=== PATIENT | female | born 1960 | race Caucasian/White ===

== ENCOUNTER 2022-11-14 19:05 | Inpatient (IN) | payer OTHER ==
[2022-11-14] MEDS ORDERED: methylPREDNISolone SOD SUCCI 125 MG/2 ML VIAL IV STA (19:29)
[2022-11-14] MEDS ORDERED: IPRATROPIUM-ALBUTEROL 3 ML NEB INHALATION STA ×2 (19:29→19:30)
--- NOTE | 2022-11-14 19:53 | ED ---
General Adult HPI - General Chief complaint: Shortness of Breath Stated complaint: RODDY,Hyperglycemic Time Seen by Provider: 11/14/22 19:17 Source: patient, EMS, RN notes reviewed, old records reviewed Mode of arrival: EMS Limitations: no limitations - History of Present Illness Initial comments: Patient is a 61-year-old female with significant cardiac past medical history, on blood thinners for prior blood clots, poorly controlled diabetes who presents emergency department for a few days of worsening shortness of breath. Denies cough. Endorses chronic lower extremity edema that does not seem worse from baseline. Endorses mild orthopnea. Denies PND. Please of might be her COPD versus heart failure. States she occasionally gets generalized chest tightness that seems sicker COPD when breathing hard but currently has no chest pain. Denies any nausea, vomiting, abdominal pain, diarrhea. No fevers or chills. No known sick contacts. Denies any hematochezia, melena. Denies any hematemesis. Has no other acute complaints at this time. Presents for shortness of breath. Blood sugars also found to be elevated field. Is not normally on oxygen. - Related Data Home Medications Medication Instructions Recorded Confirmed Albuterol Nebulized [Ventolin 2.5 mg INHALATION RT-Q6H PRN 11/14/22 11/14/22 Nebulized] Albuterol Sulfate [Albuterol 2 puff PO RT-Q4H PRN 11/14/22 11/14/22 Sulfate Hfa] Amitriptyline HCl [Elavil] 25 mg PO HS 11/14/22 11/14/22 Aspirin EC [Ecotrin Low Dose] 81 mg PO DAILY 11/14/22 11/14/22 Atorvastatin Calcium [Lipitor] 80 mg PO HS 11/14/22 11/14/22 Canagliflozin [Invokana] 100 mg PO DAILY 11/14/22 11/14/22 Clopidogrel [Plavix] 75 mg PO DAILY 11/14/22 11/14/22 Escitalopram [Lexapro] 20 mg PO DAILY 11/14/22 11/14/22 Furosemide [Lasix] 40 mg PO DAILY 11/14/22 11/14/22 Insulin Glargine,Hum.rec.anlog 36 units SQ HS 11/14/22 11/14/22 [Lantus Solostar Pen] Insulin Lispro [humaLOG Kwikpen] 4 unit SQ AC-TID 11/14/22 11/14/22 Losartan [Cozaar] 25 mg PO DAILY 11/14/22 11/14/22 Magnesium Oxide [Mag-Ox] 400 mg PO DAILY 11/14/22 11/14/22 Montelukast Sodium 10 mg PO HS 11/14/22 11/14/22 Gardiner-3 Fatty Acids [Gardiner-3] 1,000 mg PO DAILY 11/14/22 11/14/22 Rivaroxaban [Xarelto] 2.5 mg PO BID 11/14/22 11/14/22 metFORMIN HCL ER [Glucophage XR] 500 mg PO BID 11/14/22 11/14/22 Allergies Allergy/AdvReac Type Severity Reaction Status Date / Time cephalexin [From Keflex] Allergy Rash/Hives Verified 11/14/22 21:40 Review of Systems ROS Statement: Those systems with pertinent positive or pertinent negative responses have been documented in the HPI. Review of Systems: CONST: Denies fever EYES: Denies blurry vision ENT: Denies nasal congestion C/V: Denies Chest pain RESP: Endorses dyspnea GI: Denies abdominal pain : Denies dysuria SKIN: Denies rash. MSK: Denies joint pain. NEURO: Denies headache ROS Other: All systems not noted in ROS Statement are negative. 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 Past Psychological History: Anxiety, Depression Smoking Status: Former smoker Past Alcohol Use History: None Reported Past Drug Use History: None Reported General Exam - General Exam Comments Initial Comments: General: Appears in no acute distress. HEAD: Normal with no signs of head trauma. EYES: PERRLA, EOMI, conjunctiva normal, no discharge. ENT: Hearing grossly intact, normal oropharynx. RESPIRATORY: Crackles and bilateral end expiratory wheezing present. Hypoxia present. Mild increased work of breathing. C/V: Regular rate and rhythm. S1 and S2 auscultated, mild bilateral lower extremity edema, peripheral pulses 2+ and intact throughout ABD: Abd is soft, nontender, nondistended EXT: Normal range of motion, no obvious deformity SKIN: No rashes or lesions observed on exposed skin. NEURO: Alert and oriented 4. Limitations: no limitations Course Vital Signs 11/14/22 11/14/22 11/14/22 19:06 19:18 19:40 Temperature 97.6 F Pulse Rate 103 H 103 H Respiratory 20 20 Rate Blood Pressure 111/52 O2 Sat by Pulse 90 L Oximetry 11/14/22 11/14/22 11/14/22 19:59 20:00 20:14 Temperature 99 F Pulse Rate 104 H 95 100 Respiratory 18 16 Rate Blood Pressure 111/52 129/84 O2 Sat by Pulse 99 98 Oximetry 11/14/22 22:00 Temperature Pulse Rate Respiratory Rate Blood Pressure O2 Sat by Pulse 97 Oximetry Medical Decision Making - Medical Decision Making Was pt. sent in by a medical professional or institution ([facility], [employer], urgent care, hospital, or [facility]...) When possible be specific @ -No Did you speak to anyone other than the patient for history (EMS, parent, family, police, friend...)? What history was obtained from this source @ -No Did you review nursing and triage notes (agree or disagree)? Why? @ -I reviewed and agree with nursing and triage notes Were old charts reviewed (outside hosp., previous admission, EMS record, old EKG, old radiological studies, urgent care reports/EKG's, [facility] records)? Report findings @ -Old charts reviewed. Differential Diagnosis (chest pain, altered mental status, abdominal pain women, abdominal pain men, vaginal bleeding, weakness, fever, dyspnea, syncope, headache, dizziness, GI bleed, back pain, seizure, CVA, palpatations, mental health, musculoskeletal)? @ -Differential Dyspnea: Coronary syndrome, arrhythmia, tamponade, asthma, COPD, pulmonary embolism, pneumonia, pneumothorax, pulmonary effusion, anaphylaxis, diabetic ketoacidosis, flailed chest, pulmonary contusion, diaphragmatic rupture, anemia, neuromuscular, this is not meant to be an all-inclusive list. EKG interpreted by me (3pts min.). @ -As above X-rays interpreted by me (1pt min.). @ -Chest x-ray reveals findings concerning for bilateral pulmonary vascular congestion and CHF. CT interpreted by me (1pt min.). @ -None done U/S interpreted by me (1pt. min.). @ -None done What testing was considered but not performed or refused? (CT, X-rays, U/S, labs)? Why? @ -None What meds were considered but not given or refused? Why? @ -None Did you discuss the management of the patient with other professionals (professionals i.e. , PA, IND[employer] TE[employer]ER, lab, RT, psych nurse, social media project manager, headmaster/mistress, teacher, commanding officer traffic division, case finisher)? Give summary @ -Discussed with Dr. olmstead who accepted the admission. Was smoking cessation discussed for >3mins.? @ -No Was critical care preformed (if so, how long)? @ -Yes, 36 minutes. Were there social determinants of health that impacted care today? How? (Homelessness, low income, unemployed, alcoholism, drug addiction, transportation, low edu. Level, literacy, decrease access to med. care, fdc, rehab)? @ -No Was there de-escalation of care discussed even if they declined (Discuss DNR or withdrawal of care, Hospice)? DNR status @ -No What co-morbidities impacted this encounter? (DM, HTN, Smoking, COPD, CAD, C ancer, CVA, ARF, Chemo, Hep., AIDS, mental health diagnosis, sleep apnea, morbid obesity)? @ -CHF, diabetes, hypertension, COPD Was patient admitted / discharged? Hospital course, mention meds given and route, prescriptions, significant lab abnormalities, going to OR and other pertinent info. @ -Based on patient's presentation and physical exam, presents in hypoxic respiratory failure likely either from COPD or CHF exacerbation. Also has poorly controlled diabetes. We will obtain cardiopulmonary laboratory studies. She was placed on 2 L nasal cannula oxygen which seems to resolve her symptoms. Initially more wheezing and therefore was administered breathing treatments for therapy. I signs otherwise within acceptable limits. Patient was in agreement with plan for workup. EKG showed no signs of ischemia. Chest x-ray concerning for CHF. Labs show a hemoglobin of 7.9 of unknown chronicity. No obvious evidence of bleeding on rectal exam. No gross blood on rectal exam. FOB T negative. BNP is 7900. The remainder of the labs within acceptable limits. Acetone is positive the patient does not have an anion gap at this time therefore no concern for DKA. Patiently administered IV insulin. She will be started on IV Lasix. Echo ordered. Discussed this with the patient. She was in agreement with the plan. She'll be admitted at this time for hypoxic respiratory failure likely secondary to CHF exacerbation. I spoke with the admitting physician, Dr. olmstead who accepted the patient. Undiagnosed new problem with uncertain prognosis? @ -No Drug Therapy requiring intensive monitoring for toxicity (Heparin, Nitro, Insulin, Cardizem)? @ -No Were any procedures done? @ -No Diagnosis/symptom? @ -Hypoxic respiratory failure, likely secondary to CHF versus COPD Acute, or Chronic, or Acute on Chronic? @ -Acute Uncomplicated (without systemic symptoms) or Complicated (systemic symptoms)? @ -Complicated Side effects of treatment? @ -No Exacerbation, Progression, or Severe Exacerbation? @ -Yes Poses a threat to life or bodily function? How? (Chest pain, [place], [place], pneumonia, PE, COPD, DKA, ARF, appy, cholecystitis, CVA, Diverticulitis, Homicidal, Suicidal, threat to staff... and all critical care pts) @ -Yes Diagnosis/symptom? @ -Hyperglycemia in the setting of poorly controlled diabetes Acute, or Chronic, or Acute on Chronic? @ -Acute Uncomplicated (without systemic symptoms) or Complicated (systemic symptoms)? @ -Uncomplicated Side effects of treatment? @ -none Exacerbation, Progression, or Severe Exacerbation] @ -no Poses a threat to life or bodily function? @ -Yes Diagnosis/symptom? @ -Anemia Acute, or Chronic, or Acute on Chronic? @ -Unknown Uncomplicated (without systemic symptoms) or Complicated (systemic symptoms)? @ -Uncomplicated Side effects of treatment? @ -none Exacerbation, Progression, or Severe Exacerbation] @ -no Poses a threat to life or bodily function? @ -no - Lab Data Result diagrams: 11/14/22 19:50 11/14/22 19:50 Lab Results 11/14/22 11/14/22 11/14/22 Range/Units 19:50 19:50 19:50 WBC 10.4 (3.8-10.6) k/uL RBC 3.21 L (3.80-5.40) m/uL Hgb 7.9 L (11.4-16.0) gm/dL Hct 25.9 L (34.0-46.0) % MCV 80.7 (80.0-100.0) fL MCH 24.6 L (25.0-35.0) pg MCHC 30.4 L (31.0-37.0) g/dL RDW 19.8 H (11.5-15.5) % Plt Count 236 (150-450) k/uL MPV 8.0 Neutrophils % 90 % Lymphocytes % 5 % Monocytes % 3 % Eosinophils % 1 % Basophils % 0 % Neutrophils # 9.4 H (1.3-7.7) k/uL Lymphocytes # 0.5 L (1.0-4.8) k/uL Monocytes # 0.3 (0-1.0) k/uL Eosinophils # 0.1 (0-0.7) k/uL Basophils # 0.0 (0-0.2) k/uL Hypochromasia Marked Anisocytosis Slight Microcytosis Slight PT (9.0-12.0) sec INR (<1.2) APTT (22.0-30.0) sec Sodium 134 L (137-145) mmol/L Potassium 4.5 (3.5-5.1) mmol/L Chloride 100 (98-107) mmol/L Carbon Dioxide 19 L (22-30) mmol/L Anion Gap 15 mmol/L BUN 41 H (7-17) mg/dL Creatinine 1.09 H (0.52-1.04) mg/dL Est GFR (CKD-EPI)AfAm 64 (>60 ml/min/1.73 sqM) Est GFR (CKD-EPI)NonAf 56 (>60 ml/min/1.73 sqM) Glucose 446 H (74-99) mg/dL Calcium 8.4 (8.4-10.2) mg/dL Magnesium 2.4 H (1.6-2.3) mg/dL Total Bilirubin 0.6 (0.2-1.3) mg/dL AST 31 (14-36) U/L ALT 23 (4-34) U/L Alkaline Phosphatase 92 (38-126) U/L NT-Pro-B Natriuret Pep 7920 pg/mL Total Protein 6.7 (6.3-8.2) g/dL Albumin 3.4 L (3.5-5.0) g/dL Stool Occult Blood (Negative) Acetone, Qual Positive (Negative) Influenza Type A (PCR) Not Detected (Not Detectd) Influenza Type B (PCR) Not Detected (Not Detectd) RSV (PCR) Not Detected (Not Detectd) SARS-CoV-2 (PCR) Not Detected (Not Detectd) 11/14/22 11/14/22 Range/Units 20:21 21:13 WBC (3.8-10.6) k/uL RBC (3.80-5.40) m/uL Hgb (11.4-16.0) gm/dL Hct (34.0-46.0) % MCV (80.0-100.0) fL MCH (25.0-35.0) pg MCHC (31.0-37.0) g/dL RDW (11.5-15.5) % Plt Count (150-450) k/uL MPV Neutrophils % % Lymphocytes % % Monocytes % % Eosinophils % % Basophils % % Neutrophils # (1.3-7.7) k/uL Lymphocytes # (1.0-4.8) k/uL Monocytes # (0-1.0) k/uL Eosinophils # (0-0.7) k/uL Basophils # (0-0.2) k/uL Hypochromasia Anisocytosis Microcytosis PT 10.6 (9.0-12.0) sec INR 1.0 (<1.2) APTT 25.1 (22.0-30.0) sec Sodium (137-145) mmol/L Potassium (3.5-5.1) mmol/L Chloride (98-107) mmol/L Carbon Dioxide (22-30) mmol/L Anion Gap mmol/L BUN (7-17) mg/dL Creatinine (0.52-1.04) mg/dL Est GFR (CKD-EPI)AfAm (>60 ml/min/1.73 sqM) Est GFR (CKD-EPI)NonAf (>60 ml/min/1.73 sqM) Glucose (74-99) mg/dL Calcium (8.4-10.2) mg/dL Magnesium (1.6-2.3) mg/dL Total Bilirubin (0.2-1.3) mg/dL AST (14-36) U/L ALT (4-34) U/L Alkaline Phosphatase (38-126) U/L NT-Pro-B Natriuret Pep pg/mL Total Protein (6.3-8.2) g/dL Albumin (3.5-5.0) g/dL Stool Occult Blood Negative (Negative) Acetone, Qual (Negative) Influenza Type A (PCR) (Not Detectd) Influenza Type B (PCR) (Not Detectd) RSV (PCR) (Not Detectd) SARS-CoV-2 (PCR) (Not Detectd) - EKG Data -: EKG Interpreted by Me EKG Comments: 12-lead Electrocardiogram Interpretation Note EKG was reviewed and interpreted by myself. 12-lead ECG performed at 1919 is interpreted by me as revealing sinus tachycardia at a rate of 104 beats per minute. [place] is normal. MD interval is 167 ms, QRS duration is 92 ms, QTc is 404 ms.. There were no ST or T wave abnormalities to suggest myocardial ischemia or injury. R wave progression across the precordium was satisfactory. By my interpretation this EKG is non-diagnostic for acute ischemia. Critical Care Time Critical Care Time: Yes Total Critical Care Time: 36 Disposition Clinical Impression: Acute respiratory failure with hypoxia, Congestive heart failure, COPD (chronic obstructive pulmonary disease), Anemia, Hyperglycemia Disposition: ADMITTED IP TO THIS HOSP Condition: Stable Is patient prescribed a controlled substance at d/c from ED?: No Referrals: None,Stated [REFERRING] - 1-2 days Time of Disposition: 22:35
[2022-11-14 20:02] LABS: Anisocytosis Slight; Basophils % (A) 0 %; Eosinophils # (A) 0.1 k/uL (0-0.7); Eosinophils % (A) 1 %; HCT 25.9 % (34.0-46.0); HGB 7.9 gm/dL (11.4-16.0); Hypochromasia Marked; Lymphocytes # (A) 0.5 k/uL (1.0-4.8); Lymphocytes % (A) 5 %; MCH 24.6 pg (25.0-35.0); MCHC 30.4 g/dL (31.0-37.0); MCV 80.7 fL (80.0-100.0); Microcytosis Slight; Monocytes # (A) 0.3 k/uL (0-1.0); Monocytes % (A) 3 %; Neutrophils # (A) 9.4 k/uL (1.3-7.7); Neutrophils % (A) 90 %; Platelet Count 236 k/uL (150-450); RBC 3.21 m/uL (3.80-5.40); RDW 19.8 % (11.5-15.5); WBC 10.4 k/uL (3.8-10.6)
[2022-11-14 20:15] LABS: ALT 23 U/L (4-34); AST 31 U/L (14-36); African American GFR (CKD) 64 (>60 ml/min/1.73 sqM); Albumin 3.4 g/dL (3.5-5.0); Alkaline Phosphatase 92 U/L (38-126); Anion Gap 15 mmol/L; Blood Urea Nitrogen 41 mg/dL (7-17); Calcium 8.4 mg/dL (8.4-10.2); Carbon Dioxide 19 mmol/L (22-30); Chloride 100 mmol/L (98-107); Glucose 446 mg/dL (74-99); Magnesium 2.4 mg/dL (1.6-2.3); Non-African American GFR(CKD) 56 (>60 ml/min/1.73 sqM); Potassium 4.5 mmol/L (3.5-5.1); Sodium 134 mmol/L (137-145); Total Bilirubin 0.6 mg/dL (0.2-1.3); Total Protein 6.7 g/dL (6.3-8.2)
[2022-11-14 20:24] LABS: NT-Pro-B-Type Natriuretic Pept 7920 pg/mL
--- NOTE | 2022-11-14 21:02 | XR ---
EXAMINATION TYPE: XR chest 2V DATE OF EXAM: 11/14/2022 8:29 PM CLINICAL INDICATION:Female, 61 years old with history of difficulty breathing; PHH COMPARISON: None TECHNIQUE: XR chest 2V Frontal and lateral views of the chest. FINDINGS: Lungs/Pleura: There is no evidence of pleural effusion, focal consolidation, or pneumothorax. Pulmonary vascularity: Pulmonary vascular congestion. Heart/mediastinum: Cardiomediastinal silhouette is unremarkable. Musculoskeletal: No acute osseous pathology. IMPRESSION: Low lung volumes with a generalized hazy appearance which could represent atelectasis versus pulmonar y edema correlate with serum BNP.
[2022-11-14] MEDS ORDERED: FUROSEMIDE 10 MG/ML 4 ML VIAL IV STA (21:39)
[2022-11-14 22:01] LABS: Partial Thromboplastin Time 25.1 sec (22.0-30.0); Prothrombin Time 10.6 sec (9.0-12.0)
[2022-11-14] MEDS ORDERED: INSULIN DETEMIR (LEVEMIR) 100 UNIT/ML SYR SQ SCH (23:00)
[2022-11-14] MEDS ORDERED: DEXTROSE 50% SYRINGE 50 ML IVP PRN ×2 (23:01)
[2022-11-14] MEDS ORDERED: NALOXONE 0.4 MG/ML 1 ML VIAL IV PRN (23:01)
[2022-11-14 23:41] LABS: Glucose,Whole Blood 514 mg/dL (70-110)
[2022-11-14] MEDS: RIVAROXABAN 2.5 MG TABLET PO SCH (23:43)
[2022-11-15] MEDS: IPRATROPIUM-ALBUTEROL 3 ML NEB INHALATION SCH ×6 (00:08→20:31)
[2022-11-15 02:56] LABS: Glucose,Whole Blood 550 mg/dL (70-110)
[2022-11-15 02:56] LABS: Glucose,Whole Blood 568 mg/dL (70-110)
[2022-11-15] MEDS ORDERED: ACETAMINOPHEN TAB 325 MG TAB PO STA (06:55)
[2022-11-15 07:03] LABS: Anisocytosis Slight; Basophils % (A) 0 %; Eosinophils % (A) 0 %; HCT 26.8 % (34.0-46.0); HGB 7.9 gm/dL (11.4-16.0); Hypochromasia Marked; Lymphocytes # (A) 0.4 k/uL (1.0-4.8); Lymphocytes % (A) 4 %; MCH 24.9 pg (25.0-35.0); MCHC 29.6 g/dL (31.0-37.0); MCV 84.2 fL (80.0-100.0); Mean Platelet Volume 9.5; Monocytes # (A) 0.1 k/uL (0-1.0); Monocytes % (A) 1 %; Neutrophils # (A) 9.4 k/uL (1.3-7.7); Neutrophils % (A) 94 %; Platelet Count 258 k/uL (150-450); RBC 3.19 m/uL (3.80-5.40); RDW 19.5 % (11.5-15.5)
[2022-11-15 07:14] LABS: African American GFR (CKD) 55 (>60 ml/min/1.73 sqM); Anion Gap 19 mmol/L; Blood Urea Nitrogen 41 mg/dL (7-17); Calcium 8.8 mg/dL (8.4-10.2); Carbon Dioxide 18 mmol/L (22-30); Chloride 97 mmol/L (98-107); Non-African American GFR(CKD) 47 (>60 ml/min/1.73 sqM); Sodium 134 mmol/L (137-145)
[2022-11-15 07:20] LABS: Glucose 605 mg/dL (74-99)
[2022-11-15] MEDS ORDERED: INSULIN ASPART (NovoLOG) 100 UNIT/ML VIAL SQ SCH (07:30)
[2022-11-15] MEDS ORDERED: LOSARTAN 25 MG TAB PO SCH (09:00)
[2022-11-15] MEDS ORDERED: metFORMIN 500 MG TAB PO SCH (09:00)
[2022-11-15] MEDS ORDERED: Potassium Replacement Protocol 1 EACH MISC MISCELLANE PRN (09:17)
[2022-11-15] MEDS ORDERED: INSULIN REGULAR BOLUS (FROM DRIP BAG) IV ONE (09:17)
[2022-11-15] MEDS ORDERED: Magnesium Replacement Protocol 1 EACH MISC MISCELLANE PRN (09:17)
[2022-11-15] MEDS ORDERED: ALBUTEROL NEBULIZED 2.5 MG/3 ML INHALATION PRN ×2 (09:19)
[2022-11-15] MEDS ORDERED: INSULIN REGULAR 100 UNIT in SODIUM CHLORIDE 0.9% 100 ML IV SCH (09:30)
[2022-11-15] MEDS ORDERED: SODIUM CHLORIDE 0.9% 1,000 ML IV SCH (09:30)
--- NOTE | 2022-11-15 09:52 | CA ---
Transthoracic Echo Report Name: Latrice Marin Age: 61 Gender: F : 1960 Exam Date: 11/15/2022 08:29 Exam Location: [place] [facility] Ht (in): 66 Wt (lb): 277 Ordering Physician: Oren Jones MD Attending/Referring Phys: Malariologist Lisa Lemon [facility] Procedure CPT: Indications: chf Cardiac Hx: Technical Quality: Technically difficult study Contrast 1: Lumason Total Dose (mL): 5 Contrast 2: Total Dose (mL): MEASUREMENTS (Male / Female) Normal Values 2D ECHO LV Diastolic Diameter PLAX 4.9 cm 4.2 - 5.9 / 3.9 - 5.3 cm LV Systolic Diameter PLAX 4.0 cm IVS Diastolic Thickness 1.1 cm 0.6 - 1.0 / 0.6 - 0.9 cm LVPW Diastolic Thickness 1.0 cm 0.6 - 1.0 / 0.6 - 0.9 cm LV Relative Wall Thickness 0.4 LVOT Diameter 2.0 cm LV Diastolic Volume MOD BP 157.4 cm??? 67 - 155 / 56 - 104 cm??? LV Systolic Volume MOD BP 114.0 cm??? 22 - 58 / 19 - 49 cm??? LV Ejection Fraction MOD BP 27.6 % >= 55 % LV Cardiac Index MOD BP 1764.5 cm???/min???m??? LV Diastolic Volume MOD 4C 142.1 cm??? LV Systolic Volume MOD 4C 101.6 cm??? LV Ejection Fraction MOD 4C 28.5 % LV Cardiac Index MOD 4C 1645.5 cm???/min???m??? LV Diastolic Length 4C 9.1 cm LV Systolic Length 4C 8.1 cm LV Diastolic Volume MOD 2C 169.8 cm??? LV Systolic Volume MOD 2C 124.2 cm??? LV Ejection Fraction MOD 2C 26.9 % LV Cardiac Index MOD 2C 1854.9 cm???/min???m??? LV Diastolic Length 2C 8.7 cm LV Systolic Length 2C 8.4 cm M-MODE Aortic Root Diameter MM 2.9 cm LA Systolic Diameter MM 4.5 cm LA Ao Ratio MM 1.6 AV Cusp Separation MM 1.5 cm DOPPLER AV Peak Velocity 239.9 cm/s AV Peak Gradient 23.0 mmHg AV Mean Velocity 180.6 cm/s AV Mean Gradient 14.3 mmHg AV Velocity Time Integral 46.5 cm LVOT Peak Velocity 138.0 cm/s LVOT Peak Gradient 7.6 mmHg LVOT Velocity Time Integral 25.6 cm LVOT Stroke Volume 83.6 cm??? LVOT Stroke Volume Index 36.4 ml/m??? LVOT Cardiac Index 3393.9 cm???/min???m??? AV Area Cont Eq vti 1.8 cm??? AV Area Cont Eq pk 1.9 cm??? MV Peak Velocity 151.4 cm/s MV Peak Gradient 9.2 mmHg MV Mean Velocity 107.1 cm/s MV Mean Gradient 5.1 mmHg MV Velocity Time Integral 25.6 cm MR Peak Velocity 506.5 cm/s MR Peak Gradient 102.6 mmHg Mitral E Point Velocity 114.2 cm/s Mitral A Point Velocity 127.6 cm/s Mitral E to A Ratio 0.9 MV Deceleration Time 93.4 ms LV E' Lateral Velocity 5.8 cm/s Mitral E to LV E' Lateral Ratio 19.7 LV E' Septal Velocity 7.0 cm/s Mitral E to LV E' Septal Ratio 16.3 Right Atrial Pressure 15.0 mmHg FINDINGS Left Ventricle Mildly increased left ventricular wall thickness. Severely increased left ventricular diastolic volume. Severely increased left ventricular systolic volume. Severely decreased left ventricular ejection fraction. Left ventricular ejection fraction is estimated at 35 %. Hypokinetic mid anterior wall. [place] hypokinetic. Hypokinetic distal apical anterior wall. Right Ventricle Mild right ventricular dilatation. Right Atrium Normal right atrial size. Left Atrium Mild left atrial dilatation. Mitral Valve Structurally normal mitral valve. Mitral valve thickened. Moderate mitral regurgitation. Aortic Valve Aortic valve not well visualized. Diffuse thickening of the aortic valve cusps with reduced excursion. Mild aortic stenosis with a peak gradient of 23 mmHg and a mean gradient of 14 mmHg. No aortic regurgitation. Tricuspid Valve Structurally normal tricuspid valve. No tricuspid regurgitation. Pulmonic Valve Pulmonic valve not well visualized. Pericardium No pericardial effusion. Aorta Aortic root and proximal ascending aorta not well visualized. CONCLUSIONS Left ventricle is enlarged with evidence of hypokinesia of interventricular septum and anterior wall and apex with ejection fraction of about 35%. Mild right ventricular dilatation. Increased velocity across aortic valve with possible mild aortic stenosis. Moderate mitral regurgitation and mild tricuspid regurgitation. No pericardial effusion Previewed by: Dr. Daniel Mackay MD (Electronically Signed) Final Date: 15 November 2022 09:51
[2022-11-15 10:13] LABS: VBG PH 7.42 (7.31-7.41)
[2022-11-15 10:26] LABS: Glucose,Whole Blood 505 mg/dL (70-110)
[2022-11-15] MEDS: FAMOTIDINE 20 MG TAB PO SCH (10:31)
[2022-11-15] MEDS: ASPIRIN 81 MG PO SCH (10:31)
[2022-11-15] MEDS: CLOPIDOGREL 75 MG TAB PO SCH (10:31)
[2022-11-15] MEDS: RIVAROXABAN 2.5 MG TABLET PO SCH (10:32)
[2022-11-15] MEDS: FUROSEMIDE 10 MG/ML 4 ML VIAL IV SCH ×2 (10:57→21:52)
[2022-11-15 11:19] LABS: Glucose,Whole Blood 423 mg/dL (70-110)
[2022-11-15] MEDS: ACETAMINOPHEN TAB 325 MG TAB PO PRN (12:04)
[2022-11-15 12:11] LABS: Glucose,Whole Blood 351 mg/dL (70-110)
[2022-11-15] MEDS ORDERED: HEPARIN SOD,PORK IN 0.45% NACL 25,000 UNIT in 0.45% NACL 1 250ML.BAG IV SCH (13:00)
[2022-11-15] MEDS ORDERED: HEPARIN SODIUM 1,000 UN/ML (10ML VL) IV ONE (13:00)
--- NOTE | 2022-11-15 13:03 | P.CRDCN ---
History of Present Illness Consult date: 11/15/22 Consult reason: congestive heart failure History of present illness: History of present illness: This is This is a 61-year-old female with past medical history of coronary artery disease with previous stenting, peripheral vascular disease with p eripheral stents and bypass, diabetes mellitus type 2 insulin requiring, COPD. We have been asked to evaluate the patient for heart failure. Patient follows with lbd teacher, Dr. Clancy, in [place]. She recently moved to [facility]. She states she has had difficulty breathing for the past 1-1/2 days and tightness across her chest. EKG sinus tachycardia with no acute changes. Chest x-ray: Low lung volumes with generalized hazy appearance which could represent atelectasis versus pulmonary edema. WBC 10, hemoglobin 7.9, platelet count 258. D-dimer 0.45. Sodium 134, potassium 5, chloride 97, CO2 18, BUN 41 creatinine 1.25. Blood sugar 605. Acetone positive. Troponin 1.72. ProBNP 7920. Influenza A, influenza B, RSV, Covid not detected. Echocardiogram reveals EF of 35%. Mild right ventricular dilation. Increased velocity across aortic valve with possible mild aortic stenosis. Moderate mitral regurgitation and mild tricuspid regurgitation. Home cardiac medications: Aspirin 81 mg daily, atorvastatin 80 mg at bedtime, Plavix 75 mg daily, Lasix 40 mg daily, losartan 25 mg daily, magnesium oxide 400 mg daily, Xarelto 2.5 mg twice daily. Review Of Systems: At the time of my evaluation: Constitutional: No fever, no chills. No weakness, fatigue or lethargy. EENT: No headache. No dizziness. Lungs: + shortness of breath, cough, no sputum production. No wheezing. + TEE. Cardiovascular: + chest pain, no lower extremity edema. No palpitations. No paroxysmal nocturnal dyspnea. No orthopnea. No lightheadedness or dizziness. No syncopal episodes. Abdominal: No abdominal pain. No nausea, vomiting. No diarrhea. No constipation. No bloody or tarry stools. Musculoskeletal: No myalgias. No muscle weakness, no frequent falls. Integumentary: No wounds. No rash. No unusual bruising. Neurologic: No aphasia. No facial droop. No change in mentation. Physical examination: Gen: This is a morbidly obese female. She is resting on ER stretch and appears to be comfortable at rest. No acute respiratory distress noted. VS: reviewed HEENT: Head is atraumatic, normocephalic. Pupils equal, round. Sclerae is anicteric. NECK: Supple. No JVD. . LUNGS: Diminished. No wheezes or rhonchi. No intercostal retractions. HEART: Regular rate and rhythm. Systolic murmur. ABDOMEN: Soft No tenderness. EXTREMITIES: No pedal edema. No calf tenderness. NEUROLOGICAL: Patient is awake, alert and oriented x3. Assessment: Acute systolic heart failure Non-ST elevated myocardial infarction Diabetic ketoacidosis History of coronary artery disease with prior stenting Peripheral vascular disease with prior stenting and bypass Diabetes mellitus type 2 uncontrolled COPD Plan: Continue patient on home cardiac medications Start patient on heparin drip and hold Xarelto Continue Lasix 40 mg IV push every 12 hours Monitor I&O, daily weights, electrolytes and renal function Obtain 2-D echocardiogram and Doppler study to assess cardiac structure and function Obtain records from [facility] Further recommendations to follow based upon clinical course Thank you kindly for this consultation. Nurse practitioner note has been reviewed, I agree with documented findings and plan of care. Patient was seen and examined. Past Medical History Past Medical History: Heart Failure, COPD, Diabetes Mellitus, Myocardial Infarction ([place]) History of Any Multi-Drug Resistant Organisms: None Reported Past Surgical History: Heart Catheterization With Stent Additional Past Surgical History / Comment(s): Bipass,l great toe amputation Right 4th and 5th toe. Past Psychological History: Anxiety, Depression Smoking Status: Former smoker Past Alcohol Use History: None Reported Past Drug Use History: None Reported Medications and Allergies Home Medications Medication Instructions Recorded Confirmed Type Albuterol Nebulized [Ventolin 2.5 mg INHALATION RT-Q6H PRN 11/14/22 11/14/22 History Nebulized] Albuterol Sulfate [Albuterol 2 puff PO RT-Q4H PRN 11/14/22 11/14/22 History Sulfate Hfa] Amitriptyline HCl [Elavil] 25 mg PO HS 11/14/22 11/14/22 History Aspirin EC [Ecotrin Low Dose] 81 mg PO DAILY 11/14/22 11/14/22 History Atorvastatin Calcium [Lipitor] 80 mg PO HS 11/14/22 11/14/22 History Canagliflozin [Invokana] 100 mg PO DAILY 11/14/22 11/14/22 History Clopidogrel [Plavix] 75 mg PO DAILY 11/14/22 11/14/22 History Escitalopram [Lexapro] 20 mg PO DAILY 11/14/22 11/14/22 History Furosemide [Lasix] 40 mg PO DAILY 11/14/22 11/14/22 History Insulin Glargine,Hum.rec.anlog 36 units SQ HS 11/14/22 11/14/22 History [Lantus Solostar Pen] Insulin Lispro [humaLOG Kwikpen] 4 unit SQ AC-TID 11/14/22 11/14/22 History Losartan [Cozaar] 25 mg PO DAILY 11/14/22 11/14/22 History Magnesium Oxide [Mag-Ox] 400 mg PO DAILY 11/14/22 11/14/22 History Montelukast Sodium 10 mg PO HS 11/14/22 11/14/22 History [place]-3 Fatty Acids [[place]-3] 1,000 mg PO DAILY 11/14/22 11/14/22 History Rivaroxaban [Xarelto] 2.5 mg PO BID 11/14/22 11/14/22 History metFORMIN HCL ER [Glucophage XR] 500 mg PO BID 11/14/22 11/14/22 History Allergies Allergy/AdvReac Type Severity Reaction Status Date / Time cephalexin [From Keflex] Allergy Rash/Hives Verified 11/14/22 21:40 Physical Exam Vitals: Vital Signs Temp Pulse Resp BP Pulse Ox 11/15/22 07:26 97.4 F L 105 H 22 106/67 95 11/15/22 06:54 100 11/15/22 06:35 101 H 11/15/22 06:30 101 H 21 125/71 92 L 11/15/22 06:00 105 H 20 92 L 11/15/22 05:30 124 H 32 H 94 L 11/15/22 03:47 96 11/15/22 03:35 92 11/15/22 03:00 93 16 129/74 98 11/15/22 02:30 88 16 129/74 96 11/15/22 01:30 92 18 126/77 95 11/15/22 00:30 95 12 120/74 96 11/15/22 00:23 94 11/15/22 00:08 91 11/14/22 23:30 96 21 129/79 96 11/14/22 23:00 100 18 121/78 98 11/14/22 22:00 97 11/14/22 20:14 99 F 100 16 129/84 98 11/14/22 20:00 95 18 111/52 99 11/14/22 19:59 104 H 11/14/22 19:40 103 H 11/14/22 19:18 20 11/14/22 19:06 97.6 F 103 H 20 111/52 90 L Intake and Output 11/14/22 11/15/22 11/15/22 22:59 06:59 14:59 Other: Weight 125.645 kg Results 11/15/22 05:35 11/15/22 05:35 Cardiac Enzymes 11/14/22 Range/Units 19:50 AST 31 (14-36) U/L Coagulation 11/14/22 Range/Units 20:21 PT 10.6 (9.0-12.0) sec APTT 25.1 (22.0-30.0) sec CBC 11/14/22 11/15/22 Range/Units 19:50 05:35 WBC 10.4 10.0 (3.8-10.6) k/uL RBC 3.21 L 3.19 L (3.80-5.40) m/uL Hgb 7.9 L 7.9 L (11.4-16.0) gm/dL Hct 25.9 L 26.8 L (34.0-46.0) % Plt Count 236 258 (150-450) k/uL Comprehensive Metabolic Panel 11/14/22 11/15/22 Range/Units 19:50 05:35 Sodium 134 L 134 L (137-145) mmol/L Potassium 4.5 5.0 (3.5-5.1) mmol/L Chloride 100 97 L (98-107) mmol/L Carbon Dioxide 19 L 18 L (22-30) mmol/L BUN 41 H 41 H (7-17) mg/dL Creatinine 1.09 H 1.24 H (0.52-1.04) mg/dL Glucose 446 H 605 H* (74-99) mg/dL Calcium 8.4 8.8 (8.4-10.2) mg/dL AST 31 (14-36) U/L ALT 23 (4-34) U/L Alkaline Phosphatase 92 (38-126) U/L Total Protein 6.7 (6.3-8.2) g/dL Albumin 3.4 L (3.5-5.0) g/dL Current Medications Generic Name Dose Route Start Last Admin Trade Name Freq PRN Reason Stop Dose Admin Acetaminophen 325 mg 11/15/22 06:55 Acetaminophen Tab 325 Mg Tab PO Q6HR PRN Fever and/ or Mild Pain Albuterol/Ipratropium 3 ml 11/15/22 00:00 11/15/22 06:35 Ipratropium-Albuterol 3 Ml Neb INHALATION 3 ml RT-Q4H [facility] Administration Amitriptyline HCl 25 mg 11/15/22 21:00 Amitriptyline Hcl 25 Mg Tab PO HS [facility] Aspirin 81 mg 11/15/22 09:00 Aspirin 81 Mg PO DAILY [facility] Atorvastatin Calcium 80 mg 11/15/22 21:00 Atorvastatin 80 Mg Tab PO HS [facility] Clopidogrel Bisulfate 75 mg 11/15/22 09:00 Clopidogrel 75 Mg Tab PO DAILY [facility] Dextrose/Water 25 ml 11/14/22 23:01 Dextrose 50% Syringe 50 Ml IVP PER PROTOCOL PRN Hypoglycemia Protocol Dextrose/Water 50 ml 11/14/22 23:01 Dextrose 50% Syringe 50 Ml IVP PER PROTOCOL PRN Hypoglycemia Protocol Furosemide 40 mg 11/15/22 09:00 Furosemide 10 Mg/Ml 4 Ml Vial IV Q12HR [facility] Insulin Aspart 0 unit 11/15/22 07:30 11/15/22 05:43 Insulin Aspart (Novolog) 100 Unit/Ml Vial SQ 12 unit AC-TID [facility] Administration Protocol Insulin Detemir 40 unit 11/15/22 21:00 Insulin Detemir (Levemir) 100 Unit/Ml Syr SQ HS [facility] Losartan Potassium 25 mg 11/15/22 09:00 Losartan 25 Mg Tab PO DAILY [facility] Metformin HCl 500 mg 11/15/22 09:00 Metformin 500 Mg Tab PO BID [facility] Naloxone HCl 0.2 mg 11/14/22 23:01 Naloxone 0.4 Mg/Ml 1 Ml Vial IV Q2M PRN Opioid Reversal Rivaroxaban 2.5 mg 11/14/22 23:00 11/14/22 23:43 Rivaroxaban 2.5 Mg Tablet PO 2.5 mg BID [facility] Administration Protocol Intake and Output 11/14/22 11/15/22 11/15/22 22:59 06:59 14:59 Other: Weight 125.645 kg 11/15/22 05:35 11/15/22 05:35
[2022-11-15 13:06] LABS: African American GFR (CKD) 63 (>60 ml/min/1.73 sqM); Anion Gap 14 mmol/L; Blood Urea Nitrogen 48 mg/dL (7-17); Carbon Dioxide 21 mmol/L (22-30); Chloride 101 mmol/L (98-107); Glucose 254 mg/dL (74-99); Non-African American GFR(CKD) 54 (>60 ml/min/1.73 sqM); Potassium 4.6 mmol/L (3.5-5.1); Sodium 136 mmol/L (137-145)
[2022-11-15 13:20] LABS: Glucose,Whole Blood 266 mg/dL (70-110)
[2022-11-15 14:12] LABS: Glucose,Whole Blood 228 mg/dL (70-110)
[2022-11-15 15:07] LABS: Glucose,Whole Blood 161 mg/dL (70-110)
--- NOTE | 2022-11-15 15:21 | P.HPIM ---
History of Present Illness H&P Date: 11/15/22 This is a 61 year old female with medical history of COPD, heart failure, diabetes mellitus, myocardial infarction with prior cardiac stenting, peripheral vascular disease with bypass and stenting, lymphedema and psoriasis. Patient comes in to the hospital with 2 day history of shortness of breath and reports chest tightness and difficulty taking a deep breath. 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 Patient recently traveled to the with her drove up on Saturday went to a visitation and drove home. Patient came in to the hospital for evaluation and was found to have elevated proBNP of 7000 with concern for fluid overload. Blood glucose is also in the 500-600s on admission and patient is found to have acetone positive consistent with diabetic ketoacidosis. Patient states she did not take any insulin for 2 days while she was driving she states she didn't bring it with her. She is usually insulin dependent. Patient was admitted to the hospital for shortness of breath and hyperglycemia. cardiology was consulted as patient felt the shortness of breath and chest tightness was similar to what she had experienced with her prior heart attack. Denies any fever or chills, No cough. No nausea vomiting or diarrhea. Echocardiogram has been ordered and patient has been started on IV lasix. REVIEW OF SYSTEMS: CONSTITUTIONAL: No fever, no malaise, no fatigue. HEENT: No recent visual problems or hearing problems. Denied any sore throat. CARDIOVASCULAR: Reports chest tightness, orthopnea, PND, no palpitations, no syncope. PULMONARY: Reports shortness of breath no cough, no hemoptysis. GASTROINTESTINAL: No diarrhea, no nausea, no vomiting, no abdominal pain. NEUROLOGICAL: No headaches, no weakness, no numbness. HEMATOLOGICAL: Denies any bleeding or petechiae. GENITOURINARY: Denies any burning micturition, frequency, or urgency. MUSCULOSKELETAL/RHEUMATOLOGICAL: Reports lower extremity edema ENDOCRINE: Denies any polyuria or polydipsia. The rest of the 14-point review of systems is negative. PHYSICAL EXAMINATION: GENERAL: The patient is alert and oriented x3, not in any acute distress. Well developed, well nourished. Winded. On 3 L of oxygen. HEENT: Pupils are round and equally reacting to light. EOMI. No scleral icterus. No conjunctival pallor. Normocephalic, atraumatic. No pharyngeal erythema. No thyromegaly. CARDIOVASCULAR: S1 and S2 present. No murmurs, rubs, or gallops. PULMONARY: Chest is clear to auscultation, no wheezing or crackles. ABDOMEN: Soft, nontender, nondistended, normoactive bowel sounds. No palpable organomegaly. MUSCULOSKELETAL: No joint swelling or deformity. EXTREMITIES: No cyanosis, clubbing, mild LE edema. NEUROLOGICAL: Gross neurological examination did not reveal any focal deficits. SKIN: Multiple psoriatic plaques on bilateral lower extremities and left upper extremity. Assessment Shortness of breath and acute hypoxemic respiratory failure requiring 4L of oxygen Acute CHF excerbation, systolic dysfunction with EF of 35%. Acute kidney injury due to volume overload Troponin elevation likely due to non ST elevation OK patient is on heparin gtt Diabetic ketoacidosis due to not taking insulin Insulin dependent diabetes mellitus type 2, uncontrolled hemoglobin A1C 8.5. Hx of DVT/PE anticoagulated on low dose xarelto/plavix. Hx of COPD Hx peripheral vascular disease with prior vascular stenting Hx coronary artery disease and prior cardiac stenting Lymphedema Psoriasis Obesity GI prophylaxis DVT prophylaxis Full Code Plan Patient has been started on insulin gtt, cannot give IV fluids per the protocol due to the volume overload, monitor blood glucose and repeat labs Q4h once anion gap has closed patient will be taken off the insulin gtt and transitioned back to her home dose of insulin with sliding scale and scheduled insulin and levemir at HS. Cardiology consultation, echocardiogram ordered, trend troponin Cardiology reports requested from [facility]. Hold losartan and metformin Repeat labs in AM PT/OT consultation The impression and plan of care has been dictated by Marla Lux, Nurse Practitioner as directed. Dr. Dalia MD I have performed a history and physical examination and medical decision making of this patient, discussed the same with the dictator, and agree with the dictators assessment and plan as written, documented as a scribe. Based on total visit time, I have performed more than 50% of this visit. Past Medical History Past Medical History: Heart Failure, COPD, Diabetes Mellitus, Myocardial Infarction ([place]) History of Any Multi-Drug Resistant Organisms: None Reported Past Surgical History: Heart Catheterization With Stent Additional Past Surgical History / Comment(s): Bipass,l great toe amputation Right 4th and 5th toe. Past Psychological History: Anxiety, Depression Smoking Status: Former smoker Past Alcohol Use History: None Reported Past Drug Use History: None Reported Medications and Allergies Home Medications Medication Instructions Recorded Confirmed Type Albuterol Nebulized [Ventolin 2.5 mg INHALATION RT-Q6H PRN 11/14/22 11/14/22 History Nebulized] Albuterol Sulfate [Albuterol 2 puff PO RT-Q4H PRN 11/14/22 11/14/22 History Sulfate Hfa] Amitriptyline HCl [Elavil] 25 mg PO HS 11/14/22 11/14/22 History Aspirin EC [Ecotrin Low Dose] 81 mg PO DAILY 11/14/22 11/14/22 History Atorvastatin Calcium [Lipitor] 80 mg PO HS 11/14/22 11/14/22 History Canagliflozin [Invokana] 100 mg PO DAILY 11/14/22 11/14/22 History Clopidogrel [Plavix] 75 mg PO DAILY 11/14/22 11/14/22 History Escitalopram [Lexapro] 20 mg PO DAILY 11/14/22 11/14/22 History Furosemide [Lasix] 40 mg PO DAILY 11/14/22 11/14/22 History Insulin Glargine,Hum.rec.anlog 36 units SQ HS 11/14/22 11/14/22 History [Lantus Solostar Pen] Insulin Lispro [humaLOG Kwikpen] 4 unit SQ AC-TID 11/14/22 11/14/22 History Losartan [Cozaar] 25 mg PO DAILY 11/14/22 11/14/22 History Magnesium Oxide [Mag-Ox] 400 mg PO DAILY 11/14/22 11/14/22 History Montelukast Sodium 10 mg PO HS 11/14/22 11/14/22 History [place]-3 Fatty Acids [[place]-3] 1,000 mg PO DAILY 11/14/22 11/14/22 History Rivaroxaban [Xarelto] 2.5 mg PO BID 11/14/22 11/14/22 History metFORMIN HCL ER [Glucophage XR] 500 mg PO BID 11/14/22 11/14/22 History Allergies Allergy/AdvReac Type Severity Reaction Status Date / Time cephalexin [From Keflex] Allergy Rash/Hives Verified 11/14/22 21:40 Physical Exam Vitals: Vital Signs Temp Pulse Resp BP Pulse Ox 11/15/22 07:26 97.4 F L 105 H 22 106/67 95 11/15/22 06:54 100 11/15/22 06:35 101 H 11/15/22 06:30 101 H 21 125/71 92 L 11/15/22 06:00 105 H 20 92 L 11/15/22 05:30 124 H 32 H 94 L 11/15/22 03:47 96 11/15/22 03:35 92 11/15/22 03:00 93 16 129/74 98 11/15/22 02:30 88 16 129/74 96 11/15/22 01:30 92 18 126/77 95 11/15/22 00:30 95 12 120/74 96 11/15/22 00:23 94 11/15/22 00:08 91 11/14/22 23:30 96 21 129/79 96 11/14/22 23:00 100 18 121/78 98 11/14/22 22:00 97 11/14/22 20:14 99 F 100 16 129/84 98 11/14/22 20:00 95 18 111/52 99 11/14/22 19:59 104 H 11/14/22 19:40 103 H 11/14/22 19:18 20 11/14/22 19:06 97.6 F 103 H 20 111/52 90 L Intake and Output 11/14/22 11/15/22 11/15/22 22:59 06:59 14:59 Other: Weight 125.645 kg Results CBC & Chem 7: 11/15/22 05:35 11/15/22 12:32 Labs: Abnormal Lab Results - Last 24 Hours (Table) 11/14/22 11/14/22 11/14/22 Range/Units 19:50 19:50 23:39 RBC 3.21 L (3.80-5.40) m/uL Hgb 7.9 L (11.4-16.0) gm/dL Hct 25.9 L (34.0-46.0) % MCH 24.6 L (25.0-35.0) pg MCHC 30.4 L (31.0-37.0) g/dL RDW 19.8 H (11.5-15.5) % Neutrophils # 9.4 H (1.3-7.7) k/uL Lymphocytes # 0.5 L (1.0-4.8) k/uL Sodium 134 L (137-145) mmol/L Chloride (98-107) mmol/L Carbon Dioxide 19 L (22-30) mmol/L BUN 41 H (7-17) mg/dL Creatinine 1.09 H (0.52-1.04) mg/dL Glucose 446 H (74-99) mg/dL POC Glucose (mg/dL) 514 H (70-110) mg/dL Magnesium 2.4 H (1.6-2.3) mg/dL Albumin 3.4 L (3.5-5.0) g/dL 11/15/22 11/15/22 11/15/22 Range/Units 02:53 02:54 05:35 RBC 3.19 L (3.80-5.40) m/uL Hgb 7.9 L (11.4-16.0) gm/dL Hct 26.8 L (34.0-46.0) % MCH 24.9 L (25.0-35.0) pg MCHC 29.6 L (31.0-37.0) g/dL RDW 19.5 H (11.5-15.5) % Neutrophils # 9.4 H (1.3-7.7) k/uL Lymphocytes # 0.4 L (1.0-4.8) k/uL Sodium (137-145) mmol/L Chloride (98-107) mmol/L Carbon Dioxide (22-30) mmol/L BUN (7-17) mg/dL Creatinine (0.52-1.04) mg/dL Glucose (74-99) mg/dL POC Glucose (mg/dL) 550 H 568 H (70-110) mg/dL Magnesium (1.6-2.3) mg/dL Albumin (3.5-5.0) g/dL 11/15/22 Range/Units 05:35 RBC (3.80-5.40) m/uL Hgb (11.4-16.0) gm/dL Hct (34.0-46.0) % MCH (25.0-35.0) pg MCHC (31.0-37.0) g/dL RDW (11.5-15.5) % Neutrophils # (1.3-7.7) k/uL Lymphocytes # (1.0-4.8) k/uL Sodium 134 L (137-145) mmol/L Chloride 97 L (98-107) mmol/L Carbon Dioxide 18 L (22-30) mmol/L BUN 41 H (7-17) mg/dL Creatinine 1.24 H (0.52-1.04) mg/dL Glucose 605 H* (74-99) mg/dL POC Glucose (mg/dL) (70-110) mg/dL Magnesium (1.6-2.3) mg/dL Albumin (3.5-5.0) g/dL Assessment and Plan Time with Patient: Greater than 30
[2022-11-15 16:13] LABS: Glucose,Whole Blood 113 mg/dL (70-110)
[2022-11-15 17:00] LABS: African American GFR (CKD) 58 (>60 ml/min/1.73 sqM); Anion Gap 12 mmol/L; Blood Urea Nitrogen 45 mg/dL (7-17); Carbon Dioxide 22 mmol/L (22-30); Chloride 103 mmol/L (98-107); Glucose 94 mg/dL (74-99); Non-African American GFR(CKD) 50 (>60 ml/min/1.73 sqM); Phosphorus 3.5 mg/dL (2.5-4.5); Potassium 3.9 mmol/L (3.5-5.1); Sodium 137 mmol/L (137-145)
[2022-11-15 17:06] LABS: Glucose,Whole Blood 108 mg/dL (70-110)
[2022-11-15] MEDS ORDERED: INSULIN DETEMIR (LEVEMIR) 100 UNIT/ML SYR SQ SCH ×2 (21:00)
[2022-11-15] MEDS: AMITRIPTYLINE HCL 25 MG TAB PO SCH (21:50)
[2022-11-15] MEDS: ATORVASTATIN 80 MG TAB PO SCH (21:51)
[2022-11-15] MEDS: MONTELUKAST 10 MG TAB PO SCH (21:51)
[2022-11-16] MEDS: HEPARIN SODIUM 1,000 UN/ML (10ML VL) IV PRN ×2 (02:20→08:59)
[2022-11-16 07:46] LABS: Anisocytosis Slight; Basophils % (A) 0 %; Eosinophils # (A) 0.1 k/uL (0-0.7); Eosinophils % (A) 1 %; HCT 25.1 % (34.0-46.0); HGB 7.5 gm/dL (11.4-16.0); Hypochromasia Marked; Lymphocytes # (A) 1.9 k/uL (1.0-4.8); Lymphocytes % (A) 12 %; MCH 24.1 pg (25.0-35.0); MCHC 29.8 g/dL (31.0-37.0); MCV 80.8 fL (80.0-100.0); Mean Platelet Volume 8.1; Microcytosis Slight; Monocytes # (A) 0.6 k/uL (0-1.0); Monocytes % (A) 4 %; Neutrophils # (A) 12.9 k/uL (1.3-7.7); Neutrophils % (A) 82 %; Platelet Count 269 k/uL (150-450); RDW 19.7 % (11.5-15.5); WBC 15.6 k/uL (3.8-10.6)
[2022-11-16 08:01] LABS: African American GFR (CKD) 51 (>60 ml/min/1.73 sqM); Anion Gap 10 mmol/L; Blood Urea Nitrogen 59 mg/dL (7-17); Calcium 8.6 mg/dL (8.4-10.2); Carbon Dioxide 23 mmol/L (22-30); Chloride 102 mmol/L (98-107); Glucose 269 mg/dL (74-99); Non-African American GFR(CKD) 44 (>60 ml/min/1.73 sqM); Potassium 4.5 mmol/L (3.5-5.1); Sodium 135 mmol/L (137-145)
[2022-11-16 08:03] LABS: Prothrombin Time 10.7 sec (9.0-12.0)
[2022-11-16] MEDS: FAMOTIDINE 20 MG TAB PO SCH (08:46)
[2022-11-16] MEDS: MAGNESIUM OXIDE 400 MG TAB PO SCH (08:46)
[2022-11-16] MEDS: CLOPIDOGREL 75 MG TAB PO SCH (08:46)
[2022-11-16] MEDS: ESCITALOPRAM 20 MG TAB PO SCH (08:46)
[2022-11-16] MEDS: FUROSEMIDE 10 MG/ML 4 ML VIAL IV SCH (08:46)
[2022-11-16] MEDS: ASPIRIN 81 MG PO SCH (08:46)
[2022-11-16] MEDS: IPRATROPIUM-ALBUTEROL 3 ML NEB INHALATION SCH ×4 (08:51→21:30)
[2022-11-16] MEDS: ACETAMINOPHEN TAB 325 MG TAB PO PRN ×2 (08:58→17:22)
[2022-11-16] MEDS ORDERED: NON FORMULARY DRUG (Omega-3 Fatty Acids [Omega-3] 1,000 MG Capsule) PO SCH (09:00)
[2022-11-16] MEDS: INSULIN ASPART (NovoLOG) 100 UNIT/ML VIAL SQ SCH ×6 (09:21→22:28)
[2022-11-16 11:04] LABS: Amorphous Sediment,Urine Rare /hpf; Appearance,Urine Cloudy (Clear); Bacteria,Urine Many /hpf; Bilirubin,Urine Negative (Negative); Blood,Urine Negative (Negative); Color,Urine Colorless; Glucose,Urine (UA) 3+ (Negative); Hyaline Casts,Urine 3 /lpf (0-2); Ketones,Urine Negative (Negative); Leukocyte Esterase,Urine Large (Negative); Mucus,Urine Rare /hpf; Nitrite,Urine Negative (Negative); Protein,Urine Negative (Negative); RBC,Urine 2 /hpf (0-5); Specific Gravity,Urine 1.007 (1.001-1.035); Squamous Epithelial Cell,Urine 3 /hpf (0-4); Urobilinogen,Urine <2.0 mg/dL (<2.0); WBC,Urine 19 /hpf (0-5)
--- NOTE | 2022-11-16 11:25 | P.PN ---
Subjective Progress Note Date: 11/16/22 History of present illness: This is This is a 61-year-old female with past medical history of coronary art brant disease with previous stenting, peripheral vascular disease with peripheral stents and bypass, diabetes mellitus type 2 insulin requiring, COPD. We have been asked to evaluate the patient for heart failure. 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 Clancy, in [place]. She recently moved to [facility]. She states she has had difficulty breathing for the past 1-1/2 days and tightness across her chest. EKG sinus tachycardia with no acute changes. Chest x-ray: Low lung volumes with generalized hazy appearance which could represent atelectasis versus pulmonary edema. WBC 10, hemoglobin 7.9, platelet count 258. D-dimer 0.45. Sodium 134, potassium 5, chloride 97, CO2 18, BUN 41 creatinine 1.25. Blood sugar 605. Acetone positive. Troponin 1.72. ProBNP 7920. Influenza A, influenza B, RSV, Covid not detected. Echocardiogram reveals EF of 35%. Mild right ventricular dilation. Increased velocity across aortic valve with possible mild aortic stenosis. Moderate mitral regurgitation and mild tricuspid regurgitation. Home cardiac medications: Aspirin 81 mg daily, atorvastatin 80 mg at bedtime, Plavix 75 mg daily, Lasix 40 mg daily, losartan 25 mg daily, magnesium oxide 400 mg daily, Xarelto 2.5 mg twice daily. 11/16 Patient is on heparin drip and seen today on the cardiac stepdown unit. She denies any chest pain or shortness of breath. She states she is feeling tired. She has been on IV Lasix 40 mg every 12 hours. We have requested records from [facility] in waiting for these results. Patient has been afebrile, heart rate 93, blood pressure 123/78, pulse ox 100% on 3 L nasal cannula. Physical examination: Gen: This is a morbidly obese female. She is resting in bed and appears to be comfortable at rest. No acute respiratory distress noted. VS: reviewed HEENT: Head is atraumatic, normocephalic. Pupils equal, round. Sclerae is anicteric. NECK: Supple. No JVD. LUNGS: Diminished. No wheezes or rhonchi. No intercostal retractions. HEART: Regular rate and rhythm. Systolic murmur. EXTREMITIES: No pedal edema. No calf tenderness. NEUROLOGICAL: Patient is awake, alert and oriented x3. Assessment: Acute systolic heart failure Non-ST elevated myocardial infarction Diabetic ketoacidosis History of coronary artery disease with prior stenting Peripheral vascular disease with prior stenting and bypass Diabetes mellitus type 2 uncontrolled COPD Plan: Continue patient on home cardiac medications Discontinue heparin drip and resume Xarelto Transition IV Lasix to oral 40 mg daily which is her home dose Monitor I&O, daily weights, electrolytes and renal function Obtain records from [facility] We will wait for records from [facility] and tentatively plan for cardiac catheterization on Saturday. Further recommendations to follow based upon clinical course Nurse practitioner note has been reviewed, I agree with documented findings and plan of care. Patient was seen and examined. Objective - Vital Signs Vital signs: Vital Signs Temp 98.1 F 11/16/22 08:45 Pulse 96 11/16/22 09:00 Resp 18 11/16/22 08:45 BP 123/78 11/16/22 08:45 Pulse Ox 100 11/16/22 08:51 FiO2 Intake & Output 11/15/22 11/16/22 11/16/22 18:59 06:59 18:59 Intake Total 76.130 116.178 92.036 Balance 76.130 116.178 92.036 Intake: Intake, IV Titration 76.130 116.178 92.036 Amount Heparin Sod,Pork in 0.45% 116.178 92.036 NaCl 25,000 unit In 0.45 % NaCl 1 250ml.bag @ 7.96 UNITS/KG/HR 10.001 mls/ hr IV .Q24H [facility] Rx#: [id number] Insulin Regular 100 unit 76.130 In Sodium Chloride 0.9% 100 ml @ 0.1 UNITS/KG/HR 12.69 mls/hr IV .Q7H58M [facility] Rx#:[id number] Other: Voiding Method Toilet - Labs CBC & Chem 7: 11/16/22 07:21 11/16/22 07:20 Labs: Abnormal Lab Results - Last 24 Hours (Table) 11/15/22 11/15/22 11/15/22 Range/Units 09:50 10:24 11:07 WBC (3.8-10.6) k/uL RBC (3.80-5.40) m/uL Hgb (11.4-16.0) gm/dL Hct (34.0-46.0) % MCH (25.0-35.0) pg MCHC (31.0-37.0) g/dL RDW (11.5-15.5) % Neutrophils # (1.3-7.7) k/uL APTT (22.0-30.0) sec Sodium (137-145) mmol/L Carbon Dioxide (22-30) mmol/L BUN (7-17) mg/dL Creatinine (0.52-1.04) mg/dL Glucose (74-99) mg/dL POC Glucose (mg/dL) 505 H 423 H (70-110) mg/dL Magnesium (1.6-2.3) mg/dL Troponin I 1.720 H* (0.000-0.034) ng/mL 11/15/22 11/15/22 11/15/22 Range/Units 12:03 12:32 12:32 WBC (3.8-10.6) k/uL RBC (3.80-5.40) m/uL Hgb (11.4-16.0) gm/dL Hct (34.0-46.0) % MCH (25.0-35.0) pg MCHC (31.0-37.0) g/dL RDW (11.5-15.5) % Neutrophils # (1.3-7.7) k/uL APTT (22.0-30.0) sec Sodium 136 L (137-145) mmol/L Carbon Dioxide 21 L (22-30) mmol/L BUN 48 H (7-17) mg/dL Creatinine 1.11 H (0.52-1.04) mg/dL Glucose 254 H (74-99) mg/dL POC Glucose (mg/dL) 351 H (70-110) mg/dL Magnesium (1.6-2.3) mg/dL Troponin I 1.810 H* (0.000-0.034) ng/mL 11/15/22 11/15/22 11/15/22 Range/Units 12:32 13:17 14:10 WBC (3.8-10.6) k/uL RBC (3.80-5.40) m/uL Hgb (11.4-16.0) gm/dL Hct (34.0-46.0) % MCH (25.0-35.0) pg MCHC (31.0-37.0) g/dL RDW (11.5-15.5) % Neutrophils # (1.3-7.7) k/uL APTT (22.0-30.0) sec Sodium (137-145) mmol/L Carbon Dioxide (22-30) mmol/L BUN (7-17) mg/dL Creatinine (0.52-1.04) mg/dL Glucose (74-99) mg/dL POC Glucose (mg/dL) 266 H 228 H (70-110) mg/dL Magnesium 2.5 H (1.6-2.3) mg/dL Troponin I (0.000-0.034) ng/mL 11/15/22 11/15/22 11/15/22 Range/Units 15:06 15:25 16:11 WBC (3.8-10.6) k/uL RBC (3.80-5.40) m/uL Hgb (11.4-16.0) gm/dL Hct (34.0-46.0) % MCH (25.0-35.0) pg MCHC (31.0-37.0) g/dL RDW (11.5-15.5) % Neutrophils # (1.3-7.7) k/uL APTT (22.0-30.0) sec Sodium (137-145) mmol/L Carbon Dioxide (22-30) mmol/L BUN 45 H (7-17) mg/dL Creatinine 1.18 H (0.52-1.04) mg/dL Glucose (74-99) mg/dL POC Glucose (mg/dL) 161 H 113 H (70-110) mg/dL Magnesium (1.6-2.3) mg/dL Troponin I (0.000-0.034) ng/mL 11/15/22 11/16/22 11/16/22 Range/Units 18:44 07:20 07:21 WBC 15.6 H (3.8-10.6) k/uL RBC 3.10 L (3.80-5.40) m/uL Hgb 7.5 L (11.4-16.0) gm/dL Hct 25.1 L (34.0-46.0) % MCH 24.1 L (25.0-35.0) pg MCHC 29.8 L (31.0-37.0) g/dL RDW 19.7 H (11.5-15.5) % Neutrophils # 12.9 H (1.3-7.7) k/uL APTT 34.9 H (22.0-30.0) sec Sodium 135 L (137-145) mmol/L Carbon Dioxide (22-30) mmol/L BUN 59 H (7-17) mg/dL Creatinine 1.32 H (0.52-1.04) mg/dL Glucose 269 H (74-99) mg/dL POC Glucose (mg/dL) (70-110) mg/dL Magnesium (1.6-2.3) mg/dL Troponin I (0.000-0.034) ng/mL 11/16/22 Range/Units 07:21 WBC (3.8-10.6) k/uL RBC (3.80-5.40) m/uL Hgb (11.4-16.0) gm/dL Hct (34.0-46.0) % MCH (25.0-35.0) pg MCHC (31.0-37.0) g/dL RDW (11.5-15.5) % Neutrophils # (1.3-7.7) k/uL APTT 40.8 H (22.0-30.0) sec Sodium (137-145) mmol/L Carbon Dioxide (22-30) mmol/L BUN (7-17) mg/dL Creatinine (0.52-1.04) mg/dL Glucose (74-99) mg/dL POC Glucose (mg/dL) (70-110) mg/dL Magnesium (1.6-2.3) mg/dL Troponin I (0.000-0.034) ng/mL
[2022-11-16 12:08] LABS: Glucose,Whole Blood 333 mg/dL (70-110)
[2022-11-16] MEDS: INSULIN DETEMIR (LEVEMIR) 100 UNIT/ML SYR SQ SCH ×2 (12:56→22:29)
[2022-11-16] MEDS: METOPROLOL TARTRATE 50 MG TAB PO SCH ×2 (12:56→22:28)
[2022-11-16 14:27] VITALS: BMI 44.6
[2022-11-16 17:01] LABS: Glucose,Whole Blood 367 mg/dL (70-110)
--- NOTE | 2022-11-16 17:37 | P.PN ---
Subjective Progress Note Date: 11/16/22 This is a 61 year old female with medical history of COPD, heart failure, diabetes mellitus, myocardial infarction with prior cardiac stenting, peripheral vascular disease with bypass and stenting, lymphedema and psoriasis. Patient comes in to the hospital with 2 day history of shortness of breath and reports chest tightness and difficulty taking a deep breath. 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 Patient recently traveled to the with her drove up on Saturday went to a visitation and drove home. Patient came in to the hospital for evaluation and was found to have elevated proBNP of 7000 with concern for fluid overload. Blood glucose is also in the 500-600s on admission and patient is found to have acetone positive consistent with diabetic ketoacidosis. Patient states she did not take any insulin for 2 days while she was driving she states she didn't bring it with her. She is usually insulin dependent. Patient was admitted to the hospital for shortness of breath and hyperglycemia. cardiology was consulted as patient felt the shortness of breath and chest tightness was similar to what she had experienced with her prior heart attack. Denies any fever or chills, No cough. No nausea vomiting or diarrhea. Echocardiogram has been ordered and patient has been started on IV lasix. 11/16/2022 Patient evaluated today resting in bed. Patient reports feeling less short of breath than yesterday, continues on nasal cannula which likely can be weaned she is 100% on 3L. Creatinine increased today, patient reports having adequate urine output although I and O not documented. Patient was transitioned back to oral lasix by cardiology and agreeing with this. Her lower extremity edema has improved. Additionally patient was taken off the insulin gtt, her blood sugar had improved down into the 100s. Anion gap had closed. Patient has been taken off the heparin gtt with plans to perform cardiac catheterization on Saturday. Echocardiogram shows an EF of 35% with moderate MR. REVIEW OF SYSTEMS: CONSTITUTIONAL: No fever, no malaise, no fatigue. HEENT: No recent visual problems or hearing problems. Denied any sore throat. CARDIOVASCULAR: Reports chest tightness, orthopnea, PND, no palpitations, no syncope. PULMONARY: Reports shortness of breath no cough, no hemoptysis. GASTROINTESTINAL: No diarrhea, no nausea, no vomiting, no abdominal pain. NEUROLOGICAL: No headaches, no weakness, no numbness. PHYSICAL EXAMINATION: GENERAL: The patient is alert and oriented x3, not in any acute distress. Well developed, well nourished. Winded. On 3 L of oxygen. HEENT: Pupils are round and equally reacting to light. EOMI. No scleral icterus. No conjunctival pallor. Normocephalic, atraumatic. No pharyngeal erythema. No thyromegaly. CARDIOVASCULAR: S1 and S2 present. No murmurs, rubs, or gallops. PULMONARY: Chest is clear to auscultation, no wheezing or crackles. ABDOMEN: Soft, nontender, nondistended, normoactive bowel sounds. No palpable organomegaly. MUSCULOSKELETAL: No joint swelling or deformity. EXTREMITIES: No cyanosis, clubbing, mild LE edema. NEUROLOGICAL: Gross neurological examination did not reveal any focal deficits. SKIN: Multiple psoriatic plaques on bilateral lower extremities and left upper extremity. Assessment Acute hypoxemic respiratory failure requiring 4L of oxygen due to acute CHF excerbation, systolic dysfunction with EF of 35%. Acute kidney injury due to volume overload Troponin elevation likely due to non ST elevation [place] Diabetic ketoacidosis due to not taking insulin Insulin dependent diabetes mellitus type 2, uncontrolled hemoglobin A1C 8.5. Hx of DVT/PE anticoagulated on low dose xarelto/plavix. Hx of COPD Hx peripheral vascular disease with prior vascular stenting Hx coronary artery disease and prior cardiac stenting Lymphedema Psoriasis Obesity GI prophylaxis DVT prophylaxis Full Code Plan Patient was taken off the insulin gtt and resumed on levemir at HS along with sliding scale and scheduled insulin. Patient was taken off IV heparin, Cardiology is planning to perform cardiac catheterization on Saturday Can wean oxygen as tolerated patient was 100% on 3L of oxygen. Cardiology reports requested from [facility]. Hold losartan and metformin Repeat labs in AM PT/OT consultation The impression and plan of care has been dictated by Nurse Kasey Whitlock as directed. Dr. Dalia MD I have performed a history and physical examination and medical decision making of this patient, discussed the same with the dictator, and agree with the dictators assessment and plan as written, documented as a scribe. Based on total visit time, I have performed more than 50% of this visit. Objective - Vital Signs Vital signs: Vital Signs Temp 98.1 F 11/16/22 08:45 Pulse 73 11/16/22 12:55 Resp 18 11/16/22 12:55 BP 120/64 11/16/22 12:55 Pulse Ox 95 11/16/22 12:55 FiO2 Intake & Output 11/15/22 11/16/22 11/16/22 18:59 06:59 18:59 Intake Total 76.130 116.178 733.822 Output Total 400 Balance 76.130 116.178 333.822 Weight 125.645 kg Intake: Intake, IV Titration 76.130 116.178 133.822 Amount Heparin Sod,Pork in 0.45% 116.178 133.822 NaCl 25,000 unit In 0.45 % NaCl 1 250ml.bag @ 7.96 UNITS/KG/HR 10.001 mls/ hr IV .Q24H [facility] Rx#: [id number] Insulin Regular 100 unit 76.130 In Sodium Chloride 0.9% 100 ml @ 0.1 UNITS/KG/HR 12.69 mls/hr IV .Q7H58M [facility] Rx#:[id number] Oral 600 Output: Urine 400 Other: Voiding Method Toilet - Labs CBC & Chem 7: 11/16/22 07:21 11/16/22 07:20 Labs: Abnormal Lab Results - Last 24 Hours (Table) 11/15/22 11/16/22 11/16/22 Range/Units 18:44 07:20 07:21 WBC 15.6 H (3.8-10.6) k/uL RBC 3.10 L (3.80-5.40) m/uL Hgb 7.5 L (11.4-16.0) gm/dL Hct 25.1 L (34.0-46.0) % MCH 24.1 L (25.0-35.0) pg MCHC 29.8 L (31.0-37.0) g/dL RDW 19.7 H (11.5-15.5) % Neutrophils # 12.9 H (1.3-7.7) k/uL APTT 34.9 H (22.0-30.0) sec Sodium 135 L (137-145) mmol/L BUN 59 H (7-17) mg/dL Creatinine 1.32 H (0.52-1.04) mg/dL Glucose 269 H (74-99) mg/dL POC Glucose (mg/dL) (70-110) mg/dL Urine Appearance (Clear) Urine Glucose (UA) (Negative) Ur Leukocyte Esterase (Negative) Urine WBC (0-5) /hpf Urine WBC Clumps (None) /hpf Amorphous Sediment (None) /hpf Urine Bacteria (None) /hpf Hyaline Casts (0-2) /lpf Urine Mucus (None) /hpf 11/16/22 11/16/22 11/16/22 Range/Units 07:21 10:51 12:04 WBC (3.8-10.6) k/uL RBC (3.80-5.40) m/uL Hgb (11.4-16.0) gm/dL Hct (34.0-46.0) % MCH (25.0-35.0) pg MCHC (31.0-37.0) g/dL RDW (11.5-15.5) % Neutrophils # (1.3-7.7) k/uL APTT 40.8 H (22.0-30.0) sec Sodium (137-145) mmol/L BUN (7-17) mg/dL Creatinine (0.52-1.04) mg/dL Glucose (74-99) mg/dL POC Glucose (mg/dL) 333 H (70-110) mg/dL Urine Appearance Cloudy H (Clear) Urine Glucose (UA) 3+ H (Negative) Ur Leukocyte Esterase Large H (Negative) Urine WBC 19 H (0-5) /hpf Urine WBC Clumps Rare H (None) /hpf Amorphous Sediment Rare H (None) /hpf Urine Bacteria Many H (None) /hpf Hyaline Casts 3 H (0-2) /lpf Urine Mucus Rare H (None) /hpf 11/16/22 Range/Units 17:00 WBC (3.8-10.6) k/uL RBC (3.80-5.40) m/uL Hgb (11.4-16.0) gm/dL Hct (34.0-46.0) % MCH (25.0-35.0) pg MCHC (31.0-37.0) g/dL RDW (11.5-15.5) % Neutrophils # (1.3-7.7) k/uL APTT (22.0-30.0) sec Sodium (137-145) mmol/L BUN (7-17) mg/dL Creatinine (0.52-1.04) mg/dL Glucose (74-99) mg/dL POC Glucose (mg/dL) 367 H (70-110) mg/dL Urine Appearance (Clear) Urine Glucose (UA) (Negative) Ur Leukocyte Esterase (Negative) Urine WBC (0-5) /hpf Urine WBC Clumps (None) /hpf Amorphous Sediment (None) /hpf Urine Bacteria (None) /hpf Hyaline Casts (0-2) /lpf Urine Mucus (None) /hpf Assessment and Plan Time with Patient: Less than 30
[2022-11-16 19:41] LABS: Glucose,Whole Blood 381 mg/dL (70-110)
[2022-11-16] MEDS: RIVAROXABAN 2.5 MG TABLET PO SCH (22:27)
[2022-11-16] MEDS: ATORVASTATIN 80 MG TAB PO SCH (22:28)
[2022-11-16] MEDS: AMITRIPTYLINE HCL 25 MG TAB PO SCH (22:28)
[2022-11-16] MEDS: MONTELUKAST 10 MG TAB PO SCH (22:28)
[2022-11-17 06:23] LABS: Glucose,Whole Blood 127 mg/dL (70-110)
[2022-11-17] MEDS: INSULIN ASPART (NovoLOG) 100 UNIT/ML VIAL SQ SCH ×7 (07:05→22:04)
[2022-11-17] MEDS: INSULIN DETEMIR (LEVEMIR) 100 UNIT/ML SYR SQ SCH ×2 (08:42→22:03)
[2022-11-17] MEDS: FAMOTIDINE 20 MG TAB PO SCH (08:42)
[2022-11-17] MEDS: ESCITALOPRAM 20 MG TAB PO SCH (08:42)
[2022-11-17] MEDS: MAGNESIUM OXIDE 400 MG TAB PO SCH (08:42)
[2022-11-17] MEDS: CLOPIDOGREL 75 MG TAB PO SCH (08:42)
[2022-11-17] MEDS: METOPROLOL TARTRATE 50 MG TAB PO SCH ×2 (08:42→22:03)
[2022-11-17] MEDS: FUROSEMIDE 40 MG TAB PO SCH (08:42)
[2022-11-17] MEDS: ASPIRIN 81 MG PO SCH (08:42)
[2022-11-17] MEDS: RIVAROXABAN 2.5 MG TABLET PO SCH ×2 (08:43→22:02)
[2022-11-17] MEDS: IPRATROPIUM-ALBUTEROL 3 ML NEB INHALATION SCH ×4 (09:09→21:28)
[2022-11-17 09:53] LABS: Anisocytosis Slight; Basophils % (A) 0 %; Eosinophils # (A) 0.2 k/uL (0-0.7); Eosinophils % (A) 2 %; HCT 24.6 % (34.0-46.0); HGB 7.4 gm/dL (11.4-16.0); Hypochromasia Marked; Lymphocytes # (A) 1.9 k/uL (1.0-4.8); Lymphocytes % (A) 18 %; MCHC 30.2 g/dL (31.0-37.0); MCV 79.6 fL (80.0-100.0); Mean Platelet Volume 8.2; Microcytosis Slight; Monocytes # (A) 0.6 k/uL (0-1.0); Monocytes % (A) 6 %; Neutrophils # (A) 7.8 k/uL (1.3-7.7); Neutrophils % (A) 73 %; Platelet Count 278 k/uL (150-450); RBC 3.09 m/uL (3.80-5.40); RDW 19.3 % (11.5-15.5); WBC 10.8 k/uL (3.8-10.6)
[2022-11-17 10:04] LABS: African American GFR (CKD) 42 (>60 ml/min/1.73 sqM); Anion Gap 10 mmol/L; Blood Urea Nitrogen 69 mg/dL (7-17); Calcium 8.6 mg/dL (8.4-10.2); Carbon Dioxide 25 mmol/L (22-30); Chloride 99 mmol/L (98-107); Glucose 114 mg/dL (74-99); Non-African American GFR(CKD) 36 (>60 ml/min/1.73 sqM); Potassium 4.3 mmol/L (3.5-5.1); Sodium 134 mmol/L (137-145)
[2022-11-17 11:44] LABS: Glucose,Whole Blood 191 mg/dL (70-110)
--- NOTE | 2022-11-17 12:06 | P.PN ---
Subjective Progress Note Date: 11/17/22 This is a 61 year old female with medical history of COPD, heart failure, diabetes mellitus, myocardial infarction with prior cardiac stenting, peripheral vascular disease with bypass and stenting, lymphedema and psoriasis. Patient comes in to the hospital with 2 day history of shortness of breath and reports chest tightness and difficulty taking a deep breath. 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 Patient recently traveled to the with her drove up on Saturday went to a visitation and drove home. Patient came in to the hospital for evaluation and was found to have elevated proBNP of 7000 with concern for fluid overload. Blood glucose is also in the 500-600s on admission and patient is found to have acetone positive consistent with diabetic ketoacidosis. Patient states she did not take any insulin for 2 days while she was driving she states she didn't bring it with her. She is usually insulin dependent. Patient was admitted to the hospital for shortness of breath and hyperglycemia. cardiology was consulted as patient felt the shortness of breath and chest tightness was similar to what she had experienced with her prior heart attack. Denies any fever or chills, No cough. No nausea vomiting or diarrhea. Echocardiogram has been ordered and patient has been started on IV lasix. 11/16/2022 Patient evaluated today resting in bed. Patient reports feeling less short of breath than yesterday, continues on nasal cannula which likely can be weaned she is 100% on 3L. Creatinine increased today, patient reports having adequate urine output although I and O not documented. Patient was transitioned back to oral lasix by cardiology and agreeing with this. Her lower extremity edema has improved. Additionally patient was taken off the insulin gtt, her blood sugar had improved down into the 100s. Anion gap had closed. Patient has been taken off the heparin gtt with plans to perform cardiac catheterization on Saturday. Echocardiogram shows an EF of 35% with moderate MR. 11/17/2022 Patient is evaluated today on the stepdown unit. Remains off IV heparin. No acute events overnight. Patient was transitioned to oral lasix. Creatinine up to 1.55. Check post void residuals and monitor for urinary retention. Will check renal ultrasound today. White count down to 10.8. REVIEW OF SYSTEMS: CONSTITUTIONAL: No fever, no malaise, no fatigue. HEENT: No recent visual problems or hearing problems. Denied any sore throat. CARDIOVASCULAR: Reports chest tightness, orthopnea, PND, no palpitations, no syncope. PULMONARY: Reports shortness of breath no cough, no hemoptysis. GASTROINTESTINAL: No diarrhea, no nausea, no vomiting, no abdominal pain. NEUROLOGICAL: No headaches, no weakness, no numbness. PHYSICAL EXAMINATION: GENERAL: The patient is alert and oriented x3, not in any acute distress. Well developed, well nourished. Winded. On 3 L of oxygen. HEENT: Pupils are round and equally reacting to light. EOMI. No scleral icterus. No conjunctival pallor. Normocephalic, atraumatic. No pharyngeal erythema. No thyromegaly. CARDIOVASCULAR: S1 and S2 present. No murmurs, rubs, or gallops. PULMONARY: Chest is clear to auscultation, no wheezing or crackles. ABDOMEN: Soft, nontender, nondistended, normoactive bowel sounds. No palpable organomegaly. MUSCULOSKELETAL: No joint swelling or deformity. EXTREMITIES: No cyanosis, clubbing, mild LE edema. NEUROLOGICAL: Gross neurological examination did not reveal any focal deficits. SKIN: Multiple psoriatic plaques on bilateral lower extremities and left upper extremity. Assessment Acute hypoxemic respiratory failure requiring 4L of oxygen due to acute CHF excerbation, systolic dysfunction with EF of 35%. Acute kidney injury due to volume overload Troponin elevation likely due to non ST elevation [place] Diabetic ketoacidosis due to not taking insulin Insulin dependent diabetes mellitus type 2, uncontrolled hemoglobin A1C 8.5. Hx of DVT/PE anticoagulated on low dose xarelto/plavix. Hx of COPD Hx peripheral vascular disease with prior vascular stenting Hx coronary artery disease and prior cardiac stenting Lymphedema Psoriasis Obesity GI prophylaxis DVT prophylaxis Full Code Plan Patient was taken off the insulin gtt and resumed on levemir at HS along with sliding scale and scheduled insulin. Blood glucose improved. Patient was taken off IV heparin, Cardiology is planning to perform cardiac cat heterization on Saturday Can wean oxygen as tolerated patient was 100% on 3L of oxygen. Cardiology reports requested from [facility]. Continue to Hold losartan and metformin Check renal ultrasound and iron studies. If creatinine continues to worsen, nephrology will be consulted. Repeat labs in AM PT/OT consultation The impression and plan of care has been dictated by Marla Lux, Nurse Practitioner as directed. Dr. Dalia MD I have performed a history and physical examination and medical decision making of this patient, discussed the same with the dictator, and agree with the dictators assessment and plan as written, documented as a scribe. Based on total visit time, I have performed more than 50% of this visit. Objective - Vital Signs Vital signs: Vital Signs Temp 98.2 F 11/17/22 10:06 Pulse 72 11/17/22 10:08 Resp 16 11/17/22 10:08 BP 111/76 11/17/22 10:06 Pulse Ox 100 11/17/22 10:06 FiO2 Intake & Output 11/16/22 11/17/22 11/17/22 18:59 06:59 18:59 Intake Total 973.822 180 Output Total 400 100 Balance 573.822 -100 180 Weight 125.645 kg Intake: Intake, IV Titration 133.822 Amount Heparin Sod,Pork in 0.45% 133.822 NaCl 25,000 unit In 0.45 % NaCl 1 250ml.bag @ 7.96 UNITS/KG/HR 10.001 mls/ hr IV .Q[facility]H [facility] Rx#: [id number] Oral 840 180 Output: Urine 400 100 Other: Voiding Method Toilet Toilet Toilet - Labs CBC & Chem 7: 11/17/22 09:24 11/17/22 09:24 Labs: Abnormal Lab Results - Last 24 Hours (Table) 11/16/22 11/16/22 11/16/22 Range/Units 12:04 17:00 19:37 WBC (3.8-10.6) k/uL RBC (3.80-5.40) m/uL Hgb (11.4-16.0) gm/dL Hct (34.0-46.0) % MCV (80.0-100.0) fL MCH (25.0-35.0) pg MCHC (31.0-37.0) g/dL RDW (11.5-15.5) % Neutrophils # (1.3-7.7) k/uL Sodium (137-145) mmol/L BUN (7-17) mg/dL Creatinine (0.52-1.04) mg/dL Glucose (74-99) mg/dL POC Glucose (mg/dL) 333 H 367 H 381 H (70-110) mg/dL 11/17/22 11/17/22 11/17/22 Range/Units 06:22 09:24 09:24 WBC 10.8 H (3.8-10.6) k/uL RBC 3.09 L (3.80-5.40) m/uL Hgb 7.4 L (11.4-16.0) gm/dL Hct 24.6 L (34.0-46.0) % MCV 79.6 L (80.0-100.0) fL MCH 24.0 L (25.0-35.0) pg MCHC 30.2 L (31.0-37.0) g/dL RDW 19.3 H (11.5-15.5) % Neutrophils # 7.8 H (1.3-7.7) k/uL Sodium 134 L (137-145) mmol/L BUN 69 H (7-17) mg/dL Creatinine 1.55 H (0.52-1.04) mg/dL Glucose 114 H (74-99) mg/dL POC Glucose (mg/dL) 127 H (70-110) mg/dL 11/17/22 Range/Units 11:42 WBC (3.8-10.6) k/uL RBC (3.80-5.40) m/uL Hgb (11.4-16.0) gm/dL Hct (34.0-46.0) % MCV (80.0-100.0) fL MCH (25.0-35.0) pg MCHC (31.0-37.0) g/dL RDW (11.5-15.5) % Neutrophils # (1.3-7.7) k/uL Sodium (137-145) mmol/L BUN (7-17) mg/dL Creatinine (0.52-1.04) mg/dL Glucose (74-99) mg/dL POC Glucose (mg/dL) 191 H (70-110) mg/dL Assessment and Plan Time with Patient: Less than 30
[2022-11-17] MEDS: ACETAMINOPHEN TAB 325 MG TAB PO PRN (12:24)
--- NOTE | 2022-11-17 12:35 | P.PN ---
Subjective Progress Note Date: 11/17/22 This is Mitesh Currie NP, I'm dictating on behalf of Dr. Norman's H&P and A&P. Patient was interviewed and examined. Patient is a pleasant 61-year-old female who presented to the hospital with heart failure. 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 Patient reports that she's feeling tired, but otherwise is okay. She is denying chest pain, shortness of breath, heart palpitations. We are still awaiting records from [facility] of a recent heart catheterization was c ompleted. GENERAL: Well-appearing, well-nourished and in no acute distress. NECK: Supple without JVD or thyromegaly. LUNGS: Breath sounds clear to auscultation bilaterally. Respiration equal and unlabored. No wheezes, rales or rhonchi. HEART: Regular rate and rhythm without murmurs, rubs or gallops. S1 and S2 heard. EXTREMITIES: Normal range of motion, no edema. No clubbing or cyanosis. Per ipheral pulses intact and strong. VITALS: Temp 98.2, pulse 72, respirations 16, blood pressure 111/76, O2 saturation 100% on 2 L TELEMETRY: Normal sinus rhythm LABS: White count 10.8, hemoglobin 7.4, sodium 134, potassium 4.3, BUN 69, creatinine 1.5, calcium 8.6 IMPRESSION: 1. Acute systolic heart failure 2. Non-ST elevated myocardial infarction 3. Diabetic ketoacidosis 4. History of coronary artery disease with prior stenting 5. Peripheral vascular disease with prior stenting and bypass 6. Diabetes mellitus type 2 uncontrolled 7. COPD PLAN: Continue cardiac meds. Patient is tolerating resumption of Xarelto. Patient is also tolerating transition of IV Lasix to oral. Continue to monitor intake and output, daily weights, electrolytes and renal function. Still awaiting records from [facility]. We requested cardiac cath records as well as the video CD of the cath. We do not have it yet. We have been trying for the last 2 days. Patient is pending possible cardiac cath on Saturday depending on records from [place]. Further recommendations based on patient's clinical course. Objective - Vital Signs Vital signs: Vital Signs Temp 98.2 F 11/17/22 10:06 Pulse 74 11/17/22 12:20 Resp 18 11/17/22 12:20 BP 113/77 11/17/22 12:20 Pulse Ox 99 11/17/22 12:20 FiO2 Intake & Output 11/16/22 11/17/22 11/17/22 18:59 06:59 18:59 Intake Total 973.822 180 Output Total 400 100 Balance 573.822 -100 180 Weight 125.645 kg Intake: Intake, IV Titration 133.822 Amount Heparin Sod,Pork in 0.45% 133.822 NaCl 25,000 unit In 0.45 % NaCl 1 250ml.bag @ 7.96 UNITS/KG/HR 10.001 mls/ hr IV .Q24H [facility] Rx#: [id number] Oral 840 180 Output: Urine 400 100 Other: Voiding Method Toilet Toilet Toilet - Labs CBC & Chem 7: 11/17/22 09:24 11/17/22 09:24 Labs: Abnormal Lab Results - Last 24 Hours (Table) 11/16/22 11/16/22 11/17/22 Range/Units 17:00 19:37 06:22 WBC (3.8-10.6) k/uL RBC (3.80-5.40) m/uL Hgb (11.4-16.0) gm/dL Hct (34.0-46.0) % MCV (80.0-100.0) fL MCH (25.0-35.0) pg MCHC (31.0-37.0) g/dL RDW (11.5-15.5) % Neutrophils # (1.3-7.7) k/uL Sodium (137-145) mmol/L BUN (7-17) mg/dL Creatinine (0.52-1.04) mg/dL Glucose (74-99) mg/dL POC Glucose (mg/dL) 367 H 381 H 127 H (70-110) mg/dL 11/17/22 11/17/22 11/17/22 Range/Units 09:24 09:24 11:42 WBC 10.8 H (3.8-10.6) k/uL RBC 3.09 L (3.80-5.40) m/uL Hgb 7.4 L (11.4-16.0) gm/dL Hct 24.6 L (34.0-46.0) % MCV 79.6 L (80.0-100.0) fL MCH 24.0 L (25.0-35.0) pg MCHC 30.2 L (31.0-37.0) g/dL RDW 19.3 H (11.5-15.5) % Neutrophils # 7.8 H (1.3-7.7) k/uL Sodium 134 L (137-145) mmol/L BUN 69 H (7-17) mg/dL Creatinine 1.55 H (0.52-1.04) mg/dL Glucose 114 H (74-99) mg/dL POC Glucose (mg/dL) 191 H (70-110) mg/dL
--- NOTE | 2022-11-17 16:23 | US ---
EXAMINATION TYPE: US kidneys/renal and bladder DATE OF EXAM: 11/17/2022 COMPARISON: NONE CLINICAL INDICATION: Female, 61 years old with history of HITESH; HITESH EXAM MEASUREMENTS: Right Kidney: 11.0 x 5.7 x 6.0 cm Left Kidney: 13.0 x 5.3 x 5.1 cm Right Kidney: no evidence of hydronephrosis Left Kidney: lobulated. no evidence of hydronephrosis Bladder: appears wnl Bilateral Jets seen: no incidental finding: gallstone = 1.6cm There is no evidence for hydronephrosis at this point in time. No nephrolithiasis is seen. No imelda s are identified. The urinary bladder is anechoic. The renal cortices are normal in thickness and echotexture. IMPRESSION: 1. No hydronephrosis or renal calcification. 2. no solid renal mass. 3. No evidence of medical renal disease.
[2022-11-17 16:44] LABS: Glucose,Whole Blood 123 mg/dL (70-110)
[2022-11-17 19:30] LABS: Glucose,Whole Blood 175 mg/dL (70-110)
[2022-11-17] MEDS: AMITRIPTYLINE HCL 25 MG TAB PO SCH (22:03)
[2022-11-17] MEDS: MONTELUKAST 10 MG TAB PO SCH (22:03)
[2022-11-17] MEDS: ATORVASTATIN 80 MG TAB PO SCH (22:03)
[2022-11-18 00:44] LABS: Glucose,Whole Blood 209 mg/dL (70-110)
[2022-11-18 06:11] LABS: Glucose,Whole Blood 200 mg/dL (70-110)
[2022-11-18] MEDS: INSULIN ASPART (NovoLOG) 100 UNIT/ML VIAL SQ SCH ×8 (06:50→21:34)
--- NOTE | 2022-11-18 07:20 | CT ---
EXAMINATION TYPE: CT brain wo con DATE OF EXAM: 11/18/2022 COMPARISON: None HISTORY: Left sided weakness with left sided facial droop CT DLP: 1159.4 mGycm Automated exposure control for dose reduction was used. FINDINGS: The ventricles, basal cisterns and sulci over convexities are mildly enlarged consistent with mild ge neralized atrophy. There are multiple focal areas of ill defined decreased density in the cortex and subcortical white m atter of the right frontal lobe and right parietal lobe consistent with infarcts of varying age. The parietal infarct appears remote but the 2 right frontal infarcts age is indeterminate could be acute to subacute. There is no acute bleed or mass effect. The posterior fossa is grossly normal. The intraorbital contents appear normal and symmetric. Visualized paranasal sinuses and mastoid air cells are well aerated. IMPRESSION: 1. Multiple infarcts of the right cerebral hemisphere including the frontal lobe and parietal lobe of indeterminate variable age. One or both of the frontal infarcts appears more acute possibly subacute . 2.There is no acute bleed or mass effect. IMPRESSION:
[2022-11-18 07:23] LABS: Chol/HDL Ratio 2.15 Ratio; LDL Cholesterol,Calculated 28.3 mg/dL (0.0-131.0); VLDL Calculation 17.74 mg/dL (5.00-40.00)
[2022-11-18] MEDS: CLOPIDOGREL 75 MG TAB PO SCH (08:14)
[2022-11-18] MEDS: RIVAROXABAN 2.5 MG TABLET PO SCH ×2 (08:14→20:15)
[2022-11-18] MEDS: INSULIN DETEMIR (LEVEMIR) 100 UNIT/ML SYR SQ SCH ×2 (08:14→21:34)
[2022-11-18] MEDS: ESCITALOPRAM 20 MG TAB PO SCH (08:15)
[2022-11-18] MEDS: METOPROLOL TARTRATE 50 MG TAB PO SCH (08:15)
[2022-11-18] MEDS: FAMOTIDINE 20 MG TAB PO SCH (08:15)
[2022-11-18] MEDS: ASPIRIN 81 MG PO SCH (08:15)
[2022-11-18] MEDS: FUROSEMIDE 40 MG TAB PO SCH (08:15)
[2022-11-18] MEDS: MAGNESIUM OXIDE 400 MG TAB PO SCH (08:15)
[2022-11-18] MEDS: IPRATROPIUM-ALBUTEROL 3 ML NEB INHALATION SCH ×4 (08:30→19:38)
[2022-11-18 09:41] LABS: African American GFR (CKD) 44 (>60 ml/min/1.73 sqM); Anion Gap 10 mmol/L; Blood Urea Nitrogen 71 mg/dL (7-17); Calcium 8.5 mg/dL (8.4-10.2); Carbon Dioxide 24 mmol/L (22-30); Chloride 101 mmol/L (98-107); Glucose 154 mg/dL (74-99); Non-African American GFR(CKD) 38 (>60 ml/min/1.73 sqM); Potassium 4.3 mmol/L (3.5-5.1); Sodium 135 mmol/L (137-145)
--- NOTE | 2022-11-18 11:24 | P.CNNES ---
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 Neurologist consulted for left-sided weakness as well as facial lower weakness. It seems the patient has been having the left sided weakness since February and she feels is progressively getting worse. She denies any history of stroke that she was notified. She stated that she has carotid stenosis and she was notified she had right ICA occlusion and the left ICA stenosis about 65% and she stated that she followed up with a vascular surgeon as an outpatient but does not recall. Patient is on Xarelto 2.5 mg 1 tablet twice a day and she could not tell me why but upon reviewing the medical record per the ED note it is stated that she has a prior history of blood clots as well as the patient is on aspirin 81 mg as well as Plavix 75 mg. Some of the workup during his hospital visit consisted of: Hemoglobin A1c is 8.5. Lipid panels triglyceride of 88, cholesterol of 86, LDLs 28 and HDL is 40 Analysis seems possible underlying the UTI. CT of the head is reported as multiple infarct in the right cerebral hemisphere including frontal and parietal lobe of indeterminate variable age. One or both of the frontal infarcts appear more acute possibly subacute. There is no acute bleed or mass effect. I personally reviewed the CT of the head and I feel patient has hypodensity over the right frontal as well as parietal occipital region and does some of the components seem subacute to chronic but does have subacute to factor in my opinion. Echo was reported as left ventricular is a lot with the evidence of hypokinesis and interventricular septum and anterior wall and apex with ejection fraction of 35%. Mild right ventricle dilation. Increased velocity across the aortic valve with possible mild aortic stenosis. Moderate regurgitation and the mild tricuspid regurgitation. No pericardial effusion. Review of Systems The positive and negative as per HPI. Past Medical History Past Medical History: Heart Failure, COPD, Diabetes Mellitus, Myocardial Infarction (LA) History of Any Multi-Drug Resistant Organisms: None Reported Past Surgical History: Heart Catheterization With Stent Additional Past Surgical History / Comment(s): Bipass,l great toe amputation Right 4th and 5th toe. Past Psychological History: Anxiety, Depression Smoking Status: Former smoker Past Alcohol Use History: None Reported Past Drug Use History: None Reported Medications and Allergies Home Medications Medication Instructions Recorded Confirmed Type Albuterol Nebulized [Ventolin 2.5 mg INHALATION RT-Q6H PRN 11/14/22 11/14/22 History Nebulized] Albuterol Sulfate [Albuterol 2 puff PO RT-Q4H PRN 11/14/22 11/14/22 History Sulfate Hfa] Amitriptyline HCl [Elavil] 25 mg PO HS 11/14/22 11/14/22 History Aspirin EC [Ecotrin Low Dose] 81 mg PO DAILY 11/14/22 11/14/22 History Atorvastatin Calcium [Lipitor] 80 mg PO HS 11/14/22 11/14/22 History Canagliflozin [Invokana] 100 mg PO DAILY 11/14/22 11/14/22 History Clopidogrel [Plavix] 75 mg PO DAILY 11/14/22 11/14/22 History Escitalopram [Lexapro] 20 mg PO DAILY 11/14/22 11/14/22 History Furosemide [Lasix] 40 mg PO DAILY 11/14/22 11/14/22 History Insulin Glargine,Hum.rec.anlog 36 units SQ HS 11/14/22 11/14/22 History [Lantus Solostar Pen] Insulin Lispro [humaLOG Kwikpen] 4 unit SQ AC-TID 11/14/22 11/14/22 History Losartan [Cozaar] 25 mg PO DAILY 11/14/22 11/14/22 History Magnesium Oxide [Mag-Ox] 400 mg PO DAILY 11/14/22 11/14/22 History Montelukast Sodium 10 mg PO HS 11/14/22 11/14/22 History Thornton-3 Fatty Acids [Thornton-3] 1,000 mg PO DAILY 11/14/22 11/14/22 History Rivaroxaban [Xarelto] 2.5 mg PO BID 11/14/22 11/14/22 History metFORMIN HCL ER [Glucophage XR] 500 mg PO BID 11/14/22 11/14/22 History Allergies Allergy/AdvReac Type Severity Reaction Status Date / Time cephalexin [From Keflex] Allergy Rash/Hives Verified 11/14/22 21:40 Physical Examination - Vital Signs Vital Signs: Vital Signs Temp Pulse Pulse Resp BP Pulse Ox 11/18/22 10:05 70 18 11/18/22 08:41 92 11/18/22 08:30 88 11/18/22 08:06 98.2 F 70 18 113/65 94 L 11/18/22 04:00 98.4 F 85 18 106/55 94 L 11/18/22 02:00 83 18 11/18/22 00:00 97.2 F L 83 18 119/76 94 L 11/17/22 20:00 97.3 F L 80 18 124/67 98 11/17/22 17:56 81 18 105/67 97 11/17/22 14:49 74 18 11/17/22 12:33 18 97 11/17/22 12:20 74 18 113/77 99 Intake and Output 11/17/22 11/18/22 11/18/22 22:59 06:59 14:59 Intake Total 720 180 Output Total 400 250 Balance 320 -250 180 Intake: Oral 720 180 Output: Urine 400 250 Other: Voiding Method Toilet Toilet Toilet # Voids 2 Weight 68 kg GENERAL: The patient is lying in bed and is not in acute distress. INTEGUMENTARY: Has erythema with reddish/puplish and seems scaly over the joints (hx of psoriasis) NEUROLOGICAL: Higher mental function: The patient is awake, alert, oriented to self, place and time. Patient is following commands. No aphasia and no neglect. Cranial nerves: The pupils are round, equal and reactive to light and ac commodation. Visual cassidy are full to confrontation throughout. Extraocular movement is intact no nystagmus is noted. Facial sensation is normal to touch throughout. The facial strength is normal throughout. Hearing is normal bilaterally to hand rub. Tongue is midline and moved [id number] without any difficulty. No dysarthria is noted. Shoulder shrug is normal bilaterally. Motor: The strength is left arms is 4-. Left lower extremity is 4+. Otherwise 5 over 5 throughout right side. Normal tone and bulk. Cerebellum: Normal finger to nose bilaterally. Sensation: Sensation is normal to touch throughout. Reflexes (right/left): 1+ throughout Plantars are mute bilaterally. Results - Laboratory Findings CBC and BMP: 11/17/22 09:24 11/18/22 08:16 Abnormal Lab Findings: Abnormal Labs 11/14/22 11/14/22 11/14/22 19:50 19:50 23:39 WBC RBC 3.21 L Hgb 7.9 L Hct 25.9 L MCV MCH 24.6 L MCHC 30.4 L RDW 19.8 H Neutrophils # 9.4 H Lymphocytes # 0.5 L APTT VBG pH Sodium 134 L Chloride Carbon Dioxide 19 L BUN 41 H Creatinine 1.09 H Glucose 446 H POC Glucose (mg/dL) 514 H Hemoglobin A1c Magnesium 2.4 H Troponin I Albumin 3.4 L Urine Appearance Urine Glucose (UA) Ur Leukocyte Esterase Urine WBC Urine WBC Clumps Amorphous Sediment Urine Bacteria Hyaline Casts Urine Mucus 11/15/22 11/15/22 11/15/22 02:53 02:54 05:35 WBC RBC Hgb Hct MCV MCH MCHC RDW Neutrophils # Lymphocytes # APTT VBG pH Sodium Chloride Carbon Dioxide BUN Creatinine Glucose POC Glucose (mg/dL) 550 H 568 H Hemoglobin A1c 8.5 H Magnesium Troponin I Albumin Urine Appearance Urine Glucose (UA) Ur Leukocyte Esterase Urine WBC Urine WBC Clumps Amorphous Sediment Urine Bacteria Hyaline Casts Urine Mucus 11/15/22 11/15/22 11/15/22 05:35 05:35 09:46 WBC RBC 3.19 L Hgb 7.9 L Hct 26.8 L MCV MCH 24.9 L MCHC 29.6 L RDW 19.5 H Neutrophils # 9.4 H Lymphocytes # 0.4 L APTT VBG pH 7.42 H Sodium 134 L Chloride 97 L Carbon Dioxide 18 L BUN 41 H Creatinine 1.24 H Glucose 605 H* POC Glucose (mg/dL) Hemoglobin A1c Magnesium Troponin I Albumin Urine Appearance Urine Glucose (UA) Ur Leukocyte Esterase Urine WBC Urine WBC Clumps Amorphous Sediment Urine Bacteria Hyaline Casts Urine Mucus 11/15/22 11/15/22 11/15/22 09:50 10:24 11:07 WBC RBC Hgb Hct MCV MCH MCHC RDW Neutrophils # Lymphocytes # APTT VBG pH Sodium Chloride Carbon Dioxide BUN Creatinine Glucose POC Glucose (mg/dL) 505 H 423 H Hemoglobin A1c Magnesium Troponin I 1.720 H* Albumin Urine Appearance Urine Glucose (UA) Ur Leukocyte Esterase Urine WBC Urine WBC Clumps Amorphous Sediment Urine Bacteria Hyaline Casts Urine Mucus 09/11/15/22 11/15/22 12:03 12:32 12:32 WBC RBC Hgb Hct MCV MCH MCHC RDW Neutrophils # Lymphocytes # APTT VBG pH Sodium 136 L Chloride Carbon Dioxide 21 L BUN 48 H Creatinine 1.11 H Glucose 254 H POC Glucose (mg/dL) 351 H Hemoglobin A1c Magnesium Troponin I 1.810 H* Albumin Urine Appearance Urine Glucose (UA) Ur Leukocyte Esterase Urine WBC Urine WBC Clumps Amorphous Sediment Urine Bacteria Hyaline Casts Urine Mucus 11/15/22 11/15/22 11/15/22 12:32 13:17 14:10 WBC RBC Hgb Hct MCV MCH MCHC RDW Neutrophils # Lymphocytes # APTT VBG pH Sodium Chloride Carbon Dioxide BUN Creatinine Glucose POC Glucose (mg/dL) 266 H 228 H Hemoglobin A1c Magnesium 2.5 H Troponin I Albumin Urine Appearance Urine Glucose (UA) Ur Leukocyte Esterase Urine WBC Urine WBC Clumps Amorphous Sediment Urine Bacteria Hyaline Casts Urine Mucus 11/15/22 11/15/22 11/15/22 15:06 15:25 16:11 WBC RBC Hgb Hct MCV MCH MCHC RDW Neutrophils # Lymphocytes # APTT VBG pH Sodium Chloride Carbon Dioxide BUN 45 H Creatinine 1.18 H Glucose POC Glucose (mg/dL) 161 H 113 H Hemoglobin A1c Magnesium Troponin I Albumin Urine Appearance Urine Glucose (UA) Ur Leukocyte Esterase Urine WBC Urine WBC Clumps Amorphous Sediment Urine Bacteria Hyaline Casts Urine Mucus 11/15/22 11/16/22 11/16/22 18:44 07:20 07:21 WBC 15.6 H RBC 3.10 L Hgb 7.5 L Hct 25.1 L MCV MCH 24.1 L MCHC 29.8 L RDW 19.7 H Neutrophils # 12.9 H Lymphocytes # APTT 34.9 H VBG pH Sodium 135 L Chloride Carbon Dioxide BUN 59 H Creatinine 1.32 H Glucose 269 H POC Glucose (mg/dL) Hemoglobin A1c Magnesium Troponin I Albumin Urine Appearance Urine Glucose (UA) Ur Leukocyte Esterase Urine WBC Urine WBC Clumps Amorphous Sediment Urine Bacteria Hyaline Casts Urine Mucus 11/16/22 11/16/22 11/16/22 07:21 10:51 12:04 WBC RBC Hgb Hct MCV MCH MCHC RDW Neutrophils # Lymphocytes # APTT 40.8 H VBG pH Sodium Chloride Carbon Dioxide BUN Creatinine Glucose POC Glucose (mg/dL) 333 H Hemoglobin A1c Magnesium Troponin I Albumin Urine Appearance Cloudy H Urine Glucose (UA) 3+ H Ur Leukocyte Esterase Large H Urine WBC 19 H Urine WBC Clumps Rare H Amorphous Sediment Rare H Urine Bacteria Many H Hyaline Casts 3 H Urine Mucus Rare H 11/16/22 11/16/22 11/17/22 17:00 19:37 06:22 WBC RBC Hgb Hct MCV MCH MCHC RDW Neutrophils # Lymphocytes # APTT VBG pH Sodium Chloride Carbon Dioxide BUN Creatinine Glucose POC Glucose (mg/dL) 367 H 381 H 127 H Hemoglobin A1c Magnesium Troponin I Albumin Urine Appearance Urine Glucose (UA) Ur Leukocyte Esterase Urine WBC Urine WBC Clumps Amorphous Sediment Urine Bacteria Hyaline Casts Urine Mucus 11/17/22 11/17/22 11/17/22 09:24 09:24 11:42 WBC 10.8 H RBC 3.09 L Hgb 7.4 L Hct 24.6 L MCV 79.6 L MCH 24.0 L MCHC 30.2 L RDW 19.3 H Neutrophils # 7.8 H Lymphocytes # APTT VBG pH Sodium 134 L Chloride Carbon Dioxide BUN 69 H Creatinine 1.55 H Glucose 114 H POC Glucose (mg/dL) 191 H Hemoglobin A1c Magnesium Troponin I Albumin Urine Appearance Urine Glucose (UA) Ur Leukocyte Esterase Urine WBC Urine WBC Clumps Amorphous Sediment Urine Bacteria Hyaline Casts Urine Mucus 11/17/22 11/17/22 11/18/22 16:43 19:29 00:40 WBC RBC Hgb Hct MCV MCH MCHC RDW Neutrophils # Lymphocytes # APTT VBG pH Sodium Chloride Carbon Dioxide BUN Creatinine Glucose POC Glucose (mg/dL) 123 H 175 H 209 H Hemoglobin A1c Magnesium Troponin I Albumin Urine Appearance Urine Glucose (UA) Ur Leukocyte Esterase Urine WBC Urine WBC Clumps Amorphous Sediment Urine Bacteria Hyaline Casts Urine Mucus 11/18/22 11/18/22 06:08 08:16 WBC RBC Hgb Hct MCV MCH MCHC RDW Neutrophils # Lymphocytes # APTT VBG pH Sodium 135 L Chloride Carbon Dioxide BUN 71 H Creatinine 1.49 H Glucose 154 H POC Glucose (mg/dL) 200 H Hemoglobin A1c Magnesium Troponin I Albumin Urine Appearance Urine Glucose (UA) Ur Leukocyte Esterase Urine WBC Urine WBC Clumps Amorphous Sediment Urine Bacteria Hyaline Casts Urine Mucus Assessment and Plan Assessment: This is a 61-year-old woman with multiple medical issues including reported right ICA occlusion and left ICA stenosis about 65% on the left and she stated that she followed up with a vascular surgeon as an outpatient and no intervention but does not know the details who is having left-sided weakness since February [address] of the head that shows right frontal parietal multi-infarct of indeterminate age possible appear acute subacute. In my opinion I felt it seems more subacute and there is some areas that felt chronic. Left sided weakness since 2022 is progressively worse and has subacute changes on the left frontal parietal/occipital region. No IV TPA since outside the window and the risk outweighed the benefit Reported right ICA occlusion and left ICA stenosis in the past and that was a valid by a vascular surgeon and was told no intervention Heart failure with ejection fraction of 35%. And has evidence of hypokinesis Diabetes mellitus and the hemoglobin A1c is 8.5 Possible underlying urinary tract infection History of coronary artery disease status post event History LA History of blood clots per ED team and is on Xarelto (but patient is unaware why she is on it) Plan: I ordered carotid duplex and it shows significant stenosis then I recommend vascular surgery team consultation I ordered MRI the brain with and without which will possibly the be performed tomorrow since there is no MRI techs available today Patient is on aspirin 81 mg, Plavix 75 mg daily as well as Xarelto 2.5mg bid her home medication. From a neurologic perspective she is on dual antiplatelet in as well as anticoagulation which can increase risk for bleed but will defer the use of antiplatelets and anticoagulation to the primary and cardiology team I highly recommend a transesophageal echocardiogram for further evaluation Cardiology team is on board Every 4 hours neuro checks Cardiac monitoring PT and OT are consulted. Consulted [employer] We'll defer the rest of the medical management the primary team For DVT prophylaxis patient is on Xarelto. The plan discussed with the patient and the N.P. from primary team. THank you for the consultation Dr. Khan will start neurology service tomorrow a.m. Time with Patient: Greater than 30
[2022-11-18 11:45] LABS: Glucose,Whole Blood 297 mg/dL (70-110)
--- NOTE | 2022-11-18 11:48 | US ---
EXAMINATION TYPE: US venous doppler duplex LE DATE OF EXAM: 11/18/2022 11:17 AM COMPARISON: NONE CLINICAL INDICATION: Female, 61 years old with history of check for clots; Pain bilateral legs. Histo ry of right femoral-pop bypass SIDE PERFORMED: bilateral TECHNIQUE: The lower extremity deep venous system is examined utilizing real time linear array sonog leonard with graded compression, doppler sonography and color-flow sonography. VESSELS IMAGED: Common Femoral Vein Deep Femoral Vein Greater Saphenous Vein * Femoral Vein Popliteal Vein Small Saphenous Vein * Proximal Calf Veins (* superficial vessels) *Technical limitations due to patients body habitus and patient unable to tolerate compressions bilat eral lower femoral vein The deep venous systems from the common femoral veins to the proximal calf veins of both lower extrem ities are patent and compressible with augmentable flow. IMPRESSION: No evidence of DVT of the lower extremities from the common femoral veins to the proximal calf veins.
--- NOTE | 2022-11-18 12:41 | P.PN ---
Subjective Progress Note Date: 11/18/22 This is a 61 year old female with medical history of COPD, heart failure, diabetes mellitus, myocardial infarction with prior cardiac stenting, peripheral vascular disease with bypass and stenting, lymphedema and psoriasis. Patient comes in to the hospital with 2 day history of shortness of breath and reports chest tightness and difficulty taking a deep breath. Patient has a private duty aide out of [place]. Patient recently traveled to the with her drove up on Saturday went to a visitation and drove home. Patient came in to the hospital for evaluation and was found to have elevated proBNP of 7000 with concern for fluid overload. Blood glucose is also in the 500-600s on admission and patient is found to have acetone positive consistent with diabetic ketoacidosis. Patient states she did not take any insulin for 2 days while she was driving she states she didn't bring it with her. She is usually insulin dependent. Patient was admitted to the hospital for shortness of breath and hyperglycemia. cardiology was consulted as patient felt the shortness of breath and chest tightness was similar to what she had experienced with her prior heart attack. Denies any fever or chills, No cough. No nausea vomiting or diarrhea. Echocardiogram has been ordered and patient has been started on IV lasix. 11/16/2022 Patient evaluated today resting in bed. Patient reports feeling less short of breath than yesterday, continues on nasal cannula which likely can be weaned she is 100% on 3L. Creatinine increased today, patient reports having adequate urine output although I and O not documented. Patient was transitioned back to oral lasix by cardiology and agreeing with this. Her lower extremity edema has improved. Additionally patient was taken off the insulin gtt, her blood sugar had improved down into the 100s. Anion gap had closed. Patient has been taken off the heparin gtt with plans to perform cardiac catheterization on Saturday. Echocardiogram shows an EF of 35% with moderate MR. 11/17/2022 Patient is evaluated today on the stepdown unit. Remains off IV heparin. No acute events overnight. Patient was transitioned to oral lasix. Creatinine up to 1.55. Check post void residuals and monitor for urinary retention. Will check renal ultrasound today. White count down to 10.8. 11/18/2022 Patient is evaluated today resting in bed. Family was concerned with patient's complaints of left sided weakness and decreased hand strength which has been ongoing for the patient since February of this year. Patient states that she did mention to her family doctor had no other workup done for her. Assessment does reveal a left-sided pronator drift and intermittent left-sided facial droop. Brain CT was performed without contrast shows multiple infarcts of the right cerebral hemisphere including the frontal lobe and parietal lobe of indeterminate variable age 1 or both of the frontal infarcts appears more acute possibly subacute. There is no mass affect or acute bleed. Due to the findings neurology consultation was requested. Labs today show sodium of 135, BUN of 71, creatinine of 1.49. Glucose in the 100s to 200s. Lipid panel is within normal limits. Pending iron studies. Renal ultrasound done showing no hydronephrosis or renal calcification no solid renal mass and no evidence of medical renal disease. Patient has been weaned to room air. REVIEW OF SYSTEMS: CONSTITUTIONAL: No fever, no malaise, no fatigue. HEENT: No recent visual problems or hearing problems. Denied any sore throat. CARDIOVASCULAR: Reports chest tightness, orthopnea, PND, no palpitations, no syncope. PULMONARY: Reports shortness of breath no cough, no hemoptysis. GASTROINTESTINAL: No diarrhea, no nausea, no vomiting, no abdominal pain. NEUROLOGICAL: No headaches, no weakness, no numbness. Patient reports left- sided arm weakness. PHYSICAL EXAMINATION: GENERAL: The patient is alert and oriented x3, not in any acute distress. Well developed, well nourished. Winded. On 3 L of oxygen. HEENT: Pupils are round and equally reacting to light. EOMI. No scleral icterus. No conjunctival pallor. Normocephalic, atraumatic. No pharyngeal erythema. No thyromegaly. CARDIOVASCULAR: S1 and S2 present. No murmurs, rubs, or gallops. PULMONARY: Chest is clear to auscultation, no wheezing or crackles. ABDOMEN: Soft, nontender, nondistended, normoactive bowel sounds. No palpable organomegaly. MUSCULOSKELETAL: No joint swelling or deformity. EXTREMITIES: No cyanosis, clubbing, mild LE edema. NEUROLOGICAL: Left sided weakness with pronator drift. SKIN: Multiple psoriatic plaques on bilateral lower extremities and left upper extremity. Assessment Acute hypoxemic respiratory failure requiring 4L of oxygen due to acute CHF excerbation, systolic dysfunction with EF of 35%. Acute kidney injury due to volume overload, worsened with IV Lasix and now improving. Left-sided weakness with brain CT revealing multiple areas of acute/ subacute infarct in the right cerebral hemisphere Troponin elevation likely due to non ST elevation [place] Diabetic ketoacidosis due to not taking insulin Insulin dependent diabetes mellitus type 2, uncontrolled hemoglobin A1C 8.5. Hx of DVT/PE anticoagulated on low dose xarelto/plavix. Hx of COPD Hx peripheral vascular disease with prior vascular stenting Hx coronary artery disease and prior cardiac stenting Lymphedema Psoriasis Obesity GI prophylaxis DVT prophylaxis Full Code Plan Patient was taken off the insulin gtt and resumed on levemir at HS along with sliding scale and scheduled insulin. Blood glucose improved. Patient was taken off IV heparin, Cardiology is planning to perform cardiac catheterization on Saturday Can wean oxygen as tolerated patient was 100% on 3L of oxygen. Cardiology reports requested from [facility]. Continue to Hold losartan and metformin Neurology was consulted due to the findings on the brain CT. Carotid Doppler and brain MRI had been ordered. Repeat labs in AM PT/OT consultation The impression and plan of care has been dictated by Marla Lux, Nurse Practitioner as directed. Dr. Dalia MD I have performed a history and physical examination and medical decision making of this patient, discussed the same with the dictator, and agree with the dictators assessment and plan as written, documented as a scribe. Based on total visit time, I have performed more than 50% of this visit. Objective - Vital Signs Vital signs: Vital Signs Temp 98.2 F 11/18/22 08:06 Pulse 70 11/18/22 10:05 Resp 18 11/18/22 10:05 BP 113/65 11/18/22 08:06 Pulse Ox 94 L 11/18/22 08:06 FiO2 Intake & Output 11/17/22 11/18/22 11/18/22 18:59 06:59 18:59 Intake Total 600 540 180 Output Total 650 Balance 600 -110 180 Weight 68 kg Intake: Oral 600 540 180 Output: Urine 650 Other: Voiding Method Toilet Toilet Toilet # Voids 2 - Labs CBC & Chem 7: 11/17/22 09:24 11/18/22 08:16 Labs: Abnormal Lab Results - Last 24 Hours (Table) 11/17/22 11/17/22 11/17/22 Range/Units 11:42 16:43 19:29 Sodium (137-145) mmol/L BUN (7-17) mg/dL Creatinine (0.52-1.04) mg/dL Glucose (74-99) mg/dL POC Glucose (mg/dL) 191 H 123 H 175 H (70-110) mg/dL 11/18/22 11/18/22 11/18/22 Range/Units 00:40 06:08 08:16 Sodium 135 L (137-145) mmol/L BUN 71 H (7-17) mg/dL Creatinine 1.49 H (0.52-1.04) mg/dL Glucose 154 H (74-99) mg/dL POC Glucose (mg/dL) 209 H 200 H (70-110) mg/dL Assessment and Plan Time with Patient: Greater than 30
--- NOTE | 2022-11-18 13:28 | US ---
EXAMINATION TYPE: US carotid duplex BILAT DATE OF EXAM: 11/18/2022 COMPARISON: NONE CLINICAL INDICATION: Female, 61 years old with history of stroke; patient states history of right car otid occlusion TECHNIQUE: Carotid duplex ultrasound examination. Indirect Doppler criteria was utilized. FINDINGS: EXAM MEASUREMENTS: RIGHT: Peak Systolic Velocity (PSV) cm/sec ----- Right CCA: 32.4 ----- Right ICA: occluded ----- Right ECA: 389 ICA/CCA ratio: n/a RIGHT: End Diastole cm/sec ----- Right CCA: 0.0 ----- Right ICA: occluded ----- Right ECA: 87.0 LEFT: Peak Systolic Velocity (PSV) cm/sec ----- Left CCA: 68.9 ----- Left ICA: 96.0 ----- Left ECA: 93.0 ICA/CCA ratio: 1.39 LEFT: End Diastole cm/sec ----- Left CCA: 21.2 ----- Left ICA: 29.3 ----- Left ECA: 12.5 VERTEBRALS (direction of flow): Right Vertebral: unable to visualize Left Vertebral: Antegrade CHIROPRACTOR SOLE PRACTITIONER NOTES: severe plaque right bifurcation. little to no flow visualized right CCA. right IC A appears occluded. elevated velocities right ECA. Mild to moderate plaque left bifurcation IMPRESSION: 1. Occluded right internal carotid artery. 2. Mild plaque formation of the left carotid bulb and proximal left internal carotid artery without s ignificant stenosis based on color and grayscale imaging and peak systolic velocity and ratios. Criteria for Assigning % of Stenosis / Diameter reduction (Estimation based on the indirect measurements of the internal carotid artery velocities (ICA PSV). 1. Normal (no stenosis)=ICA PSV < 125 cm/s: ratio < 2.0: ICA EDV<40 cm/s. 2. Less than 50% stenosis=ICA PSV < 125 cm/s: ratio < 2.0: ICA EDV<40 cm/s. 3. 50 to 69% stenosis=ICA PSV of 125 to 230 cm/s: ration 2.0 ? 4.0: ICA EDV 40-100 cm/s. 4. Greater than 70% stenosis to near occlusion= ICA PSV > 230 cm/s: ratio > 4.0: ICA EDV > 100 cm/s. 5. Near occlusion= ICA PSV velocities may be low or undetectable: variable ratio and ICA EDV. 6. Total occlusion=unable to detect flow.
--- NOTE | 2022-11-18 14:17 | P.PN ---
Subjective Progress Note Date: 11/18/22 This is Mitesh Currie NP, I'm dictating on behalf of Dr. Norman's H&P and A&P. Patient was interviewed and examined. Patient is a pleasant 61-year-old female presented to hospital with heart failure. Patient has a bench hand machine in [place] and she is new to the area. Patient reports that she's feeling okay today. She is denying chest pain, shortness of breath and heart palpitations. We are still awaiting records from [facility] for her recent heart catheterization and other records. GENERAL: Well-appearing, well-nourished and in no acute distress. NECK: Supple without JVD or thyromegaly. LUNGS: Breath sounds clear to auscultation bilaterally. Respiration equal and unlabored. No wheezes, rales or rhonchi. HEART: Regular rate and rhythm without murmurs, rubs or gallops. S1 and S2 heard. EXTREMITIES: Normal range of motion, no edema. No clubbing or cyanosis. Peripheral pulses intact and strong. VITALS: Temp 98.2, pulse 70, respirations 18, blood pressure 113/65, O2 saturation 94% on room air TELEMETRY: Normal sinus rhythm LABS: Sodium 135, potassium 4.3, BUN 71, creatinine 1.49, calcium 8.5, triglycerides 88.7, cholesterol 86, LDL 28.3, HDL 40 IMPRESSION: 1. Acute systolic heart failure 2. Non-ST elevated myocardial infarction 3. Diabetic ketoacidosis 4. History of coronary artery disease with prior stenting 5. Peripheral vascular disease with prior stenting and bypass 6. Diabetes mellitus type 2 uncontrolled 7. COPD PLAN: Repeat troponin tomorrow morning. Increase metoprolol to 75 mg twice a day. Still awaiting records from [facility]. Possible discharge tomorrow, patient has a cardiology appointment on 11/20/2022. Further recommendations based on patient's clinical course. Objective - Vital Signs Vital signs: Vital Signs Temp 98.2 F 11/18/22 08:06 Pulse 72 11/18/22 12:00 Resp 18 11/18/22 12:00 BP 110/70 11/18/22 12:00 Pulse Ox 98 11/18/22 12:00 FiO2 Intake & Output 11/17/22 11/18/22 11/18/22 18:59 06:59 18:59 Intake Total 600 540 420 Output Total 650 Balance 600 -110 420 Weight 68 kg Intake: Oral 600 540 420 Output: Urine 650 Other: Voiding Method Toilet Toilet Toilet # Voids 2 - Labs CBC & Chem 7: 11/17/22 09:24 11/18/22 08:16 Labs: Abnormal Lab Results - Last 24 Hours (Table) 11/17/22 11/17/22 11/18/22 Range/Units 16:43 19:29 00:40 Sodium (137-145) mmol/L BUN (7-17) mg/dL Creatinine (0.52-1.04) mg/dL Glucose (74-99) mg/dL POC Glucose (mg/dL) 123 H 175 H 209 H (70-110) mg/dL 11/18/22 11/18/22 11/18/22 Range/Units 06:08 08:16 11:41 Sodium 135 L (137-145) mmol/L BUN 71 H (7-17) mg/dL Creatinine 1.49 H (0.52-1.04) mg/dL Glucose 154 H (74-99) mg/dL POC Glucose (mg/dL) 200 H 297 H (70-110) mg/dL
[2022-11-18 16:16] LABS: Glucose,Whole Blood 332 mg/dL (70-110)
[2022-11-18 17:18] LABS: % Iron Saturation 2.75 (12.00-45.00); Ferritin 76.6 ng/mL (10.0-291.0)
[2022-11-18] MEDS: MONTELUKAST 10 MG TAB PO SCH (20:15)
[2022-11-18] MEDS: METOPROLOL TARTRATE 25 MG TAB PO SCH (20:15)
[2022-11-18] MEDS: ATORVASTATIN 80 MG TAB PO SCH (20:15)
[2022-11-18] MEDS: AMITRIPTYLINE HCL 25 MG TAB PO SCH (20:15)
[2022-11-18 20:44] LABS: Glucose,Whole Blood 320 mg/dL (70-110)
[2022-11-19 06:20] LABS: Glucose,Whole Blood 218 mg/dL (70-110)
[2022-11-19] MEDS: INSULIN ASPART (NovoLOG) 100 UNIT/ML VIAL SQ SCH ×6 (06:35→20:28)
[2022-11-19] MEDS ORDERED: HEPARIN SODIUM,PORCINE (1 ML) 2,500 UNIT in SODIUM CHLORIDE 0.9% 250 ML IRRIGATION PRN (07:00)
[2022-11-19] MEDS ORDERED: HEPARIN SODIUM,PORCINE 10,000 UNIT in SODIUM CHLORIDE 0.9% 1,000 ML IRRIGATION PRN (07:00)
[2022-11-19] MEDS: IPRATROPIUM-ALBUTEROL 3 ML NEB INHALATION SCH ×4 (08:04→21:12)
[2022-11-19] MEDS: ESCITALOPRAM 20 MG TAB PO SCH (08:18)
[2022-11-19] MEDS: CLOPIDOGREL 75 MG TAB PO SCH (08:18)
[2022-11-19] MEDS: ASPIRIN 81 MG PO SCH (08:18)
[2022-11-19] MEDS: METOPROLOL TARTRATE 25 MG TAB PO SCH ×2 (08:19→20:26)
[2022-11-19] MEDS: FUROSEMIDE 40 MG TAB PO SCH (08:19)
[2022-11-19] MEDS: MAGNESIUM OXIDE 400 MG TAB PO SCH (08:19)
[2022-11-19] MEDS: FAMOTIDINE 20 MG TAB PO SCH (08:19)
[2022-11-19] MEDS ORDERED: ASPIRIN 325 MG TAB PO STA (09:28)
[2022-11-19] MEDS ORDERED: NITROGLYCERIN SL TABS 0.4 MG TAB SUBLINGUAL PRN ×2 (09:28→11:52)
[2022-11-19] MEDS ORDERED: ALPRAZolam 0.5 MG TAB PO PRN (09:28)
[2022-11-19] MEDS ORDERED: ATORVASTATIN 80 MG TAB PO STA (09:28)
[2022-11-19] MEDS ORDERED: ALPRAZolam 0.25 MG TAB PO PRN (09:28)
[2022-11-19] MEDS ORDERED: ASPIRIN 81 MG PO STA (09:45)
--- NOTE | 2022-11-19 10:26 | P.PN ---
Subjective HISTORY OF PRESENT ILLNESS: Patient examined this morning. She is sitting up in the chair. Patients niece is present this morning. Patient denies chest pain or pressure. She denies SOB. She is currently receiving a breathing treatment. Patients niece gives history that patient had a cath at [facility] and was found to have triple vessel disease. No intervention was performed at that time. She was evaluated by CT surgery and felt to be high risk for CABG. She then underwent high risk PCI by Dr. Clancy. She thinks she had PCI of the LAD and RCA that is not 100% sure of the vessels stented. Echocardiogram completed revealing EF 35%. PHYSICAL EXAM: VITAL SIGNS: Reviewed. GENERAL: Well-developed in no acute distress. NECK: Supple. No JVD or thyromegaly LUNGS: Respirations even and unlabored. Lungs essentially clear to auscultation bilaterally. HEART: Regular rate and rhythm. S1 and S2 heard. EXTREMITIES: Normal range of motion. No clubbing or cyanosis. Peripheral pulses intact. No lower extremity edema ASSESSMENT: 1. Acute failure with reduced EF, 35% 2. Non-ST elevated myocardial infarction 3. Diabetic ketoacidosis 4. History of coronary artery disease with prior stenting 5. Peripheral vascular disease with prior stenting and bypass 6. Diabetes mellitus type 2 uncontrolled 7. COPD PLAN: Continue current cardiac medications Continue telemetry monitoring Hold morning dose of Xarelto Patient to undergo cardiac catheterization today with Dr. Horne Further recommendations pending patient's course Nurse practitioner note has been reviewed by physician. Signing provider agrees with the documented findings, assessment, and plan of care. Objective - Vital Signs Vital signs: Vital Signs Temp 97.7 F 11/19/22 08:14 Pulse 72 11/19/22 08:16 Resp 18 11/19/22 08:14 BP 120/80 11/19/22 08:14 Pulse Ox 99 11/19/22 08:14 FiO2 Intake & Output 11/18/22 11/19/22 11/19/22 18:59 06:59 18:59 Intake Total 600 Output Total 200 Balance 600 -200 Weight 125.5 kg Intake: Oral 600 Output: Urine 200 Other: Voiding Method Toilet Toilet # Voids 1 - Labs CBC & Chem 7: 11/17/22 09:24 11/18/22 08:16 Labs: Abnormal Lab Results - Last 24 Hours (Table) 11/17/22 11/18/22 11/18/22 Range/Units 09:24 11:41 16:15 POC Glucose (mg/dL) 297 H 332 H (70-110) mg/dL Iron 10 L (50-170) UG/DL % Saturation 2.75 L (12.00-45.00) Troponin I (0.000-0.034) ng/mL 11/18/22 11/19/22 11/19/22 Range/Units 20:42 06:19 07:29 POC Glucose (mg/dL) 320 H 218 H (70-110) mg/dL Iron (50-170) UG/DL % Saturation (12.00-45.00) Troponin I 1.760 H* (0.000-0.034) ng/mL
--- NOTE | 2022-11-19 10:28 | P.GSCN ---
History of Present Illness Consult date: 11/19/22 Reason for Consult: Right ICA occlusion Requesting physician: Marla Lux History of present illness: This is a pleasant 61-year-old female with multiple comorbidities including coronary artery disease status post stenting, history of DVT on Xarelto, morbid obesity, diabetes with peripheral neuropathy, peripheral arterial disease status post right lower extremity fem-pop bypass, carotid stenosis, a venous ins ufficiency, and COPD who presented to the emergency department with increased shortness of breath. Respiratory failure, anemia, and elevated troponins. Patient reports a generalized weakness to her left upper extremity states that it has been weeks since February where she believes she may have had a TIA at that time. Neurology was consulted for left sided weakness and multiple infarcts of the right cerebral hemisphere. She had a carotid duplex which reported occlusion of the right ICA and mild plaque formation of the left carotid bulb and proximal left internal carotid artery without any significant stenosis. Vascular surgery was consulted for right ICA occlusion. Also some weakness in the left lower extremity which she states feels like her knee will every week and get out. States that the weakness in her left upper extremity is more when she is holding something in her hand she feels that she will get involuntary jerking movements to her left hand and she will have to put whatever she is holding down. She denies any visual changes, speech difficulty lower right sided weakness. Patient starts having a coughing fit during the interview which she states is normal. She states she has pain in her feet but is her peripheral neuropathy. She has had previous vascular work done with Dr. Osullivan. She recently moved to this area. States that she underwent bypass surgery in February of this year of the right lower extremity. Also states that she has known right ICA occlusion. Home meds include Plavix 75 mg daily and Xarelto 2.5 mg twice a day as well as 81 mg aspirin. Patient is scheduled for cardiac catheterization today. Brain MRI ordered per neurology, currently pending. Review of Systems A 14 point review systems was completed all pertinent positives and negatives as stated in the HPI. 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 Past Psychological History: Anxiety, Depression Smoking Status: Former smoker Past Alcohol Use History: None Reported Past Drug Use History: None Reported Medications and Allergies Home Medications Medication Instructions Recorded Confirmed Type Albuterol Nebulized [Ventolin 2.5 mg INHALATION RT-Q6H PRN 11/14/22 11/14/22 History Nebulized] Albuterol Sulfate [Albuterol 2 puff PO RT-Q4H PRN 11/14/22 11/14/22 History Sulfate Hfa] Amitriptyline HCl [Elavil] 25 mg PO HS 11/14/22 11/14/22 History Aspirin EC [Ecotrin Low Dose] 81 mg PO DAILY 11/14/22 11/14/22 History Atorvastatin Calcium [Lipitor] 80 mg PO HS 11/14/22 11/14/22 History Canagliflozin [Invokana] 100 mg PO DAILY 11/14/22 11/14/22 History Clopidogrel [Plavix] 75 mg PO DAILY 11/14/22 11/14/22 History Escitalopram [Lexapro] 20 mg PO DAILY 11/14/22 11/14/22 History Furosemide [Lasix] 40 mg PO DAILY 11/14/22 11/14/22 History Insulin Glargine,Hum.rec.anlog 36 units SQ HS 11/14/22 11/14/22 History [Lantus Solostar Pen] Insulin Lispro [humaLOG Kwikpen] 4 unit SQ AC-TID 11/14/22 11/14/22 History Losartan [Cozaar] 25 mg PO DAILY 11/14/22 11/14/22 History Magnesium Oxide [Mag-Ox] 400 mg PO DAILY 11/14/22 11/14/22 History Montelukast Sodium 10 mg PO HS 11/14/22 11/14/22 History [place]-3 Fatty Acids [[place]-3] 1,000 mg PO DAILY 11/14/22 11/14/22 History Rivaroxaban [Xarelto] 2.5 mg PO BID 11/14/22 11/14/22 History metFORMIN HCL ER [Glucophage XR] 500 mg PO BID 11/14/22 11/14/22 History Allergies Allergy/AdvReac Type Severity Reaction Status Date / Time cephalexin [From Keflex] Allergy Rash/Hives Verified 11/14/22 21:40 Surgical - Exam Vital Signs Temp Pulse Resp BP Pulse Ox 97.6 F 103 H 20 111/52 90 L 11/14/22 19:06 11/14/22 19:06 11/14/22 19:06 11/14/22 19:06 11/14/22 19:06 General appearance: The patient is alert, oriented, appears in no acute distress. Morbid obesity. HET: Head is normocephalic and atraumatic. Pupils are equal and reactive. Neck: Supple. Heart: Regular. Lungs: Equal expansion, normal respiratory effort. Abdomen: Soft, nontender, nondistended. Extremities: Bilateral upper and lower extremity with psoriatic appearing rash. Bilateral lower extremity edema. Bilateral popliteal, PT and DP signals present. Right foot with second and fifth toe amputation, left great toe a mputation all well-healed. Neurological: Left hand grasp appears weaker than right. No other focal deficits present. Results - Labs 11/17/22 09:24 11/18/22 08:16 Abnormal Lab Results - Last 24 Hours (Table) 11/17/22 11/18/22 11/18/22 Range/Units 09:24 08:16 11:41 Sodium 135 L (137-145) mmol/L BUN 71 H (7-17) mg/dL Creatinine 1.49 H (0.52-1.04) mg/dL Glucose 154 H (74-99) mg/dL POC Glucose (mg/dL) 297 H (70-110) mg/dL Iron 10 L (50-170) UG/DL % Saturation 2.75 L (12.00-45.00) Troponin I (0.000-0.034) ng/mL 11/18/22 11/18/22 11/19/22 Range/Units 16:15 20:42 06:19 Sodium (137-145) mmol/L BUN (7-17) mg/dL Creatinine (0.52-1.04) mg/dL Glucose (74-99) mg/dL POC Glucose (mg/dL) 332 H 320 H 218 H (70-110) mg/dL Iron (50-170) UG/DL % Saturation (12.00-45.00) Troponin I (0.000-0.034) ng/mL 11/19/22 Range/Units 07:29 Sodium (137-145) mmol/L BUN (7-17) mg/dL Creatinine (0.52-1.04) mg/dL Glucose (74-99) mg/dL POC Glucose (mg/dL) (70-110) mg/dL Iron (50-170) UG/DL % Saturation (12.00-45.00) Troponin I 1.760 H* (0.000-0.034) ng/mL Diabetes panel 11/18/22 Range/Units 08:16 Sodium 135 L (137-145) mmol/L Potassium 4.3 (3.5-5.1) mmol/L Chloride 101 (98-107) mmol/L Carbon Dioxide 24 (22-30) mmol/L BUN 71 H (7-17) mg/dL Creatinine 1.49 H (0.52-1.04) mg/dL Glucose 154 H (74-99) mg/dL Calcium 8.5 (8.4-10.2) mg/dL Calcium panel 11/18/22 Range/Units 08:16 Calcium 8.5 (8.4-10.2) mg/dL Pituitary panel 11/18/22 Range/Units 08:16 Sodium 135 L (137-145) mmol/L Potassium 4.3 (3.5-5.1) mmol/L Chloride 101 (98-107) mmol/L Carbon Dioxide 24 (22-30) mmol/L BUN 71 H (7-17) mg/dL Creatinine 1.49 H (0.52-1.04) mg/dL Glucose 154 H (74-99) mg/dL Calcium 8.5 (8.4-10.2) mg/dL Adrenal panel 11/18/22 Range/Units 08:16 Sodium 135 L (137-145) mmol/L Potassium 4.3 (3.5-5.1) mmol/L Chloride 101 (98-107) mmol/L Carbon Dioxide 24 (22-30) mmol/L BUN 71 H (7-17) mg/dL Creatinine 1.49 H (0.52-1.04) mg/dL Glucose 154 H (74-99) mg/dL Calcium 8.5 (8.4-10.2) mg/dL - Imaging Comments: Brain CT: Multiple infarcts to the right cerebral hemisphere including the frontal lobe and parietal lobe of indeterminate variable age. One or both the frontal infarcts appear more acute possibly subacute. There is no acute bleed or mass effect Carotid duplex: Right ICA occluded. Mild plaque formation of the left carotid bulb and proximal left internal carotid artery without significant stenosis based on color and grayscale imaging and peak systolic velocity and ratios. Echocardiogram: Left ventricle is enlarged with evidence of hypokinesia of interventricular septum and anterior wall and apex with ejection fraction of about 35%. Mild right ventricular dilation. Increased velocity across aortic valve with possible mild aortic stenosis. Moderate mitral regurgitation and mild tricuspid regurgitation. No pericardial effusion. Assessment and Plan Assessment: 1. Right internal carotid artery occlusion 2. Left upper extremity weakness 3. Multiple infarcts of right cerebral hemisphere including frontal lobe and parietal lobe of indeterminate variable age frontal infarct possibly acut e/subacute per brain CT 4. Shortness of breath 5. Elevated troponins 6. Anemia 7. History coronary artery disease status post stents 8. History of peripheral arterial disease status post right lower extremity fem-pop bypass, bilateral feet with toe amputations 9. Diabetes mellitus with peripheral neuropathy 10. Morbid obesity 11. COPD Plan: 1. Continue workup with cardiology, scheduled for cardiac catheterization await further recommendations 2. MRI pending 3. There is no indication for any vascular surgical intervention for right ICA occlusion, no significant left ICA stenosis 4. Continue with recommendations from neurology 5. Recommend outpatient follow-up with vascular surgery for carotid surveillance as well as a history of peripheral arterial disease. Patient new to the area. Thank you for this consultation. The impression and plan of care has been dictated as directed. I performed a history and examination of this patient, discussed the same with the dictator. I agree with the dictator's note ,documented as a scribe. Any additional findings or plans will be noted.
[2022-11-19] MEDS ORDERED: HEPARIN SODIUM 1,000 UN/ML (10ML VL) ONE (10:53)
[2022-11-19] MEDS ORDERED: VERAPAMIL 2.5 MG/ML 2 ML AMP ONE (10:53)
[2022-11-19] MEDS ORDERED: LIDOCAINE 1% INJ 10MG/ML (20 ML MDV) ONE (10:53)
[2022-11-19] MEDS ORDERED: LIDOCAINE 1% INJ 10MG/ML (20 ML MDV) SQ ONE (11:07)
[2022-11-19] MEDS ORDERED: MIDAZOLAM 2 MG/2 ML VIAL IVP ONE (11:07)
[2022-11-19] MEDS ORDERED: VERAPAMIL SYRINGE (5 MG/10 ML) INTRAARTER ONE (11:12)
[2022-11-19] MEDS: HEPARIN SODIUM 1,000 UN/ML (10ML VL) IV ONE ×2 (11:13→11:27)
[2022-11-19] MEDS ORDERED: SODIUM CHLORIDE 0.9% 1,000 ML IV ONE (11:14)
[2022-11-19] MEDS ORDERED: NITROGLYCERIN 1000MCG/10ML SYRINGE INTRACORON ONE (11:30)
[2022-11-19] MEDS ORDERED: IOPAMIDOL-370 100ML BTL INJ ONE (11:46)
[2022-11-19] MEDS ORDERED: ZOLPIDEM 5 MG TAB PO PRN (11:52)
[2022-11-19] MEDS ORDERED: ATROPINE SULFATE 0.1 MG/ML 10ML SYRINGE IV PRN (11:52)
[2022-11-19] MEDS ORDERED: MAG HYDROX/AL HYDROX/SIMETH 30 ML CUP PO PRN (11:52)
[2022-11-19] MEDS ORDERED: RX INFO: IV CONTRAST WAS GIVEN 1 EACH MISC MISCELLANE PRN (11:52)
[2022-11-19] MEDS ORDERED: SODIUM CHLORIDE 0.9% 1,000 ML in EMPTY BAG 1 BAG IV SCH (12:00)
--- NOTE | 2022-11-19 12:03 | P.PCN ---
Date of Procedure: 11/19/22 Operative Findings: CARDIAC CATHETERIZATION AND PERCUTANEOUS CORONARY INTERVENTION PERFORMING PHYSICIAN: Caleb Horne MD, VI PROCEDURE PERFORMED: 1. Selective right and left coronary angiogram 2. Left heart catheterization 3. Successful stenting of the PLV branch of RCA using 2.0 x 18 mm Blane MERNA with an excellent angiographic results 4. iFR of the left anterior descending artery 5. Ultrasound-guided access of the right radial artery INDICATION: This is a 61-year-old female patient with coronary artery disease and prior stenting of the RCA and LAD as well as hypertension and dyslipidemia and chronic kidney disease as well as multiple comorbid conditions who presented to the hospital with a chest discomfort and ruled in for acute coronary syndrome. A troponin came in to be elevated and consistent with acute coronary syndrome. The EKG showed ischemic changes. In the light of that a heart catheterization was advised COMPLICATION: None APPROACH: Right radial artery LEVEL OF SEDATION: Moderate with the sedation time off 35 minutes PROCEDURE DESCRIPTION: After obtaining an informed consent the patient was brought to the cardiac laboratory director. The right radial artery was cannulated using micropuncture technique under ultrasound guidance and the micropuncture wire passed easily then I placed a 6- Afghan sheath at the right radial artery. I gave the patient 2 mg of verapamil intra-arterial and 4000 units of heparin intravenous. Selective right and left coronary angiogram performed using JR4 and JL 3.5 catheters. Left heart catheterization was performed using 5-Afghan pigtail catheter. After that I did intervene on the right coronary artery and I did flow Doppler measurements on the left anterior descending artery. The procedure was completed was no complication SELECTIVE CORONARY ANGIOGRAM: The right coronary artery: Large caliber vessel and a dominant vessel. The ostial RCA has a lesion appeared to be in the range of 30-40%. The mid RCA is a stented with mild in- stent restenosis. The RCA bifurcates into PDA and PLV branches. The PDA branch appears to have mild disease only and the PLV branch appears to be subtotally occluded with what it seems to be possible plaque rupture and thrombus formation Left main: Short left main but appeared to be angiographically normal. Bifurcates into an LCx and LAD The left circumflex: Large caliber vessel nondominant vessel. The LCx proximally has mild disease only and gives rises into a large OM branch which has mild disease in the proximal portion and then intermediate disease in the midportion. The left circumflex continues after that in the AV groove as a small to medium caliber vessel and gives rise into a second OM branch which is a small caliber vessel appears to be angiographically normal The left anterior descending artery: The proximal LAD has a lesion appeared to be in the range of 50-60%. We did Doppler measurements on the lesion and that was performed using iFR which came in to be ischemic at 0.79. The LAD after that in the proximal and midportion appears to be stented and the stent is patent. The LAD distally appears to have mild disease only. HEMODYNAMICS: The LVEDP was about 22 mmHg with peak to peak gradient of 10 mmHg PCI OF THE RCA AND iFR OF THE LAD: Anticoagulation was initiated using heparin with continuous ACT monitoring. Subsequently I did engage the right coronary artery using JR4 with sidehole. Subsequently I did wire the RCA and crossed the lesion in the PLV branch of the RCA using a whisper wire. Balloon angioplasty was performed using 2 mm x 12 mm balloon and subsequently I deployed 2 mm x 18 mm Blane MERNA where the stent was positioned under fluoroscopy guidance and deployed under its nominal pressure. The following angiogram showed good angiographic results was LEODAN-3 flow. After that I decided to do Doppler measurement of the LAD. After zeroing the Doppler wire and equalizing between the Doppler wire and guiding catheter which was a JL 3.5 guiding catheter in the left main was engaged and the LAD was wired. Wire was advanced distal the lesion. Subsequently I disengaged the guide from the left main coronary artery. We did iFR and that came in to be ischemic and 0.79. The procedure was completed was no complication. We did not do intervention on the LAD giving the amount of contrast which was limited giving the patient chronic kidney disease. CONCLUSION: 1. Acute total occlusion of the PLV branch of the RCA. I did perform successful stenting of the PLV branch of the RCA. 2. Intermediate disease involving the ostial/proximal LAD. The disease appeared to be flow limiting with iFR=0.79 3. Elevated left-sided filling pressure POSTPROCEDURE MANAGEMENT: 1. Dual antiplatelet therapy using aspirin and Plavix for 12 month 2. PCI of the LAD down the line 3. Follow-up with the patient
[2022-11-19 12:07] LABS: African American GFR (CKD) 45 (>60 ml/min/1.73 sqM); Anion Gap 13 mmol/L; Blood Urea Nitrogen 71 mg/dL (7-17); Calcium 8.5 mg/dL (8.4-10.2); Carbon Dioxide 22 mmol/L (22-30); Chloride 99 mmol/L (98-107); Glucose 179 mg/dL (74-99); Non-African American GFR(CKD) 39 (>60 ml/min/1.73 sqM); Potassium 4.6 mmol/L (3.5-5.1); Sodium 134 mmol/L (137-145)
[2022-11-19 12:12] LABS: Glucose,Whole Blood 212 mg/dL (70-110)
[2022-11-19] MEDS: INSULIN DETEMIR (LEVEMIR) 100 UNIT/ML SYR SQ SCH ×2 (12:19→20:27)
[2022-11-19] MEDS: SODIUM CHLORIDE 0.9% 1,000 ML in EMPTY BAG 1 BAG IV SCH ×2 (12:21→17:26)
[2022-11-19] MEDS: RIVAROXABAN 2.5 MG TABLET PO SCH ×2 (12:31→20:26)
--- NOTE | 2022-11-19 14:53 | P.PN ---
Subjective Progress Note Date: 11/19/22 This is a 61 year old female with medical history of COPD, heart failure, diabetes mellitus, myocardial infarction with prior cardiac stenting, peripheral vascular disease with bypass and stenting, lymphedema and psoriasis. Patient comes in to the hospital with 2 day history of shortness of breath and reports chest tightness and difficulty taking a deep breath. Patient has a disability specialist out of [place]. Patient recently traveled to the with her drove up on Saturday went to a visitation and drove home. Patient came in to the hospital for evaluation and was found to have elevated proBNP of 7000 with concern for fluid overload. Blood glucose is also in the 500-600s on admission and patient is found to have acetone positive consistent with diabetic ketoacidosis. Patient states she did not take any insulin for 2 days while she was driving she states she didn't bring it with her. She is usually insulin dependent. Patient was admitted to the hospital for shortness of breath and hyperglycemia. cardiology was consulted as patient felt the shortness of breath and chest tightness was similar to what she had experienced with her prior heart attack. Denies any fever or chills, No cough. No nausea vomiting or diarrhea. Echocardiogram has been ordered and patient has been started on IV lasix. 11/16/2022 Patient evaluated today resting in bed. Patient reports feeling less short of breath than yesterday, continues on nasal cannula which likely can be weaned she is 100% on 3L. Creatinine increased today, patient reports having adequate urine output although I and O not documented. Patient was transitioned back to oral lasix by cardiology and agreeing with this. Her lower extremity edema has improved. Additionally patient was taken off the insulin gtt, her blood sugar had improved down into the 100s. Anion gap had closed. Patient has been taken off the heparin gtt with plans to perform cardiac catheterization on Saturday. Echocardiogram shows an EF of 35% with moderate MR. 11/17/2022 Patient is evaluated today on the stepdown unit. Remains off IV heparin. No acute events overnight. Patient was transitioned to oral lasix. Creatinine up to 1.55. Check post void residuals and monitor for urinary retention. Will check renal ultrasound today. White count down to 10.8. 11/18/2022 Patient is evaluated today resting in bed. Family was concerned with patient's complaints of left sided weakness and decreased hand strength which has been ongoing for the patient since February of this year. Patient states that she did mention to her family doctor had no other workup done for her. Assessment does reveal a left-sided pronator drift and intermittent left-sided facial droop. Brain CT was performed without contrast shows multiple infarcts of the right cerebral hemisphere including the frontal lobe and parietal lobe of indeterminate variable age 1 or both of the frontal infarcts appears more acute possibly subacute. There is no mass affect or acute bleed. Due to the findings neurology consultation was requested. Labs today show sodium of 135, BUN of 71, creatinine of 1.49. Glucose in the 100s to 200s. Lipid panel is within normal limits. Pending iron studies. Renal ultrasound done showing no hydronephrosis or renal calcification no solid renal mass and no evidence of medical renal disease. Patient has been weaned to room air. 11/19/2022 Patient is evaluated today resting in bed status post cardiac catheterization, patient was found to have total occlusion of the PLV branch of the RCA and underwent successful stenting. There is intermediate disease involving the ostial and proximal LAD. Patient is recommended for dual antiplatelet therapy with aspirin and Plavix for the next 12 months and to consider intervention for the LAD lesion down the line. Patient is pending brain MRI continues with left extremity weakness with intermittent slurred speech. Was evaluated by speech therapy services pending notes. Labs today show a sodium of 134, BUN 71, currently 1.46, glucose 200s, troponin 1.760. REVIEW OF SYSTEMS: CONSTITUTIONAL: No fever, no malaise, no fatigue. HEENT: No recent visual problems or hearing problems. Denied any sore throat. CARDIOVASCULAR: Reports chest tightness, orthopnea, PND, no palpitations, no syncope. PULMONARY: Reports shortness of breath no cough, no hemoptysis. GASTROINTESTINAL: No diarrhea, no nausea, no vomiting, no abdominal pain. NEUROLOGICAL: No headaches, no weakness, no numbness. Patient reports left- sided arm weakness. PHYSICAL EXAMINATION: GENERAL: The patient is alert and oriented x3, not in any acute distress. Well developed, well nourished. Winded. On 3 L of oxygen. HEENT: Pupils are round and equally reacting to light. EOMI. No scleral icterus. No conjunctival pallor. Normocephalic, atraumatic. No pharyngeal erythema. No thyromegaly. CARDIOVASCULAR: S1 and S2 present. No murmurs, rubs, or gallops. PULMONARY: Chest is clear to auscultation, no wheezing or crackles. ABDOMEN: Soft, nontender, nondistended, normoactive bowel sounds. No palpable organomegaly. MUSCULOSKELETAL: No joint swelling or deformity. EXTREMITIES: No cyanosis, clubbing, mild LE edema. NEUROLOGICAL: Left sided weakness with pronator drift. SKIN: Multiple psoriatic plaques on bilateral lower extremities and left upper extremity. Assessment Acute hypoxemic respiratory failure requiring 4L of oxygen due to acute CHF excerbation patient has been weaned to room air. Acute systolic heart failure with EF 35%. Acute kidney injury due to volume overload, worsened with IV Lasix and now improving. Left-sided weakness with brain CT revealing multiple areas of acute/ subacute infarct in the right cerebral hemisphere Hx of stroke earlier this year with residual left sided weakness Carotid artery disease with total occluded Right ICA. Troponin elevation likely due to non ST elevation [place] Diabetic ketoacidosis due to not taking insulin resolved. Insulin dependent diabetes mellitus type 2, uncontrolled hemoglobin A1C 8.5. Hx of DVT/PE anticoagulated on low dose xarelto/plavix. Hx of COPD Hx peripheral vascular disease with prior fem-pop bypass and multiple toe amputations. Hx coronary artery disease and prior cardiac stenting Lymphedema Psoriasis Obesity GI prophylaxis DVT prophylaxis Full Code Plan Patient was taken off the insulin gtt and resumed on levemir at HS along with sliding scale and scheduled insulin. Blood glucose improved. Patient is status post PCI and recommended for dual antiplatelet therapy with aspirin and plavix for the next 12 months Can wean oxygen as tolerated patient was 100% on 3L of oxygen. Cardiology reports requested from [facility]. Continue to Hold losartan and metformin Brain MRI pending Vascular evaluated the patient for the right ICA occlusion with no intervention planned patient to f/u with vascular outpatient. Neurology following. Repeat labs in AM PT/OT consultation, speech therapy consultation patient likely will require ECF on discharge. The impression and plan of care has been dictated by Marla Lux, Nurse Practitioner as directed. Dr. Dalia MD I have performed a history and physical examination and medical decision making of this patient, discussed the same with the dictator, and agree with the dictators assessment and plan as written, documented as a scribe. Based on total visit time, I have performed more than 50% of this visit. Objective - Vital Signs Vital signs: Vital Signs Temp 98.2 F 11/19/22 12:04 Pulse 60 11/19/22 14:12 Resp 18 11/19/22 14:12 BP 91/52 11/19/22 14:12 Pulse Ox 97 11/19/22 14:12 FiO2 Intake & Output 11/18/22 11/19/22 11/19/22 18:59 06:59 18:59 Intake Total 600 50 Output Total 200 900 Balance 600 -200 -850 Weight 125.5 kg 125.5 kg Intake: IV 50 Oral 600 Output: Urine 200 900 Other: Voiding Method Toilet Toilet Toilet # Voids 1 - Labs CBC & Chem 7: 11/17/22 09:24 11/19/22 10:25 Labs: Abnormal Lab Results - Last 24 Hours (Table) 11/17/22 11/18/22 11/18/22 Range/Units 09:24 16:15 20:42 Sodium (137-145) mmol/L BUN (7-17) mg/dL Creatinine (0.52-1.04) mg/dL Glucose (74-99) mg/dL POC Glucose (mg/dL) 332 H 320 H (70-110) mg/dL Iron 10 L (50-170) UG/DL % Saturation 2.75 L (12.00-45.00) Troponin I (0.000-0.034) ng/mL 11/19/22 11/19/22 11/19/22 Range/Units 06:19 07:29 10:25 Sodium 134 L (137-145) mmol/L BUN 71 H (7-17) mg/dL Creatinine 1.46 H (0.52-1.04) mg/dL Glucose 179 H (74-99) mg/dL POC Glucose (mg/dL) 218 H (70-110) mg/dL Iron (50-170) UG/DL % Saturation (12.00-45.00) Troponin I 1.760 H* (0.000-0.034) ng/mL 11/19/22 Range/Units 12:10 Sodium (137-145) mmol/L BUN (7-17) mg/dL Creatinine (0.52-1.04) mg/dL Glucose (74-99) mg/dL POC Glucose (mg/dL) 212 H (70-110) mg/dL Iron (50-170) UG/DL % Saturation (12.00-45.00) Troponin I (0.000-0.034) ng/mL Assessment and Plan Time with Patient: Less than 30
[2022-11-19 16:31] LABS: Glucose,Whole Blood 248 mg/dL (70-110)
--- NOTE | 2022-11-19 17:31 | P.PN ---
Subjective Progress Note Date: 11/19/22 Patient initially seen by Dr. Yandel lAejandra. Please refer to his note for details. Patient is a 61-year-old female with left-sided weakness since February 2022, but worsening. CT head showed subacute changes over the right frontal/parietal region. Patient is undergoing stroke workup. Patient currently on her home antiplatelets and Xarelto. Patient states that she feels very tired, wants to sleep all the time. She has no ambition to get out of bed. She says that she has a granddaughter, who is 20 months old. Objective - Vital Signs Vital signs: Vital Signs Temp 98.2 F 11/19/22 12:04 Pulse 66 11/19/22 12:34 Resp 18 11/19/22 12:34 BP 120/81 11/19/22 12:34 Pulse Ox 98 11/19/22 12:34 FiO2 Intake & Output 11/18/22 11/19/22 11/19/22 18:59 06:59 18:59 Intake Total 600 50 Output Total 200 Balance 600 -200 50 Weight 125.5 kg Intake: IV 50 Oral 600 Output: Urine 200 Other: Voiding Method Toilet Toilet Toilet # Voids 1 - Exam Patient is a late middle aged female, in no acute distress. Patient is alert awake oriented to time place and person. Speech and language functions are normal. Patient can name and repeat very well. No aphasia or dysarthria. Attention, concentration and fund of knowledge is adequate. On cranial nerve examination, pupils are equal, round and reacting to light, visual cassidy are full on confrontation, however she does neglect the left side on double simultaneous stimulation. Extraocular muscles are intact with no nystagmus. Face is symmetric, tongue protrudes to the midline. Palatal elevation and sensation normal, hearing and shoulder shrug normal, facial sensation normal. On muscle strength testing, there is no pronator drift. Patient has very significant myoclonic jerks of outstretched hands. The muscle strength is normal in arms and legs distally and proximally. Sensory to touch reveals patient neglects the left upper limb as compared to the right, but does not neglect the lower limbs. Cerebellar function showed no ataxia for [id number] testing. No dysdiadochokinesia. No ataxia for [id number] testing on either side. Tone and bulk of muscles normal. Gait deferred.. On general examination, there is no carotid bruit or murmur, S1-S2 audible. Chest is clear on consultation. Abdomen is soft nontender. No organomegaly, bowel sounds present. Patient has significant psoriasis, dry skin, edema in the lower limbs. - Labs CBC & Chem 7: 11/17/22 09:24 11/19/22 10:25 Labs: Abnormal Lab Results - Last 24 Hours (Table) 11/17/22 11/18/22 11/18/22 Range/Units 09:24 16:15 20:42 Sodium (137-145) mmol/L BUN (7-17) mg/dL Creatinine (0.52-1.04) mg/dL Glucose (74-99) mg/dL POC Glucose (mg/dL) 332 H 320 H (70-110) mg/dL Iron 10 L (50-170) UG/DL % Saturation 2.75 L (12.00-45.00) Troponin I (0.000-0.034) ng/mL 11/19/22 11/19/22 11/19/22 Range/Units 06:19 07:29 10:25 Sodium 134 L (137-145) mmol/L BUN 71 H (7-17) mg/dL Creatinine 1.46 H (0.52-1.04) mg/dL Glucose 179 H (74-99) mg/dL POC Glucose (mg/dL) 218 H (70-110) mg/dL Iron (50-170) UG/DL % Saturation (12.00-45.00) Troponin I 1.760 H* (0.000-0.034) ng/mL 11/19/22 Range/Units 12:10 Sodium (137-145) mmol/L BUN (7-17) mg/dL Creatinine (0.52-1.04) mg/dL Glucose (74-99) mg/dL POC Glucose (mg/dL) 212 H (70-110) mg/dL Iron (50-170) UG/DL % Saturation (12.00-45.00) Troponin I (0.000-0.034) ng/mL Assessment and Plan Assessment: This is a 61-year-old woman with multiple medical issues including reported right ICA occlusion and left ICA stenosis about 65% on the left and she stated that she followed up with a vascular surgeon as an outpatient and no intervention but does not know the details, who is having left-sided weakness since February [address] of the head that shows right frontal parietal multi-infarct of indeterminate age possible appear acute subacute. In my opinion I felt it seems more subacute and there is some areas that felt chronic. Left sided weakness since February 2022 is progressively worse and has subacute changes on the left frontal parietal/occipital region. No IV TPA since outside the window and the risk outweighed the benefit Right ICA occlusion and left ICA stenosis in the past and that was a valid by a vascular surgeon and was told no intervention Heart failure with ejection fraction of 35%. And has evidence of hypokinesis Diabetes mellitus and the hemoglobin A1c is 8.5 Possible underlying urinary tract infection Elevated cardiac enzymes History of coronary artery disease status post stent History OH History of blood clots per ED team and is on Xarelto (but patient is unaware why she is on it) Plan: Carotid duplex revealed right ICA occlusion. Mild plaque in the left carotid bulb and left ICA. No significant stenosis on the left side. CT head was reviewed, and there is evidence of watershed infarct in the right hemispheric region, between right KVNG/MCA, right MCA/HOUSE DECORATOR territory. No hemorrhage. MRI the brain with and without still pending. Patient is on aspirin 81 mg, Plavix 75 mg daily as well as Xarelto 2.5mg bid her home medication. From a neurologic perspective she is on dual antiplatelet, as well as anticoagulation which can increase risk for bleed but will defer the use of antiplatelets and anticoagulation to the primary and cardiology team Dr. Alejandra has recommend a transesophageal echocardiogram for further evaluation Cardiology team is on board Every 4 hours neuro checks Cardiac monitoring PT and OT are consulted. Consulted CLAIMS SPECIALIST We'll defer the rest of the medical management the primary team For DVT prophylaxis patient is on Xarelto.
[2022-11-19 20:13] LABS: Glucose,Whole Blood 313 mg/dL (70-110)
[2022-11-19] MEDS: MONTELUKAST 10 MG TAB PO SCH (20:25)
[2022-11-19] MEDS: AMITRIPTYLINE HCL 25 MG TAB PO SCH (20:26)
[2022-11-19] MEDS: ATORVASTATIN 80 MG TAB PO SCH (20:26)
[2022-11-19] MEDS: ACETAMINOPHEN TAB 325 MG TAB PO PRN (20:27)
[2022-11-20 06:13] LABS: Glucose,Whole Blood 225 mg/dL (70-110)
[2022-11-20] MEDS: INSULIN ASPART (NovoLOG) 100 UNIT/ML VIAL SQ SCH ×7 (06:30→22:06)
[2022-11-20] MEDS: SODIUM CHLORIDE 0.9% 1,000 ML in EMPTY BAG 1 BAG IV SCH ×3 (06:55→12:46)
[2022-11-20] MEDS: CLOPIDOGREL 75 MG TAB PO SCH (08:39)
[2022-11-20] MEDS: INSULIN DETEMIR (LEVEMIR) 100 UNIT/ML SYR SQ SCH ×2 (08:40→20:05)
[2022-11-20] MEDS: MAGNESIUM OXIDE 400 MG TAB PO SCH (08:40)
[2022-11-20] MEDS: FUROSEMIDE 40 MG TAB PO SCH (08:40)
[2022-11-20] MEDS: METOPROLOL TARTRATE 25 MG TAB PO SCH ×2 (08:40→20:04)
[2022-11-20] MEDS: ESCITALOPRAM 20 MG TAB PO SCH (08:40)
[2022-11-20] MEDS: ASPIRIN 81 MG PO SCH (08:40)
[2022-11-20] MEDS: RIVAROXABAN 2.5 MG TABLET PO SCH ×2 (08:41→20:04)
[2022-11-20] MEDS: FAMOTIDINE 20 MG TAB PO SCH (08:43)
[2022-11-20] MEDS: IPRATROPIUM-ALBUTEROL 3 ML NEB INHALATION SCH ×5 (09:17→21:42)
[2022-11-20 09:28] LABS: Anisocytosis Slight; Basophils # (A) 0.1 k/uL (0-0.2); Basophils % (A) 1 %; Eosinophils # (A) 0.4 k/uL (0-0.7); Eosinophils % (A) 4 %; HCT 26.5 % (34.0-46.0); HGB 7.9 gm/dL (11.4-16.0); Hypochromasia Marked; Lymphocytes # (A) 1.2 k/uL (1.0-4.8); Lymphocytes % (A) 12 %; MCH 24.2 pg (25.0-35.0); MCHC 29.6 g/dL (31.0-37.0); MCV 81.9 fL (80.0-100.0); Mean Platelet Volume 9.3; Microcytosis Slight; Monocytes # (A) 0.8 k/uL (0-1.0); Monocytes % (A) 8 %; Neutrophils # (A) 7.3 k/uL (1.3-7.7); Neutrophils % (A) 73 %; Platelet Count 342 k/uL (150-450); RBC 3.24 m/uL (3.80-5.40); RDW 19.2 % (11.5-15.5)
--- NOTE | 2022-11-20 10:04 | P.PN ---
Subjective Progress Note Date: 11/20/22 Principal diagnosis: Right internal carotid artery occlusion Patient seen and examined today as a follow-up. She is without any new complaints or focal deficits. Yesterday she underwent cardiac cath with findings of acute total occlusion of the PLV branch with RCA stenting with recommendation for PCI of the LAD stenting at some point. Currently awaiting her brain MRI. No other acute changes through the night. Objective - Vital Signs Vital signs: Vital Signs Temp 97.4 F L 11/20/22 08:00 Pulse 70 11/20/22 08:00 Resp 16 11/20/22 08:00 BP 127/67 11/20/22 08:00 Pulse Ox 100 11/20/22 08:00 FiO2 Intake & Output 11/19/22 11/20/22 11/20/22 18:59 06:59 18:59 Intake Total 50 480 0 Output Total 900 700 300 Balance -850 -220 -300 Weight 125.5 kg 126.1 kg Intake: IV 50 Oral 480 0 Output: Urine 900 700 300 Other: Voiding Method Toilet Bedside Commode - Exam General appearance: The patient is alert, oriented, appears in no acute distress. Morbid obesity. HET: Head is normocephalic and atraumatic. Pupils are equal and reactive. Neck: Supple. Heart: Regular. Lungs: Equal expansion, normal respiratory effort. Abdomen: Soft, nontender, nondistended. Extremities: Bilateral upper and lower extremity with psoriatic appearing rash. Bilateral lower extremity edema. Bilateral popliteal, PT and DP signals present. Right foot with second and fifth toe amputation, left great toe amputation all well-healed. Neurological: Left hand grasp appears weaker than right. No other focal deficits present. - Labs CBC & Chem 7: 11/20/22 08:13 11/19/22 10:25 Labs: Abnormal Lab Results - Last 24 Hours (Table) 11/19/22 11/19/22 11/19/22 Range/Units 10:25 12:10 16:30 RBC (3.80-5.40) m/uL Hgb (11.4-16.0) gm/dL Hct (34.0-46.0) % MCH (25.0-35.0) pg MCHC (31.0-37.0) g/dL RDW (11.5-15.5) % Sodium 134 L (137-145) mmol/L BUN 71 H (7-17) mg/dL Creatinine 1.46 H (0.52-1.04) mg/dL Glucose 179 H (74-99) mg/dL POC Glucose (mg/dL) 212 H 248 H (70-110) mg/dL 11/19/22 11/20/22 11/20/22 Range/Units 20:10 06:11 08:13 RBC 3.24 L (3.80-5.40) m/uL Hgb 7.9 L (11.4-16.0) gm/dL Hct 26.5 L (34.0-46.0) % MCH 24.2 L (25.0-35.0) pg MCHC 29.6 L (31.0-37.0) g/dL RDW 19.2 H (11.5-15.5) % Sodium (137-145) mmol/L BUN (7-17) mg/dL Creatinine (0.52-1.04) mg/dL Glucose (74-99) mg/dL POC Glucose (mg/dL) 313 H 225 H (70-110) mg/dL Assessment and Plan Assessment: 1. Right internal carotid artery occlusion 2. Left upper extremity weakness 3. Multiple infarcts of right cerebral hemisphere including frontal lobe and parietal lobe of indeterminate variable age frontal infarct possibly acute/subacute per brain CT 4. Shortness of breath 5. Elevated troponins status post cardiac catheterization and stenting of the PLV branch of the RCA 6. Anemia 7. History coronary artery disease status post stents 8. History of peripheral arterial disease status post right lower extremity fem-pop bypass, bilateral feet with toe amputations 9. Diabetes mellitus with peripheral neuropathy 10. Morbid obesity 11. COPD Plan: 1. Continue recommendations from cardiology 2. MRI pending 3. There is no indication for any vascular surgical intervention for right ICA occlusion, no significant left ICA stenosis 4. Continue with recommendations from neurology 5. Recommend outpatient follow-up with vascular surgery for carotid surveillance as well as a history of peripheral arterial disease. Patient new t o the area. Thank you for this consultation. The impression and plan of care has been dictated as directed. I performed a history and examination of this patient, discussed the same with the dictator. I agree with the dictator's note ,documented as a scribe. Any a dditional findings or plans will be noted.
[2022-11-20 11:13] LABS: Glucose,Whole Blood 162 mg/dL (70-110)
[2022-11-20] MEDS: ACETAMINOPHEN TAB 325 MG TAB PO PRN ×2 (11:55→20:04)
--- NOTE | 2022-11-20 12:38 | P.PN ---
Subjective HISTORY OF PRESENT ILLNESS: Patient examined this morning. She is sitting up in the chair. Patients thaoece is present this morning. Patient denies chest pain or pressure. She denies SOB. She is currently receiving a breathing treatment. Patients oxana gives history that patient had a cath at [facility] and was found to have triple vessel disease. No intervention was performed at that time. She was evaluated by CT surgery and felt to be high risk for CABG. She then underwent high risk PCI by Dr. Clancy. She thinks she had PCI of the LAD and RCA that is not 100% sure of the vessels stented. Echocardiogram completed revealing EF 35%. 11/20/2022 Patient underwent cardiac catheterization yesterday with Dr. Cole. Patient was found to have acute total occlusion of the PLV branch of the RCA. She underwent stenting of the PLV branch. Patient was also found to have intermediate disease involving the ostial/proximal LAD. The disease appeared to be flow-limiting with iFR of 0.79. PHYSICAL EXAM: VITAL SIGNS: Reviewed. GENERAL: Well-developed in no acute distress. NECK: Supple. No JVD or thyromegaly LUNGS: Respirations even and unlabored. Lungs essentially clear to auscultation bilaterally. HEART: Regular rate and rhythm. S1 and S2 heard. EXTREMITIES: Normal range of motion. No clubbing or cyanosis. Peripheral pulses intact. No lower extremity edema ASSESSMENT: 1. Acute failure with reduced EF, 35% 2. Non-ST elevated myocardial infarction status post cardiac catheterization with stenting of the PLV branch of the RCA 3. Diabetic ketoacidosis 4. History of coronary artery disease with prior stenting 5. Peripheral vascular disease with prior stenting and bypass 6. Diabetes mellitus type 2 uncontrolled 7. COPD 8. Intermediate disease involving the ostial/proximal LAD PLAN: Continue current cardiac medications She will require intervention of ostial/proximal LAD lesion which can be performed by her primary nodulizer Patient is stable for discharge home today from a cardiac standpoint She is to follow up outpatient with her primary nodulizer Nurse practitioner note has been reviewed by physician. Signing provider agrees with the documented findings, assessment, and plan of care. Objective - Vital Signs Vital signs: Vital Signs Temp 97.4 F L 11/20/22 11:40 Pulse 64 11/20/22 11:58 Resp 16 11/20/22 11:40 BP 97/63 11/20/22 11:40 Pulse Ox 97 11/20/22 11:40 FiO2 Intake & Output 11/19/22 11/20/22 11/20/22 18:59 06:59 18:59 Intake Total 50 480 0 Output Total 900 700 300 Balance -850 -220 -300 Weight 125.5 kg 126.1 kg Intake: IV 50 Oral 480 0 Output: Urine 900 700 300 Other: Voiding Method Toilet Bedside Commode Bedside Commode - Labs CBC & Chem 7: 11/20/22 08:13 11/19/22 10:25 Labs: Abnormal Lab Results - Last 24 Hours (Table) 11/19/22 11/19/22 11/20/22 Range/Units 16:30 20:10 06:11 RBC (3.80-5.40) m/uL Hgb (11.4-16.0) gm/dL Hct (34.0-46.0) % MCH (25.0-35.0) pg MCHC (31.0-37.0) g/dL RDW (11.5-15.5) % POC Glucose (mg/dL) 248 H 313 H 225 H (70-110) mg/dL 11/20/22 11/20/22 Range/Units 08:13 11:08 RBC 3.24 L (3.80-5.40) m/uL Hgb 7.9 L (11.4-16.0) gm/dL Hct 26.5 L (34.0-46.0) % MCH 24.2 L (25.0-35.0) pg MCHC 29.6 L (31.0-37.0) g/dL RDW 19.2 H (11.5-15.5) % POC Glucose (mg/dL) 162 H (70-110) mg/dL
[2022-11-20 12:53] LABS: African American GFR (CKD) 49 (>60 ml/min/1.73 sqM); Anion Gap 10 mmol/L; Blood Urea Nitrogen 72 mg/dL (7-17); Calcium 8.3 mg/dL (8.4-10.2); Carbon Dioxide 22 mmol/L (22-30); Chloride 102 mmol/L (98-107); Glucose 142 mg/dL (74-99); Non-African American GFR(CKD) 42 (>60 ml/min/1.73 sqM); Potassium 4.6 mmol/L (3.5-5.1); Sodium 134 mmol/L (137-145)
[2022-11-20] MEDS: guaiFENesin SYRUP 100MG/5ML 200 MG/10 ML CUP PO PRN ×2 (13:18→22:08)
--- NOTE | 2022-11-20 15:22 | P.PN ---
Subjective Progress Note Date: 11/20/22 This is a 61 year old female with medical history of COPD, heart failure, diabetes mellitus, myocardial infarction with prior cardiac stenting, peripheral vascular disease with bypass and stenting, lymphedema and psoriasis. Patient comes in to the hospital with 2 day history of shortness of breath and reports chest tightness and difficulty taking a deep breath. 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 Patient recently traveled to the with her drove up on Saturday went to a visitation and drove home. Patient came in to the hospital for evaluation and was found to have elevated proBNP of 7000 with concern for fluid overload. Blood glucose is also in the 500-600s on admission and patient is found to have acetone positive consistent with diabetic ketoacidosis. Patient states she did not take any insulin for 2 days while she was driving she states she didn't bring it with her. She is usually insulin dependent. Patient was admitted to the hospital for shortness of breath and hyperglycemia. cardiology was consulted as patient felt the shortness of breath and chest tightness was similar to what she had experienced with her prior heart attack. Denies any fever or chills, No cough. No nausea vomiting or diarrhea. Echocardiogram has been ordered and patient has been started on IV lasix. 11/16/2022 Patient evaluated today resting in bed. Patient reports feeling less short of breath than yesterday, continues on nasal cannula which likely can be weaned she is 100% on 3L. Creatinine increased today, patient reports having adequate urine output although I and O not documented. Patient was transitioned back to oral lasix by cardiology and agreeing with this. Her lower extremity edema has improved. Additionally patient was taken off the insulin gtt, her blood sugar had improved down into the 100s. Anion gap had closed. Patient has been taken off the heparin gtt with plans to perform cardiac catheterization on Saturday. Echocardiogram shows an EF of 35% with moderate MR. 11/17/2022 Patient is evaluated today on the stepdown unit. Remains off IV heparin. No acute events overnight. Patient was transitioned to oral lasix. Creatinine up to 1.55. Check post void residuals and monitor for urinary retention. Will check renal ultrasound today. White count down to 10.8. 11/18/2022 Patient is evaluated today resting in bed. Family was concerned with patient's complaints of left sided weakness and decreased hand strength which has been ongoing for the patient since February of this year. Patient states that she did mention to her family doctor had no other workup done for her. Assessment does reveal a left-sided pronator drift and intermittent left-sided facial droop. Brain CT was performed without contrast shows multiple infarcts of the right cerebral hemisphere including the frontal lobe and parietal lobe of indeterminate variable age 1 or both of the frontal infarcts appears more acute possibly subacute. There is no mass affect or acute bleed. Due to the findings neurology consultation was requested. Labs today show sodium of 135, BUN of 71, creatinine of 1.49. Glucose in the 100s to 200s. Lipid panel is within normal limits. Pending iron studies. Renal ultrasound done showing no hydronephrosis or renal calcification no solid renal mass and no evidence of medical renal disease. Patient has been weaned to room air. 11/19/2022 Patient is evaluated today resting in bed status post cardiac catheterization, patient was found to have total occlusion of the PLV branch of the RCA and underwent successful stenting. There is intermediate disease involving the ostial and proximal LAD. Patient is recommended for dual antiplatelet therapy with aspirin and Plavix for the next 12 months and to consider intervention for the LAD lesion down the line. Patient is pending brain MRI continues with left extremity weakness with intermittent slurred speech. Was evaluated by speech therapy services pending notes. Labs today show a sodium of 134, BUN 71, currently 1.46, glucose 200s, troponin 1.760. 11/20/2022 Patient evaluated resting in bed. S/P stenting to the RCA and currently denies any chest pain. Patient has mild shortness of breath today at rest. Her legs appear more swollen than yesterday. Renal function is improving with creatinine 1.36. Remains on oral lasix. White count has normalized. Patient is currently pending MRI discussed with neurology about outpatient MRI and patient will remain inpatient. PT/OT recommending home with homecare on discharge. REVIEW OF SYSTEMS: CONSTITUTIONAL: No fever, no malaise, no fatigue. HEENT: No recent visual problems or hearing problems. Denied any sore throat. CARDIOVASCULAR: Reports chest tightness, orthopnea, PND, no palpitations, no syncope. PULMONARY: Reports shortness of breath no cough, no hemoptysis. GASTROINTESTINAL: No diarrhea, no nausea, no vomiting, no abdominal pain. NEUROLOGICAL: No headaches, no weakness, no numbness. Patient reports left- sided arm weakness. PHYSICAL EXAMINATION: GENERAL: The patient is alert and oriented x3, not in any acute distress. Well developed, well nourished. Winded. On 3 L of oxygen. HEENT: Pupils are round and equally reacting to light. EOMI. No scleral icterus. No conjunctival pallor. Normocephalic, atraumatic. No pharyngeal erythema. No thyromegaly. CARDIOVASCULAR: S1 and S2 present. No murmurs, rubs, or gallops. PULMONARY: Chest is clear to auscultation, no wheezing or crackles. ABDOMEN: Soft, nontender, nondistended, normoactive bowel sounds. No palpable organomegaly. MUSCULOSKELETAL: No joint swelling or deformity. EXTREMITIES: No cyanosis, clubbing, mild LE edema. NEUROLOGICAL: Left sided weakness with pronator drift. SKIN: Multiple psoriatic plaques on bilateral lower extremities and left upper extremity. Assessment Acute hypoxemic respiratory failure requiring 4L of oxygen due to acute CHF excerbation patient has been weaned to room air. Acute systolic heart failure with EF 35%. Acute kidney injury due to volume overload, worsened with IV Lasix and now improving. Left-sided weakness with brain CT revealing multiple areas of acute/ subacute infarct in the right cerebral hemisphere Hx of stroke earlier this year with residual left sided weakness Carotid artery disease with total occluded Right ICA. Troponin elevation likely due to non ST elevation NM Diabetic ketoacidosis due to not taking insulin resolved. Insulin dependent diabetes mellitus type 2, uncontrolled hemoglobin A1C 8.5. Hx of DVT/PE anticoagulated on low dose xarelto/plavix. Hx of COPD Hx peripheral vascular disease with prior fem-pop bypass and multiple toe amputations. Hx coronary artery disease and prior cardiac stenting Lymphedema Psoriasis Obesity GI prophylaxis DVT prophylaxis Full Code Plan Patient was taken off the insulin gtt and resumed on levemir at HS along with sliding scale and scheduled insulin. Blood glucose improved. Patient is status post PCI and recommended for dual antiplatelet therapy with aspirin and plavix for the next 12 months Cardiology reports requested from [facility]. Continue to Hold losartan and metformin Brain MRI pending Vascular evaluated the patient for the right ICA occlusion with no intervention planned patient to f/u with vascular outpatient. Neurology following. Repeat labs in AM PT and OT recommending home with homecare on discharge. The impression and plan of care has been dictated by Marla Lux, Nurse Practitioner as directed. Dr. Dalia MD I have performed a history and physical examination and medical decision making of this patient, discussed the same with the dictator, and agree with the dictators assessment and plan as written, documented as a scribe. Based on total visit time, I have performed more than 50% of this visit. Objective - Vital Signs Vital signs: Vital Signs Temp 97.4 F L 11/20/22 08:00 Pulse 70 11/20/22 08:00 Resp 16 11/20/22 08:00 BP 127/67 11/20/22 08:00 Pulse Ox 100 11/20/22 08:00 FiO2 Intake & Output 11/19/22 11/20/22 11/20/22 18:59 06:59 18:59 Intake Total 50 480 0 Output Total 900 700 300 Balance -850 -220 -300 Weight 125.5 kg 126.1 kg Intake: IV 50 Oral 480 0 Output: Urine 900 700 300 Other: Voiding Method Toilet Bedside Commode - Labs CBC & Chem 7: 11/20/22 08:13 11/20/22 08:13 Labs: Abnormal Lab Results - Last 24 Hours (Table) 11/19/22 11/19/22 11/19/22 Range/Units 10:25 12:10 16:30 Sodium 134 L (137-145) mmol/L BUN 71 H (7-17) mg/dL Creatinine 1.46 H (0.52-1.04) mg/dL Glucose 179 H (74-99) mg/dL POC Glucose (mg/dL) 212 H 248 H (70-110) mg/dL 11/19/22 11/20/22 Range/Units 20:10 06:11 Sodium (137-145) mmol/L BUN (7-17) mg/dL Creatinine (0.52-1.04) mg/dL Glucose (74-99) mg/dL POC Glucose (mg/dL) 313 H 225 H (70-110) mg/dL Assessment and Plan Time with Patient: Less than 30
[2022-11-20 16:17] LABS: Glucose,Whole Blood 227 mg/dL (70-110)
--- NOTE | 2022-11-20 17:22 | P.PN ---
Subjective Progress Note Date: 11/20/22 11/20/2022: Patient was seen for a follow-up. Patient is laying comfortably in the bed. Offers no new complaints. 11/19/2022: Patient initially seen by Dr. Yandel Alejandra. Please refer to his note for details. Patient is a 61-year-old female with left-sided weakness since February 2022, but worsening. CT head showed subacute changes over the right frontal/parietal region. Patient is undergoing stroke workup. Patient currently on her home antiplatelets and Xarelto. Patient states that she feels very tired, wants to sleep all the time. She has no ambition to get out of bed. She says that she has a granddaughter, who is 20 months old. Objective - Vital Signs Vital signs: Vital Signs Temp 98.2 F 11/20/22 16:00 Pulse 64 11/20/22 16:55 Resp 18 11/20/22 16:00 BP 133/82 11/20/22 16:00 Pulse Ox 99 11/20/22 16:00 FiO2 Intake & Output 11/19/22 11/20/22 11/20/22 18:59 06:59 18:59 Intake Total 50 480 400 Output Total 900 700 300 Balance -850 -220 100 Weight 125.5 kg 126.1 kg Intake: IV 50 Oral 480 400 Output: Urine 900 700 300 Other: Voiding Method Toilet Bedside Commode Bedside Commode - Exam Patient is a late middle aged female, in no acute distress. Patient is alert awake oriented to time place and person. Speech and language functions are normal. Patient can name and repeat very well. No aphasia or dysarthria. Attention, concentration and fund of knowledge is adequate. On cranial nerve examination, pupils are equal, round and reacting to light, visual cassidy are full on confrontation, however she does neglect the left side on double simultaneous stimulation. Extraocular muscles are intact with no nystagmus. Face is symmetric, tongue protrudes to the midline. Palatal elevation and sensation normal, hearing and shoulder shrug normal, facial sensation normal. On muscle strength testing, there is no pronator drift. Patient has very significant myoclonic jerks of outstretched hands. The muscle strength is normal in arms and legs distally and proximally. Sensory to touch reveals patient neglects the left upper limb as compared to the right, but does not neglect the lower limbs. Cerebellar function showed no ataxia for [id number] testing. No dysdiadochokinesia. No ataxia for [id number] testing on either side. Tone and bulk of muscles normal. Gait deferred.. On general examination, there is no carotid bruit or murmur, S1-S2 audible. Chest is clear on consultation. Abdomen is soft nontender. No organomegaly, bowel sounds present. Patient has significant psoriasis, dry skin, edema in the lower limbs. - Labs CBC & Chem 7: 11/20/22 08:13 11/20/22 08:13 Labs: Abnormal Lab Results - Last 24 Hours (Table) 11/19/22 11/20/22 11/20/22 Range/Units 20:10 06:11 08:13 RBC 3.24 L (3.80-5.40) m/uL Hgb 7.9 L (11.4-16.0) gm/dL Hct 26.5 L (34.0-46.0) % MCH 24.2 L (25.0-35.0) pg MCHC 29.6 L (31.0-37.0) g/dL RDW 19.2 H (11.5-15.5) % Sodium (137-145) mmol/L BUN (7-17) mg/dL Creatinine (0.52-1.04) mg/dL Glucose (74-99) mg/dL POC Glucose (mg/dL) 313 H 225 H (70-110) mg/dL Calcium (8.4-10.2) mg/dL 11/20/22 11/20/22 11/20/22 Range/Units 08:13 11:08 16:16 RBC (3.80-5.40) m/uL Hgb (11.4-16.0) gm/dL Hct (34.0-46.0) % MCH (25.0-35.0) pg MCHC (31.0-37.0) g/dL RDW (11.5-15.5) % Sodium 134 L (137-145) mmol/L BUN 72 H (7-17) mg/dL Creatinine 1.36 H (0.52-1.04) mg/dL Glucose 142 H (74-99) mg/dL POC Glucose (mg/dL) 162 H 227 H (70-110) mg/dL Calcium 8.3 L (8.4-10.2) mg/dL Assessment and Plan Assessment: This is a 61-year-old woman with multiple medical issues including reported right ICA occlusion and left ICA stenosis about 65% on the left and she stated that she followed up with a vascular surgeon as an outpatient and no int ervention but does not know the details, who is having left-sided weakness since February [address] of the head that shows right frontal parietal multi-infarct of indeterminate age possible appear acute subacute. In my opinion I felt it seems more subacute and there is some areas that felt chronic. Left sided weakness since February 2022 is progressively worse and has subacute changes on the left frontal parietal/occipital region. No IV TPA since outside the window and the risk outweighed the benefit Right ICA occlusion and left ICA stenosis in the past and that was a valid by a vascular surgeon and was told no intervention Heart failure with ejection fraction of 35%. And has evidence of hypokinesis Diabetes mellitus and the hemoglobin A1c is 8.5 Possible underlying urinary tract infection Elevated cardiac enzymes History of coronary artery disease status post stent History ME History of blood clots per ED team and is on Xarelto (but patient is unaware why she is on it) Plan: Carotid duplex revealed right ICA occlusion. Mild plaque in the left carotid bulb and left ICA. No significant stenosis on the left side. CT head was reviewed, and there is evidence of watershed infarct in the right hemispheric region, between right KVNG/MCA, right MCA/TISSUE COORDINATOR territory. No hemorrhage. MRI the brain with and without still pending. Patient is on aspirin 81 mg, Plavix 75 mg daily as well as Xarelto 2.5mg bid her home medication. From a neurologic perspective she is on dual antiplatelet, as well as anticoagulation which can increase risk for bleed but will defer the use of antiplatelets and anticoagulation to the primary and cardiology team Dr. Alejandra has recommend a transesophageal echocardiogram for further evaluation Cardiology team is on board Every 4 hours neuro checks Cardiac monitoring PT and OT are consulted. Consulted IMMUNOLOGY TEACHER We'll defer the rest of the medical management the primary team For DVT prophylaxis patient is on Xarelto.
[2022-11-20 20:02] LABS: Glucose,Whole Blood 221 mg/dL (70-110)
[2022-11-20] MEDS: AMITRIPTYLINE HCL 25 MG TAB PO SCH (20:03)
[2022-11-20] MEDS: MONTELUKAST 10 MG TAB PO SCH (20:04)
[2022-11-20] MEDS: ATORVASTATIN 80 MG TAB PO SCH (20:04)
[2022-11-21] MEDS: INSULIN ASPART (NovoLOG) 100 UNIT/ML VIAL SQ SCH ×7 (06:35→20:01)
[2022-11-21] MEDS: SODIUM CHLORIDE 0.9% 1,000 ML in EMPTY BAG 1 BAG IV SCH ×2 (06:51→07:52)
[2022-11-21] MEDS: ASPIRIN 81 MG PO SCH (08:06)
[2022-11-21] MEDS: RIVAROXABAN 2.5 MG TABLET PO SCH ×2 (08:11→20:00)
[2022-11-21] MEDS: MAGNESIUM OXIDE 400 MG TAB PO SCH (08:11)
[2022-11-21] MEDS: ESCITALOPRAM 20 MG TAB PO SCH (08:11)
[2022-11-21] MEDS: FUROSEMIDE 40 MG TAB PO SCH (08:11)
[2022-11-21] MEDS: INSULIN DETEMIR (LEVEMIR) 100 UNIT/ML SYR SQ SCH ×2 (08:11→20:01)
[2022-11-21] MEDS: CLOPIDOGREL 75 MG TAB PO SCH (08:11)
[2022-11-21] MEDS: METOPROLOL TARTRATE 25 MG TAB PO SCH ×2 (08:11→20:01)
[2022-11-21] MEDS: FAMOTIDINE 20 MG TAB PO SCH (08:11)
[2022-11-21] MEDS: guaiFENesin SYRUP 100MG/5ML 200 MG/10 ML CUP PO PRN (08:20)
[2022-11-21] MEDS: SPIRONOLACTONE 25 MG TAB PO SCH (08:20)
[2022-11-21 08:37] LABS: African American GFR (CKD) 43 (>60 ml/min/1.73 sqM); Anion Gap 13 mmol/L; Blood Urea Nitrogen 76 mg/dL (7-17); Calcium 8.4 mg/dL (8.4-10.2); Carbon Dioxide 21 mmol/L (22-30); Chloride 101 mmol/L (98-107); Glucose 96 mg/dL (74-99); Non-African American GFR(CKD) 37 (>60 ml/min/1.73 sqM); Potassium 5.1 mmol/L (3.5-5.1); Sodium 135 mmol/L (137-145)
[2022-11-21] MEDS: IPRATROPIUM-ALBUTEROL 3 ML NEB INHALATION SCH ×4 (08:50→21:07)
--- NOTE | 2022-11-21 10:42 | P.PN ---
Subjective HISTORY OF PRESENT ILLNESS: Patient examined this morning. She is sitting up in the chair. Patients niece is present this morning. Patient denies chest pain or pressure. She denies SOB. She is currently receiving a breathing treatment. Patients oxana gives history that patient had a cath at [facility] and was found to have triple vessel disease. No intervention was performed at that time. She was evaluated by CT surgery and felt to be high risk for CABG. She then underwent high risk PCI by Dr. Clancy. She thinks she had PCI of the LAD and RCA that is not 100% sure of the vessels stented. Echocardiogram completed revealing EF 35%. 11/20/2022 Patient underwent cardiac catheterization yesterday with Dr. Cole. Patient was found to have acute total occlusion of the PLV branch of the RCA. She underwent stenting of the PLV branch. Patient was also found to have intermediate disease involving the ostial/proximal LAD. The disease appeared to be flow-limiting with iFR of 0.79. 11/21/2022 Patient examined this morning at the bedside. She denies any chest pain or pressure. She denies shortness of breath. Vital signs are stable. She has been evaluated by neurology for left-sided weakness and is scheduled for MRI today. PHYSICAL EXAM: VITAL SIGNS: Reviewed. GENERAL: Well-developed in no acute distress. NECK: Supple. No JVD or thyromegaly LUNGS: Respirations even and unlabored. Lungs essentially clear to auscultation bilaterally. HEART: Regular rate and rhythm. S1 and S2 heard. EXTREMITIES: Normal range of motion. No clubbing or cyanosis. Peripheral pulses intact. No lower extremity edema ASSESSMENT: 1. Acute failure with reduced EF, 35% 2. Non-ST elevated myocardial infarction status post cardiac catheterization with stenting of the PLV branch of the RCA 3. Diabetic ketoacidosis 4. History of coronary artery disease with prior stenting 5. Peripheral vascular disease with prior stenting and bypass 6. Diabetes mellitus type 2 uncontrolled 7. COPD 8. Intermediate disease involving the ostial/proximal LAD 9. Chronic left-sided weakness, possible subacute CVA 10. Occluded right ICA PLAN: Continue current cardiac medications She will require intervention of ostial/proximal LAD lesion in the future Patient is stable for discharge home today from a cardiac standpoint She is to follow up on an outpatient basis Nurse practitioner note has been reviewed by physician. Signing provider agrees with the documented findings, assessment, and plan of care. Objective - Vital Signs Vital signs: Vital Signs Temp 97.5 F L 11/21/22 08:00 Pulse 56 L 11/21/22 08:59 Resp 20 11/21/22 08:00 BP 109/69 11/21/22 08:00 Pulse Ox 96 11/21/22 08:00 FiO2 Intake & Output 11/20/22 11/21/22 11/21/22 18:59 06:59 18:59 Intake Total 600 200 Output Total 300 500 Balance 300 -500 200 Weight 127.2 kg Intake: Oral 600 200 Output: Urine 300 500 Other: Voiding Method Bedside Commode Bedside Commode Bedside Commode External Catheter # Voids 2 - Labs CBC & Chem 7: 11/20/22 08:13 11/21/22 07:15 Labs: Abnormal Lab Results - Last 24 Hours (Table) 11/20/22 11/20/22 11/20/22 Range/Units 08:13 11:08 16:16 Sodium 134 L (137-145) mmol/L Carbon Dioxide (22-30) mmol/L BUN 72 H (7-17) mg/dL Creatinine 1.36 H (0.52-1.04) mg/dL Glucose 142 H (74-99) mg/dL POC Glucose (mg/dL) 162 H 227 H (70-110) mg/dL Calcium 8.3 L (8.4-10.2) mg/dL 11/20/22 11/21/22 Range/Units 19:59 07:15 Sodium 135 L (137-145) mmol/L Carbon Dioxide 21 L (22-30) mmol/L BUN 76 H (7-17) mg/dL Creatinine 1.51 H (0.52-1.04) mg/dL Glucose (74-99) mg/dL POC Glucose (mg/dL) 221 H (70-110) mg/dL Calcium (8.4-10.2) mg/dL
[2022-11-21 11:28] LABS: Glucose,Whole Blood 195 mg/dL (70-110)
--- NOTE | 2022-11-21 13:02 | P.PN ---
Subjective Progress Note Date: 11/21/22 This is a 61 year old female with medical history of COPD, heart failure, diabetes mellitus, myocardial infarction with prior cardiac stenting, peripheral vascular disease with bypass and stenting, lymphedema and psoriasis. Patient comes in to the hospital with 2 day history of shortness of breath and reports chest tightness and difficulty taking a deep breath. 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 Patient recently traveled to the with her drove up on Saturday went to a visitation and drove home. Patient came in to the hospital for evaluation and was found to have elevated proBNP of 7000 with concern for fluid overload. Blood glucose is also in the 500-600s on admission and patient is found to have acetone positive consistent with diabetic ketoacidosis. Patient states she did not take any insulin for 2 days while she was driving she states she didn't bring it with her. She is usually insulin dependent. Patient was admitted to the hospital for shortness of breath and hyperglycemia. cardiology was consulted as patient felt the shortness of breath and chest tightness was similar to what she had experienced with her prior heart attack. Denies any fever or chills, No cough. No nausea vomiting or diarrhea. Echocardiogram has been ordered and patient has been started on IV lasix. 11/16/2022 Patient evaluated today resting in bed. Patient reports feeling less short of breath than yesterday, continues on nasal cannula which likely can be weaned she is 100% on 3L. Creatinine increased today, patient reports having adequate urine output although I and O not documented. Patient was transitioned back to oral lasix by cardiology and agreeing with this. Her lower extremity edema has improved. Additionally patient was taken off the insulin gtt, her blood sugar had improved down into the 100s. Anion gap had closed. Patient has been taken off the heparin gtt with plans to perform cardiac catheterization on Saturday. Echocardiogram shows an EF of 35% with moderate MR. 11/17/2022 Patient is evaluated today on the stepdown unit. Remains off IV heparin. No acute events overnight. Patient was transitioned to oral lasix. Creatinine up to 1.55. Check post void residuals and monitor for urinary retention. Will check renal ultrasound today. White count down to 10.8. 11/18/2022 Patient is evaluated today resting in bed. Family was concerned with patient's complaints of left sided weakness and decreased hand strength which has been ongoing for the patient since February of this year. Patient states that she did mention to her family doctor had no other workup done for her. Assessment does reveal a left-sided pronator drift and intermittent left-sided facial droop. Brain CT was performed without contrast shows multiple infarcts of the right cerebral hemisphere including the frontal lobe and parietal lobe of indeterminate variable age 1 or both of the frontal infarcts appears more acute possibly subacute. There is no mass affect or acute bleed. Due to the findings neurology consultation was requested. Labs today show sodium of 135, BUN of 71, creatinine of 1.49. Glucose in the 100s to 200s. Lipid panel is within normal limits. Pending iron studies. Renal ultrasound done showing no hydronephrosis or renal calcification no solid renal mass and no evidence of medical renal disease. Patient has been weaned to room air. 11/19/2022 Patient is evaluated today resting in bed status post cardiac catheterization, patient was found to have total occlusion of the PLV branch of the RCA and underwent successful stenting. There is intermediate disease involving the ostial and proximal LAD. Patient is recommended for dual antiplatelet therapy with aspirin and Plavix for the next 12 months and to consider intervention for the LAD lesion down the line. Patient is pending brain MRI continues with left extremity weakness with intermittent slurred speech. Was evaluated by speech therapy services pending notes. Labs today show a sodium of 134, BUN 71, currently 1.46, glucose 200s, troponin 1.760. 11/20/2022 Patient evaluated resting in bed. S/P stenting to the RCA and currently denies any chest pain. Patient has mild shortness of breath today at rest. Her legs appear more swollen than yesterday. Renal function is improving with creatinine 1.36. Remains on oral lasix. White count has normalized. Patient is currently pending MRI discussed with neurology about outpatient MRI and patient will remain inpatient. PT/OT recommending home with homecare on discharge. 11/21/2022 Patient evaluated today resting in bed. PT/OT have cleared patient for DC home on discharge. Status post stent to the RCA patient remains on dual antiplatelet therapy with no chest pain no shortness of breath. Creatinine 1.5 today. On oral lasix. Pending MRI and Justo reports were obtained today. REVIEW OF SYSTEMS: CONSTITUTIONAL: No fever, no malaise, no fatigue. HEENT: No recent visual problems or hearing problems. Denied any sore throat. CARDIOVASCULAR: Reports chest tightness, orthopnea, PND, no palpitations, no syncope. PULMONARY: Reports shortness of breath no cough, no hemoptysis. GASTROINTESTINAL: No diarrhea, no nausea, no vomiting, no abdominal pain. NEUROLOGICAL: No headaches, no weakness, no numbness. Patient reports left- sided arm weakness. PHYSICAL EXAMINATION: GENERAL: The patient is alert and oriented x3, not in any acute distress. Well developed, well nourished. Winded. On 3 L of oxygen. HEENT: Pupils are round and equally reacting to light. EOMI. No scleral icterus. No conjunctival pallor. Normocephalic, atraumatic. No pharyngeal erythema. No thyromegaly. CARDIOVASCULAR: S1 and S2 present. No murmurs, rubs, or gallops. PULMONARY: Chest is clear to auscultation, no wheezing or crackles. ABDOMEN: Soft, nontender, nondistended, normoactive bowel sounds. No palpable organomegaly. MUSCULOSKELETAL: No joint swelling or deformity. EXTREMITIES: No cyanosis, clubbing, mild LE edema. NEUROLOGICAL: Left sided weakness with pronator drift. SKIN: Multiple psoriatic plaques on bilateral lower extremities and left upper extremity. Assessment Acute hypoxemic respiratory failure requiring 4L of oxygen due to acute CHF excerbation patient has been weaned to room air. Acute systolic heart failure with EF 35%. Acute kidney injury due to volume overload, worsened with IV Lasix and now improving. Left-sided weakness with brain CT revealing multiple areas of acute/ subacute infarct in the right cerebral hemisphere Hx of stroke earlier this year with residual left sided weakness Carotid artery disease with total occluded Right ICA. Troponin elevation likely due to non ST elevation [place] Diabetic ketoacidosis due to not taking insulin resolved. Insulin dependent diabetes mellitus type 2, uncontrolled hemoglobin A1C 8.5. Hx of DVT/PE anticoagulated on low dose xarelto/plavix. Hx of COPD Hx peripheral vascular disease with prior fem-pop bypass and multiple toe amputations. Hx coronary artery disease and prior cardiac stenting Lymphedema Psoriasis Obesity GI prophylaxis DVT prophylaxis Full Code Plan Patient was taken off the insulin gtt and resumed on levemir at HS along with sliding scale and scheduled insulin. Blood glucose improved. Patient is status post PCI and recommended for dual antiplatelet therapy with aspirin and plavix for the next 12 months Cardiology reports requested from [facility]. Continue to Hold losartan and metformin Brain MRI pending Vascular evaluated the patient for the right ICA occlusion with no intervention planned patient to f/u with vascular outpatient. Neurology following. Repeat labs in AM PT and OT recommending home with homecare on discharge. The impression and plan of care has been dictated by Marla Lux Nurse Practitioner as directed. Dr. Dalia MD I have performed a history and physical examination and medical decision making of this patient, discussed the same with the dictator, and agree with the dictators assessment and plan as written, documented as a scribe. Based on total visit time, I have performed more than 50% of this visit. Objective - Vital Signs Vital signs: Vital Signs Temp 97.7 F 11/21/22 11:55 Pulse 56 L 11/21/22 12:01 Resp 18 11/21/22 11:55 BP 118/73 11/21/22 11:55 Pulse Ox 100 11/21/22 11:55 FiO2 Intake & Output 11/20/22 11/21/22 11/21/22 18:59 06:59 18:59 Intake Total 600 740 Output Total 300 500 Balance 300 -500 740 Weight 127.2 kg Intake: Oral 600 740 Output: Urine 300 500 Other: Voiding Method Bedside Commode Bedside Commode Bedside Commode External Catheter # Voids 2 2 - Labs CBC & Chem 7: 11/20/22 08:13 11/21/22 07:15 Labs: Abnormal Lab Results - Last 24 Hours (Table) 11/20/22 11/20/22 11/21/22 Range/Units 16:16 19:59 07:15 Sodium 135 L (137-145) mmol/L Carbon Dioxide 21 L (22-30) mmol/L BUN 76 H (7-17) mg/dL Creatinine 1.51 H (0.52-1.04) mg/dL POC Glucose (mg/dL) 227 H 221 H (70-110) mg/dL 11/21/22 Range/Units 11:19 Sodium (137-145) mmol/L Carbon Dioxide (22-30) mmol/L BUN (7-17) mg/dL Creatinine (0.52-1.04) mg/dL POC Glucose (mg/dL) 195 H (70-110) mg/dL Assessment and Plan Time with Patient: Less than 30
[2022-11-21 16:16] LABS: Glucose,Whole Blood 181 mg/dL (70-110)
[2022-11-21 16:38] LABS: Glucose,Whole Blood 121 mg/dL (70-110)
[2022-11-21 19:41] LABS: Glucose,Whole Blood 215 mg/dL (70-110)
[2022-11-21] MEDS: ATORVASTATIN 80 MG TAB PO SCH (20:00)
[2022-11-21] MEDS: AMITRIPTYLINE HCL 25 MG TAB PO SCH (20:01)
[2022-11-21] MEDS: MONTELUKAST 10 MG TAB PO SCH (20:01)
[2022-11-22] MEDS: guaiFENesin SYRUP 100MG/5ML 200 MG/10 ML CUP PO PRN (03:22)
[2022-11-22] MEDS: IPRATROPIUM-ALBUTEROL 3 ML NEB INHALATION SCH ×5 (04:04→20:44)
[2022-11-22 05:59] LABS: Glucose,Whole Blood 274 mg/dL (70-110)
[2022-11-22] MEDS: INSULIN ASPART (NovoLOG) 100 UNIT/ML VIAL SQ SCH ×7 (06:10→20:23)
[2022-11-22] MEDS ORDERED: FUROSEMIDE 10 MG/ML 4 ML VIAL IV STA (07:50)
[2022-11-22 08:16] LABS: African American GFR (CKD) 40 (>60 ml/min/1.73 sqM); Anion Gap 9 mmol/L; Blood Urea Nitrogen 71 mg/dL (7-17); Calcium 8.3 mg/dL (8.4-10.2); Carbon Dioxide 25 mmol/L (22-30); Chloride 98 mmol/L (98-107); Glucose 210 mg/dL (74-99); Non-African American GFR(CKD) 35 (>60 ml/min/1.73 sqM); Potassium 5.2 mmol/L (3.5-5.1); Sodium 132 mmol/L (137-145)
[2022-11-22] MEDS ORDERED: SODIUM ZIRCONIUM CYCLOSILICATE 10 GM PACKET PO ONE (09:01)
--- NOTE | 2022-11-22 09:42 | P.PN ---
Subjective Progress Note Date: 11/21/22 11/21/2022: Patient was seen for a follow-up. Patient is sitting comfortably in the recliner. Still awaiting MRI. Patient had undergone cardiac catheterization 11/19/2022, which revealed: 1. Acute total occlusion of the PLV branch of the RCA. Patient underwent successful stenting of the PLV branch of the RCA. 2. Intermediate disease involving the ostial/proximal LAD. The disease appeared to be flow limiting with iFR=0.79 3. Elevated left-sided filling pressure Recommendation by cardiology: 1. Dual antiplatelet therapy using aspirin and Plavix for 12 month 2. PCI of the LAD down the line 11/20/2022: Patient was seen for a follow-up. Patient is laying comfortably in the bed. Offers no new complaints. 11/19/2022: Patient initially seen by Dr. Yandel Alejandra. Please refer to his note for details. Patient is a 61-year-old female with left-sided weakness since February 2022, but worsening. CT head showed subacute changes over the right frontal/parietal region. Patient is undergoing stroke workup. Patient currently on her home antiplatelets and Xarelto. Patient states that she feels very tired, wants to sleep all the time. She has no ambition to get out of bed. She says that she has a granddaughter, who is 20 months old. Objective - Vital Signs Vital signs: Vital Signs Temp 97.8 F 11/22/22 04:00 Pulse 71 11/22/22 08:32 Resp 18 11/22/22 04:00 BP 134/79 11/22/22 04:00 Pulse Ox 100 11/22/22 04:00 FiO2 Intake & Output 11/21/22 11/22/22 11/22/22 18:59 06:59 18:59 Intake Total 1180 Output Total 900 Balance 1180 -900 Intake: Oral 1180 Output: Urine 900 Other: Voiding Method Bedside Commode Toilet External Catheter External Catheter # Voids 2 - Exam Patient is a late middle aged female, in no acute distress. Patient is alert awake oriented to time place and person. Speech and language functions are normal. Patient can name and repeat very well. No aphasia or dysarthria. Attention, concentration and fund of knowledge is adequate. On cranial nerve examination, pupils are equal, round and reacting to light, visual cassidy are full on confrontation, however she does neglect the left side on double simultaneous stimulation. Extraocular muscles are intact with no nystagmus. Face is symmetric, tongue protrudes to the midline. Palatal elev ation and sensation normal, hearing and shoulder shrug normal, facial sensation normal. On muscle strength testing, there is no pronator drift. Patient has very significant myoclonic jerks of outstretched hands. The muscle strength is normal in arms and legs distally and proximally. Sensory to touch reveals patient neglects the left upper limb as compared to the right, but does not neglect the lower limbs. Cerebellar function showed no ataxia for obynbd-hs-[id number] testing. No dysdiadochokinesia. No ataxia for [id number] testing on either side. Tone and bulk of muscles normal. Gait deferred.. On general examination, there is no carotid bruit or murmur, S1-S2 audible. Chest is clear on consultation. Abdomen is soft nontender. No organomegaly, bowel sounds present. Patient has significant psoriasis, dry skin, edema in the lower limbs. - Labs CBC & Chem 7: 11/20/22 08:13 11/22/22 07:17 Labs: Abnormal Lab Results - Last 24 Hours (Table) 11/21/22 11/21/22 11/21/22 Range/Units 06:06 11:19 16:15 Sodium (137-145) mmol/L Potassium (3.5-5.1) mmol/L BUN (7-17) mg/dL Creatinine (0.52-1.04) mg/dL Glucose (74-99) mg/dL POC Glucose (mg/dL) 121 H 195 H 181 H (70-110) mg/dL Calcium (8.4-10.2) mg/dL 11/21/22 11/22/22 11/22/22 Range/Units 19:39 05:57 07:17 Sodium 132 L (137-145) mmol/L Potassium 5.2 H (3.5-5.1) mmol/L BUN 71 H (7-17) mg/dL Creatinine 1.59 H (0.52-1.04) mg/dL Glucose 210 H (74-99) mg/dL POC Glucose (mg/dL) 215 H 274 H (70-110) mg/dL Calcium 8.3 L (8.4-10.2) mg/dL Assessment and Plan Assessment: This is a 61-year-old woman with multiple medical issues including reported right ICA occlusion and left ICA stenosis about 65% on the left and she stated that she followed up with a vascular surgeon as an outpatient and no intervent ion but does not know the details, who is having left-sided weakness since February [address] of the head that shows right frontal parietal multi-infarct of indeterminate age possible appear acute subacute. In my opinion I felt it seems more subacute and there is some areas that felt chronic. Left sided weakness since February 2022 is progressively worse and has subacute changes on the left frontal parietal/occipital region. No IV TPA since outside the window and the risk outweighed the benefit Right ICA occlusion and left ICA stenosis in the past and that was evaluated by vascular surgery and was told no intervention Heart failure with ejection fraction of 35%. And has evidence of hypokinesis Diabetes mellitus and the hemoglobin A1c is 8.5 Possible underlying urinary tract infection Acute kidney injury Elevated cardiac enzymes History of coronary artery disease status post stent this admission History of CT History of blood clots per ED team and is on Xarelto Plan: Carotid duplex revealed right ICA occlusion. Mild plaque in the left carotid bulb and left ICA. No significant stenosis on the left side. CT head was reviewed, and there is evidence of watershed infarct in the right hemispheric region, between right KVNG/MCA, right MCA/[employer]OR [employer] territory. No hemorrhage. 2-D echo revealed severely increased left ventricular diastolic volume. Severely increased left-ventricular systolic volume. Severely decreased left- ventricular ejection fraction with EF 35%. Hypokinetic mid anterior wall. Nahma hypokinetic. Left atrium with mild dilation. Moderate MR, mild aortic stenosis with a peak gradient of 23 mm Hg. MRI the brain with and without still pending. Patient is already on dual antiplatelet medication and Xarelto. MRI of the brain will not change the management. Patient is on aspirin 81 mg, Plavix 75 mg daily as well as Xarelto 2.5mg bid her home medication. From a neurologic perspective she is on dual antiplatelet, as well as anticoagulation which can increase risk for bleed, but will defer the use of antiplatelets and anticoagulation to the primary and cardiology team Dr. Alejandra has recommend a transesophageal echocardiogram for further evaluation Cardiology team is on board Every 4 hours neuro checks Cardiac monitoring so far showing sinus rhythm with PACs and PVCs. No other arrhythmia. PT and OT are consulted. Consulted [employer] We'll defer the rest of the medical management the primary team For DVT prophylaxis patient is on Xarelto. Neurologically clear.
[2022-11-22] MEDS: INSULIN DETEMIR (LEVEMIR) 100 UNIT/ML SYR SQ SCH ×2 (10:06→20:23)
[2022-11-22] MEDS: RIVAROXABAN 2.5 MG TABLET PO SCH ×2 (10:06→20:22)
[2022-11-22] MEDS: ASPIRIN 81 MG PO SCH (10:07)
[2022-11-22] MEDS: CLOPIDOGREL 75 MG TAB PO SCH (10:07)
[2022-11-22] MEDS: ESCITALOPRAM 20 MG TAB PO SCH (10:07)
[2022-11-22] MEDS: FAMOTIDINE 20 MG TAB PO SCH (10:07)
[2022-11-22] MEDS: MAGNESIUM OXIDE 400 MG TAB PO SCH (10:08)
[2022-11-22] MEDS: FUROSEMIDE 40 MG TAB PO SCH (10:08)
[2022-11-22] MEDS: METOPROLOL TARTRATE 25 MG TAB PO SCH ×2 (10:08→20:22)
[2022-11-22] MEDS: SPIRONOLACTONE 25 MG TAB PO SCH (10:09)
[2022-11-22 11:44] LABS: Glucose,Whole Blood 213 mg/dL (70-110)
--- NOTE | 2022-11-22 12:35 | P.PN ---
Subjective HISTORY OF PRESENT ILLNESS: Patient examined this morning. She is sitting up in the chair. Patients thaoece is present this morning. Patient denies chest pain or pressure. She denies SOB. She is currently receiving a breathing treatment. Patients oxana gives history that patient had a cath at [place] and was found to have triple vessel disease. No intervention was performed at that time. She was evaluated by CT surgery and felt to be high risk for CABG. She then underwent high risk PCI by Dr. Clancy. She thinks she had PCI of the LAD and RCA that is not 100% sure of the vessels stented. Echocardiogram completed revealing EF 35%. 11/20/2022 Patient underwent cardiac catheterization yesterday with Dr. Cole. Patient was found to have acute total occlusion of the PLV branch of the RCA. She underwent stenting of the PLV branch. Patient was also found to have intermediate disease involving the ostial/proximal LAD. The disease appeared to be flow-limiting with iFR of 0.79. 11/21/2022 Patient examined this morning at the bedside. She denies any chest pain or pressure. She denies shortness of breath. Vital signs are stable. She has been evaluated by neurology for left-sided weakness and is scheduled for MRI today. 11/22/2022 Patient examined this morning at the bedside. She denies any chest pain or pres sure. She denies shortness of breath. Vital signs are stable. She is scheduled to undergo MRI today. PHYSICAL EXAM: VITAL SIGNS: Reviewed. GENERAL: Well-developed in no acute distress. NECK: Supple. No JVD or thyromegaly LUNGS: Respirations even and unlabored. Lungs essentially clear to auscultation bilaterally. HEART: Regular rate and rhythm. S1 and S2 heard. EXTREMITIES: Normal range of motion. No clubbing or cyanosis. Peripheral pulses intact. 2+ bilateral lower extremity edema ASSESSMENT: 1. Acute failure with reduced EF, 35% 2. Non-ST elevated myocardial infarction status post cardiac catheterization with stenting of the PLV branch of the RCA 3. Diabetic ketoacidosis 4. History of coronary artery disease with prior stenting 5. Peripheral vascular disease with prior stenting and bypass 6. Diabetes mellitus type 2 uncontrolled 7. COPD 8. Intermediate disease involving the ostial/proximal LAD 9. Chronic left-sided weakness, possible subacute CVA 10. Occluded right ICA PLAN: Continue current cardiac medications She will require intervention of ostial/proximal LAD lesion in the future Patient is scheduled to undergo MRI today. Neurology following. Give 1 dose of IV Lasix secondary to lower extremity edema Patient is stable for discharge home today from a cardiac standpoint She is to follow up on an outpatient basis Nurse practitioner note has been reviewed by physician. Signing provider agrees with the documented findings, assessment, and plan of care. Objective - Vital Signs Vital signs: Vital Signs Temp 97.8 F 11/22/22 08:00 Pulse 71 11/22/22 11:53 Resp 22 11/22/22 08:00 BP 124/63 11/22/22 08:00 Pulse Ox 95 11/22/22 08:00 FiO2 Intake & Output 11/21/22 11/22/22 11/22/22 18:59 06:59 18:59 Intake Total 1180 118 Output Total 900 Balance 1180 -900 118 Intake: Oral 1180 118 Output: Urine 900 Other: Voiding Method Bedside Commode Toilet Toilet External Catheter External Catheter # Voids 2 - Labs CBC & Chem 7: 11/20/22 08:13 11/22/22 07:17 Labs: Abnormal Lab Results - Last 24 Hours (Table) 11/21/22 11/21/22 11/21/22 Range/Units 06:06 16:15 19:39 Sodium (137-145) mmol/L Potassium (3.5-5.1) mmol/L BUN (7-17) mg/dL Creatinine (0.52-1.04) mg/dL Glucose (74-99) mg/dL POC Glucose (mg/dL) 121 H 181 H 215 H (70-110) mg/dL Calcium (8.4-10.2) mg/dL 11/22/22 11/22/22 11/22/22 Range/Units 05:57 07:17 11:42 Sodium 132 L (137-145) mmol/L Potassium 5.2 H (3.5-5.1) mmol/L BUN 71 H (7-17) mg/dL Creatinine 1.59 H (0.52-1.04) mg/dL Glucose 210 H (74-99) mg/dL POC Glucose (mg/dL) 274 H 213 H (70-110) mg/dL Calcium 8.3 L (8.4-10.2) mg/dL
[2022-11-22 12:59] VITALS: RESP 20
--- NOTE | 2022-11-22 15:26 | MR ---
EXAMINATION TYPE: MR brain wo con DATE OF EXAM: 11/22/2022 2:55 PM COMPARISON: NONE HISTORY: Stroke, left arm weakness FINDINGS: The ventricles, basal cisterns and sulci overlying the cerebral convexities are mildly enlarged. There is evidence of mild to moderate periventricular white matter ischemic demyelination. Remote deep white matter insults are also noted. There are couple of small foci of increased signal noted within the posterior right parietal lobe on diffusion weighted imaging as well as a tiny focus within the right frontal lobe. No large cortical i nsult is seen. The findings are felt to reflect small foci of embolic ischemic insult. No evidence fo r hemorrhagic transformation. There is no evidence for midline shift or mass effect. Acute intracranial hemorrhage or extra-axial collection is not evident. The paranasal sinuses and mastoid air cells are well-aerated. IMPRESSION: There are couple of small foci of increased signal noted within the posterior right parietal lobe on diffusion weighted imaging as well as a tiny focus within the right frontal lobe. No large cortical i nsult is seen. The findings are felt to reflect small foci of embolic ischemic insult. No evidence fo r hemorrhagic transformation.
[2022-11-22 16:25] VITALS: BP 128/63; TEMP 97.6
[2022-11-22 16:39] LABS: Glucose,Whole Blood 237 mg/dL (70-110)
[2022-11-22 19:34] LABS: Glucose,Whole Blood 218 mg/dL (70-110)
[2022-11-22] MEDS: ATORVASTATIN 80 MG TAB PO SCH (20:23)
[2022-11-22] MEDS: AMITRIPTYLINE HCL 25 MG TAB PO SCH (20:23)
[2022-11-22] MEDS: MONTELUKAST 10 MG TAB PO SCH (20:23)
[2022-11-22 21:03] VITALS: PULSE 77
--- NOTE | 2022-11-23 11:18 | P.PN ---
Subjective Progress Note Date: 11/22/22 11/22/2022: Patient was seen for a follow-up. Patient denies headache. Denies any new neurological symptoms. She is walking with a walker. Patient had an MRI completed as mentioned below. 11/21/2022: Patient was seen for a follow-up. Patient is sitting comfortably in the recliner. Still awaiting MRI. Patient had undergone cardiac catheterization 11/19/2022, which revealed: 1. Acute total occlusion of the PLV branch of the RCA. Patient underwent successful stenting of the PLV branch of the RCA. 2. Intermediate disease involving the ostial/proximal LAD. The disease appeared to be flow limiting with iFR=0.79 3. Elevated left-sided filling pressure Recommendation by cardiology: 1. Dual antiplatelet therapy using aspirin and Plavix for 12 month 2. PCI of the LAD down the line 11/20/2022: Patient was seen for a follow-up. Patient is laying comfortably in the bed. Offers no new complaints. 11/19/2022: Patient initially seen by Dr. Yandel Alejandra. Please refer to his note for details. Patient is a 61-year-old female with left-sided weakness since February 2022, but worsening. CT head showed subacute changes over the right frontal/parietal region. Patient is undergoing stroke workup. Patient currently on her home antiplatelets and Xarelto. Patient states that she feels very tired, wants to sleep all the time. She has no ambition to get out of bed. She says that she has a granddaughter, who is 20 months old. Objective - Vital Signs Vital signs: Vital Signs Temp 97.6 F 11/22/22 16:00 Pulse 75 11/22/22 16:10 Resp 20 11/22/22 16:00 BP 128/63 11/22/22 16:00 Pulse Ox 100 11/22/22 16:00 FiO2 Intake & Output 11/21/22 11/22/22 11/22/22 18:59 06:59 18:59 Intake Total 1180 358 Output Total 900 Balance 1180 -900 358 Intake: Oral 1180 358 Output: Urine 900 Other: Voiding Method Bedside Commode Toilet Toilet External Catheter External Catheter # Voids 2 - Exam Patient is a late middle aged female, in no acute distress. Patient is alert awake oriented to time place and person. Speech and language functions are normal. Patient can name and repeat very well. No aphasia or dysarthria. Attention, concentration and fund of knowledge is adequate. On cranial nerve examination, pupils are equal, round and reacting to light, visual cassidy are full on confrontation with no neglect on double simultaneous stimulation. Extraocular muscles are intact with no nystagmus. Face is symmetric, tongue protrudes to the midline. Palatal elevation and sensation normal, hearing and shoulder shrug normal, facial sensation normal. On muscle strength testing, there is mild left pronation and elbow flexion, but no drift. The muscle strength is normal in arms and legs distally and proximally bilaterally. Patient still has myoclonic jerks of outstretched hands. Sensory to touch is equal, with no neglect on double simultaneous stimulation. Cerebellar function showed no ataxia for [id number] testing. No dysdiadochokinesia. No ataxia for [id number] testing on either side. Tone and bulk of muscles normal. Gait deferred.. On general examination, there is no carotid bruit or murmur, S1-S2 audible. Chest is clear on consultation. Abdomen is soft nontender. No organomegaly, bowel sounds present. Patient has significant psoriasis in the lower and upper limbs, dry skin, edema in the lower limbs. - Labs CBC & Chem 7: 11/20/22 08:13 11/22/22 07:17 Labs: Abnormal Lab Results - Last 24 Hours (Table) 11/21/22 11/22/22 11/22/22 Range/Units 19:39 05:57 07:17 Sodium 132 L (137-145) mmol/L Potassium 5.2 H (3.5-5.1) mmol/L BUN 71 H (7-17) mg/dL Creatinine 1.59 H (0.52-1.04) mg/dL Glucose 210 H (74-99) mg/dL POC Glucose (mg/dL) 215 H 274 H (70-110) mg/dL Calcium 8.3 L (8.4-10.2) mg/dL 11/22/22 11/22/22 Range/Units 11:42 16:37 Sodium (137-145) mmol/L Potassium (3.5-5.1) mmol/L BUN (7-17) mg/dL Creatinine (0.52-1.04) mg/dL Glucose (74-99) mg/dL POC Glucose (mg/dL) 213 H 237 H (70-110) mg/dL Calcium (8.4-10.2) mg/dL Assessment and Plan Assessment: This is a 61-year-old woman with multiple medical issues including reported right ICA occlusion and left ICA stenosis about 65% on the left and she stated that she followed up with a vascular surgeon as an outpatient and no intervent ion but does not know the details, who is having left-sided weakness since February [address] of the head that shows right frontal parietal multi-infarct of indeterminate age possible appear acute subacute. In my opinion I felt it seems more subacute and there is some areas that felt chronic. Left sided weakness since February 2022 is progressively worse and has subacute changes on the left frontal parietal/occipital region. No IV TPA since outside the window and the risk outweighed the benefit Right ICA occlusion and left ICA stenosis in the past and that was evaluated by vascular surgery and was told no intervention Heart failure with ejection fraction of 35%. And has evidence of hypokinesis Diabetes mellitus and the hemoglobin A1c is 8.5 Possible underlying urinary tract infection Acute kidney injury Elevated cardiac enzymes History of coronary artery disease status post stent this admission History of [place] History of blood clots per ED team and is on Xarelto Plan: Carotid duplex revealed right ICA occlusion. Mild plaque in the left carotid bulb and proximal left ICA, without significant stenosis on the left side. Vascular surgery on board. As per Dr. Wade note, recommending no surgical intervention for occluded right ICA and no significant stenosis on the left. MRI of the brain without contrast performed today, revealed a couple of small foci of increased signal noted within the posterior right parietal lobe on the diffusion weighted images as well as a tiny focus within the right frontal lobe. No large cortical insert seen. The findings are felt to reflect small foci of embolic ischemic insult. No evidence for hemorrhagic transformation. I personally reviewed MRI agree with the findings. On my review, there is evidence of significant chronic ischemia (noted on FLAIR sequences) in the watershed distribution between the right MCA/KVNG, and the right MCA/PLATE HANGER territory. This was also visible on the computed tomography scan. 2-D echo revealed severely increased left ventricular diastolic volume. Severely increased left-ventricular systolic volume. Severely decreased left- ventricular ejection fraction with EF 35%. Hypokinetic mid anterior wall. [place] hypokinetic. Left atrium with mild dilation. Moderate MR, mild aortic stenosis with a peak gradient of 23 mm Hg. Continue dual antiplatelet medication and Xarelto. Cardiology managing the antiplatelet regimen. Patient definitely will need at least one, preferably two antiplatelet medication indefinitely. Patient is on aspirin 81 mg, Plavix 75 mg daily as well as Xarelto 2.5mg bid her home medication. Dr. Alejandra has recommend a transesophageal echocardiogram for further evaluation Cardiology team is on board Cardiac monitoring so far showing sinus rhythm with PACs and PVCs. No other arrhythmia. PT and OT are consulted. Consulted ESTATE CONSERVATOR We'll defer the rest of the medical management the primary team For DVT prophylaxis patient is on Xarelto. Neurologically clear.
--- NOTE | 2022-11-24 09:21 | P.DS ---
Providers Date of admission: 11/14/22 23:02 Attending physician: Antoine King MD Consults: 11/14/22 22:48 Consult Physician Routine Consulting Provider: [facility] Consult Reason/Comments: chf Do you want consulting provider notified?: Yes 11/17/22 16:12 Consult Physician Routine Consulting Provider: Yandel Alejandra Consult Reason/Comments: left side weakness, left side facial droop Do you want consulting provider notified?: Yes 11/18/22 16:24 Consult Physician Routine Consulting Provider: Sonja Miguel Consult Reason/Comments: occluded ROSALIE Do you want consulting provider notified?: Yes 11/19/22 11:52 Consult Physician Routine Consulting Provider: [facility] Consult Reason/Comments: Post Interventional Patient Do you want consulting provider notified?: Already Contacted Primary care physician: Kilo Portillo [facility] Hospital Course: Final Diagnosis Acute hypoxemic respiratory failure requiring 4L of oxygen due to acute CHF excerbation patient has been weaned to room air. Acute systolic heart failure with EF 35%. Acute kidney injury due to volume overload, worsened with IV Lasix and now improving. Left-sided weakness with brain CT revealing multiple areas of acute/ subacute infarct in the right cerebral hemisphere Hx of stroke earlier this year with residual left sided weakness Carotid artery disease with total occluded Right ICA. Troponin elevation likely due to non ST elevation SD Diabetic ketoacidosis due to not taking insulin resolved. Insulin dependent diabetes mellitus type 2, uncontrolled hemoglobin A1C 8.5. Hx of DVT/PE anticoagulated on low dose xarelto/plavix. Hx of COPD Hx peripheral vascular disease with prior fem-pop bypass and multiple toe amputations. Hx coronary artery disease and prior cardiac stenting Lymphedema Psoriasis Obesity GI prophylaxis DVT prophylaxis Full Code Discharge Disposition Patient is stable for discharge home. Patient will be returning home with family and home care services and home physical therapy. Has been weaned to room air. Recommending to continue on lasix 40 mg daily and has been started on spironolactone 12.5 mg daily. Patient to remain on triple antiplatelet therapy with aspirin 81 mg daily, xarelto 2.5 mg BID, and plavix 75 mg daily on discharge. Patient to continue on lantus 36 units at HS as well as scheduled insulin 4 units with meals and oral canagliflozin. Patient has been taken off losartan and metformin due to the renal dysfunction. Repeat labs in 2 to 3 days. Patient to follow up with PCP Dr. Kilo Dumont, cardiology and recommending to establish care with a neurologist in 1 to 2 weeks. Vascular evaluated the patient for the right ICA occlusion with no intervention planned patient to f/u with vascular outpatient. Information has been provided. Patient is also given information on outpatient diabetic education. Hospital Course This is a 61 year old female with medical history of COPD, heart failure, diabetes mellitus, myocardial infarction with prior cardiac stenting, peripheral vascular disease with bypass and stenting, lymphedema and psoriasis. Patient comes in to the hospital with 2 day history of shortness of breath and reports chest tightness and difficulty taking a deep breath. 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 Patient recently traveled to the with her drove up on Saturday went to a visitation and drove home. Patient came in to the hospital for evaluation and was found to have elevated proBNP of 7000 with concern for fluid overload. Blood glucose is also in the 500-600s on admission and patient is found to have acetone positive consistent with diabetic ketoacidosis. Patient states she did not take any insulin for 2 days while she was driving she states she didn't bring it with her. She is usually insulin dependent. Patient was admitted to the hospital for shortness of breath and hyperglycemia. cardiology was consulted as patient felt the shortness of breath and chest tightness was similar to what she had experienced with her prior heart attack. Patient was given IV lasix. Echocardiogram shows an EF of 35% with moderate MR. Creatinine has remained elevated renal ultrasound was done showing no hydronephrosis or renal calcification no solid renal mass and no evidence of medical renal disease. Patient has been weaned to room air and transitioned to oral lasix. Patient underwent cardiac catheterization, patient was found to have total occlusion of the PLV branch of the RCA and underwent successful stenting. There is intermediate disease involving the ostial and proximal LAD. Patient is recommended for dual antiplatelet therapy with aspirin and Plavix for the next 12 months and to consider intervention for the LAD lesion down the line. Patient to also remain on xarelto 2.5 mg BID. Family was concerned with patient's complaints of left sided weakness and decreased hand strength which has been ongoing for the patient since February of this year. Assessment does reveal a left-sided pronator drift and intermittent left-sided facial droop. Brain CT was performed without contrast shows multiple infarcts of the right cerebral hemisphere including the frontal lobe and parietal lobe of indeterminate variable age 1 or both of the frontal infarcts appears more acute possibly subacute. There is no mass affect or acute bleed. Due to the findings neurology consultation was requested. Brain MRI was done showing a couple of small foci of increased signal noted within the posterior right parietal lobe on diffusion weighted imaging as well as tiny focus within the right frontal lobe. No large cortical insult is seen. The findings are felt to reflect small foci of embolic ischemic insult. No evidence of hemorrhagic transformation. Patient continues with generalized weakness and has been set up with home physical therapy. No chest pain, no shortness of breath. Patient is on room air. Lungs are clear S1 S2 auscultated abdomen is soft and nontender. Patient is alert x 3. Received a dose of IV lasix today. Patients creatinine stable at 1.59. Blood glucose 218. Patient has been discharged home with the above mentioned recommendations. Please see medication reconciliation for a list of current medication. Thank you for allowing us to participate in the care of this patient. The impression and plan of care has been dictated by Marla Lux, Nurse Practitioner as directed. Dr. Dalia MD I have performed a history and physical examination and medical decision making of this patient, discussed the same with the dictator, and agree with the dictators assessment and plan as written, documented as a scribe. Based on total visit time, I have performed more than 50% of this visit. Patient Condition at Discharge: Fair Plan - Discharge Summary New Discharge Prescriptions: New Spironolactone [Aldactone] 12.5 mg PO DAILY #30 tab Metoprolol Tartrate [Lopressor] 75 mg PO BID #60 tab Famotidine [Pepcid] 20 mg PO DAILY #30 tab Continue Albuterol Sulfate [Albuterol Sulfate Hfa] 2 puff PO RT-Q4H PRN PRN Reason: Cough Amitriptyline HCl [Elavil] 25 mg PO HS Aspirin EC [Ecotrin Low Dose] 81 mg PO DAILY Atorvastatin Calcium [Lipitor] 80 mg PO HS Clopidogrel [Plavix] 75 mg PO DAILY Furosemide [Lasix] 40 mg PO DAILY Insulin Glargine,Hum.rec.anlog [Lantus Solostar Pen] 36 units SQ HS Insulin Lispro [humaLOG Kwikpen] 4 unit SQ AC-TID Magnesium Oxide [Mag-Ox] 400 mg PO DAILY Montelukast Sodium 10 mg PO HS Rivaroxaban [Xarelto] 2.5 mg PO BID Albuterol Nebulized [Ventolin Nebulized] 2.5 mg INHALATION RT-Q6H PRN PRN Reason: Shortness Of Breath Canagliflozin [Invokana] 100 mg PO DAILY Escitalopram [Lexapro] 20 mg PO DAILY Attica-3 Fatty Acids [Attica-3] 1,000 mg PO DAILY Discontinued metFORMIN HCL ER [Glucophage XR] 500 mg PO BID Losartan [Cozaar] 25 mg PO DAILY Discharge Medication List Albuterol Nebulized [Ventolin Nebulized] 2.5 mg INHALATION RT-Q6H PRN 11/14/22 [History] Albuterol Sulfate [Albuterol Sulfate Hfa] 2 puff PO RT-Q4H PRN 11/14/22 [History] Amitriptyline HCl [Elavil] 25 mg PO HS 11/14/22 [History] Aspirin EC [Ecotrin Low Dose] 81 mg PO DAILY 11/14/22 [History] Atorvastatin Calcium [Lipitor] 80 mg PO HS 11/14/22 [History] Canagliflozin [Invokana] 100 mg PO DAILY 11/14/22 [History] Clopidogrel [Plavix] 75 mg PO DAILY 11/14/22 [History] Escitalopram [Lexapro] 20 mg PO DAILY 11/14/22 [History] Furosemide [Lasix] 40 mg PO DAILY 11/14/22 [History] Insulin Glargine,Hum.rec.anlog [Lantus Solostar Pen] 36 units SQ HS 11/14/22 [History] Insulin Lispro [humaLOG Kwikpen] 4 unit SQ AC-TID 11/14/22 [History] Magnesium Oxide [Mag-Ox] 400 mg PO DAILY 11/14/22 [History] Montelukast Sodium 10 mg PO HS 11/14/22 [History] Attica-3 Fatty Acids [Attica-3] 1,000 mg PO DAILY 11/14/22 [History] Rivaroxaban [Xarelto] 2.5 mg PO BID 11/14/22 [History] Famotidine [Pepcid] 20 mg PO DAILY #30 tab 11/22/22 [Rx] Metoprolol Tartrate [Lopressor] 75 mg PO BID #60 tab 11/22/22 [Rx] Spironolactone [Aldactone] 12.5 mg PO DAILY #30 tab 11/22/22 [Rx] Follow up Appointment(s)/Referral(s): [facility], [NON-STAFF] - Kilo Dumont DO [Primary Care Provider] - 1-2 Days Daron Norman MD [STAFF PHYSICIAN] - 1 Week Yandel Maier MD [STAFF PHYSICIAN] - 1 Week Danny Flores DO [STAFF PHYSICIAN] - 1 Week Jeanie Peres MD [REFERRING] - 1 Week Ambulatory/Diagnostic Orders: Basic Metabolic Panel [LAB.AMB] Time Frame: 3 Days, Location: None Selected Complete Blood Count w/diff [LAB.AMB] Time Frame: 3 Days, Location: None Selected Patient Instructions/Handouts: *Surgery [facility] - After Heart Catheterization - Marketing Development Specialist Instructions, Meal Planning with Diabetes Exchanges (DC) Activity/Diet/Wound Care/Special Instructions: Patient to remain on triple antiplatelet therapy with aspirin 81 mg daily, xarelto 2.5 mg BID, and plavix 75 mg daily on discharge Continue on lasix 40 mg daily and has been started on spironolactone 25 mg daily. Repeat labs in 2 to 3 days Recommend to follow up with a neurologist in 1 to [address] Flores, Dr Monreal, Dr Maier and Dr Meza are the neurologists here in town you can choose to follow up here or f/u with a neurologist of your choosing. Continue to check blood glucose before meals and at bedtime and keep log for follow up with your PCP. Repeat A1C outpatient in 3 months. Recommend to follow up with outpatient diabetes education offered through [facility] [email or web address] [phone] [email or web address] [address] Discharge Disposition: HOME WITH HOME HEALTH SERVICES
== END 2022-11-22 21:45 | disposition home health service (06) | DRG 174 ==
LOC: EC 19:05 → 3SCARD 23:02
PROVIDERS: ADMIT Internal Medicine; ATTEND Internal Medicine
PROC: 4A023N7 Measurement of Cardiac Sampling and Pressure, Left Heart, Percutaneous Approach (ICD-10-PCS; principal; 2022-11-19 16:30)
PROC: 027034Z Dilation of Coronary Artery, One Artery with Drug-eluting Intraluminal Device, Percutaneous Approach (ICD-10-PCS; principal; 2022-11-19 16:30)
PROC: B2111ZZ Fluoroscopy of Multiple Coronary Arteries using Low Osmolar Contrast (ICD-10-PCS; principal; 2022-11-19 16:30)
PROC: 4A033BC Measurement of Arterial Pressure, Coronary, Percutaneous Approach (ICD-10-PCS; principal; 2022-11-19 16:30)
DX: I21.4 Non-ST elevation (NSTEMI) myocardial infarction (principal); J96.01 Acute respiratory failure with hypoxia; I63.9 Cerebral infarction, unspecified; I50.23 Acute on chronic systolic (congestive) heart failure; E11.10 Type 2 diabetes mellitus with ketoacidosis without coma; N17.9 Acute kidney failure, unspecified; E11.22 Type 2 diabetes mellitus with diabetic chronic kidney disease; D64.9 Anemia, unspecified; I13.0 Hypertensive heart and chronic kidney disease with heart failure and stage 1 through stage 4 chronic kidney disease, or unspecified chronic kidney disease; I69.354 Hemiplegia and hemiparesis following cerebral infarction affecting left non-dominant side; E11.51 Type 2 diabetes mellitus with diabetic peripheral angiopathy without gangrene; E11.42 Type 2 diabetes mellitus with diabetic polyneuropathy; E11.65 Type 2 diabetes mellitus with hyperglycemia; E66.01 Morbid (severe) obesity due to excess calories; Z68.42 Body mass index [BMI] 45.0-49.9, adult; N39.0 Urinary tract infection, site not specified; J44.9 Chronic obstructive pulmonary disease, unspecified; Z89.419 Acquired absence of unspecified great toe; Z89.429 Acquired absence of other toe(s), unspecified side; Z79.4 Long term (current) use of insulin; Z11.52 Encounter for screening for COVID-19; R47.81 Slurred speech; E78.5 Hyperlipidemia, unspecified; I25.10 Atherosclerotic heart disease of native coronary artery without angina pectoris; I08.1 Rheumatic disorders of both mitral and tricuspid valves; I25.2 Old myocardial infarction; I65.23 Occlusion and stenosis of bilateral carotid arteries; L40.9 Psoriasis, unspecified; I87.2 Venous insufficiency (chronic) (peripheral); I89.0 Lymphedema, not elsewhere classified; N18.9 Chronic kidney disease, unspecified; F32.A Depression, unspecified; F41.9 Anxiety disorder, unspecified; Z79.82 Long term (current) use of aspirin; Z79.02 Long term (current) use of antithrombotics/antiplatelets; Z79.84 Long term (current) use of oral hypoglycemic drugs; Z79.01 Long term (current) use of anticoagulants; Z79.899 Other long term (current) drug therapy; Z86.711 Personal history of pulmonary embolism; Z86.718 Personal history of other venous thrombosis and embolism; Z95.5 Presence of coronary angioplasty implant and graft; Z95.820 Peripheral vascular angioplasty status with implants and grafts; Z87.891 Personal history of nicotine dependence; Z71.3 Dietary counseling and surveillance; Z88.1 Allergy status to other antibiotic agents
CPT/HCPCS: 36415; 70450; 70551; 71046; 76770; 80048; 80051; 80053; 80061; 81001; 82009; 82272; 82565; 82728; 82803; 82947; 83036; 83540; 83550; 83735; 83880; 84100; 84484; 84520; 85025; 85379; 85610; 85730; 87636; 93005; 93306; 93458; 93571; 93880; 93970; 94640; 94760; 96374; 96375; 99291

== ENCOUNTER 2023-01-02 11:21 | Inpatient (IN) | payer OTHER ==
[2023-01-02] MEDS ORDERED: IPRATROPIUM 0.5 MG/2.5 ML NEBU INHALATION STA (11:28)
[2023-01-02] MEDS ORDERED: ALBUTEROL NEBULIZED 2.5 MG/3 ML INHALATION STA (11:28)
--- NOTE | 2023-01-02 11:30 | ED ---
General Adult HPI - General Stated complaint: RODDY Time Seen by Provider: 01/02/23 11:24 Source: patient, EMS, RN notes reviewed, old records reviewed Mode of arrival: EMS Limitations: no limitations - History of Present Illness Initial comments: 62-year-old female presenting in extremis. Patient was hypoxic, brought in by paramedics on CPAP. She reports over the past 24 hours she developed nonproductive cough and increased dyspnea. She is not currently on home oxygen. She was noted to be in the low 80s by paramedics. She was placed on CPAP for respiratory support. She denies central chest pain. No fever or fever. She reports chronic bilateral lower extremity edema and history of both COPD and CHF. - Related Data Home Medications Medication Instructions Recorded Confirmed Albuterol Nebulized [Ventolin 2.5 mg INHALATION RT-Q6H PRN 11/14/22 01/02/23 Nebulized] Albuterol Sulfate [Albuterol 2 puff PO RT-Q4H PRN 11/14/22 01/02/23 Sulfate Hfa] Amitriptyline HCl [Elavil] 25 mg PO HS 11/14/22 01/02/23 Aspirin EC [Ecotrin Low Dose] 81 mg PO DAILY 11/14/22 01/02/23 Atorvastatin Calcium [Lipitor] 80 mg PO HS 11/14/22 01/02/23 Canagliflozin [Invokana] 100 mg PO DAILY 11/14/22 01/02/23 Clopidogrel [Plavix] 75 mg PO DIRECTED 11/14/22 01/02/23 Escitalopram [Lexapro] 20 mg PO DAILY 11/14/22 01/02/23 Furosemide [Lasix] 40 mg PO DAILY 11/14/22 01/02/23 Insulin Glargine,Hum.rec.anlog 36 units SQ HS 11/14/22 01/02/23 [Lantus Solostar Pen] Insulin Lispro [humaLOG Kwikpen] 4 unit SQ AC-TID 11/14/22 01/02/23 Magnesium Oxide [Mag-Ox] 400 mg PO DAILY 11/14/22 01/02/23 Montelukast Sodium 10 mg PO HS 11/14/22 01/02/23 [place]-3 Fatty Acids [[place]-3] 1,000 mg PO DAILY 11/14/22 01/02/23 Rivaroxaban [Xarelto] 2.5 mg PO DIRECTED 11/14/22 01/02/23 Dulaglutide [Trulicity] 1.5 mg SQ FR 01/02/23 01/02/23 Metoprolol Tartrate [Lopressor] 1 dose PO DIRECTED 01/02/23 01/02/23 Spironolactone [Aldactone] 12.5 mg PO DIRECTED 01/02/23 01/02/23 Allergies Allergy/AdvReac Type Severity Reaction Status Date / Time cephalexin [From Keflex] Allergy Rash/Hives Verified 01/02/23 13:59 Review of Systems ROS Statement: Those systems with pertinent positive or pertinent negative responses have been documented in the HPI. ROS Other: All systems not noted in ROS Statement are negative. Past Medical History Past Medical History: Heart Failure, COPD, Diabetes Mellitus, Myocardial Infarction (SC) History of Any Multi-Drug Resistant Organisms: None Reported Past Surgical History: Heart Catheterization With Stent Additional Past Surgical History / Comment(s): Bipass,l great toe amputation Right 4th and 5th toe. Past Psychological History: Anxiety, Depression Smoking Status: Former smoker Past Alcohol Use History: None Reported Past Drug Use History: None Reported General Exam Limitations: no limitations General appearance: alert, in distress Head exam: Present: atraumatic, normocephalic Eye exam: Present: normal appearance, PERRL Neck exam: Present: normal inspection. Absent: tenderness Respiratory exam: Present: respiratory distress, decreased breath sounds Cardiovascular Exam: Present: regular rate, normal rhythm GI/Abdominal exam: Present: soft. Absent: distended, tenderness Extremities exam: Present: pedal edema Neurological exam: Present: alert, oriented X3, CN II-XII intact. Absent: motor sensory deficit Psychiatric exam: Present: anxious Skin exam: Present: warm, dry, intact Course Vital Signs 01/02/23 01/02/23 01/02/23 11:22 11:33 11:35 Temperature 98.3 F Pulse Rate 89 83 Respiratory 24 23 Rate Blood Pressure 119/88 O2 Sat by Pulse 90 L Oximetry Fraction of 70 Inspired Oxygen (FIO2) 01/02/23 01/02/23 01/02/23 11:44 12:00 12:30 Temperature Pulse Rate 84 83 86 Respiratory 24 28 H 24 Rate Blood Pressure 132/66 129/72 133/74 O2 Sat by Pulse 95 100 99 Oximetry Fraction of Inspired Oxygen (FIO2) 01/02/23 13:00 Temperature Pulse Rate 85 Respiratory 22 Rate Blood Pressure 111/73 O2 Sat by Pulse 99 Oximetry Fraction of Inspired Oxygen (FIO2) Medical Decision Making - Medical Decision Making Was pt. sent in by a medical professional or institution (RAY Angel, INDOOR PLANT TECHNICIAN, urgent care, hospital, or [facility]...) When possible be specific @ -.no Did you speak to anyone other than the patient for history (EMS, parent, family, police, friend...)? What history was obtained from this source @ -[History from paramedics. Did you review nursing and triage notes (agree or disagree)? Why? @ -I reviewed and agree with nursing and triage notes Were old charts reviewed (outside hosp., previous admission, EMS record, old EKG, old radiological studies, urgent care reports/EKG's, [facility] records)? Report findings @ -No old charts were reviewed Differential Diagnosis (chest pain, altered mental status, abdominal pain women, abdominal pain men, vaginal bleeding, weakness, fever, dyspnea, syncope, headache, dizziness, GI bleed, back pain, seizure, CVA, palpatations, mental health, musculoskeletal)? @ Differential Dyspnea: Coronary syndrome, arrhythmia, tamponade, asthma, COPD, pulmonary embolism, pneumonia, pneumothorax, pulmonary effusion, anaphylaxis, diabetic ketoacidosis, flailed chest, pulmonary contusion, diaphragmatic rupture, anemia, neuromuscular, this is not meant to be an all-inclusive list. EKG interpreted by me (3pts min.). @ -[Sinus rhythm rate of 84, significant artifact limiting assessment, I do not see any ST segment elevation, question ST segment depression in the lateral precordial leads, AK interval 149, QRS duration 91, QTC 387 X-rays interpreted by me (1pt min.). @ Chest x-ray consistent with increased pulmonary vascular congestion and edema. CT interpreted by me (1pt min.). @ -None done U/S interpreted by me (1pt. min.). @ -None done What testing was considered but not performed or refused? (CT, X-rays, U/S, labs)? Why? @ -None What meds were considered but not given or refused? Why? @ -None Did you discuss the management of the patient with other professionals (professionals i.e. RAY Angel, [employer] TECHNICIAN, lab, RT, psych nurse, social service agency director, display designer outside, teacher, chief credit officer, family independence case manager)? Give summary @ EM Was smoking cessation discussed for >3mins.? @ -No Was critical care preformed (if so, how long)? @ -yes 35 Were there social determinants of health that impacted care today? How? (Homelessness, low income, unemployed, alcoholism, drug addiction, transportation, low edu. Level, literacy, decrease access to med. care, shelter, rehab)? @ -No Was there de-escalation of care discussed even if they declined (Discuss DNR or withdrawal of care, Hospice)? DNR status @ -No What co-morbidities impacted this encounter? (DM, HTN, Smoking, COPD, CAD, Cance r, CVA, ARF, Chemo, Hep., AIDS, mental health diagnosis, sleep apnea, morbid obesity)? @ -[Obesity associated hypoventilation, COPD, CHF Was patient admitted / discharged? Hospital course, mention meds given and route, prescriptions, significant lab abnormalities, going to OR and other pertinent info. @ -62-year-old female with multifactorial dyspnea. Patient has minimal air entry upon arrival with hypoxia requiring CPAP. She has significant bilateral lower extremity edema history of both COPD and CHF. She has normal white blood cell count, anemia of 10.7 which is improved from prior. Her troponin is elevated at 0.399 which is down trending from prior and I suspect is related to CHF. Her BNP is 24,000. Chest x-ray consistent with CHF. She's given IV Lasix in the emergency department she will be admitted with respiratory failure requiring BiPAP, COPD exacerbation and CHF exacerbation. Case discussed with Dr. olmstead who will admit. Undiagnosed new problem with uncertain prognosis? @ -No Drug Therapy requiring intensive monitoring for toxicity (Heparin, Nitro, Insul in, Cardizem)? @ -No Were any procedures done? @ -No Diagnosis/symptom? @ -[CHF and COPD exacerbation Acute, or Chronic, or Acute on Chronic? @ -[Acute on chronic Uncomplicated (without systemic symptoms) or Complicated (systemic symptoms)? @ -default Side effects of treatment? @ -No Exacerbation, Progression, or Severe Exacerbation? @ -No Poses a threat to life or bodily function? How? (Chest pain, USA, SC, pneumonia, PE, COPD, DKA, ARF, appy, cholecystitis, CVA, Diverticulitis, Homicidal, Suicidal, threat to staff... and all critical care pts) @ -[Yes, respiratory failure - Lab Data Result diagrams: 01/02/23 11:32 01/02/23 11:32 Lab Results 01/02/23 01/02/23 01/02/23 Range/Units 11:32 11:32 11:32 WBC 8.7 (3.8-10.6) k/uL RBC 4.55 (3.80-5.40) m/uL Hgb 10.7 L (11.4-16.0) gm/dL Hct 36.5 (34.0-46.0) % MCV 80.1 (80.0-100.0) fL MCH 23.6 L (25.0-35.0) pg MCHC 29.5 L (31.0-37.0) g/dL RDW 20.9 H (11.5-15.5) % Plt Count 270 (150-450) k/uL MPV 9.0 Neutrophils % 86 % Lymphocytes % 5 % Monocytes % 6 % Eosinophils % 1 % Basophils % 0 % Neutrophils # 7.5 (1.3-7.7) k/uL Lymphocytes # 0.4 L (1.0-4.8) k/uL Monocytes # 0.5 (0-1.0) k/uL Eosinophils # 0.1 (0-0.7) k/uL Basophils # 0.0 (0-0.2) k/uL Hypochromasia Marked Poikilocytosis Slight Anisocytosis Moderate Microcytosis Slight PT 12.9 H (10.0-12.5) sec INR 1.2 H (<1.2) APTT 23.7 (22.0-30.0) sec Sodium 134 L (137-145) mmol/L Potassium 5.1 (3.5-5.1) mmol/L Chloride 97 L (98-107) mmol/L Carbon Dioxide 22 (22-30) mmol/L Anion Gap 15 mmol/L BUN 43 H (7-17) mg/dL Creatinine 1.32 H (0.52-1.04) mg/dL Est GFR (CKD-EPI)AfAm 50 (>60 ml/min/1.73 sqM) Est GFR (CKD-EPI)NonAf 44 (>60 ml/min/1.73 sqM) Glucose 140 H (74-99) mg/dL Plasma Lactic Acid David (0.7-2.0) mmol/L Calcium 8.9 (8.4-10.2) mg/dL Magnesium 2.1 (1.6-2.3) mg/dL Total Bilirubin 1.1 (0.2-1.3) mg/dL AST 36 (14-36) U/L ALT 18 (4-34) U/L Alkaline Phosphatase 87 (38-126) U/L Troponin I (0.000-0.034) ng/mL NT-Pro-B Natriuret Pep 62559 pg/mL Total Protein 7.0 (6.3-8.2) g/dL Albumin 3.7 (3.5-5.0) g/dL 01/02/23 01/02/23 Range/Units 11:32 11:32 WBC (3.8-10.6) k/uL RBC (3.80-5.40) m/uL Hgb (11.4-16.0) gm/dL Hct (34.0-46.0) % MCV (80.0-100.0) fL MCH (25.0-35.0) pg MCHC (31.0-37.0) g/dL RDW (11.5-15.5) % Plt Count (150-450) k/uL MPV Neutrophils % % Lymphocytes % % Monocytes % % Eosinophils % % Basophils % % Neutrophils # (1.3-7.7) k/uL Lymphocytes # (1.0-4.8) k/uL Monocytes # (0-1.0) k/uL Eosinophils # (0-0.7) k/uL Basophils # (0-0.2) k/uL Hypochromasia Poikilocytosis Anisocytosis Microcytosis PT (10.0-12.5) sec INR (<1.2) APTT (22.0-30.0) sec Sodium (137-145) mmol/L Potassium (3.5-5.1) mmol/L Chloride (98-107) mmol/L Carbon Dioxide (22-30) mmol/L Anion Gap mmol/L BUN (7-17) mg/dL Creatinine (0.52-1.04) mg/dL Est GFR (CKD-EPI)AfAm (>60 ml/min/1.73 sqM) Est GFR (CKD-EPI)NonAf (>60 ml/min/1.73 sqM) Glucose (74-99) mg/dL Plasma Lactic Acid David 2.2 H* (0.7-2.0) mmol/L Calcium (8.4-10.2) mg/dL Magnesium (1.6-2.3) mg/dL Total Bilirubin (0.2-1.3) mg/dL AST (14-36) U/L ALT (4-34) U/L Alkaline Phosphatase (38-126) U/L Troponin I 0.399 H* (0.000-0.034) ng/mL NT-Pro-B Natriuret Pep pg/mL Total Protein (6.3-8.2) g/dL Albumin (3.5-5.0) g/dL Critical Care Time Critical Care Time: Yes Total Critical Care Time: 35 Disposition Clinical Impression: COPD (chronic obstructive pulmonary disease), Congestive heart failure, Acute respiratory failure with hypoxia Disposition: ADMITTED IP TO THIS HOSP Condition: Serious Is patient prescribed a controlled substance at d/c from ED?: No Referrals: None,Stated [REFERRING] - 1-2 days Time of Disposition: 14:19
[2023-01-02 12:14] LABS: Anisocytosis Moderate; Basophils % (A) 0 %; Eosinophils # (A) 0.1 k/uL (0-0.7); Eosinophils % (A) 1 %; HCT 36.5 % (34.0-46.0); HGB 10.7 gm/dL (11.4-16.0); Hypochromasia Marked; Lymphocytes # (A) 0.4 k/uL (1.0-4.8); Lymphocytes % (A) 5 %; MCH 23.6 pg (25.0-35.0); MCHC 29.5 g/dL (31.0-37.0); MCV 80.1 fL (80.0-100.0); Microcytosis Slight; Monocytes # (A) 0.5 k/uL (0-1.0); Monocytes % (A) 6 %; Neutrophils # (A) 7.5 k/uL (1.3-7.7); Neutrophils % (A) 86 %; Platelet Count 270 k/uL (150-450); Poikilocytosis Slight; RBC 4.55 m/uL (3.80-5.40); RDW 20.9 % (11.5-15.5); WBC 8.7 k/uL (3.8-10.6)
--- NOTE | 2023-01-02 12:24 | XR ---
EXAMINATION TYPE: XR chest 1V portable DATE OF EXAM: 01/02/2023 Comparison: 11/14/2022 Clinical History: 62 year-old female shortness of breath, dyspnea Findings: Heart mildly enlarged. Diffuse interstitial density. Small right pleural effusion with right basilar opacity. Impression: 1. Correlate for CHF with pulmonary vascular congestion. 2. Small right pleural effusion with adjacent atelectasis and/or consolidation.
[2023-01-02 12:25] LABS: ALT 18 U/L (4-34); African American GFR (CKD) 50 (>60 ml/min/1.73 sqM); Albumin 3.7 g/dL (3.5-5.0); Anion Gap 15 mmol/L; Blood Urea Nitrogen 43 mg/dL (7-17); Calcium 8.9 mg/dL (8.4-10.2); Carbon Dioxide 22 mmol/L (22-30); Chloride 97 mmol/L (98-107); Glucose 140 mg/dL (74-99); Non-African American GFR(CKD) 44 (>60 ml/min/1.73 sqM); Sodium 134 mmol/L (137-145); Total Bilirubin 1.1 mg/dL (0.2-1.3)
[2023-01-02 12:27] LABS: INR 1.2 (<1.2); Partial Thromboplastin Time 23.7 sec (22.0-30.0); Prothrombin Time 12.9 sec (10.0-12.5)
[2023-01-02 12:31] LABS: NT-Pro-B-Type Natriuretic Pept 24500 pg/mL
[2023-01-02 12:36] LABS: Potassium 5.1 mmol/L (3.5-5.1)
[2023-01-02 12:37] LABS: AST 36 U/L (14-36); Alkaline Phosphatase 87 U/L (38-126); Magnesium 2.1 mg/dL (1.6-2.3)
[2023-01-02] MEDS ORDERED: FUROSEMIDE 10 MG/ML 4 ML VIAL IV STA (13:44)
[2023-01-02] MEDS ORDERED: NALOXONE 0.4 MG/ML 1 ML VIAL IV PRN (14:14)
[2023-01-02] MEDS: IPRATROPIUM-ALBUTEROL 3 ML NEB INHALATION SCH ×2 (15:05→19:17)
[2023-01-02] MEDS ORDERED: DEXTROSE 50% SYRINGE 50 ML IVP PRN ×2 (15:20)
[2023-01-02 15:21] LABS: ABG Base Excess 0.7 mmol/L; ABG HCO3 26 mmol/L (21-25); ABG PCO2 41 mmHg (35-45); ABG PO2 91 mmHg (83-108); ABG TCO2 27 mmol/L (19-24); Allen Test Performed? Yes
[2023-01-02] MEDS ORDERED: methylPREDNISolone SOD SUCCI 125 MG/2 ML VIAL IV SCH (16:00)
[2023-01-02 17:14] LABS: Glucose,Whole Blood 182 mg/dL (70-110)
[2023-01-02] MEDS: INSULIN ASPART (NovoLOG) 100 UNIT/ML VIAL SQ SCH ×2 (17:24→22:09)
--- NOTE | 2023-01-02 19:05 | P.CNPUL ---
History of Present Illness Consult date: 01/02/23 Reason for consult: dyspnea, hypoxemia History of present illness: 69-year-old. Patient presenting to the hospital because of worsening shortness of breath. The patient was dyspneic and hypoxemic and the patient was placed on CPAP by EMS. The patient apparently was having some nonproductive cough along with worsening shortness of breath. She was noted to be quite hypoxic with a pulse ox of low 80s prior to her arriving to the emergency department. She denied having any chest pain. No reported fever or chills. She is known to have COPD and congestion heart failure along with diabetes mellitus. 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 She has undergone previous vascular bypass surgery. She suffers from chronic anxiety and depression and she is a former smoker. She is known to have coronary artery disease with previous coronary stenting. Her CHF is essentially systolic in nature with an ejection fraction of 35%, she has had previous CVA involving the right cerebral hemisphere and some residual chronic left-sided weakness, carotid artery disease with total occlusion of the right internal carotid artery, previous history of DVT and pulmonary embolism maintain on anticoagulation with the Route to, COPD, chronic lymphedema, psoriasis, obesity. The patient is a white cell count was at 8.7 with a hemoglobin of 10.7 and a platelet count of 270. Normal cognition profile. Blood gas was done on a FiO2 of 32% that showed a pH of 7.4 with a pCO2 of 41 and pO2 of 91. Sodium level is at 134 with a potassium level of 5.1, BUN is 43 with a creatinine of 1.3. Lactic acid level was initially at 2.2 and a drop down to 1.4. ProBNP level was 24,500 and the troponin was at 0.39 9. EKG showed Q waves over the anterior leads. The patient is sinus rhythm. No significant tachycardia. No significant ST segment changes. The chest x-ray showed small right-sided pleural effusion. Mild splenomegaly and pulmonary vessel congestion consistent with CHF. No evidence of any consolidation or airspace disease. At this point in time, the patient is on a BiPAP at a pressure of 12/6 with an FiO2 of 40%. She is awake and alert. She is generating tidal volume above 500 and she has an adequate minute ventilation. No significant tachypnea. Awake and alert and communicating. The of any chest pain. Given Lasix in the emergency department. As noted, the patient had a recent hospitalization for hypoxic respiratory failure and the Safe heart failure. She is known to have systolic heart failure with an ejection fraction of 35%. Upon discharge, the patient was placed on Lasix 40 mg by mouth daily and Aldactone. Catheterization that was done on 11/19/2022 showed total occlusion of the PDL branch of the RCA, intermediate disease involving the ostial and proximal LAD, elevated left sided filling pressures and the patient was offered medical treatment with a dual aspirin and Plavix. No interventions were done. Review of Systems CONSTITUTIONAL: No fever, no malaise, no fatigue. HEENT: No recent visual problems or hearing problems. Denied any sore throat. CARDIOVASCULAR: Reports chest tightness, orthopnea, PND, no palpitations, no syncope. Chronic lower extremity edema PULMONARY: Reports shortness of breath no cough, no hemoptysis. GASTROINTESTINAL: No diarrhea, no nausea, no vomiting, no abdominal pain. NEUROLOGICAL: No headaches, no weakness, no numbness. HEMATOLOGICAL: Denies any bleeding or petechiae. GENITOURINARY: Denies any burning micturition, frequency, or urgency. MUSCULOSKELETAL/RHEUMATOLOGICAL: Reports lower extremity edema ENDOCRINE: Denies any polyuria or polydipsia. Past Medical History Past Medical History: Coronary Artery Disease (CAD), Heart Failure (Chronic systolic heart failure with an ejection fraction of 35%), COPD, Diabetes Mellitus, Deep Vein Thrombosis (DVT), Myocardial Infarction (AR), Pulmonary Emb olus (PE), Renal Disease (Chronic kidney disease, cardiac renal in nature), Skin Disorder (Psoriasis), Vascular Disorder (Including carotid artery disease and lower extremity peripheral vascular disease) History of Any Multi-Drug Resistant Organisms: None Reported Past Surgical History: Heart Catheterization With Stent Additional Past Surgical History / Comment(s): Bipass,l great toe amputation Right 4th and 5th toe. Past Psychological History: Anxiety, Depression Smoking Status: Former smoker Past Alcohol Use History: None Reported Past Drug Use History: None Reported Medications and Allergies Home Medications Medication Instructions Recorded Confirmed Type Albuterol Nebulized [Ventolin 2.5 mg INHALATION RT-Q6H PRN 11/14/22 01/02/23 History Nebulized] Albuterol Sulfate [Albuterol 2 puff PO RT-Q4H PRN 11/14/22 01/02/23 History Sulfate Hfa] Amitriptyline HCl [Elavil] 25 mg PO HS 11/14/22 01/02/23 History Aspirin EC [Ecotrin Low Dose] 81 mg PO DAILY 11/14/22 01/02/23 History Atorvastatin Calcium [Lipitor] 80 mg PO HS 11/14/22 01/02/23 History Canagliflozin [Invokana] 100 mg PO DAILY 11/14/22 01/02/23 History Clopidogrel [Plavix] 75 mg PO DAILY 11/14/22 01/02/23 History Escitalopram [Lexapro] 20 mg PO DAILY 11/14/22 01/02/23 History Insulin Glargine,Hum.rec.anlog 36 units SQ HS 11/14/22 01/02/23 History [Lantus Solostar Pen] Insulin Lispro [humaLOG Kwikpen] 4 unit SQ AC-TID 11/14/22 01/02/23 History Magnesium Oxide [Mag-Ox] 400 mg PO DAILY 11/14/22 01/02/23 History Montelukast Sodium 10 mg PO HS 11/14/22 01/02/23 History [place]-3 Fatty Acids [[place]-3] 1,000 mg PO DAILY 11/14/22 01/02/23 History Bumetanide [Bumex] 1 mg PO DAILY 01/02/23 01/02/23 History Dulaglutide [Trulicity] 1.5 mg SQ FR 01/02/23 01/02/23 History Metoprolol Tartrate [Lopressor] 25 mg PO BID 01/02/23 01/02/23 History Spironolactone [Aldactone] 12.5 mg PO DAILY 01/02/23 01/02/23 History Allergies Allergy/AdvReac Type Severity Reaction Status Date / Time cephalexin [From Keflex] Allergy Rash/Hives Verified 01/02/23 13:59 Physical Exam Vitals: Vital Signs Temp Pulse Resp BP Pulse Ox FiO2 01/02/23 15:23 88 23 01/02/23 15:13 82 18 01/02/23 15:11 40 01/02/23 14:45 86 18 124/69 88 L 01/02/23 14:31 85 28 H 93 L 01/02/23 13:00 85 22 111/73 99 01/02/23 12:30 86 24 133/74 99 11/15/23 12:00 83 28 H 129/72 100 01/02/23 11:50 83 20 01/02/23 11:44 84 24 132/66 95 01/02/23 11:35 83 23 01/02/23 11:33 70 01/02/23 11:22 98.3 F 89 24 119/88 90 L Intake and Output 01/02/23 01/02/23 01/02/23 06:59 14:59 22:59 Other: Weight 127.913 kg GENERAL: The patient is alert and oriented x3, not in any acute distress. Well developed, well nourished. Winded. On 3 L of oxygen. Head exam was generally normal. There was no scleral icterus or corneal arcus. Mucous membranes were moist. HEENT: Pupils are round and equally reacting to light. EOMI. No scleral icterus. No conjunctival pallor. Normocephalic, atraumatic. No pharyngeal erythema. No thyromegaly. CARDIOVASCULAR: S1 and S2 present. No murmurs, rubs, or gallops. PULMONARY: , diminished breath on the lung bases and the patient bibasilar crackles ABDOMEN: Soft, nontender, nondistended, normoactive bowel sounds. No palpable organomegaly. MUSCULOSKELETAL: Increased lower extremity edema, no major deformities, previous intubation on the right foot fourth and fifth toe EXTREMITIES: No cyanosis, clubbing, mild LE edema. NEUROLOGICAL: Gross neurological examination did not reveal any focal deficits. SKIN: Multiple psoriatic plaques on bilateral lower extremities and left upper extremity. Results - Laboratory Findings CBC and BMP: 01/02/23 11:32 01/02/23 11:32 ABG ABG pH 7.40 (7.35-7.45) 01/02/23 15:18 ABG pCO2 41 mmHg (35-45) 01/02/23 15:18 ABG pO2 91 mmHg (83-108) 01/02/23 15:18 ABG O2 Saturation 95.0 % (94-97) 01/02/23 15:18 PT/INR, D-dimer PT 12.9 sec (10.0-12.5) H 01/02/23 11:32 INR 1.2 (<1.2) H 01/02/23 11:32 Abnormal lab findings: Abnormal Labs 01/02/23 01/02/23 01/02/23 11:32 11:32 11:32 Hgb 10.7 L MCH 23.6 L MCHC 29.5 L RDW 20.9 H Lymphocytes # 0.4 L PT 12.9 H INR 1.2 H ABG HCO3 ABG Total CO2 Sodium 134 L Chloride 97 L BUN 43 H Creatinine 1.32 H Glucose 140 H Plasma Lactic Acid David Troponin I 01/02/23 01/02/23 01/02/23 11:32 11:32 15:18 Hgb MCH MCHC RDW Lymphocytes # PT INR ABG HCO3 26 H ABG Total CO2 27 H Sodium Chloride BUN Creatinine Glucose Plasma Lactic Acid David 2.2 H* Troponin I 0.399 H* - Diagnostic Findings Chest x-ray: image reviewed Assessment and Plan Plan: Acute on chronic hypoxic respiratory failure. The patient is typical of CHF with become persistent heart failure and fluid overload. The patient is currently on BiPAP at a pressure of 12/6 with an FiO2 of 40% Chronic systolic heart failure with an ejection fraction of 35%. ProBNP level is elevated and the patient is an acute exacerbation of chronic CHF Coronary artery disease with recent cardiac catheterization. The patient has undergone previous stenting. No interventions were done and the patient was kept on accommodation of aspirin and Plavix. The patient was found to have total occlusion of the PLV branch of the RCA and underwent successful stenting. There is intermediate disease involving the ostial and proximal LAD Peripheral vascular disease with a previous fem-pop bypass surgery and multiple toe amputations of the right foot and left foot COPD Previous history of DVT/pulmonary embolism maintain on anticoagulation with xarelto. Previous history of CVA and the patient has infarct along the right cerebral hemisphere with left-sided weakness. Brain MRI was done showing a couple of small foci of increased signal noted within the posterior right parietal lobe on diffusion weighted imaging as well as tiny focus within the right frontal lobe. No large cortical insult is seen. The findings are felt to reflect small foci of embolic ischemic insult Chronic kidney disease, cardiorenal in nature Chronic lower extremity edema Diabetes mellitus type 2, maintain on insulin and the patient has essentially suboptimal control of the blood sugars with an elevated HbA1c of 8.5 Psoriasis Obesity with a body mass index of 45.5 Carotid artery disease with totally occluded right ICA Plan Titrate FiO2 to maintain a saturation above 90%, continue BiPAP and the patient can be transitioned to nasal cannula at the later stage Will start The patient again on IV Lasix 40 mg every 12 hours insert Miguel catheter Monitor fluid balance and urine output Continue bronchodilators Discontinue steroids Monitor blood sugar Resume all medications Cardiology consultation We'll follow
[2023-01-02] MEDS: FUROSEMIDE 10 MG/ML 4 ML VIAL IV SCH (21:29)
[2023-01-02] MEDS: AMITRIPTYLINE HCL 25 MG TAB PO SCH (21:30)
[2023-01-02] MEDS: ATORVASTATIN 80 MG TAB PO SCH (21:30)
[2023-01-02] MEDS: MONTELUKAST 10 MG TAB PO SCH (21:30)
[2023-01-02 21:58] LABS: Glucose,Whole Blood 315 mg/dL (70-110)
[2023-01-02] MEDS: INSULIN DETEMIR (LEVEMIR) 100 UNIT/ML SYR SQ SCH (23:28)
--- NOTE | 2023-01-03 02:06 | HP ---
HISTORY AND PHYSICAL CHIEF COMPLAINT: Shortness of breath. HISTORY OF PRESENT ILLNESS: This 62-year-old woman with a past medical history of multiple medical problems, including COPD, CHF, was admitted with shortness of breath which is worsening over the past couple of days. The patient had a nonproductive cough also. EMS was brought in and the patient is to put on BiPAP. The chest x-ray showed significant bilateral pleural effusions and There is no history of fever, rigors, or chills. Troponins elevated to 0.339, but there was no chest pain. PAST MEDICAL HISTORY: History of COPD, CHF, diabetes mellitus type 2, CAD stent. Rest of the history and rest of the chart are also reviewed. HOME MEDICATIONS: Reviewed include Aldactone. Dose and rest of medications reviewed. ALLERGIES: Keflex. FAMILY HISTORY: No history of heart disease or strokes in the family. SOCIAL HISTORY: Previous history of smoking. REVIEW OF SYSTEMS: Fourteen-point review of systems negative except as mentioned earlier. PHYSICAL EXAMINATION: VITAL SIGNS: Pulse is 86, blood pressure 124/60, respirations 18. HEENT: Conjunctivae normal. Accessory muscle respiration acting. NECK: Obese. CARDIOVASCULAR: S1, S2 muffled. RESPIRATIONS: Bilateral scattered rhonchi and crackles. Expiratory wheezing. ABDOMEN: Soft, obese, nontender. LEGS: No edema. No cyanosis. Diffusely weak. SKIN: No ulcers or rash. JOINTS: No active deforming arthropathy. LABORATORY DATA: Reviewed. Chest x-ray reviewed personally. ASSESSMENT: 1. Shortness of breath, possibly multifactorial, congestive heart failure acute exacerbation, chronic obstructive pulmonary disease acute exacerbation. 2. Acute renal failure. 3. Acute hypoxic respiratory failure, present on admission. 4. Diabetes mellitus type 2. 5. History of myocardial infarction, history of CAD stent. 6. Anxiety, depression. 7. Multiple complex medical issues. RECOMMENDATIONS AND DISCUSSION: I recommend to continue current management. I would recommend intensive bronchodilators and IV diuretics. Cardiology, Pulmonary consultations. I would also recommend IV steroids. Monitor blood sugars closely. Resume the home medications. Prognosis guarded because of multiple complex medical problems. See orders for details. MMODL / IJN: [id number] / MTDD
[2023-01-03 06:21] LABS: Glucose,Whole Blood 173 mg/dL (70-110)
[2023-01-03] MEDS: INSULIN ASPART (NovoLOG) 100 UNIT/ML VIAL SQ SCH ×4 (06:37→20:04)
[2023-01-03] MEDS: FUROSEMIDE 10 MG/ML 4 ML VIAL IV SCH ×2 (08:37→20:05)
[2023-01-03] MEDS: MAGNESIUM OXIDE 400 MG TAB PO SCH (08:38)
[2023-01-03] MEDS: CLOPIDOGREL 75 MG TAB PO SCH (08:38)
[2023-01-03] MEDS: ESCITALOPRAM 20 MG TAB PO SCH (08:38)
[2023-01-03] MEDS: ASPIRIN 81 MG PO SCH (08:38)
[2023-01-03] MEDS: DAPAGLIFLOZIN PROPANEDIOL 5 MG TABLET PO SCH (08:39)
[2023-01-03] MEDS: IPRATROPIUM-ALBUTEROL 3 ML NEB INHALATION SCH ×4 (08:55→21:09)
[2023-01-03] MEDS ORDERED: NON FORMULARY DRUG (Omega-3 Fatty Acids [Omega-3] 1,000 MG Capsule) PO SCH (09:00)
--- NOTE | 2023-01-03 09:56 | P.CRDCN ---
History of Present Illness History of present illness: HISTORY OF PRESENT ILLNESS: This is a 62-year-old female with a past medical history significant for congestive heart failure, hypertension, hyperlipidemia, and diabetes, and coronary artery disease. 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 We have been asked to see the patient in consultation for congestive heart failure. Patient examined at the bedside. Patient states yesterday she was overall not feeling very well. She reports that she was seeing animals in her house that she knew were not there. She states that she called her daughter who then [facility] and brought her to the hospital for further evaluation. The patient denies any chest pain or pressure. She reports chronic shortness of breath and states she is not any more short of breath than usual. She denies dizziness or lightheadedness. * EKG reveals sinus mechanism with no signs of acute ischemia * Chest xray correlate for congestive heart failure with pulmonary vascular congestion. Small right pleural effusion with adjacent atelectasis and/or consolidation * Laboratory data: ProBNP 24,500. Troponin 0.399. 0.369. 0.248. * Most recent echocardiogram obtained in October 2022 revealed ejection fraction 35%, mild aortic stenosis, mild mitral regurgitation * Cardiac catheterization history: 11/19/2022 with stenting of the PLV branch of the RCA REVIEW OF SYSTEMS: At the time of my exam: CONSTITUTIONAL: Denies fever or chills. HEENT: Denies blurred vision, vision changes, or eye pain. Denies hemoptysis CARDIOVASCULAR: Denies chest pain. Denies orthopnea. Denies PND. Denies palpitations RESPIRATORY: Denies shortness of breath. GASTROINTESTINAL: Denies abdominal pain. Denies nausea or vomiting. HEMATOLOGIC: Denies bleeding disorders. GENITOURINARY: Denies any blood in urine. SKIN: Denies pruitis. Denies rash. PHYSICAL EXAM: VITAL SIGNS: Reviewed. GENERAL: Well-developed in no acute distress. HEENT: Head is normocephalic. Pupils are equal, round. Sclerae anicteric. Mucous membranes of the mouth are moist. Neck supple. No JVD or thyromegaly LUNGS: Respirations even and unlabored. Lungs diminished bilaterally HEART: Regular rate and rhythm. S1 and S2 heard. ABDOMEN: Soft. Nondistended. Nontender. EXTREMITIES: Normal range of motion. No clubbing or cyanosis. Peripheral pulses intact. Bilateral lower extremity edema noted with psoriasis. NEUROLOGIC: Awake and alert. Oriented x 3. ASSESSMENT: Hallucinations Acute on chronic heart failure with reduced ejection fraction Abnormal troponins, flat, not suggestive of acute coronary syndrome Coronary artery disease with previous stenting of the PLV branch of the RCA, 11/19/2022 Hypertension Hyperlipidemia Diabetes Psoriasis PLAN: An acute coronary event has been ruled out Resume home cardiac medications Continue IV diuretics for 24 hours. Anticipate transition to oral dosing tomorrow Obtain limited echo to assess LV function Further recommendations pending patient's course Nurse practitioner note has been reviewed by physician. Signing provider agrees with the documented findings, assessment, and plan of care. Past Medical History Past Medical History: Coronary Artery Disease (CAD), Heart Failure (Chronic systolic heart failure with an ejection fraction of 35%), COPD, Diabetes Mellitus, Deep Vein Thrombosis (DVT), Myocardial Infarction (SC), Pulmonary Embolus (PE), Renal Disease (Chronic kidney disease, cardiac renal in nature), Skin Disorder (Psoriasis), Vascular Disorder (Including carotid artery disease and lower extremity peripheral vascular disease) Last Myocardial Infarction Date:: 05/19/22 History of Any Multi-Drug Resistant Organisms: None Reported Past Surgical History: Heart Catheterization With Stent Additional Past Surgical History / Comment(s): Bipass,l great toe amputation Right 4th and 5th toe. Past Anesthesia/Blood Transfusion Reactions: No Reported Reaction Date of Last Stent Placement:: 05/19/22 Past Psychological History: Anxiety, Depression Smoking Status: Former smoker Past Alcohol Use History: None Reported Past Drug Use History: None Reported Medications and Allergies Home Medications Medication Instructions Recorded Confirmed Type Albuterol Nebulized [Ventolin 2.5 mg INHALATION RT-Q6H PRN 11/14/22 01/02/23 History Nebulized] Albuterol Sulfate [Albuterol 2 puff PO RT-Q4H PRN 11/14/22 01/02/23 History Sulfate Hfa] Amitriptyline HCl [Elavil] 25 mg PO HS 11/14/22 01/02/23 History Aspirin EC [Ecotrin Low Dose] 81 mg PO DAILY 11/14/22 01/02/23 History Atorvastatin Calcium [Lipitor] 80 mg PO HS 11/14/22 01/02/23 History Canagliflozin [Invokana] 100 mg PO DAILY 11/14/22 01/02/23 History Clopidogrel [Plavix] 75 mg PO DAILY 11/14/22 01/02/23 History Escitalopram [Lexapro] 20 mg PO DAILY 11/14/22 01/02/23 History Insulin Glargine,Hum.rec.anlog 36 units SQ HS 11/14/22 01/02/23 History [Lantus Solostar Pen] Insulin Lispro [humaLOG Kwikpen] 4 unit SQ AC-TID 11/14/22 01/02/23 History Magnesium Oxide [Mag-Ox] 400 mg PO DAILY 11/14/22 01/02/23 History Montelukast Sodium 10 mg PO HS 11/14/22 01/02/23 History Hoskins-3 Fatty Acids [Hoskins-3] 1,000 mg PO DAILY 11/14/22 01/02/23 History Bumetanide [Bumex] 1 mg PO DAILY 01/02/23 01/02/23 History Dulaglutide [Trulicity] 1.5 mg SQ FR 01/02/23 01/02/23 History Metoprolol Tartrate [Lopressor] 25 mg PO BID 01/02/23 01/02/23 History Spironolactone [Aldactone] 12.5 mg PO DAILY 01/02/23 01/02/23 History Allergies Allergy/AdvReac Type Severity Reaction Status Date / Time cephalexin [From Keflex] Allergy Rash/Hives Verified 01/02/23 13:59 Physical Exam Vitals: Vital Signs Temp Pulse Pulse Resp BP BP Pulse Ox 01/03/23 03:56 97.9 F 85 20 130/72 96 01/03/23 00:00 97.5 F L 94 20 119/68 94 L 01/02/23 20:00 97.4 F L 87 20 125/71 96 01/02/23 19:29 86 22 128/75 98 01/02/23 19:28 87 01/02/23 19:19 84 01/02/23 18:00 86 28 H 142/81 95 01/02/23 17:00 84 24 146/85 95 01/02/23 16:00 82 20 135/88 99 01/02/23 15:23 88 23 01/02/23 15:13 82 18 01/02/23 15:11 01/02/23 15:03 97.4 F L 87 20 125/71 96 01/02/23 15:00 85 28 H 113/69 98 01/02/23 14:45 86 18 124/69 88 L 01/02/23 14:31 85 28 H 93 L 01/02/23 13:00 85 22 111/73 99 01/02/23 12:30 86 24 133/74 99 01/02/23 12:00 83 28 H 129/72 100 01/02/23 11:50 83 20 01/02/23 11:44 84 24 132/66 95 01/02/23 11:35 83 23 01/02/23 11:33 01/02/23 11:22 98.3 F 89 24 119/88 90 L FiO2 01/03/23 03:56 01/03/23 00:00 01/02/23 20:00 01/02/23 19:29 01/02/23 19:28 01/02/23 19:19 01/02/23 18:00 01/02/23 17:00 01/02/23 16:00 01/02/23 15:23 01/02/23 15:13 01/02/23 15:11 40 01/02/23 15:03 01/02/23 15:00 01/02/23 14:45 01/02/23 14:31 01/02/23 13:00 01/02/23 12:30 01/02/23 12:00 01/02/23 11:50 01/02/23 11:44 01/02/23 11:35 01/02/23 11:33 70 01/02/23 11:22 Intake and Output 01/02/23 01/03/23 01/03/23 22:59 06:59 14:59 Other: Weight 127.913 kg 127.5 kg Results 01/02/23 11:32 01/02/23 11:32 Cardiac Enzymes 01/02/23 01/02/23 01/02/23 Range/Units 11:32 11:32 15:11 AST 36 (14-36) U/L Troponin I 0.399 H* 0.369 H* (0.000-0.034) ng/mL 01/02/23 Range/Units 18:23 AST (14-36) U/L Troponin I 0.248 H* (0.000-0.034) ng/mL Coagulation 01/02/23 Range/Units 11:32 PT 12.9 H (10.0-12.5) sec APTT 23.7 (22.0-30.0) sec CBC 01/02/23 Range/Units 11:32 WBC 8.7 (3.8-10.6) k/uL RBC 4.55 (3.80-5.40) m/uL Hgb 10.7 L (11.4-16.0) gm/dL Hct 36.5 (34.0-46.0) % Plt Count 270 (150-450) k/uL Comprehensive Metabolic Panel 01/02/23 Range/Units 11:32 Sodium 134 L (137-145) mmol/L Potassium 5.1 (3.5-5.1) mmol/L Chloride 97 L (98-107) mmol/L Carbon Dioxide 22 (22-30) mmol/L BUN 43 H (7-17) mg/dL Creatinine 1.32 H (0.52-1.04) mg/dL Glucose 140 H (74-99) mg/dL Calcium 8.9 (8.4-10.2) mg/dL AST 36 (14-36) U/L ALT 18 (4-34) U/L Alkaline Phosphatase 87 (38-126) U/L Total Protein 7.0 (6.3-8.2) g/dL Albumin 3.7 (3.5-5.0) g/dL Current Medications Generic Name Dose Route Start Last Admin Trade Name Freq PRN Reason Stop Dose Admin Acetaminophen 650 mg 01/02/23 14:14 Acetaminophen Tab 325 Mg Tab PO Q6HR PRN Mild Pain or Fever > 100.5 Albuterol/Ipratropium 3 ml 01/02/23 16:00 01/02/23 19:17 Ipratropium-Albuterol 3 Ml Neb INHALATION 3 ml RT-QID SÁNCHEZ Administration Amitriptyline HCl 25 mg 01/02/23 21:00 01/02/23 21:30 Amitriptyline Hcl 25 Mg Tab PO 25 mg HS SÁNCHEZ Administration Aspirin 81 mg 01/03/23 09:00 Aspirin 81 Mg PO DAILY SÁNCHEZ Atorvastatin Calcium 80 mg 01/02/23 21:00 01/02/23 21:30 Atorvastatin 80 Mg Tab PO 80 mg HS SÁNCHEZ Administration Clopidogrel Bisulfate 75 mg 01/03/23 09:00 Clopidogrel 75 Mg Tab PO DAILY SÁNCHEZ Dapagliflozin 5 mg 01/03/23 09:00 Dapagliflozin Propanediol 5 Mg Tablet PO DAILY SÁNCHEZ Dextrose/Water 25 ml 01/02/23 15:20 Dextrose 50% Syringe 50 Ml IVP PER PROTOCOL PRN Hypoglycemia Protocol Dextrose/Water 50 ml 01/02/23 15:20 Dextrose 50% Syringe 50 Ml IVP PER PROTOCOL PRN Hypoglycemia Protocol Escitalopram Oxalate 20 mg 01/03/23 09:00 Escitalopram 20 Mg Tab PO DAILY SÁNCHEZ Furosemide 40 mg 01/02/23 21:00 01/02/23 21:29 Furosemide 10 Mg/Ml 4 Ml Vial IV 40 mg Q12HR SÁNCHEZ Administration Insulin Aspart 0 unit 01/02/23 17:30 01/03/23 06:37 Insulin Aspart (Novolog) 100 Unit/Ml Vial SQ 4 unit ACHS SÁNCHEZ Administration Protocol Insulin Detemir 36 unit 01/02/23 21:00 01/02/23 23:28 Insulin Detemir (Levemir) 100 Unit/Ml Syr SQ 36 unit HS SÁNCHEZ Administration Magnesium Oxide 400 mg 01/03/23 09:00 Magnesium Oxide 400 Mg Tab PO DAILY SÁNCHEZ Montelukast Sodium 10 mg 01/02/23 21:00 01/02/23 21:30 Montelukast 10 Mg Tab PO 10 mg HS SÁNCHEZ Administration Naloxone HCl 0.2 mg 01/02/23 14:14 Naloxone 0.4 Mg/Ml 1 Ml Vial IV Q2M PRN Opioid Reversal Patient's Own ( 1.5 mg 01/04/23 09:00 Dulaglutide [ SQ Trulicity] 1.5 Mg/0. FR SÁNCHEZ 5 Ml Each) Intake and Output 01/02/23 01/03/23 01/03/23 22:59 06:59 14:59 Other: Weight 127.913 kg 127.5 kg 01/02/23 11:32 01/02/23 11:32
[2023-01-03] MEDS: ACETAMINOPHEN TAB 325 MG TAB PO PRN (11:34)
[2023-01-03 11:55] LABS: Glucose,Whole Blood 166 mg/dL (70-110)
--- NOTE | 2023-01-03 12:38 | CA ---
Transthoracic Echo Report Name: Latrice Marin Age: 62 Gender: F : 1960 Exam Date: 01/03/2023 09:41 Exam Location: [place] [facility] Ht (in): 66 Wt (lb): 281 Ordering Physician: Marisa Jones Attending/Referring Phys: [id number], Karen Vigoureux Printer Opal Bruce, KHOI Procedure CPT: Indications: LV function Cardiac Hx: stent, DM,COPD, CHF Technical Quality: Technically difficult study Contrast 1: Definity Total Dose (mL): 2 Contrast 2: Total Dose (mL): MEASUREMENTS (Male / Female) Normal Values 2D ECHO LV Diastolic Diameter PLAX 5.0 cm 4.2 - 5.9 / 3.9 - 5.3 cm LV Systolic Diameter PLAX 4.3 cm IVS Diastolic Thickness 1.2 cm 0.6 - 1.0 / 0.6 - 0.9 cm LVPW Diastolic Thickness 1.4 cm 0.6 - 1.0 / 0.6 - 0.9 cm LV Relative Wall Thickness 0.5 RV Internal Dim ED PLAX 2.6 cm LVOT Diameter 2.5 cm LA Systolic Diameter LX 4.7 cm 3.0 - 4.0 / 2.7 - 3.8 cm LV Diastolic Volume MOD 4C 108.6 cm??? LV Systolic Volume MOD 4C 79.6 cm??? LV Ejection Fraction MOD 4C 26.7 % LV Cardiac Index MOD 4C 1075.9 cm???/min???m??? LV Diastolic Length 4C 8.6 cm LV Systolic Length 4C 7.8 cm LV Diastolic Volume MOD 2C 129.8 cm??? LV Systolic Volume MOD 2C 84.4 cm??? LV Ejection Fraction MOD 2C 34.9 % LV Cardiac Index MOD 2C 1681.7 cm???/min???m??? LV Diastolic Length 2C 8.7 cm LV Systolic Length 2C 8.1 cm LA Volume 77.5 cm??? 18 - 58 / 22 - 52 cm??? LA Volume Index 30.9 cm???/m??? 16 - 28 cm???/m??? M-MODE Aortic Root Diameter MM 3.1 cm MV E Point Septal Separation 1.4 cm AV Cusp Separation MM 1.7 cm DOPPLER AV Peak Velocity 242.5 cm/s AV Peak Gradient 23.5 mmHg AV Mean Velocity 187.1 cm/s AV Mean Gradient 14.9 mmHg AV Velocity Time Integral 50.9 cm LVOT Peak Velocity 168.8 cm/s LVOT Peak Gradient 11.4 mmHg AV Area Cont Eq pk 3.3 cm??? MV Peak Velocity 210.1 cm/s MV Peak Gradient 17.7 mmHg MV Mean Velocity 122.3 cm/s MV Mean Gradient 7.1 mmHg MV Velocity Time Integral 42.3 cm MV Area PHT 3.9 cm??? Mitral E Point Velocity 157.2 cm/s Mitral A Point Velocity 93.7 cm/s Mitral E to A Ratio 1.7 MV Deceleration Time 194.5 ms MV E' Velocity 4.7 cm/s Mitral E to MV E' Ratio 33.6 TR Peak Velocity 319.1 cm/s TR Peak Gradient 40.7 mmHg Right Ventricular Systolic Press 54.9 mmHg FINDINGS Left Ventricle Left ventricular ejection fraction is estimated at 30-35 %. Mildly increased septal wall thickness. Moderately increased posterior wall thickness. Moderately reduced global left ventricular systolic function. Right Ventricle Normal right ventricular size. Moderate to severe pulmonary hypertension. Right ventricular systolic pressure estimated at 55 mm hg. Right Atrium Normal right atrial size. Left Atrium Moderately increased left atrial diameter. Mildly increased left atrial volume. Mildly increased left atrial area. Mitral Valve Mitral valve thickened. Mild mitral annular calcification. Moderate mitral regurgitation. There is an mean gradient on MV of 7 mm/Hg Aortic Valve Aortic valve not well visualized. Aortic valve sclerosis. Mild aortic stenosis with a peak gradient of 24 mmHg and a mean gradient of 15 mmHg. Tricuspid Valve Structurally normal tricuspid valve. [id number] tricuspid regurgitation. Pulmonic Valve Pulmonic valve not well visualized. Pericardium No pericardial effusion. Aorta Normal size aortic root and proximal ascending aorta. CONCLUSIONS Left ventricle is at upper limits of normal with the global decrease in contractility ejection fraction of 35% with mitral annular calcification and aortic sclerosis with mild stenosis and moderate mitral regurgitation and moderate pulmonary hypertension. No pericardial effusion Previewed by: Dr. Daniel Mackay MD (Electronically Signed) Final Date: 03 January 2023 12:37
[2023-01-03] MEDS ORDERED: ACETYLCYSTEINE 800 MG/4 ML VIAL INHALATION STA (13:20)
[2023-01-03] MEDS ORDERED: methylPREDNISolone SOD SUCCI 125 MG/2 ML VIAL IV SCH (13:30)
[2023-01-03 14:00] LABS: ALT 19 U/L (4-34); AST 27 U/L (14-36); African American GFR (CKD) 54 (>60 ml/min/1.73 sqM); Albumin 3.5 g/dL (3.5-5.0); Alkaline Phosphatase 85 U/L (38-126); Anion Gap 13 mmol/L; Blood Urea Nitrogen 51 mg/dL (7-17); Carbon Dioxide 23 mmol/L (22-30); Chloride 98 mmol/L (98-107); Glucose 210 mg/dL (74-99); Non-African American GFR(CKD) 47 (>60 ml/min/1.73 sqM); Potassium 4.8 mmol/L (3.5-5.1); Sodium 134 mmol/L (137-145); Total Bilirubin 0.7 mg/dL (0.2-1.3); Total Protein 6.7 g/dL (6.3-8.2)
--- NOTE | 2023-01-03 14:07 | P.PN ---
Subjective Progress Note Date: 01/03/23 69-year-old. Patient presenting to the hospital because of worsening shortness of breath. The patient was dyspneic and hypoxemic and the patient was placed on CPAP by EMS. The patient apparently was having some nonproductive cough along with worsening shortness of breath. She was noted to be quite hypoxic with a pulse ox of low 80s prior to her arriving to the emergency department. She denied having any chest pain. No reported fever or chills. She is known to have COPD and congestion heart failure along with diabetes mellitus. 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 She has undergone previous vascular bypass surgery. She suffers from chronic anxiety and depression and she is a former smoker. She is known to have coronary artery disease with previous coronary stenting. Her CHF is essentially systolic in nature with an ejection fraction of 35%, she has had previous CVA involving the right cerebral hemisphere and some residual chronic left-sided weakness, carotid artery disease with total occlusion of the right internal carotid artery, previous history of DVT and pulmonary embolism maintain on anticoagulation with the Route to, COPD, chronic lymphedema, psoriasis, obesity. The patient is a white cell count was at 8.7 with a hemoglobin of 10.7 and a platelet count of 270. Normal cognition profile. Blood gas was done on a FiO2 of 32% that showed a pH of 7.4 with a pCO2 of 41 and pO2 of 91. Sodium level is at 134 with a potassium level of 5.1, BUN is 43 with a creatinine of 1.3. Lactic acid level was initially at 2.2 and a drop down to 1.4. ProBNP level was 24,500 and the troponin was at 0.39 9. EKG showed Q waves over the anterior leads. The patient is sinus rhythm. No significant tachycardia. No significant ST segment changes. The chest x-ray showed small right-sided pleural effusion. Mild splenomegaly and pulmonary vessel congestion consistent with CHF. No evidence of any consolidation or airspace disease. At this point in time, the patient is on a BiPAP at a pressure of 12/6 with an FiO2 of 40%. She is awake and alert. She is generating tidal volume above 500 and she has an adequate minute ventilation. No significant tachypnea. Awake and alert and communicating. The of any chest pain. Given Lasix in the emergency department. As noted, the patient had a recent hospitalization for hypoxic respiratory failure and the Safe heart failure. She is known to have systolic heart failure with an ejection fraction of 35%. Upon discharge, the patient was placed on Lasix 40 mg by mouth daily and Aldactone. Catheterization that was done on 11/19/2022 showed total occlusion of the PDL branch of the RCA, intermediate disease involving the ostial and proximal LAD, elevated left sided filling pressures and the patient was offered medical treatment with a dual aspirin and Plavix. No interventions were done. On today's evaluation of 01/03/2023, I'm seeing the patient for a follow-up. The patient is being treated for decompensated CHF and fluid overload. The patient is currently on IV Lasix. She was taken off the BiPAP and the patient is currently on 2 L of oxygen by nasal cannula. Overall, she is doing much better. She is producing adequate urine output. BUN today's of 50 with a creatinine of 1.24 and a sodium level is at 134. No chest pain. No altered mentation. No other new complaints otherwise for now. A limited echo cardiac exam was done and the patient was found to have a LV function with an ejection fraction of 35%. The patient also has moderate degree of mitral regurgitation moderate degree of pulmonary hypertension. Repeat chest x-ray from today is still showing a cardiomegaly and bilateral pleural effusion more so on the right and pulmonary vascular congestion. Overall findings are essentially same as yesterday terms of the chest x-ray. Clinically however, the patient is improved considerably. Objective - Vital Signs Vital signs: Vital Signs Temp 97.7 F 01/03/23 08:00 Pulse 90 01/03/23 09:09 Resp 16 01/03/23 08:00 BP 132/81 01/03/23 08:00 Pulse Ox 95 01/03/23 08:00 FiO2 40 01/02/23 15:11 Intake & Output 01/02/23 01/03/23 01/03/23 18:59 06:59 18:59 Intake Total 240 Balance 240 Weight 127.913 kg 127.5 kg Intake: Oral 240 - Exam GENERAL: The patient is alert and oriented x3, not in any acute distress. Well developed, well nourished. Winded. On 2 L of oxygen by nasal cannula Head exam was generally normal. There was no scleral icterus or corneal arcus. Mucous membranes were moist. HEENT: Pupils are round and equally reacting to light. EOMI. No scleral icterus. No conjunctival pallor. Normocephalic, atraumatic. No pharyngeal erythema. No thyromegaly. CARDIOVASCULAR: S1 and S2 present. No murmurs, rubs, or gallops. PULMONARY: , diminished breath on the lung bases and the patient bibasilar crackles ABDOMEN: Soft, nontender, nondistended, normoactive bowel sounds. No palpable organomegaly. MUSCULOSKELETAL: Increased lower extremity edema, no major deformities, previous intubation on the right foot fourth and fifth toe EXTREMITIES: No cyanosis, clubbing, mild LE edema. NEUROLOGICAL: Gross neurological examination did not reveal any focal deficits. SKIN: Multiple psoriatic plaques on bilateral lower extremities and left upper extremity. - Labs CBC & Chem 7: 01/02/23 11:01/03/23 13:25 Labs: Abnormal Lab Results - Last 24 Hours (Table) 01/02/23 01/02/23 01/02/23 Range/Units : 11: 11:32 Hgb 10.7 L (11.4-16.0) gm/dL MCH 23.6 L (25.0-35.0) pg MCHC 29.5 L (31.0-37.0) g/dL RDW 20.9 H (11.5-15.5) % Lymphocytes # 0.4 L (1.0-4.8) k/uL PT 12.9 H (10.0-12.5) sec INR 1.2 H (<1.2) ABG HCO3 (21-25) mmol/L ABG Total CO2 (19-24) mmol/L Sodium 134 L (137-145) mmol/L Chloride 97 L (98-107) mmol/L BUN 43 H (7-17) mg/dL Creatinine 1.32 H (0.52-1.04) mg/dL Glucose 140 H (74-99) mg/dL POC Glucose (mg/dL) (70-110) mg/dL Plasma Lactic Acid David (0.7-2.0) mmol/L Troponin I (0.000-0.034) ng/mL 01/02/23 01/02/23 01/02/23 Range/Units :32 11:32 15:11 Hgb (11.4-16.0) gm/dL MCH (25.0-35.0) pg MCHC (31.0-37.0) g/dL RDW (11.5-15.5) % Lymphocytes # (1.0-4.8) k/uL PT (10.0-12.5) sec INR (<1.2) ABG HCO3 (21-25) mmol/L ABG Total CO2 (19-24) mmol/L Sodium (137-145) mmol/L Chloride (98-107) mmol/L BUN (7-17) mg/dL Creatinine (0.52-1.04) mg/dL Glucose (74-99) mg/dL POC Glucose (mg/dL) (70-110) mg/dL Plasma Lactic Acid David 2.2 H* (0.7-2.0) mmol/L Troponin I 0.399 H* 0.369 H* (0.000-0.034) ng/mL 01/02/23 01/02/23 01/02/23 Range/Units 15:18 17:12 18:23 Hgb (11.4-16.0) gm/dL MCH (25.0-35.0) pg MCHC (31.0-37.0) g/dL RDW (11.5-15.5) % Lymphocytes # (1.0-4.8) k/uL PT (10.0-12.5) sec INR (<1.2) ABG HCO3 26 H (21-25) mmol/L ABG Total CO2 27 H (19-24) mmol/L Sodium (137-145) mmol/L Chloride (98-107) mmol/L BUN (7-17) mg/dL Creatinine (0.52-1.04) mg/dL Glucose (74-99) mg/dL POC Glucose (mg/dL) 182 H (70-110) mg/dL Plasma Lactic Acid David (0.7-2.0) mmol/L Troponin I 0.248 H* (0.000-0.034) ng/mL 01/02/23 01/03/23 Range/Units 21:56 06:19 Hgb (11.4-16.0) gm/dL MCH (25.0-35.0) pg MCHC (31.0-37.0) g/dL RDW (11.5-15.5) % Lymphocytes # (1.0-4.8) k/uL PT (10.0-12.5) sec INR (<1.2) ABG HCO3 (21-25) mmol/L ABG Total CO2 (19-24) mmol/L Sodium (137-145) mmol/L Chloride (98-107) mmol/L BUN (7-17) mg/dL Creatinine (0.52-1.04) mg/dL Glucose (74-99) mg/dL POC Glucose (mg/dL) 315 H 173 H (70-110) mg/dL Plasma Lactic Acid David (0.7-2.0) mmol/L Troponin I (0.000-0.034) ng/mL Assessment and Plan Plan: Acute on chronic hypoxic respiratory failure. The patient is typical of CHF with become persistent heart failure and fluid overload. The patient is currently off BiPAP and the patient currently on 2 L of oxygen by nasal cannula Bilateral pleural effusion right more than left secondary to decompensated CHF, pneumonia is felt to be less likely. Chronic systolic heart failure with an ejection fraction of 35%. ProBNP level is elevated and the patient is an acute exacerbation of chronic CHF Coronary artery disease with recent cardiac catheterization. The patient has undergone previous stenting. No interventions were done and the patient was kept on accommodation of aspirin and Plavix. The patient was found to have total occlusion of the PLV branch of the RCA and underwent successful stenting. There is intermediate disease involving the ostial and proximal LAD Peripheral vascular disease with a previous fem-pop bypass surgery and multiple toe amputations of the right foot and left foot COPD Previous history of DVT/pulmonary embolism maintain on anticoagulation with xarelto. Previous history of CVA and the patient has infarct along the right cerebral hemisphere with left-sided weakness. Brain MRI was done showing a couple of small foci of increased signal noted within the posterior right parietal lobe on diffusion weighted imaging as well as tiny focus within the right frontal lobe. No large cortical insult is seen. The findings are felt to reflect small foci of embolic ischemic insult Chronic kidney disease, cardiorenal in nature Chronic lower extremity edema Diabetes mellitus type 2, maintain on insulin and the patient has essentially suboptimal control of the blood sugars with an elevated HbA1c of 8.5 Psoriasis Obesity with a body mass index of 45.5 Carotid artery disease with totally occluded right ICA Plan Titrate FiO2 and the patient is currently on 2 L O2 nasal cannula Continue IV Lasix 40 mg every 12 hours Monitor urine output Monitor fluid balance and urine output Continue bronchodilators Discontinue steroids Monitor blood sugar Resume all medications Echo cardigan was noted Cardiology consultation We'll follow
--- NOTE | 2023-01-03 14:18 | XR ---
EXAMINATION TYPE: XR chest 1V portable DATE OF EXAM: 01/03/2023 COMPARISON: 01/02/2030 HISTORY: Shortness of breath TECHNIQUE: Frontal and lateral views of the chest are obtained. FINDINGS: Scattered senescent parenchymal changes noted. Hyperinflation compatible with COPD. Right basilar infiltrate noted which has increased since prior examination. Correlate for pneumonia o r aspiration pneumonia. Heart size is stable. Mediastinal structures are stable and grossly unremarkable. No evidence for hilar prominence. Degenerative changes dorsal spine. IMPRESSION: 1. Right basilar infiltrate noted which has increased since prior examination. Correlate for pneumoni a or aspiration pneumonia.
--- NOTE | 2023-01-03 14:42 | PN ---
PROGRESS NOTE DATE OF SERVICE: 01/03/2023 SUBJECTIVE: This is a 62-year-old woman, who was admitted with shortness of breath, possibly multifactorial, CHF and COPD exacerbation. She still is extremely short of breath. The patient apparently choked on food also. A limited 2D echo was done. Cardiology is following the patient closely. 2D echo showed global decrease in the contracted ejection fraction of 35%. There is no significant fever, rigor, or chills. PAST MEDICAL HISTORY: Reviewed. REVIEW OF SYSTEMS: Fourteen-point review is negative except as mentioned earlier. CURRENT MEDICATIONS: Reviewed include IV Lasix and steroids. Doses and rest of the medications are reviewed. PHYSICAL EXAMINATION: VITAL SIGNS: Pulse 117, blood pressure ntd, respiratory rate 22. HEENT: Conjunctivae are normal. NECK: No jugular venous distention. CHEST: Breathing efforts are markedly increased. Bilateral scattered rhonchi and crackles. Expiratory wheezing. ABDOMEN: Soft. Obese LEGS: No edema. NERVOUS SYSTEM: Nonfocal. LABORATORY DATA: Troponin 0.248. Rest of the labs are noted. ASSESSMENT: 1. Shortness of breath, possibly multifactorial, congestive heart failure acute exacerbation with [id number] systolic dysfunction, ejection fraction 35% with chronic obstructive pulmonary disease acute exacerbation. 2. Acute renal failure. 3. Acute hypoxic respiratory failure present on admission. 4. Diabetes mellitus, type 2. 5. History of myocardial infarction and coronary artery disease stent. 6. Rule out dysphagia. 7. Anxiety and depression. 8. Multiple complex medical issues. RECOMMENDATIONS: Recommend to continue current medications. Continue symptomatic treatment. Continue with diuretics. Repeat chest x-ray. I would also recommend swallow evaluation if the dysphagia persists. Otherwise, monitor blood sugars closely. Monitor renal functions also closely. Prognosis is guarded because of multiple complex medical issue. Further recommendations to follow. See orders for details. MMODL / IJN: [id number] / MTDD
[2023-01-03] MEDS: BUDESONIDE 1 MG/2 ML NEBU INHALATION SCH ×2 (15:10→21:09)
[2023-01-03] MEDS: FORMOTEROL FUMARATE 20 MCG/2 ML NEBU INHALATION SCH ×2 (15:10→21:09)
[2023-01-03 16:38] LABS: Glucose,Whole Blood 193 mg/dL (70-110)
[2023-01-03 19:53] LABS: Glucose,Whole Blood 177 mg/dL (70-110)
[2023-01-03] MEDS: INSULIN DETEMIR (LEVEMIR) 100 UNIT/ML SYR SQ SCH (20:04)
[2023-01-03] MEDS: AMITRIPTYLINE HCL 25 MG TAB PO SCH (20:05)
[2023-01-03] MEDS: ATORVASTATIN 80 MG TAB PO SCH (20:05)
[2023-01-03] MEDS: MONTELUKAST 10 MG TAB PO SCH (20:05)
[2023-01-03] MEDS: METOPROLOL TARTRATE 25 MG TAB PO SCH (20:05)
[2023-01-03] MEDS ORDERED: ALPRAZolam 0.25 MG TAB PO PRN (21:50)
[2023-01-03] MEDS ORDERED: LORazepam 2 MG/ML INJ IV STA (21:53)
[2023-01-03] MEDS: PIPERACILLIN-TAZOBACTAM 3.375 GM in SODIUM CHLORIDE 0.9% 100 ML IVPB SCH (22:14)
[2023-01-04] MEDS: ACETAMINOPHEN TAB 325 MG TAB PO PRN ×2 (04:19→09:07)
[2023-01-04 06:07] LABS: Glucose,Whole Blood 104 mg/dL (70-110)
[2023-01-04] MEDS: INSULIN ASPART (NovoLOG) 100 UNIT/ML VIAL SQ SCH ×4 (06:11→20:24)
[2023-01-04] MEDS: PIPERACILLIN-TAZOBACTAM 3.375 GM in SODIUM CHLORIDE 0.9% 100 ML IVPB SCH ×3 (06:11→21:18)
[2023-01-04] MEDS: FORMOTEROL FUMARATE 20 MCG/2 ML NEBU INHALATION SCH ×2 (08:38→21:08)
[2023-01-04] MEDS: IPRATROPIUM-ALBUTEROL 3 ML NEB INHALATION SCH ×4 (08:52→21:08)
[2023-01-04] MEDS: BUDESONIDE 1 MG/2 ML NEBU INHALATION SCH ×2 (08:52→21:08)
[2023-01-04] MEDS ORDERED: PATIENT'S OWN (Dulaglutide [Trulicity] 1.5 MG/0.5 ML Each) SQ SCH (09:00)
[2023-01-04] MEDS: FUROSEMIDE 10 MG/ML 4 ML VIAL IV SCH (09:07)
[2023-01-04] MEDS: MAGNESIUM OXIDE 400 MG TAB PO SCH (09:08)
[2023-01-04] MEDS: METOPROLOL TARTRATE 25 MG TAB PO SCH ×2 (09:08→20:22)
[2023-01-04] MEDS: CLOPIDOGREL 75 MG TAB PO SCH (09:08)
[2023-01-04] MEDS: ESCITALOPRAM 20 MG TAB PO SCH (09:08)
[2023-01-04] MEDS: SPIRONOLACTONE 25 MG TAB PO SCH (09:08)
[2023-01-04] MEDS: ASPIRIN 81 MG PO SCH (09:08)
[2023-01-04] MEDS: DAPAGLIFLOZIN PROPANEDIOL 5 MG TABLET PO SCH (09:09)
[2023-01-04 09:36] LABS: Anisocytosis Moderate; Basophils % (A) 1 %; Eosinophils % (A) 0 %; HCT 33.6 % (34.0-46.0); HGB 10.1 gm/dL (11.4-16.0); Hypochromasia Marked; Lymphocytes # (A) 0.6 k/uL (1.0-4.8); Lymphocytes % (A) 8 %; MCH 23.6 pg (25.0-35.0); MCV 78.8 fL (80.0-100.0); Mean Platelet Volume 9.1; Microcytosis Moderate; Monocytes # (A) 0.6 k/uL (0-1.0); Monocytes % (A) 8 %; Neutrophils # (A) 6.1 k/uL (1.3-7.7); Neutrophils % (A) 81 %; Platelet Count 262 k/uL (150-450); RBC 4.26 m/uL (3.80-5.40); RDW 20.9 % (11.5-15.5); WBC 7.6 k/uL (3.8-10.6)
[2023-01-04 10:12] LABS: ALT 16 U/L (4-34); AST 27 U/L (14-36); African American GFR (CKD) 57 (>60 ml/min/1.73 sqM); Albumin 3.1 g/dL (3.5-5.0); Alkaline Phosphatase 72 U/L (38-126); Anion Gap 13 mmol/L; Blood Urea Nitrogen 49 mg/dL (7-17); Calcium 8.8 mg/dL (8.4-10.2); Carbon Dioxide 24 mmol/L (22-30); Chloride 98 mmol/L (98-107); Glucose 84 mg/dL (74-99); Non-African American GFR(CKD) 49 (>60 ml/min/1.73 sqM); Potassium 4.5 mmol/L (3.5-5.1); Sodium 135 mmol/L (137-145); Total Bilirubin 0.8 mg/dL (0.2-1.3); Total Protein 6.2 g/dL (6.3-8.2)
--- NOTE | 2023-01-04 11:18 | XR ---
EXAMINATION TYPE: XR chest 1V DATE OF EXAM: 01/04/2023 COMPARISON: 01/03/2023 HISTORY: 62 year-old female follow-up CHF TECHNIQUE: Single frontal view of the chest is obtained. FINDINGS: Heart mildly enlarged. Mild interstitial density. Moderate right and small left pleural ef fusions persist with prominent lower lung opacities. IMPRESSION: 1. Stable exam with a CHF and pulmonary vascular congestion. 2. Ongoing moderate right and small left pleural effusions with prominent adjacent atelectasis and/or consolidation.
[2023-01-04 12:00] LABS: Glucose,Whole Blood 96 mg/dL (70-110)
--- NOTE | 2023-01-04 12:00 | P.PN ---
Subjective Progress Note Date: 01/04/23 69-year-old. Patient presenting to the hospital because of worsening shortness of breath. The patient was dyspneic and hypoxemic and the patient was placed on CPAP by EMS. The patient apparently was having some nonproductive cough along with worsening shortness of breath. She was noted to be quite hypoxic with a pulse ox of low 80s prior to her arriving to the emergency department. She denied having any chest pain. No reported fever or chills. She is known to have COPD and congestion heart failure along with diabetes mellitus. 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 She has undergone previous vascular bypass surgery. She suffers from chronic anxiety and depression and she is a former smoker. She is known to have coronary artery disease with previous coronary stenting. Her CHF is essentially systolic in nature with an ejection fraction of 35%, she has had previous CVA involving the right cerebral hemisphere and some residual chronic left-sided weakness, carotid artery disease with total occlusion of the right internal carotid artery, previous history of DVT and pulmonary embolism maintain on anticoagulation with the Route to, COPD, chronic lymphedema, psoriasis, obesity. The patient is a white cell count was at 8.7 with a hemoglobin of 10.7 and a platelet count of 270. Normal cognition profile. Blood gas was done on a FiO2 of 32% that showed a pH of 7.4 with a pCO2 of 41 and pO2 of 91. Sodium level is at 134 with a potassium level of 5.1, BUN is 43 with a creatinine of 1.3. Lactic acid level was initially at 2.2 and a drop down to 1.4. ProBNP level was 24,500 and the troponin was at 0.39 9. EKG showed Q waves over the anterior leads. The patient is sinus rhythm. No significant tachycardia. No significant ST segment changes. The chest x-ray showed small right-sided pleural effusion. Mild splenomegaly and pulmonary vessel congestion consistent with CHF. No evidence of any consolidation or airspace disease. At this point in time, the patient is on a BiPAP at a pressure of 12/6 with an FiO2 of 40%. She is awake and alert. She is generating tidal volume above 500 and she has an adequate minute ventilation. No significant tachypnea. Awake and alert and communicating. The of any chest pain. Given Lasix in the emergency department. As noted, the patient had a recent hospitalization for hypoxic respiratory failure and the Safe heart failure. She is known to have systolic heart failure with an ejection fraction of 35%. Upon discharge, the patient was placed on Lasix 40 mg by mouth daily and Aldactone. Catheterization that was done on 11/19/2022 showed total occlusion of the PDL branch of the RCA, intermediate disease involving the ostial and proximal LAD, elevated left sided filling pressures and the patient was offered medical treatment with a dual aspirin and Plavix. No interventions were done. On today's evaluation of 01/03/2023, I'm seeing the patient for a follow-up. The patient is being treated for decompensated CHF and fluid overload. The patient is currently on IV Lasix. She was taken off the BiPAP and the patient is currently on 2 L of oxygen by nasal cannula. Overall, she is doing much better. She is producing adequate urine output. BUN today's of 50 with a creatinine of 1.24 and a sodium level is at 134. No chest pain. No altered mentation. No other new complaints otherwise for now. A limited echo cardiac exam was done and the patient was found to have a LV function with an ejection fraction of 35%. The patient also has moderate degree of mitral regurgitation moderate degree of pulmonary hypertension. Repeat chest x-ray from today is still showing a cardiomegaly and bilateral pleural effusion more so on the right and pulmonary vascular congestion. Overall findings are essentially same as yesterday terms of the chest x-ray. Clinically however, the patient is improved considerably. On 01/04/2023, the patient is being seen for a follow-up. The patient is curren tly on oxygen 2 L/m nasal cannula with a pulse ox of 94%. She is diuresing and she is currently in a negative fluid balance. She remains on IV Lasix. Cardiology switched to oral Bumex. I think there is also for further diuresis as the patient continues to have pulmonary vascular congestion and right-sided pleural effusion. I suggest continuing the diuretics and a platelet the patient on Bumex IV 1 mg every 8 hours for another 24 hours. The patient is on IV Zosyn. The patient is on Levemir insulin 36 units and a sliding scale coverage. The patient remains on aspirin and Plavix. The patient is also on bronchodilators. The BUN is at 49 with a creatinine of 1.2. The white cell count 7.6 with a hemoglobin of 10.9 and the patient has a platelet count of 262. Objective - Vital Signs Vital signs: Vital Signs Temp 99.5 F 01/04/23 08:00 Pulse 82 01/04/23 09:04 Resp 24 01/04/23 08:00 BP 137/87 01/04/23 08:00 Pulse Ox 99 01/04/23 08:00 FiO2 40 01/04/23 08:46 Intake & Output 01/03/23 01/04/23 01/04/23 18:59 06:59 18:59 Intake Total 240 240 Output Total 700 Balance -460 240 Weight 127.4 kg Intake: Oral 240 240 Output: Urine 700 Other: Voiding Method Bedside Commode # Voids 1 # Bowel Movements 1 - Exam GENERAL: The patient is alert and oriented x3, not in any acute distress. Well developed, well nourished. Winded. On 2 L of oxygen by nasal cannula Head exam was generally normal. There was no scleral icterus or corneal arcus. Mucous membranes were moist. HEENT: Pupils are round and equally reacting to light. EOMI. No scleral icterus. No conjunctival pallor. Normocephalic, atraumatic. No pharyngeal erythema. No thyromegaly. CARDIOVASCULAR: S1 and S2 present. No murmurs, rubs, or gallops. PULMONARY: , diminished breath on the lung bases and the patient bibasilar crackles ABDOMEN: Soft, nontender, nondistended, normoactive bowel sounds. No palpable organomegaly. MUSCULOSKELETAL: Increased lower extremity edema, no major deformities, previous intubation on the right foot fourth and fifth toe EXTREMITIES: No cyanosis, clubbing, mild LE edema. NEUROLOGICAL: Gross neurological examination did not reveal any focal deficits. SKIN: Multiple psoriatic plaques on bilateral lower extremities and left upper extremity. - Labs CBC & Chem 7: 01/04/23 06:50 01/04/23 06:50 Labs: Abnormal Lab Results - Last 24 Hours (Table) 01/03/23 01/03/23 01/03/23 Range/Units 11:32 11:53 13:25 Hgb (11.4-16.0) gm/dL Hct (34.0-46.0) % MCV (80.0-100.0) fL MCH (25.0-35.0) pg MCHC (31.0-37.0) g/dL RDW (11.5-15.5) % Lymphocytes # (1.0-4.8) k/uL Sodium (137-145) mmol/L BUN (7-17) mg/dL Creatinine (0.52-1.04) mg/dL Glucose (74-99) mg/dL POC Glucose (mg/dL) 166 H (70-110) mg/dL Hemoglobin A1c 6.6 H (<=6.0) % Procalcitonin 2.23 H (0.02-0.09) ng/mL 01/03/23 01/03/23 01/03/23 Range/Units 13:25 16:30 19:52 Hgb (11.4-16.0) gm/dL Hct (34.0-46.0) % MCV (80.0-100.0) fL MCH (25.0-35.0) pg MCHC (31.0-37.0) g/dL RDW (11.5-15.5) % Lymphocytes # (1.0-4.8) k/uL Sodium 134 L (137-145) mmol/L BUN 51 H (7-17) mg/dL Creatinine 1.24 H (0.52-1.04) mg/dL Glucose 210 H (74-99) mg/dL POC Glucose (mg/dL) 193 H 177 H (70-110) mg/dL Hemoglobin A1c (<=6.0) % Procalcitonin (0.02-0.09) ng/mL 01/04/23 Range/Units 06:50 Hgb 10.1 L (11.4-16.0) gm/dL Hct 33.6 L (34.0-46.0) % MCV 78.8 L (80.0-100.0) fL MCH 23.6 L (25.0-35.0) pg MCHC 30.0 L (31.0-37.0) g/dL RDW 20.9 H (11.5-15.5) % Lymphocytes # 0.6 L (1.0-4.8) k/uL Sodium (137-145) mmol/L BUN (7-17) mg/dL Creatinine (0.52-1.04) mg/dL Glucose (74-99) mg/dL POC Glucose (mg/dL) (70-110) mg/dL Hemoglobin A1c (<=6.0) % Procalcitonin (0.02-0.09) ng/mL Assessment and Plan Plan: Acute on chronic hypoxic respiratory failure. The patient is typical of CHF with become persistent heart failure and fluid overload. The patient is currently off BiPAP and the patient currently on 2 L of oxygen by nasal cannula Bilateral pleural effusion right more than left secondary to decompensated CHF, pneumonia is felt to be less likely. Clinically improving Chronic systolic heart failure with an ejection fraction of 35%. ProBNP level is elevated and the patient is an acute exacerbation of chronic CHF Coronary artery disease with recent cardiac catheterization. The patient has undergone previous stenting. No interventions were done and the patient was kept on accommodation of aspirin and Plavix. The patient was found to have total occlusion of the PLV branch of the RCA and underwent successful stenting. There is intermediate disease involving the ostial and proximal LAD Peripheral vascular disease with a previous fem-pop bypass surgery and multiple toe amputations of the right foot and left foot COPD Previous history of DVT/pulmonary embolism maintain on anticoagulation with xarelto. Previous history of CVA and the patient has infarct along the right cerebral hemisphere with left-sided weakness. Brain MRI was done showing a couple of small foci of increased signal noted within the posterior right parietal lobe on diffusion weighted imaging as well as tiny focus within the right frontal lobe. No large cortical insult is seen. The findings are felt to reflect small foci of embolic ischemic insult Chronic kidney disease, cardiorenal in nature Chronic lower extremity edema Diabetes mellitus type 2, maintain on insulin and the patient has essentially suboptimal control of the blood sugars with an elevated HbA1c of 8.5 Psoriasis Obesity with a body mass index of 45.5 Carotid artery disease with totally occluded right ICA Plan Titrate FiO2 and the patient is currently on 2 L O2 nasal cannula Continue IV diuretics and going to put the patient on Bumex 1 mg every 8 hours IV Monitor fluid balance and urine output Continue bronchodilators Discontinue steroids Monitor blood sugar Resume all medications Repeat chest x-ray in the morning Echo was repeated and the patient's impaired LV function, global decrease in contractility with an ejection fraction of 35%. Cardiology consultation We'll follow
[2023-01-04] MEDS: BUMETANIDE 0.25 MG/ML 10 ML VIAL IV SCH ×2 (12:22→17:08)
--- NOTE | 2023-01-04 12:52 | P.PN ---
Subjective HISTORY OF PRESENT ILLNESS: This is a 62-year-old female with a past medical history significant for congestive heart failure, hypertension, hyperlipidemia, and diabetes, and coronary artery disease. 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 We have been asked to see the patient in consultation for congestive heart failure. Patient examined at the bedside. Patient states yesterday she was overall not feeling very well. She reports that she was seeing animals in her house that she knew were not there. She states that she called her daughter who then called EMS and brought her to the hospital for further evaluation. The patient denies any chest pain or pressure. She reports chronic shortness of breath and states she is not any more short of breath than usual. She denies dizziness or lightheadedness. * EKG reveals sinus mechanism with no signs of acute ischemia * Chest xray correlate for congestive heart failure with pulmonary vascular congestion. Small right pleural effusion with adjacent atelectasis and/or consolidation * Laboratory data: ProBNP 24,500. Troponin 0.399. 0.369. 0.248. * Most recent echocardiogram obtained in October 2022 revealed ejection fraction 35%, mild aortic stenosis, mild mitral regurgitation * Cardiac catheterization history: 11/19/2022 with stenting of the PLV branch of the RCA 01/04/2023 Patient examined this morning at the bedside. She is currently on BiPAP. She denies chest pain or pressure. She denies shortness of breath. She remains on IV Lasix. Vital signs are stable. Echocardiogram completed revealing ejection fraction 30-35%, moderate to severe pulmonary hypertension, moderate MR, mild , mild to moderate tricuspid regurgitation PHYSICAL EXAM: VITAL SIGNS: Reviewed. GENERAL: Well-developed in no acute distress. HEENT: Head is normocephalic. Pupils are equal, round. Sclerae anicteric. Mucous membranes of the mouth are moist. Neck supple. No JVD or thyromegaly LUNGS: Respirations even and unlabored. Lungs diminished bilaterally HEART: Regular rate and rhythm. S1 and S2 heard. ABDOMEN: Soft. Nondistended. Nontender. EXTREMITIES: Normal range of motion. No clubbing or cyanosis. Peripheral puls es intact. Bilateral lower extremity edema noted with psoriasis. NEUROLOGIC: Awake and alert. Oriented x 3. ASSESSMENT: Hallucinations Acute on chronic heart failure with reduced ejection fraction Abnormal troponins, flat, not suggestive of acute coronary syndrome Coronary artery disease with previous stenting of the PLV branch of the RCA, 11/19/2022 Hypertension Hyperlipidemia Diabetes Psoriasis PLAN: Discontinue IV Lasix Resume Bumex Continue additional cardiac medications No further inpatient recommendations from a cardiac standpoint. We'll sign off. Please reconsult if needed. Nurse practitioner note has been reviewed by physician. Signing provider agrees with the documented findings, assessment, and plan of care. Objective - Vital Signs Vital signs: Vital Signs Temp 99.5 F 01/04/23 08:00 Pulse 84 01/04/23 11:46 Resp 24 01/04/23 08:00 BP 137/87 01/04/23 08:00 Pulse Ox 94 L 01/04/23 11:36 FiO2 40 01/04/23 08:46 Intake & Output 01/03/23 01/04/23 01/04/23 18:59 06:59 18:59 Intake Total 240 240 Output Total 700 Balance -460 240 Weight 127.4 kg Intake: Oral 240 240 Output: Urine 700 Other: Voiding Method Bedside Commode Bedside Commode # Voids 1 # Bowel Movements 1 - Labs CBC & Chem 7: 01/04/23 06:50 01/04/23 06:50 Labs: Abnormal Lab Results - Last 24 Hours (Table) 01/03/23 01/03/23 01/03/23 Range/Units 11:32 13:25 13:25 Hgb (11.4-16.0) gm/dL Hct (34.0-46.0) % MCV (80.0-100.0) fL MCH (25.0-35.0) pg MCHC (31.0-37.0) g/dL RDW (11.5-15.5) % Lymphocytes # (1.0-4.8) k/uL Sodium 134 L (137-145) mmol/L BUN 51 H (7-17) mg/dL Creatinine 1.24 H (0.52-1.04) mg/dL Glucose 210 H (74-99) mg/dL POC Glucose (mg/dL) (70-110) mg/dL Hemoglobin A1c 6.6 H (<=6.0) % Total Protein (6.3-8.2) g/dL Albumin (3.5-5.0) g/dL Procalcitonin 2.23 H (0.02-0.09) ng/mL 01/03/23 01/03/23 01/04/23 Range/Units 16:30 19:52 06:50 Hgb 10.1 L (11.4-16.0) gm/dL Hct 33.6 L (34.0-46.0) % MCV 78.8 L (80.0-100.0) fL MCH 23.6 L (25.0-35.0) pg MCHC 30.0 L (31.0-37.0) g/dL RDW 20.9 H (11.5-15.5) % Lymphocytes # 0.6 L (1.0-4.8) k/uL Sodium (137-145) mmol/L BUN (7-17) mg/dL Creatinine (0.52-1.04) mg/dL Glucose (74-99) mg/dL POC Glucose (mg/dL) 193 H 177 H (70-110) mg/dL Hemoglobin A1c (<=6.0) % Total Protein (6.3-8.2) g/dL Albumin (3.5-5.0) g/dL Procalcitonin (0.02-0.09) ng/mL 01/04/23 Range/Units 06:50 Hgb (11.4-16.0) gm/dL Hct (34.0-46.0) % MCV (80.0-100.0) fL MCH (25.0-35.0) pg MCHC (31.0-37.0) g/dL RDW (11.5-15.5) % Lymphocytes # (1.0-4.8) k/uL Sodium 135 L (137-145) mmol/L BUN 49 H (7-17) mg/dL Creatinine 1.20 H (0.52-1.04) mg/dL Glucose (74-99) mg/dL POC Glucose (mg/dL) (70-110) mg/dL Hemoglobin A1c (<=6.0) % Total Protein 6.2 L (6.3-8.2) g/dL Albumin 3.1 L (3.5-5.0) g/dL Procalcitonin (0.02-0.09) ng/mL
--- NOTE | 2023-01-04 13:31 | PN ---
PROGRESS NOTE DATE OF SERVICE: 01/04/2023 SUBJECTIVE: This is a 62-year-old woman, who was admitted with combination of COPD and CHF acute exacerbation, also had some swallowing difficulties yesterday. The patient possibly aspirated and developed an aspiration pneumonia. The patient is on broad-spectrum IV antibiotics. The patient is slightly better today, still extremely short of breath. Bilateral leg edema is noted. PAST MEDICAL HISTORY: Reviewed. REVIEW OF SYSTEMS: Fourteen-point review is negative except as mentioned earlier. CURRENT MEDICATIONS: IV Zosyn. Doses and rest of the medications are noted. PHYSICAL EXAMINATION: VITAL SIGNS: Pulse is 93, blood pressure 121/70, respirations 18. HEENT: Conjunctivae are normal. NECK: No jugular venous distention. CARDIOVASCULAR: S1 and S2. RESPIRATORY: Few scattered rhonchi and crackles. ABDOMEN: Soft. LEGS: Bilateral leg edema. NERVOUS SYSTEM: Nonfocal. LABORATORY DATA: Reviewed. ASSESSMENT: 1. Shortness of breath, possibly multifactorial with congestive heart failure acute exacerbation, [id number] systolic dysfunction, ejection fraction of 35% with chronic obstructive pulmonary disease acute exacerbation with acute hypoxic respiratory failure present on admission. 2. Possible aspiration pneumonia. 3. Acute renal failure. 4. Diabetes mellitus, type 2. 5. History of myocardial infarction and coronary artery disease stent. 6. Anxiety and depression. 7. Multiple complex medical issues. RECOMMENDATIONS: Recommend to continue current medications. Continue symptomatic treatment. Continue with bronchodilators. Continue with diuretics with fluid intake to 1200 mL per 24 hours. Recommend a chest x-ray. Repeat labs. Closely follow with multiple consultants. Prognosis is extremely guarded because of multiple complex medical issues. Further recommendations to follow. We will continue the same dose of steroids for now. MMODL / IJN: [id number] /
[2023-01-04 16:39] LABS: Glucose,Whole Blood 122 mg/dL (70-110)
[2023-01-04 19:54] LABS: Glucose,Whole Blood 190 mg/dL (70-110)
[2023-01-04] MEDS: AMITRIPTYLINE HCL 25 MG TAB PO SCH (20:22)
[2023-01-04] MEDS: INSULIN DETEMIR (LEVEMIR) 100 UNIT/ML SYR SQ SCH (20:22)
[2023-01-04] MEDS: MONTELUKAST 10 MG TAB PO SCH (20:22)
[2023-01-04] MEDS: ATORVASTATIN 80 MG TAB PO SCH (20:22)
--- NOTE | 2023-01-04 20:50 | P.CONS ---
History of Present Illness - Reason for Consult Consult date: 01/04/23 Elevated procalcitonin, aspiration pneumonia Requesting physician: Angela Cervantes - Chief Complaint Shortness of breath x few days - History of Present Illness Patient is a 62-year-old female past medical history significant for coronary disease congestive heart failure COPD diabetes mellitus DVT pulmonary embolism chronically insufficiency presenting to the hospital 2 days ago for evaluation of increasing shortness of breath and hypoxemia patient symptom has been getting worse for a day or 2 before presentation to the hospital patient also having cough which has been moderate intensity but not bringing up any sputum patient denies any nausea no vomiting no choking on food no abdominal pain no diarrhea with the symptom patient has been evaluated on presentation to the hospital the patient was afebrile however she did spike a fever of 101 F around 4 this morning patient also hypoxic currently on 2 L nasal cannula oxygen and was also tachycardic patient did have a normal white count BUN/creatinine has been mildly elevated liver exams are normal procalcitonin is 2.23 patient did have a chest x-ray on admission correlate for CHF with pulmonary vascular congestion right effusion and adjacent consolidation or atelectasis chest x-ray repeated this morning continue to show right sided effusion and consolidation patient is currently on Zosyn infectious was consulted for further management of antibiotic therapy Review of Systems Positive point and negatives has been mentioned in the HPI, complete review of systems was performed and all other systems are negative Past Medical History Past Medical History: Coronary Artery Disease (CAD), Heart Failure (Chronic systolic heart failure with an ejection fraction of 35%), COPD, Diabetes Mellitus, Deep Vein Thrombosis (DVT), Myocardial Infarction (MD), Pulmonary Embolus (PE), Renal Disease (Chronic kidney disease, cardiac renal in nature), Skin Disorder (Psoriasis), Vascular Disorder (Including carotid artery disease and lower extremity peripheral vascular disease) Last Myocardial Infarction Date:: 05/19/22 History of Any Multi-Drug Resistant Organisms: None Reported Past Surgical History: Heart Catheterization With Stent Additional Past Surgical History / Comment(s): Bipass,l great toe amputation Right 4th and 5th toe. Past Anesthesia/Blood Transfusion Reactions: No Reported Reaction Date of Last Stent Placement:: 05/19/22 Smoking Status: Former smoker Medications and Allergies Home Medications Medication Instructions Recorded Confirmed Type Albuterol Nebulized [Ventolin 2.5 mg INHALATION RT-Q6H PRN 11/14/22 01/02/23 History Nebulized] Albuterol Sulfate [Albuterol 2 puff PO RT-Q4H PRN 11/14/22 01/02/23 History Sulfate Hfa] Amitriptyline HCl [Elavil] 25 mg PO HS 11/14/22 01/02/23 History Aspirin EC [Ecotrin Low Dose] 81 mg PO DAILY 11/14/22 01/02/23 History Atorvastatin Calcium [Lipitor] 80 mg PO HS 11/14/22 01/02/23 History Canagliflozin [Invokana] 100 mg PO DAILY 11/14/22 01/02/23 History Clopidogrel [Plavix] 75 mg PO DAILY 11/14/22 01/02/23 History Escitalopram [Lexapro] 20 mg PO DAILY 11/14/22 01/02/23 History Insulin Glargine,Hum.rec.anlog 36 units SQ HS 11/14/22 01/02/23 History [Lantus Solostar Pen] Insulin Lispro [humaLOG Kwikpen] 4 unit SQ AC-TID 11/14/22 01/02/23 History Magnesium Oxide [Mag-Ox] 400 mg PO DAILY 11/14/22 01/02/23 History Montelukast Sodium 10 mg PO HS 11/14/22 01/02/23 History [place]-3 Fatty Acids [[place]-3] 1,000 mg PO DAILY 11/14/22 01/02/23 History Bumetanide [Bumex] 1 mg PO DAILY 01/02/23 01/02/23 History Dulaglutide [Trulicity] 1.5 mg SQ FR 01/02/23 01/02/23 History Metoprolol Tartrate [Lopressor] 25 mg PO BID 01/02/23 01/02/23 History Spironolactone [Aldactone] 12.5 mg PO DAILY 01/02/23 01/02/23 History Allergies Allergy/AdvReac Type Severity Reaction Status Date / Time cephalexin [From Keflex] Allergy Rash/Hives Verified 01/02/23 13:59 Physical Exam Vitals: Vital Signs Temp Pulse Pulse Resp BP Pulse Ox FiO2 01/04/23 09:04 82 01/04/23 08:53 82 01/04/23 08:52 80 01/04/23 08:46 40 01/04/23 08:43 40 01/04/23 08:42 80 01/04/23 08:00 99.5 F 84 24 137/87 99 40 01/04/23 04:11 40 01/04/23 04:00 101.0 F H 88 24 112/68 95 40 01/04/23 00:52 40 01/04/23 00:00 99.3 F 94 24 128/74 99 40 01/03/23 21:36 94 L 01/03/23 21:35 130 H 01/03/23 21:25 112 H 01/03/23 21:22 112 H 01/03/23 21:09 100 40 01/03/23 20:23 112 H 01/03/23 19:45 99.0 F 112 H 26 H 124/65 99 40 01/03/23 15:50 98.9 F 120 H 22 135/69 85 L 01/03/23 15:22 98 01/03/23 15:11 98 01/03/23 11:38 117 H 22 140/53 93 L 01/03/23 11:36 90 01/03/23 11:26 88 01/03/23 11:00 96 Intake and Output 01/03/23 01/04/23 01/04/23 22:59 06:59 14:59 Intake Total 0 240 Output Total 700 Balance -700 240 Intake: Oral 0 240 Output: Urine 700 Other: Voiding Method Bedside Commode # Voids 1 # Bowel Movements 1 Weight 127.4 kg GENERAL DESCRIPTION: Middle-aged female lying in bed, no distress. No tachypnea or accessory muscle of respiration use. HEENT: Shows Pallor , no scleral icterus. Oral mucous membrane is dry. NECK: Trachea central, no thyromegaly. LUNGS: Unlabored breathing. Decreased breath sounds at bases HEART: S1, S2, regular rate and rhythm. No loud murmur ABDOMEN: Soft, no tenderness , guarding or rigidity, no organomegaly EXTREMITIES: Decreased tidal bilateral lower extremity with some redness SKIN: Erythematous patches to the upper and lower extremities, no masses palpable. NEUROLOGICAL: The patient is awake, alert, oriented x3, mood and affect normal. Results CBC & Chem 7: 01/04/23 06:50 01/04/23 06:50 Labs: Abnormal Lab Results - Last 24 Hours (Table) 01/03/23 01/03/23 01/03/23 Range/Units 11:32 11:53 13:25 Hgb (11.4-16.0) gm/dL Hct (34.0-46.0) % MCV (80.0-100.0) fL MCH (25.0-35.0) pg MCHC (31.0-37.0) g/dL RDW (11.5-15.5) % Lymphocytes # (1.0-4.8) k/uL Sodium (137-145) mmol/L BUN (7-17) mg/dL Creatinine (0.52-1.04) mg/dL Glucose (74-99) mg/dL POC Glucose (mg/dL) 166 H (70-110) mg/dL Hemoglobin A1c 6.6 H (<=6.0) % Total Protein (6.3-8.2) g/dL Albumin (3.5-5.0) g/dL Procalcitonin 2.23 H (0.02-0.09) ng/mL 01/03/23 01/03/23 01/03/23 Range/Units 13:25 16:30 19:52 Hgb (11.4-16.0) gm/dL Hct (34.0-46.0) % MCV (80.0-100.0) fL MCH (25.0-35.0) pg MCHC (31.0-37.0) g/dL RDW (11.5-15.5) % Lymphocytes # (1.0-4.8) k/uL Sodium 134 L (137-145) mmol/L BUN 51 H (7-17) mg/dL Creatinine 1.24 H (0.52-1.04) mg/dL Glucose 210 H (74-99) mg/dL POC Glucose (mg/dL) 193 H 177 H (70-110) mg/dL Hemoglobin A1c (<=6.0) % Total Protein (6.3-8.2) g/dL Albumin (3.5-5.0) g/dL Procalcitonin (0.02-0.09) ng/mL 01/04/23 01/04/23 Range/Units 06:50 06:50 Hgb 10.1 L (11.4-16.0) gm/dL Hct 33.6 L (34.0-46.0) % MCV 78.8 L (80.0-100.0) fL MCH 23.6 L (25.0-35.0) pg MCHC 30.0 L (31.0-37.0) g/dL RDW 20.9 H (11.5-15.5) % Lymphocytes # 0.6 L (1.0-4.8) k/uL Sodium 135 L (137-145) mmol/L BUN 49 H (7-17) mg/dL Creatinine 1.20 H (0.52-1.04) mg/dL Glucose (74-99) mg/dL POC Glucose (mg/dL) (70-110) mg/dL Hemoglobin A1c (<=6.0) % Total Protein 6.2 L (6.3-8.2) g/dL Albumin 3.1 L (3.5-5.0) g/dL Procalcitonin (0.02-0.09) ng/mL Assessment and Plan (1) Aspiration pneumonia Current Visit: Yes Status: Acute Code(s): J69.0 - PNEUMONITIS DUE TO INHALATION OF FOOD AND VOMIT SNOMED Code(s): 516338458 (2) Elevated procalcitonin Current Visit: Yes Status: Acute Code(s): R79.89 - OTHER SPECIFIED ABNORMAL FINDINGS OF BLOOD CHEMISTRY SNOMED Code(s): 996283363 Plan: 1patient presented to hospital with increasing shortness of breath she also have a cough with evidence of right lower lobe consolidation/effusion concerning for pneumonia with a question of possible aspiration/gram-negative, patient did have elevated procalcitonin 2we will try to obtain a sputum for Gram stain and culture 3continue with the Zosyn 3.375 g every 8 hours while waiting for the culture to finalize We will follow on clinical condition and cultures to further adjust medication if needed Thank you for this consultation we will follow the patient along with you Dictation was produced using [employer] dictation software. please excuse any gr ammatical, word or spelling errors. Time with Patient: Greater than 30
[2023-01-05] MEDS: BUMETANIDE 0.25 MG/ML 10 ML VIAL IV SCH ×3 (03:05→22:46)
[2023-01-05 06:20] LABS: Glucose,Whole Blood 103 mg/dL (70-110)
[2023-01-05] MEDS: PIPERACILLIN-TAZOBACTAM 3.375 GM in SODIUM CHLORIDE 0.9% 100 ML IVPB SCH ×3 (06:23→22:46)
[2023-01-05] MEDS: INSULIN ASPART (NovoLOG) 100 UNIT/ML VIAL SQ SCH ×4 (06:27→20:16)
[2023-01-05] MEDS: SPIRONOLACTONE 25 MG TAB PO SCH (07:54)
[2023-01-05] MEDS: MAGNESIUM OXIDE 400 MG TAB PO SCH (07:55)
[2023-01-05] MEDS: ASPIRIN 81 MG PO SCH (07:55)
[2023-01-05] MEDS: CLOPIDOGREL 75 MG TAB PO SCH (07:55)
[2023-01-05] MEDS: ESCITALOPRAM 20 MG TAB PO SCH (07:55)
[2023-01-05] MEDS: METOPROLOL TARTRATE 25 MG TAB PO SCH ×2 (07:55→20:36)
[2023-01-05] MEDS: DAPAGLIFLOZIN PROPANEDIOL 5 MG TABLET PO SCH (07:55)
[2023-01-05] MEDS ORDERED: BUMETANIDE 1 MG TAB PO SCH (09:00)
--- NOTE | 2023-01-05 09:22 | XR ---
EXAMINATION TYPE: XR chest 1V portable DATE OF EXAM: 01/05/2023 Comparison: 01/04/2023 Clinical History: 62 year-old female shortness of breath Findings: Heart borderline enlarged. Ongoing bilateral lower lung opacities, right greater than left. Interstit ial density persists as well. Impression: Ongoing bilateral lower lung airspace disease. Either pneumonia or sequela of CHF.
[2023-01-05] MEDS: BUDESONIDE 1 MG/2 ML NEBU INHALATION SCH ×2 (09:38→20:45)
[2023-01-05] MEDS: IPRATROPIUM-ALBUTEROL 3 ML NEB INHALATION SCH ×4 (09:38→20:45)
[2023-01-05] MEDS: FORMOTEROL FUMARATE 20 MCG/2 ML NEBU INHALATION SCH ×2 (09:38→20:45)
[2023-01-05 09:45] LABS: African American GFR (CKD) 49 (>60 ml/min/1.73 sqM); Anion Gap 7 mmol/L; Blood Urea Nitrogen 42 mg/dL (7-17); Calcium 8.5 mg/dL (8.4-10.2); Carbon Dioxide 35 mmol/L (22-30); Chloride 93 mmol/L (98-107); Glucose 102 mg/dL (74-99); Non-African American GFR(CKD) 43 (>60 ml/min/1.73 sqM); Sodium 135 mmol/L (137-145)
[2023-01-05 10:05] LABS: Anisocytosis Moderate; Basophils % (A) 0 %; Eosinophils # (A) 0.1 k/uL (0-0.7); Eosinophils % (A) 1 %; HCT 36.3 % (34.0-46.0); HGB 10.8 gm/dL (11.4-16.0); Hypochromasia Marked; Lymphocytes # (A) 0.6 k/uL (1.0-4.8); Lymphocytes % (A) 7 %; MCH 23.6 pg (25.0-35.0); MCHC 29.8 g/dL (31.0-37.0); MCV 78.9 fL (80.0-100.0); Microcytosis Moderate; Monocytes # (A) 0.8 k/uL (0-1.0); Monocytes % (A) 10 %; Neutrophils # (A) 6.5 k/uL (1.3-7.7); Neutrophils % (A) 78 %; Platelet Count 273 k/uL (150-450); RDW 20.7 % (11.5-15.5); WBC 8.3 k/uL (3.8-10.6)
--- NOTE | 2023-01-05 11:25 | P.PN ---
Subjective Progress Note Date: 01/05/23 Principal diagnosis: Reason for follow-up is pneumonia Patient is a 62-year-old female past medical history significant for coronary disease congestive heart failure COPD diabetes mellitus DVT pulmonary embolism chronically insufficiency presenting to the hospital for evaluation of increasing shortness of breath and hypoxemia patient did have a fever of 101F and evidence of right-sided effusion/consideration concerning for pneumonia. On today's evaluation that is 01/05/2023, the patient remains to be afebrile, the patient is breathing comfortably on 3 L nasal cannula oxygen, the patient denies chest pain and no worsening cough , patient denies abdominal pain, no nausea/vomiting and no diarrhea has been reported. Patient white count of 8.3, creatinine 1.34 Objective - Vital Signs Vital signs: Vital Signs Temp 98.3 F 01/05/23 11:20 Pulse 70 01/05/23 11:20 Resp 20 01/05/23 11:20 BP 114/69 01/05/23 11:20 Pulse Ox 96 01/05/23 11:20 FiO2 40 01/04/23 14:54 Intake & Output 01/04/23 01/05/23 01/05/23 18:59 06:59 18:59 Intake Total 680 118 240 Output Total 1100 1200 Balance 864 -650 -960 Weight 127.5 kg Intake: Intake, IV Titration 200 Amount Piperacillin-Tazobactam 3 200 .375 gm In Sodium Chloride 0.9% 100 ml @ 25 mls/hr IVPB Q8H [facility] Rx#: [id number] Oral 480 118 240 Output: Urine 1100 1200 Other: Voiding Method Bedside Commode External Catheter External Catheter # Voids 1 # Bowel Movements 1 - Exam GENERAL DESCRIPTION: Middle-aged female lying in bed in no distress RESPIRATORY SYSTEM: Unlabored breathing , decreased breath in the base HEART: S1 S2 regular rate and rhythm , ABDOMEN: Soft , no tenderness EXTREMITIES: Diffuse swelling of bilateral lower extremity with some dry scaly skin - Labs CBC & Chem 7: 01/05/23 08:19 01/05/23 08:19 Labs: Abnormal Lab Results - Last 24 Hours (Table) 01/04/23 01/04/23 01/05/23 Range/Units 16:38 19:53 08:19 Hgb 10.8 L (11.4-16.0) gm/dL MCV 78.9 L (80.0-100.0) fL MCH 23.6 L (25.0-35.0) pg MCHC 29.8 L (31.0-37.0) g/dL RDW 20.7 H (11.5-15.5) % Lymphocytes # 0.6 L (1.0-4.8) k/uL Sodium (137-145) mmol/L Chloride (98-107) mmol/L Carbon Dioxide (22-30) mmol/L BUN (7-17) mg/dL Creatinine (0.52-1.04) mg/dL Glucose (74-99) mg/dL POC Glucose (mg/dL) 122 H 190 H (70-110) mg/dL 01/05/23 Range/Units 08:19 Hgb (11.4-16.0) gm/dL MCV (80.0-100.0) fL MCH (25.0-35.0) pg MCHC (31.0-37.0) g/dL RDW (11.5-15.5) % Lymphocytes # (1.0-4.8) k/uL Sodium 135 L (137-145) mmol/L Chloride 93 L (98-107) mmol/L Carbon Dioxide 35 H (22-30) mmol/L BUN 42 H (7-17) mg/dL Creatinine 1.34 H (0.52-1.04) mg/dL Glucose 102 H (74-99) mg/dL POC Glucose (mg/dL) (70-110) mg/dL Assessment and Plan (1) Aspiration pneumonia Current Visit: Yes Status: Acute Code(s): J69.0 - PNEUMONITIS DUE TO INHALATION OF FOOD AND VOMIT SNOMED Code(s): 071266162 (2) Elevated procalcitonin Current Visit: Yes Status: Acute Code(s): R79.89 - OTHER SPECIFIED ABNORMAL FINDINGS OF BLOOD CHEMISTRY SNOMED Code(s): 441266660 Plan: 1patient presented to hospital with increasing shortness of breath she also have a cough with evidence of right lower lobe consolidation/effusion concerning for pneumonia with a question of possible aspiration/gram-negative, patient did have elevated procalcitonin 2we will try to obtain a sputum for Gram stain and culture 3patient to continue with the Zosyn 3.375 g every 8 hours while waiting for the culture to finalize and monitor clinical course closely Dictation was produced using [employer] dictation software. please excuse any grammatical, word or spelling errors. Time with Patient: Less than 30
[2023-01-05 11:59] LABS: Glucose,Whole Blood 83 mg/dL (70-110)
--- NOTE | 2023-01-05 12:44 | P.PN ---
Subjective Progress Note Date: 01/05/23 69-year-old. Patient presenting to the hospital because of worsening shortness of breath. The patient was dyspneic and hypoxemic and the patient was placed on CPAP by EMS. The patient apparently was having some nonproductive cough along with worsening shortness of breath. She was noted to be quite hypoxic with a pulse ox of low 80s prior to her arriving to the emergency department. She denied having any chest pain. No reported fever or chills. She is known to have COPD and congestion heart failure along with diabetes mellitus. 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 She has undergone previous vascular bypass surgery. She suffers from chronic anxiety and depression and she is a former smoker. She is known to have coronary artery disease with previous coronary stenting. Her CHF is essentially systolic in nature with an ejection fraction of 35%, she has had previous CVA involving the right cerebral hemisphere and some residual chronic left-sided weakness, carotid artery disease with total occlusion of the right internal carotid artery, previous history of DVT and pulmonary embolism maintain on anticoagulation with the Route to, COPD, chronic lymphedema, psoriasis, obesity. The patient is a white cell count was at 8.7 with a hemoglobin of 10.7 and a platelet count of 270. Normal cognition profile. Blood gas was done on a FiO2 of 32% that showed a pH of 7.4 with a pCO2 of 41 and pO2 of 91. Sodium level is at 134 with a potassium level of 5.1, BUN is 43 with a creatinine of 1.3. Lactic acid level was initially at 2.2 and a drop down to 1.4. ProBNP level was 24,500 and the troponin was at 0.39 9. EKG showed Q waves over the anterior leads. The patient is sinus rhythm. No significant tachycardia. No significant ST segment changes. The chest x-ray showed small right-sided pleural effusion. Mild splenomegaly and pulmonary vessel congestion consistent with CHF. No evidence of any consolidation or airspace disease. At this point in time, the patient is on a BiPAP at a pressure of 12/6 with an FiO2 of 40%. She is awake and alert. She is generating tidal volume above 500 and she has an adequate minute ventilation. No significant tachypnea. Awake and alert and communicating. The of any chest pain. Given Lasix in the emergency department. As noted, the patient had a recent hospitalization for hypoxic respiratory failure and the Safe heart failure. She is known to have systolic heart failure with an ejection fraction of 35%. Upon discharge, the patient was placed on Lasix 40 mg by mouth daily and Aldactone. Catheterization that was done on 11/19/2022 showed total occlusion of the PDL branch of the RCA, intermediate disease involving the ostial and proximal LAD, elevated left sided filling pressures and the patient was offered medical treatment with a dual aspirin and Plavix. No interventions were done. On today's evaluation of 01/03/2023, I'm seeing the patient for a follow-up. The patient is being treated for decompensated CHF and fluid overload. The patient is currently on IV Lasix. She was taken off the BiPAP and the patient is currently on 2 L of oxygen by nasal cannula. Overall, she is doing much better. She is producing adequate urine output. BUN today's of 50 with a creatinine of 1.24 and a sodium level is at 134. No chest pain. No altered mentation. No other new complaints otherwise for now. A limited echo cardiac exam was done and the patient was found to have a LV function with an ejection fraction of 35%. The patient also has moderate degree of mitral regurgitation moderate degree of pulmonary hypertension. Repeat chest x-ray from today is still showing a cardiomegaly and bilateral pleural effusion more so on the right and pulmonary vascular congestion. Overall findings are essentially same as yesterday terms of the chest x-ray. Clinically however, the patient is improved considerably. On 01/04/2023, the patient is being seen for a follow-up. The patient is curren tly on oxygen 2 L/m nasal cannula with a pulse ox of 94%. She is diuresing and she is currently in a negative fluid balance. She remains on IV Lasix. Cardiology switched to oral Bumex. I think there is also for further diuresis as the patient continues to have pulmonary vascular congestion and right-sided pleural effusion. I suggest continuing the diuretics and a platelet the patient on Bumex IV 1 mg every 8 hours for another 24 hours. The patient is on IV Zosyn. The patient is on Levemir insulin 36 units and a sliding scale coverage. The patient remains on aspirin and Plavix. The patient is also on bronchodilators. The BUN is at 49 with a creatinine of 1.2. The white cell count 7.6 with a hemoglobin of 10.9 and the patient has a platelet count of 262. On 01/05/2023, the patient remains on IV Bumex 1 mg every 12 hours. Negative fluid balance. The patient is producing adequate amount of urine output. Still has edema lower extremities bilaterally. A repeat chest x-ray was done and a chest x-ray shows bilateral lower lobe opacity/effusion, likely a sequelae of CHF. The patient remains on 3 L of oxygen nasal cannula. The patient has a BUN of 42 with a creatinine of 1.3. Sodium level is at 135. The menisci thousand 8.3 with a hemoglobin of 10.8 and a platelet count of 273. No chest pain. No other complaints otherwise for now. Objective - Vital Signs Vital signs: Vital Signs Temp 98.0 F 01/05/23 07:45 Pulse 93 01/05/23 07:52 Resp 20 01/05/23 07:52 BP 120/75 01/05/23 07:45 Pulse Ox 91 L 01/05/23 07:45 FiO2 40 01/04/23 14:54 Intake & Output 01/04/23 01/05/23 01/05/23 18:59 06:59 18:59 Intake Total 680 118 240 Output Total 1100 1200 Balance 680 -982 -960 Weight 127.5 kg Intake: Intake, IV Titration 200 Amount Piperacillin-Tazobactam 3 200 .375 gm In Sodium Chloride 0.9% 100 ml @ 25 mls/hr IVPB Q8H [facility] Rx#: [id number] Oral 480 118 240 Output: Urine 1100 1200 Other: Voiding Method Bedside Commode External Catheter External Catheter # Voids 1 # Bowel Movements 1 - Exam GENERAL: The patient is alert and oriented x3, not in any acute distress. Well developed, well nourished. Winded. On 2 L of oxygen by nasal cannula Head exam was generally normal. There was no scleral icterus or corneal arcus. Mucous membranes were moist. HEENT: Pupils are round and equally reacting to light. EOMI. No scleral icterus. No conjunctival pallor. Normocephalic, atraumatic. No pharyngeal erythema. No thyromegaly. CARDIOVASCULAR: S1 and S2 present. No murmurs, rubs, or gallops. PULMONARY: , diminished breath on the lung bases and the patient bibasilar crackles ABDOMEN: Soft, nontender, nondistended, normoactive bowel sounds. No palpable organomegaly. MUSCULOSKELETAL: Increased lower extremity edema, no major deformities, previous intubation on the right foot fourth and fifth toe EXTREMITIES: No cyanosis, clubbing, mild LE edema. NEUROLOGICAL: Gross neurological examination did not reveal any focal deficits. SKIN: Multiple psoriatic plaques on bilateral lower extremities and left upper extremity. - Labs CBC & Chem 7: 01/05/23 08:19 01/05/23 08:19 Labs: Abnormal Lab Results - Last 24 Hours (Table) 01/04/23 01/04/23 01/05/23 Range/Units 16:38 19:53 08:19 Hgb 10.8 L (11.4-16.0) gm/dL MCV 78.9 L (80.0-100.0) fL MCH 23.6 L (25.0-35.0) pg MCHC 29.8 L (31.0-37.0) g/dL RDW 20.7 H (11.5-15.5) % Lymphocytes # 0.6 L (1.0-4.8) k/uL Sodium (137-145) mmol/L Chloride (98-107) mmol/L Carbon Dioxide (22-30) mmol/L BUN (7-17) mg/dL Creatinine (0.52-1.04) mg/dL Glucose (74-99) mg/dL POC Glucose (mg/dL) 122 H 190 H (70-110) mg/dL 01/05/23 Range/Units 08:19 Hgb (11.4-16.0) gm/dL MCV (80.0-100.0) fL MCH (25.0-35.0) pg MCHC (31.0-37.0) g/dL RDW (11.5-15.5) % Lymphocytes # (1.0-4.8) k/uL Sodium 135 L (137-145) mmol/L Chloride 93 L (98-107) mmol/L Carbon Dioxide 35 H (22-30) mmol/L BUN 42 H (7-17) mg/dL Creatinine 1.34 H (0.52-1.04) mg/dL Glucose 102 H (74-99) mg/dL POC Glucose (mg/dL) (70-110) mg/dL Assessment and Plan Plan: Acute on chronic hypoxic respiratory failure. The patient is typical of CHF with become persistent heart failure and fluid overload. The patient is currently off BiPAP and the patient currently on 2 L of oxygen by nasal cannula Bilateral pleural effusion right more than left secondary to decompensated CHF, pneumonia is felt to be less likely. Clinically improving Chronic systolic heart failure with an ejection fraction of 35%. ProBNP level is elevated and the patient is an acute exacerbation of chronic CHF Coronary artery disease with recent cardiac catheterization. The patient has undergone previous stenting. No interventions were done and the patient was kept on accommodation of aspirin and Plavix. The patient was found to have total occlusion of the PLV branch of the RCA and underwent successful stenting. There is intermediate disease involving the ostial and proximal LAD Peripheral vascular disease with a previous fem-pop bypass surgery and multiple toe amputations of the right foot and left foot COPD Previous history of DVT/pulmonary embolism maintain on anticoagulation with xarelto. Previous history of CVA and the patient has infarct along the right cerebral hemisphere with left-sided weakness. Brain MRI was done showing a couple of small foci of increased signal noted within the posterior right parietal lobe on diffusion weighted imaging as well as tiny focus within the right frontal lobe. No large cortical insult is seen. The findings are felt to reflect small foci of embolic ischemic insult Chronic kidney disease, cardiorenal in nature Chronic lower extremity edema Diabetes mellitus type 2, maintain on insulin and the patient has essentially suboptimal control of the blood sugars with an elevated HbA1c of 8.5 Psoriasis Obesity with a body mass index of 45.5 Carotid artery disease with totally occluded right ICA Plan Titrate FiO2 and the patient is currently on 3 L of oxygen nasal cannula Continue IV diuretics and going to put the patient on Bumex 1 mg and the dose was dropped onto twice a day Repeat chest x-ray in the morning Monitor fluid balance and urine output Continue bronchodilators Discontinue steroids Monitor blood sugar Resume all medications Echo was repeated and the patient's impaired LV function, global decrease in contractility with an ejection fraction of 35%. Cardiology consultation We'll follow
--- NOTE | 2023-01-05 14:16 | PN ---
PROGRESS NOTE DATE OF SERVICE: 01/04/2023 SUBJECTIVE: This is a 62-year-old woman, who was admitted with a combination of COPD and CHF and is improving significantly. No chest pain. No palpitations. No fever. PHYSICAL EXAMINATION: VITAL SIGNS: Pulse 70, blood pressure 114/69, respirations 20. HEENT: Conjunctivae are normal. CARDIOVASCULAR: S1 and S2. RESPIRATORY: Few scattered rhonchi and crackles. ABDOMEN: Soft. NERVOUS SYSTEM: Nonfocal. LABORATORY DATA: Reviewed. Creatinine is 1.34. ASSESSMENT: 1. Shortness of breath, possibly multifactorial with congestive heart failure acute exacerbation, [id number] systolic dysfunction, ejection fraction of 35% with chronic obstructive pulmonary disease acute exacerbation with acute hypoxic respiratory failure present on admission. 2. Possible aspiration pneumonia. 3. Acute renal failure. 4. Diabetes mellitus, type 2. 5. History of myocardial infarction and coronary artery disease stent. 6. Anxiety and depression. 7. Multiple complex medical issues. RECOMMENDATIONS: Recommend to continue current medications. Continue symptomatic treatment. Continue with bronchodilators and diuretics. Closely follow. Prognosis is guarded. Further recommendations to follow. MMODL / IJN: [id number] /
[2023-01-05 16:11] LABS: Glucose,Whole Blood 173 mg/dL (70-110)
[2023-01-05 19:56] LABS: Glucose,Whole Blood 129 mg/dL (70-110)
[2023-01-05] MEDS: INSULIN DETEMIR (LEVEMIR) 100 UNIT/ML SYR SQ SCH (20:35)
[2023-01-05] MEDS: ATORVASTATIN 80 MG TAB PO SCH (20:36)
[2023-01-05] MEDS: MONTELUKAST 10 MG TAB PO SCH (20:36)
[2023-01-05] MEDS: AMITRIPTYLINE HCL 25 MG TAB PO SCH (20:36)
[2023-01-06] MEDS: PIPERACILLIN-TAZOBACTAM 3.375 GM in SODIUM CHLORIDE 0.9% 100 ML IVPB SCH ×3 (05:40→20:43)
[2023-01-06 06:05] LABS: Glucose,Whole Blood 82 mg/dL (70-110)
[2023-01-06] MEDS: INSULIN ASPART (NovoLOG) 100 UNIT/ML VIAL SQ SCH ×4 (06:06→20:42)
--- NOTE | 2023-01-06 07:35 | XR ---
EXAMINATION TYPE: XR chest 1V portable DATE OF EXAM: 01/06/2023 6:34 AM CLINICAL INDICATION:Female, 62 years old with history of congestive heart failure. COMPARISON: Chest 01/05/2023. TECHNIQUE: XR chest 1V portable Frontal view of the chest. FINDINGS: Redemonstration of mild cardiomegaly. Persistent bilateral pleural effusions and lung base airspace o pacities are identified. No evidence of pneumothorax. The osseous structures remain intact. IMPRESSION: Stable exam demonstrating mild cardiomegaly with small pleural effusions and lung base airspace disea se
[2023-01-06] MEDS: FORMOTEROL FUMARATE 20 MCG/2 ML NEBU INHALATION SCH ×2 (07:40→20:41)
[2023-01-06] MEDS: BUDESONIDE 1 MG/2 ML NEBU INHALATION SCH ×2 (07:40→20:41)
[2023-01-06] MEDS: IPRATROPIUM-ALBUTEROL 3 ML NEB INHALATION SCH ×4 (07:40→20:41)
[2023-01-06] MEDS: CLOPIDOGREL 75 MG TAB PO SCH (08:23)
[2023-01-06] MEDS: DAPAGLIFLOZIN PROPANEDIOL 5 MG TABLET PO SCH (08:23)
[2023-01-06] MEDS: METOPROLOL TARTRATE 25 MG TAB PO SCH ×2 (08:23→20:42)
[2023-01-06] MEDS: ASPIRIN 81 MG PO SCH (08:23)
[2023-01-06] MEDS: MAGNESIUM OXIDE 400 MG TAB PO SCH (08:23)
[2023-01-06] MEDS: ESCITALOPRAM 20 MG TAB PO SCH (08:23)
[2023-01-06] MEDS: SPIRONOLACTONE 25 MG TAB PO SCH (08:23)
[2023-01-06] MEDS ORDERED: ZINC OXIDE PASTE (Z-GUARD) 1 APPLIC APPLIC TOPICAL PRN (09:04)
[2023-01-06 09:58] LABS: Anisocytosis Moderate; Basophils % (A) 0 %; Eosinophils # (A) 0.2 k/uL (0-0.7); Eosinophils % (A) 3 %; HCT 38.6 % (34.0-46.0); Hypochromasia Marked; Lymphocytes # (A) 0.8 k/uL (1.0-4.8); Lymphocytes % (A) 11 %; MCH 22.6 pg (25.0-35.0); MCHC 28.5 g/dL (31.0-37.0); MCV 79.2 fL (80.0-100.0); Mean Platelet Volume 8.9; Microcytosis Moderate; Monocytes # (A) 0.6 k/uL (0-1.0); Monocytes % (A) 8 %; Neutrophils # (A) 5.4 k/uL (1.3-7.7); Neutrophils % (A) 74 %; Platelet Count 285 k/uL (150-450); RBC 4.87 m/uL (3.80-5.40); RDW 20.7 % (11.5-15.5); WBC 7.3 k/uL (3.8-10.6)
[2023-01-06 10:09] LABS: African American GFR (CKD) 59 (>60 ml/min/1.73 sqM); Anion Gap 11 mmol/L; Blood Urea Nitrogen 41 mg/dL (7-17); Calcium 8.3 mg/dL (8.4-10.2); Carbon Dioxide 30 mmol/L (22-30); Chloride 96 mmol/L (98-107); Glucose 87 mg/dL (74-99); Non-African American GFR(CKD) 52 (>60 ml/min/1.73 sqM); Potassium 3.9 mmol/L (3.5-5.1); Sodium 137 mmol/L (137-145)
--- NOTE | 2023-01-06 11:47 | P.PN ---
Subjective Progress Note Date: 01/06/23 Principal diagnosis: Reason for follow-up is pneumonia Patient is a 62-year-old female past medical history significant for coronary disease congestive heart failure COPD diabetes mellitus DVT pulmonary embolism chronically insufficiency presenting to the hospital for evaluation of increasing shortness of breath and hypoxemia patient did have a fever of 101F and evidence of right-sided effusion/consideration concerning for pneumonia. On today's evaluation that is 01/06/2023, the patient continues to be afebrile, the patient is breathing comfortably on 3 L nasal cannula supplemental oxygen, the patient denies chest pain shortness of breath and no worsening cough , patient denies nausea/vomiting , no abdominal pain and no diarrhea has been reported by the nursing staff Patient white count is 7.3, creatinine 1.15, no cultures Objective - Vital Signs Vital signs: Vital Signs Temp 97.7 F 01/06/23 08:20 Pulse 95 01/06/23 08:20 Resp 18 01/06/23 08:20 BP 129/69 01/06/23 08:20 Pulse Ox 91 L 01/06/23 08:27 FiO2 40 01/04/23 14:54 Intake & Output 01/05/23 01/06/23 01/06/23 18:59 06:59 18:59 Intake Total 720 240 Output Total 2024 2249 Balance -1304 Weight 125 kg Intake: Oral 720 240 Output: Urine 2024 2249 Other: Voiding Method External Catheter External Catheter External Catheter - Labs CBC & Chem 7: 01/06/23 08:46 01/06/23 08:46 Labs: Abnormal Lab Results - Last 24 Hours (Table) 01/05/23 01/05/23 01/06/23 Range/Units 16:06 19:54 08:46 Hgb 11.0 L (11.4-16.0) gm/dL MCV 79.2 L (80.0-100.0) fL MCH 22.6 L (25.0-35.0) pg MCHC 28.5 L (31.0-37.0) g/dL RDW 20.7 H (11.5-15.5) % Lymphocytes # 0.8 L (1.0-4.8) k/uL Chloride (98-107) mmol/L BUN (7-17) mg/dL Creatinine (0.52-1.04) mg/dL POC Glucose (mg/dL) 173 H 129 H (70-110) mg/dL Calcium (8.4-10.2) mg/dL 01/06/23 Range/Units 08:46 Hgb (11.4-16.0) gm/dL MCV (80.0-100.0) fL MCH (25.0-35.0) pg MCHC (31.0-37.0) g/dL RDW (11.5-15.5) % Lymphocytes # (1.0-4.8) k/uL Chloride 96 L (98-107) mmol/L BUN 41 H (7-17) mg/dL Creatinine 1.15 H (0.52-1.04) mg/dL POC Glucose (mg/dL) (70-110) mg/dL Calcium 8.3 L (8.4-10.2) mg/dL Assessment and Plan (1) Aspiration pneumonia Current Visit: Yes Status: Acute Code(s): J69.0 - PNEUMONITIS DUE TO INHALATION OF FOOD AND VOMIT SNOMED Code(s): 700396086 (2) Elevated procalcitonin Current Visit: Yes Status: Acute Code(s): R79.89 - OTHER SPECIFIED ABNORMAL FINDINGS OF BLOOD CHEMISTRY SNOMED Code(s): 143926345 Plan: 1patient presented to hospital with increasing shortness of breath she also have a cough with evidence of right lower lobe consolidation/effusion concerning for pneumonia with a question of possible aspiration/gram-negative, patient did have elevated procalcitonin 2nervous system has been advised to obtain a sputum for Gram stain and culture 3patient to continue with the Zosyn 3.375 g every 8 hours in view of clinical improvement and monitor clinical course closely Dictation was produced using [employer] dictation software. please excuse any grammatical, word or spelling errors.
[2023-01-06 12:04] LABS: Glucose,Whole Blood 106 mg/dL (70-110)
--- NOTE | 2023-01-06 12:13 | PN ---
PROGRESS NOTE DATE OF SERVICE: 01/06/2023 SUBJECTIVE: This is a 62-year-old woman, who was admitted with a combination of COPD and CHF, improving significantly. Chest x-ray showed significant bilateral lesions. The patient also had significant skin lesions secondary to psoriasis and bilateral leg edema. OBJECTIVE: VITAL SIGNS: Pulse 95, blood pressure 110/60, respirations 18. CHEST: A few scattered rhonchi and crackles. ABDOMEN: Soft, obese. LEGS: Bilateral leg edema. NERVOUS SYSTEM: Nonfocal. CARDIOVASCULAR: S1 and S2 normal. LABORATORY DATA: Reviewed. ASSESSMENT: 1. Shortness of breath, possibly multifactorial with congestive heart failure acute exacerbation, acute on chronic systolic dysfunction, ejection fraction of 35% with chronic obstructive pulmonary disease acute exacerbation, acute hypoxic respiratory failure present on admission. 2. Possible aspiration pneumonia. 3. Acute renal failure. 4. Diabetes mellitus, type 2. 5. History of myocardial infarction and coronary artery disease with stent. 6. Anxiety, depression. 7. Multiple complex medical issues. RECOMMENDATIONS: Recommend to continue current medications. Continue symptomatic management. Continue the bronchodilators. Continue the rest of medications, diuretics. Monitor renal functions closely. Further recommendations to follow. MMODL / IJN: [id number] /
[2023-01-06] MEDS: NYSTATIN 100,000 UNIT/GM POWD 15 GM TOPICAL SCH ×2 (12:22→20:43)
[2023-01-06] MEDS: BUMETANIDE 0.25 MG/ML 10 ML VIAL IV SCH ×2 (12:22→23:37)
--- NOTE | 2023-01-06 12:26 | P.PN ---
Subjective Progress Note Date: 01/06/23 69-year-old. Patient presenting to the hospital because of worsening shortness of breath. The patient was dyspneic and hypoxemic and the patient was placed on CPAP by EMS. The patient apparently was having some nonproductive cough along with worsening shortness of breath. She was noted to be quite hypoxic with a pulse ox of low 80s prior to her arriving to the emergency department. She denied having any chest pain. No reported fever or chills. She is known to have COPD and congestion heart failure along with diabetes mellitus. 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 She has undergone previous vascular bypass surgery. She suffers from chronic anxiety and depression and she is a former smoker. She is known to have coronary artery disease with previous coronary stenting. Her CHF is essentially systolic in nature with an ejection fraction of 35%, she has had previous CVA involving the right cerebral hemisphere and some residual chronic left-sided weakness, carotid artery disease with total occlusion of the right internal carotid artery, previous history of DVT and pulmonary embolism maintain on anticoagulation with the Route to, COPD, chronic lymphedema, psoriasis, obesity. The patient is a white cell count was at 8.7 with a hemoglobin of 10.7 and a platelet count of 270. Normal cognition profile. Blood gas was done on a FiO2 of 32% that showed a pH of 7.4 with a pCO2 of 41 and pO2 of 91. Sodium level is at 134 with a potassium level of 5.1, BUN is 43 with a creatinine of 1.3. Lactic acid level was initially at 2.2 and a drop down to 1.4. ProBNP level was 24,500 and the troponin was at 0.39 9. EKG showed Q waves over the anterior leads. The patient is sinus rhythm. No significant tachycardia. No significant ST segment changes. The chest x-ray showed small right-sided pleural effusion. Mild splenomegaly and pulmonary vessel congestion consistent with CHF. No evidence of any consolidation or airspace disease. At this point in time, the patient is on a BiPAP at a pressure of 12/6 with an FiO2 of 40%. She is awake and alert. She is generating tidal volume above 500 and she has an adequate minute ventilation. No significant tachypnea. Awake and alert and communicating. The of any chest pain. Given Lasix in the emergency department. As noted, the patient had a recent hospitalization for hypoxic respiratory failure and the Safe heart failure. She is known to have systolic heart failure with an ejection fraction of 35%. Upon discharge, the patient was placed on Lasix 40 mg by mouth daily and Aldactone. Catheterization that was done on 11/19/2022 showed total occlusion of the PDL branch of the RCA, intermediate disease involving the ostial and proximal LAD, elevated left sided filling pressures and the patient was offered medical treatment with a dual aspirin and Plavix. No interventions were done. On today's evaluation of 01/03/2023, I'm seeing the patient for a follow-up. The patient is being treated for decompensated CHF and fluid overload. The patient is currently on IV Lasix. She was taken off the BiPAP and the patient is currently on 2 L of oxygen by nasal cannula. Overall, she is doing much better. She is producing adequate urine output. BUN today's of 50 with a creatinine of 1.24 and a sodium level is at 134. No chest pain. No altered mentation. No other new complaints otherwise for now. A limited echo cardiac exam was done and the patient was found to have a LV function with an ejection fraction of 35%. The patient also has moderate degree of mitral regurgitation moderate degree of pulmonary hypertension. Repeat chest x-ray from today is still showing a cardiomegaly and bilateral pleural effusion more so on the right and pulmonary vascular congestion. Overall findings are essentially same as yesterday terms of the chest x-ray. Clinically however, the patient is improved considerably. On 01/04/2023, the patient is being seen for a follow-up. The patient is curren tly on oxygen 2 L/m nasal cannula with a pulse ox of 94%. She is diuresing and she is currently in a negative fluid balance. She remains on IV Lasix. Cardiology switched to oral Bumex. I think there is also for further diuresis as the patient continues to have pulmonary vascular congestion and right-sided pleural effusion. I suggest continuing the diuretics and a platelet the patient on Bumex IV 1 mg every 8 hours for another 24 hours. The patient is on IV Zosyn. The patient is on Levemir insulin 36 units and a sliding scale coverage. The patient remains on aspirin and Plavix. The patient is also on bronchodilators. The BUN is at 49 with a creatinine of 1.2. The white cell count 7.6 with a hemoglobin of 10.9 and the patient has a platelet count of 262. On 01/05/2023, the patient remains on IV Bumex 1 mg every 12 hours. Negative fluid balance. The patient is producing adequate amount of urine output. Still has edema lower extremities bilaterally. A repeat chest x-ray was done and a chest x-ray shows bilateral lower lobe opacity/effusion, likely a sequelae of CHF. The patient remains on 3 L of oxygen nasal cannula. The patient has a BUN of 42 with a creatinine of 1.3. Sodium level is at 135. The menisci thousand 8.3 with a hemoglobin of 10.8 and a platelet count of 273. No chest pain. No other complaints otherwise for now. On 01/07/2022, the patient is being seen for a follow-up. She continues to be on IV Bumex. BUN is at 41 with a creatinine of 1.1. Sodium is at 137. The results of that 7.3 with a hemoglobin of 11.0. The patient remains aphasic na sheirf cannula. No chest pain. She has chronic psoriasis and chronic lower same the edema. She is currently on Bumex 1 mg IV every 12 hours. She remains on IV Zosyn as an empiric antibiotic coverage. Pulse ox is 95% liters of oxygen by nasal cannula. Objective - Vital Signs Vital signs: Vital Signs Temp 97.7 F 01/06/23 08:20 Pulse 95 01/06/23 08:20 Resp 18 01/06/23 08:20 BP 129/69 01/06/23 08:20 Pulse Ox 91 L 01/06/23 08:27 FiO2 40 01/04/23 14:54 Intake & Output 01/05/23 01/06/23 01/06/23 18:59 06:59 18:59 Intake Total 720 Output Total 2024 1050 Balance -1305 -1050 Weight 125 kg Intake: Oral 720 Output: Urine 2024 105 Other: Voiding Method External Catheter External Catheter External Catheter - Exam GENERAL: The patient is alert and oriented x3, not in any acute distress. Well developed, well nourished. Winded. On 2 L of oxygen by nasal cannula Head exam was generally normal. There was no scleral icterus or corneal arcus. Mucous membranes were moist. HEENT: Pupils are round and equally reacting to light. EOMI. No scleral icterus. No conjunctival pallor. Normocephalic, atraumatic. No pharyngeal erythema. No thyromegaly. CARDIOVASCULAR: S1 and S2 present. No murmurs, rubs, or gallops. PULMONARY: , diminished breath on the lung bases and the patient bibasilar crac kles ABDOMEN: Soft, nontender, nondistended, normoactive bowel sounds. No palpable organomegaly. MUSCULOSKELETAL: Increased lower extremity edema, no major deformities, previous intubation on the right foot fourth and fifth toe EXTREMITIES: No cyanosis, clubbing, mild LE edema. NEUROLOGICAL: Gross neurological examination did not reveal any focal deficits. SKIN: Multiple psoriatic plaques on bilateral lower extremities and left upper extremity. - Labs CBC & Chem 7: 01/06/23 08:46 01/06/23 08:46 Labs: Abnormal Lab Results - Last 24 Hours (Table) 01/05/23 01/05/23 01/05/23 Range/Units 08:19 16:06 19:54 Hgb 10.8 L (11.4-16.0) gm/dL MCV 78.9 L (80.0-100.0) fL MCH 23.6 L (25.0-35.0) pg MCHC 29.8 L (31.0-37.0) g/dL RDW 20.7 H (11.5-15.5) % Lymphocytes # 0.6 L (1.0-4.8) k/uL POC Glucose (mg/dL) 173 H 129 H (70-110) mg/dL Assessment and Plan Plan: Acute on chronic hypoxic respiratory failure. The patient is typical of CHF with become persistent heart failure and fluid overload. The patient is currently on 3 L of Oxymizer nasal cannula and the patient remains on IV Bumex 4 mg every 12 hours. Bilateral pleural effusion right more than left secondary to decompensated CHF, pneumonia is felt to be less likely. Clinically improving Chronic systolic heart failure with an ejection fraction of 35%. ProBNP level is elevated and the patient is an acute exacerbation of chronic CHF Coronary artery disease with recent cardiac catheterization. The patient has undergone previous stenting. No interventions were done and the patient was kept on accommodation of aspirin and Plavix. The patient was found to have total occlusion of the PLV branch of the RCA and underwent successful stenting. There is intermediate disease involving the ostial and proximal LAD Peripheral vascular disease with a previous fem-pop bypass surgery and multiple toe amputations of the right foot and left foot COPD Previous history of DVT/pulmonary embolism maintain on anticoagulation with xarelto. Previous history of CVA and the patient has infarct along the right cerebral hemisphere with left-sided weakness. Brain MRI was done showing a couple of small foci of increased signal noted within the posterior right parietal lobe on diffusion weighted imaging as well as tiny focus within the right frontal lobe. No large cortical insult is seen. The findings are felt to reflect small foci of embolic ischemic insult Chronic kidney disease, cardiorenal in nature Chronic lower extremity edema Diabetes mellitus type 2, maintain on insulin and the patient has essentially suboptimal control of the blood sugars with an elevated HbA1c of 8.5 Psoriasis Obesity with a body mass index of 45.5 Carotid artery disease with totally occluded right ICA Plan Repeat chest x-ray shows atelectatic changes and small effusion lung base bilaterally. The patient would benefit from further diuretic use. The patient is currently on IV Bumex 1 mg every 12 hours. This will be continued for another 24 hours. The function is stable and the creatinine is down to 1.1. Titrate FiO2 and the patient is currently on 3 L of oxygen nasal cannula Continue IV diuretics and going to put the patient on Bumex 1 mg and the dose was dropped onto twice a day Repeat chest x-ray in the morning was noted Monitor fluid balance and urine output Continue bronchodilators Discontinue steroids Monitor blood sugar Resume all medications Echo was repeated and the patient's impaired LV function, global decrease in contractility with an ejection fraction of 35%. Cardiology consultation We'll follow
[2023-01-06 16:48] LABS: Glucose,Whole Blood 129 mg/dL (70-110)
[2023-01-06 20:01] LABS: Glucose,Whole Blood 177 mg/dL (70-110)
[2023-01-06] MEDS: ATORVASTATIN 80 MG TAB PO SCH (20:42)
[2023-01-06] MEDS: INSULIN DETEMIR (LEVEMIR) 100 UNIT/ML SYR SQ SCH (20:42)
[2023-01-06] MEDS: MONTELUKAST 10 MG TAB PO SCH (20:42)
[2023-01-06] MEDS: AMITRIPTYLINE HCL 25 MG TAB PO SCH (20:42)
[2023-01-07 06:04] LABS: Glucose,Whole Blood 84 mg/dL (70-110)
[2023-01-07] MEDS: INSULIN ASPART (NovoLOG) 100 UNIT/ML VIAL SQ SCH ×4 (06:06→21:02)
[2023-01-07] MEDS: PIPERACILLIN-TAZOBACTAM 3.375 GM in SODIUM CHLORIDE 0.9% 100 ML IVPB SCH ×3 (06:14→21:02)
[2023-01-07] MEDS: SPIRONOLACTONE 25 MG TAB PO SCH (08:19)
[2023-01-07] MEDS: MAGNESIUM OXIDE 400 MG TAB PO SCH (08:19)
[2023-01-07] MEDS: METOPROLOL TARTRATE 25 MG TAB PO SCH ×2 (08:19→21:03)
[2023-01-07] MEDS: CLOPIDOGREL 75 MG TAB PO SCH (08:19)
[2023-01-07] MEDS: ASPIRIN 81 MG PO SCH (08:19)
[2023-01-07] MEDS: ESCITALOPRAM 20 MG TAB PO SCH (08:19)
[2023-01-07] MEDS: IPRATROPIUM-ALBUTEROL 3 ML NEB INHALATION SCH ×4 (08:58→20:46)
[2023-01-07] MEDS: BUDESONIDE 1 MG/2 ML NEBU INHALATION SCH ×2 (08:59→20:46)
[2023-01-07 09:05] LABS: African American GFR (CKD) 55 (>60 ml/min/1.73 sqM); Anion Gap 7 mmol/L; Blood Urea Nitrogen 37 mg/dL (7-17); Calcium 8.5 mg/dL (8.4-10.2); Carbon Dioxide 35 mmol/L (22-30); Chloride 96 mmol/L (98-107); Glucose 71 mg/dL (74-99); Non-African American GFR(CKD) 48 (>60 ml/min/1.73 sqM); Potassium 4.2 mmol/L (3.5-5.1); Sodium 138 mmol/L (137-145)
[2023-01-07] MEDS: FORMOTEROL FUMARATE 20 MCG/2 ML NEBU INHALATION SCH ×2 (09:10→20:46)
[2023-01-07 09:59] LABS: Anisocytosis Moderate; HCT 37.3 % (34.0-46.0); HGB 10.9 gm/dL (11.4-16.0); Hypochromasia Marked; MCHC 29.1 g/dL (31.0-37.0); Mean Platelet Volume 7.8; Microcytosis Moderate; Platelet Count 301 k/uL (150-450); RBC 4.72 m/uL (3.80-5.40); RDW 20.4 % (11.5-15.5); WBC 8.4 k/uL (3.8-10.6)
[2023-01-07 11:47] LABS: Glucose,Whole Blood 170 mg/dL (70-110)
--- NOTE | 2023-01-07 12:02 | P.PN ---
Subjective Progress Note Date: 01/07/23 Principal diagnosis: Reason for follow-up is pneumonia Patient is a 62-year-old female past medical history significant for coronary disease congestive heart failure COPD diabetes mellitus DVT pulmonary embolism chronically insufficiency presenting to the hospital for evaluation of increasing shortness of breath and hypoxemia patient did have a fever of 101F and evidence of right-sided effusion/consideration concerning for pneumonia. On today's evaluation that is 01/07/2023, the patient remains to be afebrile, the patient is breathing comfortably on 3 L nasal cannula oxygen, the patient denies any shortness of breath, the patient denies chest pain and no worsening cough or sputum production, patient denies abdominal pain, no nausea/vomiting and no diarrhea Patient white count is 8.4, creatinine 1.22 Objective - Vital Signs Vital signs: Vital Signs Temp 97.8 F 01/07/23 08:21 Pulse 86 01/07/23 09:24 Resp 18 01/07/23 08:21 BP 117/75 01/07/23 08:21 Pulse Ox 96 01/07/23 09:12 FiO2 40 01/07/23 03:13 Intake & Output 01/06/23 01/07/23 01/07/23 18:59 06:59 18:59 Intake Total 940 240 Output Total 3050 1400 Balance -2109 -1400 240 Intake: Oral 940 240 Output: Urine 3050 1400 Other: Voiding Method External Catheter External Catheter External Catheter - Exam GENERAL DESCRIPTION: Middle-aged female lying in bed in no distress RESPIRATORY SYSTEM: Unlabored breathing , decreased breath in the base HEART: S1 S2 regular rate and rhythm , ABDOMEN: Soft , no tenderness EXTREMITIES: Diffuse swelling of bilateral lower extremity with some dry scaly skin - Labs CBC & Chem 7: 01/07/23 07:44 01/07/23 07:44 Labs: Abnormal Lab Results - Last 24 Hours (Table) 01/06/23 01/06/23 01/07/23 Range/Units 16:40 20:00 07:44 Hgb 10.9 L (11.4-16.0) gm/dL MCV 79.0 L (80.0-100.0) fL MCH 23.0 L (25.0-35.0) pg MCHC 29.1 L (31.0-37.0) g/dL RDW 20.4 H (11.5-15.5) % Chloride (98-107) mmol/L Carbon Dioxide (22-30) mmol/L BUN (7-17) mg/dL Creatinine (0.52-1.04) mg/dL Glucose (74-99) mg/dL POC Glucose (mg/dL) 129 H 177 H (70-110) mg/dL 01/07/23 Range/Units 07:44 Hgb (11.4-16.0) gm/dL MCV (80.0-100.0) fL MCH (25.0-35.0) pg MCHC (31.0-37.0) g/dL RDW (11.5-15.5) % Chloride 96 L (98-107) mmol/L Carbon Dioxide 35 H (22-30) mmol/L BUN 37 H (7-17) mg/dL Creatinine 1.22 H (0.52-1.04) mg/dL Glucose 71 L (74-99) mg/dL POC Glucose (mg/dL) (70-110) mg/dL Assessment and Plan (1) Aspiration pneumonia Current Visit: Yes Status: Acute Code(s): J69.0 - PNEUMONITIS DUE TO INHALA TION OF FOOD AND VOMIT SNOMED Code(s): 280867458 (2) Elevated procalcitonin Current Visit: Yes Status: Acute Code(s): R79.89 - OTHER SPECIFIED ABNORMAL FINDINGS OF BLOOD CHEMISTRY SNOMED Code(s): 102164282 Plan: 1patient presented to hospital with increasing shortness of breath she also have a cough with evidence of right lower lobe consolidation/effusion concerning for pneumonia with a question of possible aspiration/gram-negative, patient did have elevated procalcitonin 2patient has not been able to provide sputum for Gram stain and culture 3patient seemed to have shown clinical improvement and will continue with the Zosyn 3.375 g every 8 hours and monitor clinical course closely Dictation was produced using [employer] dictation software. please excuse any grammatical, word or spelling errors.
[2023-01-07] MEDS: DAPAGLIFLOZIN PROPANEDIOL 5 MG TABLET PO SCH (12:10)
[2023-01-07] MEDS: BUMETANIDE 0.25 MG/ML 10 ML VIAL IV SCH (12:11)
[2023-01-07] MEDS: NYSTATIN 100,000 UNIT/GM POWD 15 GM TOPICAL SCH ×2 (12:12→21:03)
[2023-01-07 12:17] LABS: Eosinophils # (M) 0.25 k/uL (0-0.7); Lymphocytes # (M) 1.01 k/uL (1.0-4.8); Monocytes # (M) 0.92 k/uL (0-1.0); Neutrophils # (M) 6.22 k/uL (1.3-7.7); Neutrophils % (M) 74 %; Nucleated Red Blood Cells 0 /100 WBC (0-0); Total Cells Counted 100
[2023-01-07 12:18] LABS: Poikilocytosis (M) Present
--- NOTE | 2023-01-07 13:46 | PN ---
PROGRESS NOTE DATE OF SERVICE: 01/07/2023 SUBJECTIVE: This is a 62-year-old woman, who was admitted with shortness of breath, multifactorial. She is improving significantly. No chest pain. No palpitations. No fever. Chest is improving. PHYSICAL EXAMINATION: VITAL SIGNS: Pulse is 80, the blood pressure is 117/70, respirations 18. CHEST: Few scattered rhonchi and crackles. ABDOMEN: Soft and obese. LEGS: Bilateral leg edema. Psoriatic lesions also present. LABORATORY DATA: Reviewed. ASSESSMENT: 1. Shortness of breath, possibly multifactorial with congestive heart failure acute exacerbation with [id number] systolic dysfunction, ejection fraction of 35% with chronic obstructive pulmonary disease acute exacerbation and acute hypoxic respiratory failure present on admission. 2. Aspiration pneumonia. 3. Acute renal failure. 4. Diabetes mellitus, type 2. 5. History of myocardial infarction and coronary artery disease stent. 6. Anxiety and depression. 7. Multiple complex medical issues. 8. Gait dysfunction. RECOMMENDATIONS: Recommend to continue current medications. Continue symptomatic treatment. Continue with bronchodilators, antibiotics, and diuretics. Closely follow with multiple consultants. The patient is on Bumex. Guarded prognosis. Further recommendations to follow. See orders for details. MMODL / IJN: [id number] /
--- NOTE | 2023-01-07 15:16 | P.PN ---
Subjective Progress Note Date: 01/07/23 Principal diagnosis: Acute on chronic systolic congestive heart failure with acute on chronic hypoxic respiratory failure 69-year-old. Patient presenting to the hospital because of worsening shortness of breath. The patient was dyspneic and hypoxemic and the patient was placed on CPAP by EMS. The patient apparently was having some nonproductive cough along with worsening shortness of breath. She was noted to be quite hypoxic with a pulse ox of low 80s prior to her arriving to the emergency department. She denied having any chest pain. No reported fever or chills. She is known to have COPD and congestion heart failure along with diabetes mellitus. 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 She has undergone previous vascular bypass surgery. She suffers from chronic anxiety and depression and she is a former smoker. She is known to have coronary artery disease with previous coronary stenting. Her CHF is essentially systolic in nature with an ejection fraction of 35%, she has had previous CVA involving the right cerebral hemisphere and some residual chronic left-sided weakness, carotid artery disease with total occlusion of the right internal carotid artery, previous history of DVT and pulmonary embolism maintain on anticoagulation with the Route to, COPD, chronic lymphedema, psoriasis, obesity. The patient is a white cell count was at 8.7 with a hemoglobin of 10.7 and a platelet count of 270. Normal cognition profile. Blood gas was done on a FiO2 of 32% that showed a pH of 7.4 with a pCO2 of 41 and pO2 of 91. Sodium level is at 134 with a potassium level of 5.1, BUN is 43 with a creatinine of 1.3. Lactic acid level was initially at 2.2 and a drop down to 1.4. ProBNP level was 24,500 and the troponin was at 0.39 9. EKG showed Q waves over the anterior leads. The patient is sinus rhythm. No significant tachycardia. No significant ST segment changes. The chest x-ray showed small right-sided pleural effusion. Mild splenomegaly and pulmonary vessel congestion consistent with CHF. No evidence of any consolidation or airspace disease. At this point in time, the patient is on a BiPAP at a pressure of 12/6 with an FiO2 of 40%. She is awake and alert. She is generating tidal volume above 500 and she has an adequate minute ventilat ion. No significant tachypnea. Awake and alert and communicating. The of any chest pain. Given Lasix in the emergency department. As noted, the patient had a recent hospitalization for hypoxic respiratory failure and the Safe heart failure. She is known to have systolic heart failure with an ejection fraction of 35%. Upon discharge, the patient was placed on Lasix 40 mg by mouth daily and Aldactone. Catheterization that was done on 11/19/2022 showed total occlusion of the PDL branch of the RCA, intermediate disease involving the ostial and proximal LAD, elevated left sided filling pressures and the patient was offered medical treatment with a dual aspirin and Plavix. No interventions were done. On today's evaluation of 01/03/2023, I'm seeing the patient for a follow-up. The patient is being treated for decompensated CHF and fluid overload. The patient is currently on IV Lasix. She was taken off the BiPAP and the patient is currently on 2 L of oxygen by nasal cannula. Overall, she is doing much better. She is producing adequate urine output. BUN today's of 50 with a cr eatinine of 1.24 and a sodium level is at 134. No chest pain. No altered mentation. No other new complaints otherwise for now. A limited echo cardiac exam was done and the patient was found to have a LV function with an ejection fraction of 35%. The patient also has moderate degree of mitral regurgitation moderate degree of pulmonary hypertension. Repeat chest x-ray from today is still showing a cardiomegaly and bilateral pleural effusion more so on the right and pulmonary vascular congestion. Overall findings are essentially same as yesterday terms of the chest x-ray. Clinically however, the patient is improved considerably. On 01/04/2023, the patient is being seen for a follow-up. The patient is currently on oxygen 2 L/m nasal cannula with a pulse ox of 94%. She is diuresing and she is currently in a negative fluid balance. She remains on IV Lasix. Cardiology switched to oral Bumex. I think there is also for further diuresis as the patient continues to have pulmonary vascular congestion and right-sided pleural effusion. I suggest continuing the diuretics and a platelet the patient on Bumex IV 1 mg every 8 hours for another 24 hours. The patient is on IV Zosyn. The patient is on Levemir insulin 36 units and a sliding scale coverage. The patient remains on aspirin and Plavix. The patient is also on bronchodilators. The BUN is at 49 with a creatinine of 1.2. The white cell count 7.6 with a hemoglobin of 10.9 and the patient has a platelet count of 262. On 01/05/2023, the patient remains on IV Bumex 1 mg every 12 hours. Negative fluid balance. The patient is producing adequate amount of urine output. Still has edema lower extremities bilaterally. A repeat chest x-ray was done and a chest x-ray shows bilateral lower lobe opacity/effusion, likely a sequelae of CHF. The patient remains on 3 L of oxygen nasal cannula. The patient has a BUN of 42 with a creatinine of 1.3. Sodium level is at 135. The menisci thousand 8.3 with a hemoglobin of 10.8 and a platelet count of 273. No chest pain. No other complaints otherwise for now. On 01/06/2022, the patient is being seen for a follow-up. She continues to be on IV Bumex. BUN is at 41 with a creatinine of 1.1. Sodium is at 137. The results of that 7.3 with a hemoglobin of 11.0. The patient remains aphasic nasal cannula. No chest pain. She has chronic psoriasis and chronic lower same the edema. She is currently on Bumex 1 mg IV every 12 hours. She remains on IV Zosyn as an empiric antibiotic coverage. Pulse ox is 95% liters of oxygen by nasal cannula. Reevaluated today on 01/07/2023, patient is feeling better, remains on IV Bumex, 1 mg IV push every 12 hours. Remains on bronchodilators. On 3 L nasal cannula, O2 saturations 99%. CBC is relatively normal except for hemoglobin of 10.9 basic metabolic profile is normal BUN is 37 creatinine 1.2, not much change since admission on 01/02 and creatinine was 1.3 chest x-ray continues to show bilateral interstitial edema, pleural effusions, underlying pneumonia is not entirely ruled out, but clinically felt to be less likely. I still believe the presentation is mostly a presentation of congestive heart failure nonetheless the patient did have an elevated pro calcitonin level of 2.23, and infectious disease recommended treatment for presumptive aspiration pneumonia Objective - Vital Signs Vital signs: Vital Signs Temp 97.8 F 01/07/23 08:21 Pulse 75 01/07/23 14:00 Resp 18 01/07/23 14:00 BP 133/71 01/07/23 12:00 Pulse Ox 99 01/07/23 12:00 FiO2 40 01/07/23 13:11 Intake & Output 01/06/23 01/07/23 01/07/23 18:59 06:59 18:59 Intake Total 940 240 Output Total 3050 1400 Balance -2110 -1400 240 Intake: Oral 940 240 Output: Urine 3050 1400 Other: Voiding Method External Catheter External Catheter External Catheter - Exam Physical Exam: Revealed a 62-year-old female in no distress. On 2 L nasal cannula Head: Atraumatic, normocephalic. HEENT:[Neck is supple.] [No neck masses.] [No thyromegaly.] [No JVD.] Chest: Diminished breath sound bilaterally, minimal crackles also at the bases. Cardiac Exam: [Normal S1 and S2, no S3 gallop, no murmur.] Abdomen: [Soft, nontender, no megaly, no rebound, no guarding, normal bowel sounds.] Extremities: [No clubbing, 2+ bipedal edema, no cyanosis.] Previous amputation of right foot fourth and fifth toes Neurological Exam: [No focal neurologic deficit.] Alert and oriented 3. Skin: Multiple psoriatic plaques noted on upper and lower extremities. - Labs CBC & Chem 7: 01/07/23 07:44 01/07/23 07:44 Labs: Abnormal Lab Results - Last 24 Hours (Table) 01/06/23 01/06/23 01/07/23 Range/Units 16:40 20:00 07:44 Hgb 10.9 L (11.4-16.0) gm/dL MCV 79.0 L (80.0-100.0) fL MCH 23.0 L (25.0-35.0) pg MCHC 29.1 L (31.0-37.0) g/dL RDW 20.4 H (11.5-15.5) % Chloride (98-107) mmol/L Carbon Dioxide (22-30) mmol/L BUN (7-17) mg/dL Creatinine (0.52-1.04) mg/dL Glucose (74-99) mg/dL POC Glucose (mg/dL) 129 H 177 H (70-110) mg/dL 01/07/23 01/07/23 Range/Units 07:44 11:44 Hgb (11.4-16.0) gm/dL MCV (80.0-100.0) fL MCH (25.0-35.0) pg MCHC (31.0-37.0) g/dL RDW (11.5-15.5) % Chloride 96 L (98-107) mmol/L Carbon Dioxide 35 H (22-30) mmol/L BUN 37 H (7-17) mg/dL Creatinine 1.22 H (0.52-1.04) mg/dL Glucose 71 L (74-99) mg/dL POC Glucose (mg/dL) 170 H (70-110) mg/dL Assessment and Plan Assessment: Impression: Acute on chronic hypoxic respiratory failure Acute on chronic systolic congestive heart failure with ejection fraction of 35% Doubt aspiration pneumonia Underlying COPD Peripheral vessel occlusive disease with previous femoral-popliteal bypass surgey History of DVT and pulmonary embolism maintained on Xarelto History of CVA and left-sided weakness Chronic kidney disease possibly cardiorenal in nature Chronic bipedal edema Type 2 diabetes with diabetic nephropathy History of psoriasis Recommendation: Continue diuretics patient is on Bumex 1 mg IV push every 12 hours Continue to monitor renal status while on diuretics Repeat chest x-ray in the next 24 hours Continue to monitor fluid balance Continue bronchodilators, and steroids for underlying COPD Continue Zosyn empirically Continue Aldactone and Bumex We'll continue to follow Time with Patient: Less than 30
[2023-01-07 16:45] LABS: Glucose,Whole Blood 100 mg/dL (70-110)
[2023-01-07 20:47] LABS: Glucose,Whole Blood 165 mg/dL (70-110)
[2023-01-07] MEDS: INSULIN DETEMIR (LEVEMIR) 100 UNIT/ML SYR SQ SCH (21:02)
[2023-01-07] MEDS: ATORVASTATIN 80 MG TAB PO SCH (21:03)
[2023-01-07] MEDS: AMITRIPTYLINE HCL 25 MG TAB PO SCH (21:03)
[2023-01-07] MEDS: MONTELUKAST 10 MG TAB PO SCH (21:03)
[2023-01-08] MEDS: BUMETANIDE 0.25 MG/ML 10 ML VIAL IV SCH ×2 (00:27→11:56)
[2023-01-08 05:26] LABS: Glucose,Whole Blood 110 mg/dL (70-110)
[2023-01-08] MEDS: INSULIN ASPART (NovoLOG) 100 UNIT/ML VIAL SQ SCH ×3 (05:34→16:57)
[2023-01-08] MEDS: PIPERACILLIN-TAZOBACTAM 3.375 GM in SODIUM CHLORIDE 0.9% 100 ML IVPB SCH ×2 (05:47→15:27)
--- NOTE | 2023-01-08 08:36 | XR ---
EXAMINATION TYPE: XR chest 1V portable DATE OF EXAM: 01/08/2023 Comparison: 01/06/2023 Clinical History: 62-year-old female CHF Findings: Heart mildly enlarged. Diffuse interstitial density. Bilateral lower lung opacities and pleural effus ions. Impression: Correlate for ongoing pulmonary vascular congestion and bibasilar airspace disease with pleural effus ions. Possible dependent pulmonary edema or underlying pneumonia. Overall similar to slightly improve d.
[2023-01-08] MEDS: ASPIRIN 81 MG PO SCH (08:59)
[2023-01-08] MEDS: ESCITALOPRAM 20 MG TAB PO SCH (08:59)
[2023-01-08] MEDS: DAPAGLIFLOZIN PROPANEDIOL 5 MG TABLET PO SCH (08:59)
[2023-01-08] MEDS: MAGNESIUM OXIDE 400 MG TAB PO SCH (08:59)
[2023-01-08] MEDS: METOPROLOL TARTRATE 25 MG TAB PO SCH (08:59)
[2023-01-08] MEDS: SPIRONOLACTONE 25 MG TAB PO SCH (08:59)
[2023-01-08] MEDS: CLOPIDOGREL 75 MG TAB PO SCH (08:59)
[2023-01-08] MEDS: NYSTATIN 100,000 UNIT/GM POWD 15 GM TOPICAL SCH (08:59)
[2023-01-08] MEDS: IPRATROPIUM-ALBUTEROL 3 ML NEB INHALATION SCH ×3 (09:26→15:51)
[2023-01-08] MEDS: BUDESONIDE 1 MG/2 ML NEBU INHALATION SCH (09:26)
[2023-01-08] MEDS: FORMOTEROL FUMARATE 20 MCG/2 ML NEBU INHALATION SCH (09:27)
[2023-01-08 11:35] LABS: Glucose,Whole Blood 85 mg/dL (70-110)
[2023-01-08 11:53] VITALS: BMI 31.6
--- NOTE | 2023-01-08 12:40 | P.PN ---
Subjective Progress Note Date: 01/08/23 Principal diagnosis: Reason for follow-up is pneumonia Patient is a 62-year-old female past medical history significant for coronary disease congestive heart failure COPD diabetes mellitus DVT pulmonary embolism chronically insufficiency presenting to the hospital for evaluation of increasing shortness of breath and hypoxemia patient did have a fever of 101F and evidence of right-sided effusion/consideration concerning for pneumonia. On today's evaluation that is 01/08/2023, the patient continues to be afebrile, the patient is breathing comfortably on 3 L nasal cannula supplemental oxygen, the patient denies shortness of breath chest pain and no worsening cough or sputum production , patient denies nausea/vomiting, no abdominal pain and no diarrhea Patient white count is 8.4, creatinine 1.22 as of 01/07/2023 Objective - Vital Signs Vital signs: Vital Signs Temp 98.2 F 01/08/23 08:57 Pulse 84 01/08/23 12:31 Resp 17 01/08/23 08:57 BP 123/79 01/08/23 08:57 Pulse Ox 93 L 01/08/23 08:57 FiO2 40 01/07/23 13:11 Intake & Output 01/07/23 01/08/23 01/08/23 18:59 06:59 18:59 Intake Total 240 Output Total 700 700 300 Balance -460 -700 -300 Weight 89 kg 89 kg Intake: Oral 240 Output: Urine 700 700 300 Other: Voiding Method External Catheter External Catheter External Catheter - Exam GENERAL DESCRIPTION: Middle-aged female lying in bed in no distress RESPIRATORY SYSTEM: Unlabored breathing , decreased breath in the base HEART: S1 S2 regular rate and rhythm , ABDOMEN: Soft , no tenderness EXTREMITIES: Diffuse swelling of bilateral lower extremity with some dry scaly skin - Labs CBC & Chem 7: 01/07/23 07:44 01/07/23 07:44 Labs: Abnormal Lab Results - Last 24 Hours (Table) 01/07/23 Range/Units 20:46 POC Glucose (mg/dL) 165 H (70-110) mg/dL Assessment and Plan (1) Aspiration pneumonia Current Visit: Yes Status: Acute Code(s): J69.0 - PNEUMONITIS DUE TO INHALATION OF FOOD AND VOMIT SNOMED Code(s): 518739969 (2) Elevated procalcitonin Current Visit: Yes Status: Acute Code(s): R79.89 - OTHER SPECIFIED ABNORMAL FINDINGS OF BLOOD CHEMISTRY SNOMED Code(s): 389765944 Plan: 1patient presented to hospital with increasing shortness of breath she also have a cough with evidence of right lower lobe consolidation/effusion concerning for pneumonia with a question of possible aspiration/gram-negative, patient did have elevated procalcitonin 2patient has not been able to provide sputum for Gram stain and culture 3patient has shown clinical improvement and will continue with the Zosyn 3.375 g every 8 hours and short course of Augmentin on discharge Dictation was produced using [employer] dictation software. please excuse any grammatical, word or spelling errors. Time with Patient: Less than 30
[2023-01-08 13:18] VITALS: RESP 16
--- NOTE | 2023-01-08 15:05 | P.DS ---
Providers Date of admission: 01/02/23 14:15 Expected date of discharge: 01/08/23 Attending physician: Antoine King MD Consults: 01/02/23 14:14 Consult Physician Routine Consulting Provider: Devyn Martin Consult Reason/Comments: COPD Do you want consulting provider notified?: Yes 01/03/23 21:54 Consult Physician Urgent Consulting Provider: Annie Denise Consult Reason/Comments: elevated procalc, aspiration pna Do you want consulting provider notified?: Yes, Notify in am Primary care physician: K[facility] Course: Final diagnosis Shortness of breath, multifactorial with congestive heart failure acute exacerbation with acute on chronic systolic dysfunction home EF is 35% along with COPD exacerbation with acute hypoxic respiratory failure, present on admission Aspiration pneumonia Acute renal failure Diabetes mellitus, type II History of myocardial infarction and coronary artery disease with stenting History of anxiety and depression Obesity with a BMI of 31.7 Gait dysfunction with generalized weakness GI prophylaxis DVT prophylaxis Full code Discharge disposition Patient is being discharged in a stable condition with guarded prognosis to [facility]. Patient will follow-up with Dr. Dumont in the outpatient setting upon discharge. Patient is to continue with oral Bumex 1 mg twice daily and close outpatient follow-up with repeat labs in the next 2-3 days of CBC, BMP, magnesium. Patient to follow-up with pulmonary as well as cardiology outpatient as scheduled. Patient will continue on oral Augmentin twice daily for 1 week. Total time taken is greater than 35 minutes. Hospital course This is a 62-year-old female who was recently admitted with increasing shortness of breath with concerns of COPD exacerbation along with CHF exacerbation. Patient started on IV Bumex and also requiring BiPAP initially. Patient has been transitioned down to 3 L via nasal cannula with acute hypoxic respiratory failure multifactorial secondary to COPD and CHF. Patient does not normally wear oxygen outpatient. Patient with diabetes maintained on sliding scale along with Accu-Cheks and recommend to continue heart healthy and diabetic diet. Patient will continue with long-acting along with sliding scale insulin. Patient with extensive lower extremity edema chronic venous stasis has been continued on nystatin powder and would recommend outpatient follow-up with the wound care center. Infectious disease following and patient has been continued on empiric antibiotics with concerns of aspiration pneumonia as patient did have an elevated pro-calcitonin. Patient will continue on oral antibiotics on discharge per ID recommendations. Patient will need outpatient follow-up with cardiology as well as pulmonary outpatient. Currently no reports of chest pain, shortness of breath, or palpitations. Patient is afebrile. No reports of nausea or vomiting and patient is tolerating diet. Patient will be going to [facility] for continued PT/OT therapy today. Physical exam: Gen: This is a 62-year-old female who is awake, alert and oriented 3, well- developed, well-nourished, obese HEENT: Head is atraumatic, normocephalic. Pupils equal, round. Sclerae is anicteric. NECK: Supple. No JVD. No lymphadenopathy. No thyromegaly. LUNGS: Diminished breath sounds bilaterally with no wheezes , coarse scattered rhonchi. No intercostal retractions. HEART: S1, S2 are muffled. ABDOMEN: Soft. Obese. Bowel sounds are present. No masses. No tenderness. EXTREMITIES: No pedal edema. No calf tenderness. NEUROLOGICAL: Patient is awake, alert and oriented x3. Cranial nerves 2 through 12 are grossly intact. Diffusely weak Please refer to medication reconciliation sheet for a list of medications. The impression and plan of care has been dictated by Angela Cervantes, Nurse Practitioner as directed. Dr. Dalia MD I have performed a history and examination and MDM of this patient, discussed the same with the dictator, and agree with the dictator's assessment and plan as written ,documented as a scribe. Based on total visit time, I have performed more than 50% of the visit. Patient Condition at Discharge: Fair Plan - Discharge Summary Discharge Rx Participant: No New Discharge Prescriptions: New Ipratropium-Albuterol Nebulize [Duoneb 0.5 mg-3 mg/3 ml Soln] 3 ml INHALATION RT-QID each Nystatin 100,000 Unit/gm Powd [Mycostatin Powder] 1 applic TOPICAL BID each Budesonide [Pulmicort] 1 mg INHALATION RT-BID ml Dapagliflozin Propanediol [Farxiga] 5 mg PO DAILY tab INSULIN ASPART (NovoLOG) [NovoLOG (formulary)] 0 unit SQ ACHS each Acetaminophen Tab [Tylenol] 650 mg PO Q6HR PRN tab PRN Reason: Mild Pain Or Fever > 100.5 Continue Albuterol Sulfate [Albuterol Sulfate Hfa] 2 puff PO RT-Q4H PRN PRN Reason: Cough Amitriptyline HCl [Elavil] 25 mg PO HS Aspirin EC [Ecotrin Low Dose] 81 mg PO DAILY Atorvastatin Calcium [Lipitor] 80 mg PO HS Clopidogrel [Plavix] 75 mg PO DAILY Insulin Glargine,Hum.rec.anlog [Lantus Solostar Pen] 36 units SQ HS Magnesium Oxide [Mag-Ox] 400 mg PO DAILY Montelukast Sodium 10 mg PO HS Spironolactone [Aldactone] 12.5 mg PO DAILY Albuterol Nebulized [Ventolin Nebulized] 2.5 mg INHALATION RT-Q6H PRN PRN Reason: Shortness Of Breath Escitalopram [Lexapro] 20 mg PO DAILY [place]-3 Fatty Acids [[place]-3] 1,000 mg PO DAILY Metoprolol Tartrate [Lopressor] 25 mg PO BID Changed Bumetanide [BUMEX] 1 mg PO BID #0 Discontinued Insulin Lispro [humaLOG Kwikpen] 4 unit SQ AC-TID Canagliflozin [Invokana] 100 mg PO DAILY Dulaglutide [Trulicity] 1.5 mg SQ FR Discharge Medication List Albuterol Nebulized [Ventolin Nebulized] 2.5 mg INHALATION RT-Q6H PRN 11/14/22 [History] Albuterol Sulfate [Albuterol Sulfate Hfa] 2 puff PO RT-Q4H PRN 11/14/22 [History] Amitriptyline HCl [Elavil] 25 mg PO HS 11/14/22 [History] Aspirin EC [Ecotrin Low Dose] 81 mg PO DAILY 11/14/22 [History] Atorvastatin Calcium [Lipitor] 80 mg PO HS 11/14/22 [History] Clopidogrel [Plavix] 75 mg PO DAILY 11/14/22 [History] Escitalopram [Lexapro] 20 mg PO DAILY 11/14/22 [History] Insulin Glargine,Hum.rec.anlog [Lantus Solostar Pen] 36 units SQ HS 11/14/22 [History] Magnesium Oxide [Mag-Ox] 400 mg PO DAILY 11/14/22 [History] Montelukast Sodium 10 mg PO HS 11/14/22 [History] [place]-3 Fatty Acids [[place]-3] 1,000 mg PO DAILY 11/14/22 [History] Metoprolol Tartrate [Lopressor] 25 mg PO BID 01/02/23 [History] Spironolactone [Aldactone] 12.5 mg PO DAILY 01/02/23 [History] Acetaminophen Tab [Tylenol] 650 mg PO Q6HR PRN tab 01/08/23 [Rx] Budesonide [Pulmicort] 1 mg INHALATION RT-BID ml 01/08/23 [Rx] Bumetanide [BUMEX] 1 mg PO BID #0 01/08/23 [Rx] Dapagliflozin Propanediol [Farxiga] 5 mg PO DAILY tab 01/08/23 [Rx] INSULIN ASPART (NovoLOG) [NovoLOG (formulary)] 0 unit SQ ACHS each 01/08/23 [Rx] Ipratropium-Albuterol Nebulize [Duoneb 0.5 mg-3 mg/3 ml Soln] 3 ml INHALATION RT-QID each 01/08/23 [Rx] Nystatin 100,000 Unit/gm Powd [Mycostatin Powder] 1 applic TOPICAL BID each 01/08/23 [Rx] Follow up Appointment(s)/Referral(s): Daron Norman MD [STAFF PHYSICIAN] - 2 Weeks Kilo Dumont DO [Primary Care Provider] - 1 Week Devyn Martin MD [STAFF PHYSICIAN] - 10 Days Ambulatory/Diagnostic Orders: Complete Blood Count w/diff [LAB.AMB] Time Frame: 3 Days, Location: None Selected Activity/Diet/Wound Care/Special Instructions: Patient is going to [facility] Activity as tolerated Continue with medications as prescribed Repeat CBC, CMP and magnesium in 2-3 days Continue Accu-Cheks before meals and at bedtime along with sliding scale and long-acting NovoLog sliding scale 0-150 equals 0 units 151-200 equals 2 units 201-250 equals 4 units 251-300 equals 6 units 301-350 equals 8 units 351-400 equals 10 units Please notify provider if blood sugar is 400 or above Follow-up with pulmonary outpatient Continue heart healthy diabetic diet with fluid restrictions of 1500 mL daily Continue using incentive spirometer at least 10 times every hour while awake Continue using nystatin to bilateral lower extremities and elevating while at rest Patient would benefit from wound care in the outpatient setting Discharge Disposition: TRANSFER TO SNF/ECF
[2023-01-08 16:13] LABS: Glucose,Whole Blood 131 mg/dL (70-110)
--- NOTE | 2023-01-08 16:22 | P.PN ---
Subjective Progress Note Date: 01/08/23 69-year-old. Patient presenting to the hospital because of worsening shortness of breath. The patient was dyspneic and hypoxemic and the patient was placed on CPAP by EMS. The patient apparently was having some nonproductive cough along with worsening shortness of breath. She was noted to be quite hypoxic with a pulse ox of low 80s prior to her arriving to the emergency department. She denied having any chest pain. No reported fever or chills. She is known to have COPD and congestion heart failure along with diabetes mellitus. 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 She has undergone previous vascular bypass surgery. She suffers from chronic anxiety and depression and she is a former smoker. She is known to have coronary artery disease with previous coronary stenting. Her CHF is essentially systolic in nature with an ejection fraction of 35%, she has had previous CVA involving the right cerebral hemisphere and some residual chronic left-sided weakness, carotid artery disease with total occlusion of the right internal carotid artery, previous history of DVT and pulmonary embolism maintain on anticoagulation with the Route to, COPD, chronic lymphedema, psoriasis, obesity. The patient is a white cell count was at 8.7 with a hemoglobin of 10.7 and a platelet count of 270. Normal cognition profile. Blood gas was done on a FiO2 of 32% that showed a pH of 7.4 with a pCO2 of 41 and pO2 of 91. Sodium level is at 134 with a potassium level of 5.1, BUN is 43 with a creatinine of 1.3. Lactic acid level was initially at 2.2 and a drop down to 1.4. ProBNP level was 24,500 and the troponin was at 0.39 9. EKG showed Q waves over the anterior leads. The patient is sinus rhythm. No significant tachycardia. No significant ST segment changes. The chest x-ray showed small right-sided pleural effusion. Mild splenomegaly and pulmonary vessel congestion consistent with CHF. No evidence of any consolidation or airspace disease. At this point in time, the patient is on a BiPAP at a pressure of 12/6 with an FiO2 of 40%. She is awake and alert. She is generating tidal volume above 500 and she has an adequate minute ventilation. No significant tachypnea. Awake and alert and communicating. The of any chest pain. Given Lasix in the emergency department. As noted, the patient had a recent hospitalization for hypoxic respiratory failure and the Safe heart failure. She is known to have systolic heart failure with an ejection fraction of 35%. Upon discharge, the patient was placed on Lasix 40 mg by mouth daily and Aldactone. Catheterization that was done on 11/19/2022 showed total occlusion of the PDL branch of the RCA, intermediate disease involving the ostial and proximal LAD, elevated left sided filling pressures and the patient was offered medical treatment with a dual aspirin and Plavix. No interventions were done. On today's evaluation of 01/03/2023, I'm seeing the patient for a follow-up. The patient is being treated for decompensated CHF and fluid overload. The patient is currently on IV Lasix. She was taken off the BiPAP and the patient is currently on 2 L of oxygen by nasal cannula. Overall, she is doing much better. She is producing adequate urine output. BUN today's of 50 with a creatinine of 1.24 and a sodium level is at 134. No chest pain. No altered mentation. No other new complaints otherwise for now. A limited echo cardiac exam was done and the patient was found to have a LV function with an ejection fraction of 35%. The patient also has moderate degree of mitral regurgitation moderate degree of pulmonary hypertension. Repeat chest x-ray from today is still showing a cardiomegaly and bilateral pleural effusion more so on the right and pulmonary vascular congestion. Overall findings are essentially same as yes terday terms of the chest x-ray. Clinically however, the patient is improved considerably. On 01/04/2023, the patient is being seen for a follow-up. The patient is currently on oxygen 2 L/m nasal cannula with a pulse ox of 94%. She is diuresing and she is currently in a negative fluid balance. She remains on IV Lasix. Cardiology switched to oral Bumex. I think there is also for further diuresis as the patient continues to have pulmonary vascular congestion and right-sided pleural effusion. I suggest continuing the diuretics and a platelet the patient on Bumex IV 1 mg every 8 hours for another 24 hours. The patient is on IV Zosyn. The patient is on Levemir insulin 36 units and a sliding scale coverage. The patient remains on aspirin and Plavix. The patient is also on bronchodilators. The BUN is at 49 with a creatinine of 1.2. The white cell count 7.6 with a hemoglobin of 10.9 and the patient has a platelet count of 262. On 01/05/2023, the patient remains on IV Bumex 1 mg every 12 hours. Negative fluid balance. The patient is producing adequate amount of urine output. Still has edema lower extremities bilaterally. A repeat chest x-ray was done and a chest x-ray shows bilateral lower lobe opacity/effusion, likely a sequelae of CHF. The patient remains on 3 L of oxygen nasal cannula. The patient has a BUN of 42 with a creatinine of 1.3. Sodium level is at 135. The menisci thousand 8.3 with a hemoglobin of 10.8 and a platelet count of 273. No chest pain. No other complaints otherwise for now. On 01/06/2022, the patient is being seen for a follow-up. She continues to be on IV Bumex. BUN is at 41 with a creatinine of 1.1. Sodium is at 137. The results of that 7.3 with a hemoglobin of 11.0. The patient remains aphasic nasal cannula. No chest pain. She has chronic psoriasis and chronic lower same the edema. She is currently on Bumex 1 mg IV every 12 hours. She remains on IV Zosyn as an empiric antibiotic coverage. Pulse ox is 95% liters of oxygen by nasal cannula. Reevaluated today on 01/07/2023, patient is feeling better, remains on IV Bumex, 1 mg IV push every 12 hours. Remains on bronchodilators. On 3 L nasal cannula, O2 saturations 99%. CBC is relatively normal except for hemoglobin of 10.9 basic metabolic profile is normal BUN is 37 creatinine 1.2, not much change since admission on 01/02 and creatinine was 1.3 chest x-ray continues to show bilateral interstitial edema, pleural effusions, underlying pneumonia is not entirely ruled out, but clinically felt to be less likely. I still believe the presentation is mostly a presentation of congestive heart failure nonetheless the patient did have an elevated pro calcitonin level of 2.23, and infectious disease recommended treatment for presumptive aspiration pneumonia The patient is seen today 01/08/2023 in follow-up on the selective care unit. She is currently sitting up in a chair at the bedside. Awake and alert in no acute distress. Maintaining O2 saturations in the 90s on 3 L/m per nasal cannula. She's been alternating with BiPAP 12/6 and 40% FiO2. Normal saline at KVO. Chest x-ray reveals improving pulmonary vascular congestion and bibasilar airspace disease. Glucose 131. She is continued on DuoNeb inhalations, Pulmicort and Perforomist inhalations, Singulair. Antibiotics in the form of Zosyn. Remains on IV Bumex and Aldactone. Currently in a -1.1 L balance. Slightly less lower extremity edema. Objective - Vital Signs Vital signs: Vital Signs Temp 97.6 F 01/08/23 12:00 Pulse 80 01/08/23 16:04 Resp 16 01/08/23 12:00 BP 116/74 01/08/23 12:00 Pulse Ox 97 01/08/23 12:00 FiO2 40 01/07/23 13:11 Intake & Output 01/07/23 01/08/23 01/08/23 18:59 06:59 18:59 Intake Total 240 440 Output Total 700 700 300 Balance -460 -700 140 Weight 89 kg 89 kg Intake: Oral 240 440 Output: Urine 700 700 300 Other: Voiding Method External Catheter External Catheter External Catheter - Exam GENERAL EXAM: Alert, pleasant 62-year-old female, up in a chair, on 3 L nasal cannula comfortable in no apparent distress. HEAD: Normocephalic. EYES: Normal reaction of pupils, equal size. NOSE: Clear with pink turbinates. THROAT: No erythema or exudates. NECK: No masses, no JVD. CHEST: No chest wall deformity. LUNGS: Equal air entry with faint crackles in the bilateral bases. CVS: S1 and S2 normal with no audible murmur, regular rhythm. ABDOMEN: No hepatosplenomegaly, normal bowel sounds, no guarding or rigidity. SPINE: No scoliosis or deformity SKIN: Evidence of leg ulcers/plaque psoriasis CENTRAL NERVOUS SYSTEM: No focal deficits, tone is normal in all 4 extremities. EXTREMITIES: Chronic changes of the bilateral lower extremities. There is an to 2+ peripheral edema. Previous amputation of the right fourth and fifth toes Peripheral pulses are intact. - Labs CBC & Chem 7: 01/07/23 07:44 01/07/23 07:44 Labs: Abnormal Lab Results - Last 24 Hours (Table) 01/07/23 01/08/23 Range/Units 20:46 16:12 POC Glucose (mg/dL) 165 H 131 H (70-110) mg/dL Assessment and Plan Assessment: Acute on chronic hypoxic respiratory failure secondary to an acute on chronic systolic congestive heart failure with ejection fraction of 35% Doubt aspiration pneumonia, empirically on Zosyn Underlying COPD Peripheral vessel occlusive disease with previous femoral-popliteal bypass surgey History of DVT and pulmonary embolism maintained on Xarelto History of CVA and left-sided weakness Chronic kidney disease possibly cardiorenal in nature 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 Number of minutes spent on the visit: 10.
[2023-01-08 17:54] VITALS: BP 110/79; PULSE 85; TEMP 97.8
--- NOTE | 2023-01-09 11:52 | CDI ---
Documentation Clarification Form Date: 01/09/2023 11:41:03 AM From: Brittani Munoz Admit Date: 01/02/2023 02:15:00 PM Patient Name: Latrice Marin Visit Number: [id number] Discharge Date: 01/08/2023 07:54:00 PM ATTENTION: The Clinical Documentation Specialists (CDI) and [facility] Coding Staff appreciate your assistance in clarifying documentation. Please respond to the clarification below the line at the bottom and electronically sign. The CDI & [facility] Coding staff will review the response and follow-up if needed. Please note: Queries are made part of the Legal Health Record. If you have any questions, please contact the author of this message via ITS. Dr. Wanda Castanon Aspiration pneumonia is documented in 01/04 ID consult, PN 01/05, 01/06, 01/07 and DCS. For each diagnosis, documentation must be clear to determine if the condition was present at the time of the patients inpatient admission or developed during the hospital stay. Additional clarification regarding the [insert diagnosis] is requested. History/Risk Factors: respiratory failure, cough, evidence of RLL consolidation Clinical Indicators: O2 sat of 90% CXR 01/03 Right basilar infiltrated noted which has increased since prior exam Correlate for aspiration pneumonia. Treatment: Bruno Definition of Present on Admission (POA): A diagnosis present at the time the order for admission to inpatient status was written. Please clarify if Aspiration Pneumonia was POA [ x ] Y = Yes, the condition was present at the time of the order for inpatient admission. [ ] N = No, the condition was not present at the time of the order for inpatient admission. [ ] W = Clinically undetermined if the condition was present at the time of the order for inpatient admission. MTDD
== END 2023-01-08 19:54 | DRG 194 ==
LOC: EC 11:21 → 3SCARD 14:15
PROVIDERS: ADMIT Internal Medicine; ATTEND Internal Medicine
PROC: 5A09357 Assistance with Respiratory Ventilation, Less than 24 Consecutive Hours, Continuous Positive Airway Pressure (ICD-10-PCS; principal; 2023-01-02)
DX: I13.0 Hypertensive heart and chronic kidney disease with heart failure and stage 1 through stage 4 chronic kidney disease, or unspecified chronic kidney disease (principal); J69.0 Pneumonitis due to inhalation of food and vomit; I50.23 Acute on chronic systolic (congestive) heart failure; I25.10 Atherosclerotic heart disease of native coronary artery without angina pectoris; I25.82 Chronic total occlusion of coronary artery; E11.22 Type 2 diabetes mellitus with diabetic chronic kidney disease; J96.21 Acute and chronic respiratory failure with hypoxia; E11.51 Type 2 diabetes mellitus with diabetic peripheral angiopathy without gangrene; E66.2 Morbid (severe) obesity with alveolar hypoventilation; E78.5 Hyperlipidemia, unspecified; J44.1 Chronic obstructive pulmonary disease with (acute) exacerbation; I69.354 Hemiplegia and hemiparesis following cerebral infarction affecting left non-dominant side; I87.8 Other specified disorders of veins; N17.9 Acute kidney failure, unspecified; Z68.31 Body mass index [BMI] 31.0-31.9, adult; F32.A Depression, unspecified; F41.9 Anxiety disorder, unspecified; L40.9 Psoriasis, unspecified; R44.3 Hallucinations, unspecified; I27.20 Pulmonary hypertension, unspecified; R26.9 Unspecified abnormalities of gait and mobility; I08.0 Rheumatic disorders of both mitral and aortic valves; I25.2 Old myocardial infarction; Z86.718 Personal history of other venous thrombosis and embolism; Z86.711 Personal history of pulmonary embolism; Z89.411 Acquired absence of right great toe; Z89.421 Acquired absence of other right toe(s); Z88.1 Allergy status to other antibiotic agents; Z79.4 Long term (current) use of insulin; Z79.82 Long term (current) use of aspirin; Z79.02 Long term (current) use of antithrombotics/antiplatelets; Z79.899 Other long term (current) drug therapy; Z79.84 Long term (current) use of oral hypoglycemic drugs
CPT/HCPCS: 36415; 36600; 71045; 80048; 80053; 82805; 83036; 83605; 83735; 83880; 84145; 84484; 85025; 85610; 85730; 93005; 93308; 94640; 94660; 94760; 96374; 99291